=== PATIENT | male | born 1980 | race American Indian/Alaskan Native ===

== ENCOUNTER 2017-08-27 15:28 | Inpatient (IN) | payer OTHER ==
[2017-08-27] MEDS ORDERED: TYLENOL PO ONE ×2 (16:15→19:38)
[2017-08-27 16:39] LABS: Bilirubin,Urine NEG (Negative); Blood,Urine NEG (Negative); Color,Urine Amber (Yellow); Mucus,Urine FEW /HPF; Nitrite,Urine NEG (Negative)
[2017-08-27 17:10] LABS: Basophils % (Auto) 0.5 % (0.0-1.8); Hematocrit 47.9 % (35.5-45.6); Hemoglobin 16.2 gm/dl (11.8-15.2); Lymphocytes # (Auto) 1.2 K/mm3 (1.2-5.4); Lymphocytes % (Auto) 30.3 % (13.4-35.0); Mean Corpuscular HGB Conc 34 % (32-34); Mean Corpuscular Hemoglobin 29 pg (28-32); Mean Corpuscular Volume 87 fl (84-94); Monocytes # (Auto) 0.3 K/mm3 (0.0-0.8); Monocytes % (Auto) 8.4 % (0.0-7.3); Platelet Count 123 K/mm3 (140-440); Red Blood Count 5.53 M/mm3 (3.65-5.03); Red Cell Distribution Width 13.2 % (13.2-15.2)
[2017-08-27 17:49] LABS: BUN/Creatinine Ratio 13; Blood Urea Nitrogen 15 mg/dL (9-20); Calcium 8.7 mg/dL (8.4-10.2); Hemolysis Index 12
[2017-08-27] MEDS ORDERED: ZOFRAN ODT PO ONE (17:51)
[2017-08-27] MEDS ORDERED: ZOFRAN ODT ONE (17:54)
--- NOTE | 2017-08-27 19:28 | Emergency Department Report ---
ED Male HPI - General Chief complaint: Urogenital-Male Stated complaint: SICK Time Seen by Provider: 08/27/17 19:20 Source: patient, family Mode of arrival: Ambulatory Limitations: No Limitations - History of Present Illness Initial comments: Patient reports that he is having body aches, chills and nausea since Wednesday. He reports headache. Denies any shortness of breath or chest pain but reports coughing. Denies any abdominal pain. Denies any sore throat, denies any back pain. Denies any urinary frequency urgency or burning. Vrck-oyr-owrsazz cold and cough taken without any release. Body ache in an headache is 3 out of 10 and comes and goes. Patient states that he feels weak. MD Complaint: other (flulike symptoms) Onset/Timin -: days(s) Time: 21:23 (patient with body ache and headache) Radiation: none Severity: mild Severity scale (0 -10): 3 Quality: aching Consistency: intermittent Improves with: rest Worsens with: movement denies: discharge, swelling, mass, rash, urinary retention, blood in urine, dysuria, fever, nausea/vomiting, incontinence - Related Data Sexually active: Yes Allergies Allergy/AdvReac Type Severity Reaction Status Date / Time No Known Allergies Allergy Unverified 08/27/17 16:11 ED Review of Systems ROS: Stated complaint: SICK Other details as noted in HPI Comment: All other systems reviewed and negative Constitutional: chills, malaise ENT: congestion. denies: ear pain, throat pain, dental pain, epistaxis Respiratory: cough. denies: orthopnea, shortness of breath, SOB with exertion, SOB at rest, stridor, wheezing Cardiovascular: denies: chest pain, palpitations, dyspnea on exertion, orthopnea , edema, syncope, paroxysmal nocturnal dyspnea Gastrointestinal: nausea. denies: abdominal pain, vomiting, diarrhea, constipation, hematemesis, melena, hematochezia Genitourinary: denies: urgency, dysuria, frequency, hematuria, discharge, testicular pain, testicular mass Musculoskeletal: myalgia. denies: back pain, arthralgia Skin: denies: rash Neurological: headache, weakness. denies: numbness, paresthesias, confusion, abnormal gait, vertigo ED Past Medical Hx - Past Medical History Previous Medical History?: No - Surgical History Past Surgical History?: No - Family History Family history: no significant - Social History Smoking Status: Current Every Day Smoker Substance Use Type: Alcohol, Marijuana ED Physical Exam - General Limitations: No Limitations General appearance: alert, other (patient appears ill but nontoxic) - Head Head exam: Present: atraumatic, normocephalic, normal inspection - Eye Eye exam: Present: normal appearance, PERRL, EOMI. Absent: periorbital swelling , periorbital tenderness Pupils: Present: normal accommodation - ENT ENT exam: Present: normal exam, normal orophraynx, mucous membranes moist, other (the lateral nasal mucosa congested with erythema and clear drainage). Absent: TM's normal bilaterally (vaginal TM congested without any erythema) - Neck Neck exam: Present: normal inspection, full ROM, other (no C-spine tenderness). Absent: tenderness, meningismus, lymphadenopathy, thyromegaly - Respiratory Respiratory exam: Present: normal lung sounds bilaterally, chest wall tenderness. Absent: respiratory distress, wheezes, rales, rhonchi, stridor, accessory muscle use, decreased breath sounds, prolonged expiratory - Cardiovascular Cardiovascular Exam: Present: regular rate, normal rhythm, normal heart sounds. Absent: systolic murmur, diastolic murmur - GI/Abdominal GI/Abdominal exam: Present: soft, normal bowel sounds. Absent: distended, tenderness, guarding, rebound, rigid, organomegaly, mass, bruit, pulsatile mass - Extremities Exam Extremities exam: Present: normal inspection, full ROM, normal capillary refill , other (no clubbing, cyanosis or edema. +2 pulses to all extremities. No neurovascular compromise.). Absent: tenderness, pedal edema, joint swelling, calf tenderness - Back Exam Back exam: Present: normal inspection, full ROM, other (ambulates without any difficulties). Absent: tenderness, CVA tenderness (R), CVA tenderness (L), muscle spasm, paraspinal tenderness, vertebral tenderness, rash noted - Neurological Exam Neurological exam: Present: alert, oriented X3, normal gait, reflexes normal. Absent: motor sensory deficit - Psychiatric Psychiatric exam: Present: normal affect, normal mood - Skin Skin exam: Present: warm, dry, intact, normal color. Absent: rash ED Course Vital Signs 08/27/17 08/27/17 08/27/17 16:04 20:12 21:34 Temperature 103.0 F H Pulse Rate 90 84 Respiratory 20 20 20 Rate Blood Pressure 113/52 117/66 O2 Sat by Pulse 97 94 Oximetry 08/27/17 21:38 Temperature 100.3 F H Pulse Rate Respiratory Rate Blood Pressure O2 Sat by Pulse Oximetry Vital Signs 08/27/17 08/27/17 08/27/17 16:04 20:12 21:34 Temperature 103.0 F H Pulse Rate 90 84 Respiratory 20 20 20 Rate Blood Pressure 113/52 117/66 O2 Sat by Pulse 97 94 Oximetry 08/27/17 08/28/17 08/28/17 21:38 03:03 05:06 Temperature 100.3 F H 102.3 F H Pulse Rate 87 Respiratory 20 20 Rate Blood Pressure 111/55 O2 Sat by Pulse 91 Oximetry 08/28/17 08/28/17 05:07 06:20 Temperature 99.4 F Pulse Rate 80 Respiratory 20 18 Rate Blood Pressure 110/54 O2 Sat by Pulse 92 Oximetry - Reevaluation(s) Reevaluation #1: 08/27/17 20:32 Patient started on IV fluid normal saline 1 L and he received Zofran 4 mg IV . Tylenol 650 mg given. Patient is stable at present. Reevaluation #2: 08/27/17 21:[address] Murray regarding patient blood work and presentation and she wants patient to be admitted for observation. Patient had 1 L of IV fluid normal saline, CBC with platelets at 123, mild decrease in white count at 3.9, chemistries stable, urinalysis is normal. Blood cultures and urine cultures ordered. Patient chest x-ray reveals that he has left lower lobe infiltrates versus atelectasis. Pt updated on labs, x-ray and plan to admit. IV fluid normal saline at 125 mL per hour Reevaluation #3: 08/27/17 21:[address] Beckford who is a hospitalist and he will see an admitted patient. Patient vital signs are stable is afebrile ED Medical Decision Making - Lab Data Result diagrams: 08/27/17 17:00 08/27/17 17:00 Lab Results 08/27/17 08/27/17 08/27/17 Range/Units 16:27 17:00 17:00 WBC 3.9 L (4.5-11.0) K/mm3 RBC 5.53 H (3.65-5.03) M/mm3 Hgb 16.2 H (11.8-15.2) gm/dl Hct 47.9 H (35.5-45.6) % MCV 87 (84-94) fl MCH 29 (28-32) pg MCHC 34 (32-34) % RDW 13.2 (13.2-15.2) % Plt Count 123 L (140-440) K/mm3 Lymph % (Auto) 30.3 (13.4-35.0) % [place] % (Auto) 8.4 H (0.0-7.3) % Eos % (Auto) 0.0 (0.0-4.3) % Baso % (Auto) 0.5 (0.0-1.8) % Lymph # 1.2 (1.2-5.4) K/mm3 [place] # 0.3 (0.0-0.8) K/mm3 Eos # 0.0 (0.0-0.4) K/mm3 Baso # 0.0 (0.0-0.1) K/mm3 Seg Neutrophils % 60.8 (40.0-70.0) % Seg Neutrophils # 2.4 (1.8-7.7) K/mm3 Sodium 131 L (137-145) mmol/L Potassium 3.8 (3.6-5.0) mmol/L Chloride 94.1 L (98-107) mmol/L Carbon Dioxide 20 L (22-30) mmol/L Anion Gap 21 mmol/L BUN 15 (9-20) mg/dL Creatinine 1.2 (0.8-1.5) mg/dL Estimated GFR > 60 ml/min BUN/Creatinine Ratio 13 % Glucose 100 (75-100) mg/dL Calcium 8.7 (8.4-10.2) mg/dL Urine Color Fernanda (Yellow) Urine Turbidity Clear (Clear) Urine pH 6.0 (5.0-7.0) Ur Specific [place] 1.023 (1.003-1.030) Urine Protein 30 mg/dl (Negative) mg/dL Urine Glucose (UA) Neg (Negative) mg/dL Urine Ketones Neg (Negative) mg/dL Urine Blood Neg (Negative) Urine Nitrite Neg (Negative) Urine Bilirubin Neg (Negative) Urine Urobilinogen 4.0 (<2.0) mg/dL Ur Leukocyte Esterase Neg (Negative) Urine WBC (Auto) 6.0 (0.0-6.0) /HPF Urine RBC (Auto) 5.0 (0.0-6.0) /HPF U Epithel Cells (Auto) < 1.0 (0-13.0) /HPF Urine Mucus Few /HPF Urine culture pending Blood culture pending - Radiology Data Radiology results: report reviewed Chest x-ray reveals linear cheli and in the lung base on lateral view, probably in the lingula. Findings consistent with atelectasis versus infiltrates - Medical Decision Making ED course: Patient here complaining of flulike symptoms 5 days. Influenza A and B-, chest x-ray suggests then probably atelectasis versus infiltrates in the lower lung. CBC abnormal with platelet count of 123, chemistry with some abnormal values. Sodium is 131. Urinalysis is normal. Patient had blood cultures drawn and sent, urine culture pending. Patient said that he is not aware of having low platelet and he has not been told that in the past. Therefore this is probably due to viral syndrome. Patient was given IV fluid normal saline 1 L, Zofran 8 mg ODT in triage and an additional Zofran 4 mg IV. He was given Tylenol 975 mg by mouth in triage and additional Tylenol 650 mg by mouth in ED room. IV fluid normal saline infusing at 125 mL per hour. I discussed plans the patient along with chest x-ray, lab results and decision to admit and is in agreement. Awaiting results for lactic acid and CK. IV Levaquin 750 mg given after blood cultures drawn. Patient is stable and in no acute distress. Patient to start on Tamiflu. Critical care attestation.: If time is entered above; I have spent that time in minutes in the direct care of this critically ill patient, excluding procedure time. ED Disposition Clinical Impression: Viral syndrome, Fever and chills, Hyponatremia, Cough in adult, Thrombocytopenia Disposition: OP ADMIT IP TO THIS HOSP Is pt being admited?: Yes Does the pt Need Aspirin: No Condition: Stable
[2017-08-27] MEDS ORDERED: MOTRIN PO ONE (19:29)
[2017-08-27] MEDS ORDERED: NACL 0.9% 1000 ML 1,000 ML IV ONE ×2 (19:29→20:52)
[2017-08-27] MEDS ORDERED: ZOFRAN IV ONE (19:38)
--- NOTE | 2017-08-27 20:21 | XRay Report ---
FINAL REPORT EXAM: XR CHEST ROUTINE 2V HISTORY: cough fever TECHNIQUE: PA and lateral views of the chest PRIORS: None. FINDINGS: Lines, tubes, and devices: N/A Lungs and pleura: Trachea is normal in position. There are linear markings on the lateral view within the lung base which may represent atelectasis or early infiltrate. The location on the frontal film is uncertain possibly in the lingula. Lungs are otherwise clear of infiltrate, pleural effusion, vascular congestion, or pneumothorax. Cardiomediastinal silhouette: Cardiac and mediastinal silhouettes are unremarkable. Other: Bony structures are intact. IMPRESSION: Linear markings in the lung base on the lateral view, probably in the lingula. Findings are consistent with atelectasis versus early infiltrate.
[2017-08-27] MEDS ORDERED: LEVAQUIN 750MG/150ML 750 MG/150 ML BAG IV ONE (20:52)
[2017-08-27] MEDS: TAMIFLU PO SCH (21:50)
--- NOTE | 2017-08-28 | Event Note ---
Date: 08/27/17 See dictated H/p in reports SIRS Early Pneumonia Viral Syndrome Hyponatremia-mild Thrombocytopenia-mild
[2017-08-28] MEDS ORDERED: AMBIEN PO PRN (02:57)
[2017-08-28] MEDS ORDERED: DILAUDID IV PRN (02:57)
[2017-08-28] MEDS ORDERED: MILK OF MAGNESIA PO PRN (02:57)
[2017-08-28] MEDS ORDERED: DULCOLAX PR PRN (02:57)
[2017-08-28] MEDS ORDERED: MORPHINE IV PRN (02:57)
--- NOTE | 2017-08-28 03:48 | History and Physical Report ---
CHIEF COMPLAINT: Fever and chills since Wednesday, which is 5 days ago. HISTORY OF PRESENT ILLNESS: A 37-year-old -[place] male with no significant past medical history, comes in for fever and chills since Wednesday, which is 08/22/2017. Also, headaches. Also lower back and muscle pains. Some nausea present. The patient has been taking auen-ywt-dgriwci medications, but not helping. Body aches are about 8 on a scale of 1-10. No exacerbating or relieving factors. In summary, the patient has a low back pain and muscle pains in both lower extremities and also occasional headache. Fever and chills. Denies any sore throat. PAST MEDICAL HISTORY: No significant past medical history. PAST SURGICAL HISTORY: None. FAMILY HISTORY: No significant family history. SOCIAL HISTORY: Smokes over a pack a day every day. Alcohol occasionally and marijuana occasionally. REVIEW OF SYSTEMS: HEENT: No sore throat, no postnasal drip. CARDIOVASCULAR AND RESPIRATORY: No shortness of breath. No chest pain, no palpitations. Slight dry cough present. GASTROINTESTINAL: Some nausea or vomiting x 1 present. Otherwise, no GI symptoms. GENITOURINARY: No dysuria, no flank pain. MUSCULOSKELETAL: Generalized muscle aches all over the body, especially lower back and both lower extremities. CENTRAL NERVOUS SYSTEM: No syncope, no seizures, no altered sensorium. SKIN: No rashes. A 14-point review of systems done, otherwise negative. PHYSICAL EXAMINATION: GENERAL: Young male, cooperative during examination. VITAL SIGNS: Blood pressure is 113/52, temperature is 103.0, respiratory rate is 20, sats are 97%. HEENT: Unremarkable except for the tongue being slightly dry. NECK: Supple, no lymphadenopathy, no thyromegaly. LUNGS: Clear to auscultation and percussion. Good air entry. Scattered rales bilaterally. CARDIOVASCULAR: S1, S2 heard. No gallop, no murmur, no rub. Apical impulse in left fifth intercostal space and midclavicular line. ABDOMEN: Soft and benign. No hepatosplenomegaly. No guarding, no rigidity. Hernial orifices are normal. EXTREMITIES: Good pedal pulses. No pedal edema. SKIN: Normal. LABORATORY DATA: Significant for white count of 3900, H and H is 16.2 and 47.9, platelet count is 123,000, slightly low. CK is 740. Sodium is 131. Urinalysis is negative. Chest x-ray shows linear markings in the lung base on the lateral view probably in the lingula. Findings are consistent with atelectasis versus early infiltrate. ASSESSMENT AND PLAN: 1. Systemic inflammatory response syndrome. The patient qualifies for systemic inflammatory response syndrome. The patient had high fever and infiltrate on the chest x-ray. Also tachycardic. Lactic acid was negative. IV fluids and IV antibiotics for the time being. 2. Pneumonia early stage. The patient initiated on IV Levaquin and IV antibiotics. IV fluids. 3. Hyponatremia, mild. Should correct with IV normal saline. 4. Thrombocytopenia, mild, secondary to probably viral syndrome and suppression of bone marrow. 5. Viral syndrome. The patient initiated on Tamiflu 75 b.i.d. 6. Deep venous thrombosis prophylaxis, Lovenox 40 mg subcutaneous daily. Prognosis fair. In summary, the patient is getting IV fluids, Tamiflu, and Levaquin 750 q. 24 hours. JOB# [id number] VSM/NTS
[2017-08-28] MEDS: TYLENOL PO PRN ×2 (05:06→15:42)
[2017-08-28] MEDS: PERCOCET 5/325 PO PRN (05:07)
[2017-08-28] MEDS: TAMIFLU PO SCH ×3 (05:08→21:49)
[2017-08-28] MEDS: D5NS 1,000 ML IV SCH ×2 (05:09→18:47)
[2017-08-28 07:56] LABS: Basophils % (Auto) 0.4 % (0.0-1.8); Hematocrit 44.7 % (35.5-45.6); Hemoglobin 15.1 gm/dl (11.8-15.2); Lymphocytes # (Auto) 0.9 K/mm3 (1.2-5.4); Lymphocytes % (Auto) 28.5 % (13.4-35.0); Mean Corpuscular HGB Conc 34 % (32-34); Mean Corpuscular Hemoglobin 30 pg (28-32); Mean Corpuscular Volume 88 fl (84-94); Monocytes # (Auto) 0.2 K/mm3 (0.0-0.8); Monocytes % (Auto) 8.2 % (0.0-7.3); Platelet Count 104 K/mm3 (140-440); Red Blood Count 5.06 M/mm3 (3.65-5.03); Red Cell Distribution Width 13.3 % (13.2-15.2)
[2017-08-28 08:19] LABS: Alanine Aminotransferase 22 units/L (7-56); Albumin 3.6 g/dL (3.9-5); BUN/Creatinine Ratio 12; Blood Urea Nitrogen 13 mg/dL (9-20); Calcium 8.1 mg/dL (8.4-10.2); Hemolysis Index 3
[2017-08-28] MEDS: LEVAQUIN 750MG/150ML 750 MG/150 ML BAG IV SCH (10:26)
--- NOTE | 2017-08-28 15:24 | Progress Note ---
Assessment and Plan Assessment and plan: Patient is a 37-year-old man with a history of tobacco dependency who presented with body aches, fevers and chills with nausea 2v Chest x-ray reported as linear markings in the lung base on the lateral probably in the lingula consistent with atelectasis versus early infiltrate Rapid Influenza test negative Rapid strep negative Blood culture in progress -Sepsis Left Lingular pneumonia: follow cultures, ivf, iv abx -Suspected influenza: continue tamiflu, started isolation -Tobacco dependancy: advise to stopped History Interval history: Patient was seen and examined. Follow-up on current diagnosis arthralgias which are improved. Overnight uneventful. Patient denies any chest pain, shortness breath, nausea/vomiting or severe headaches. Imaging, nursing note, chart, labs and old chart reviewed. Discussed with patient. Patient has nonproductive cough. Patient states he feels slightly better today. Hospitalist Physical - Physical exam Narrative exam: GEN: WDWN, NAD, AWAKE, ALERT, ORIENTATED 3 HEENT: NCAT, EOMI, PERRL, OP Clear NECK: supple, no adenopathy, no thyromegaly, no JVD CVS/HEART: RRR, NORMAL S1S2, NO JVD, pulses present bilaterally CHEST/LUNGS: CTA B, Symmetrical chest expansion, good air entry bilaterally GI/Abdomen: soft, NTND, good bowel sounds, no guarding or rebound /Bladder: no suprapubic tenderness, no CVA or paraspinal tenderness EXT/Skin: no c/c/e, no obvious rash MSK: FROM x 4 Neuro: CN 2-12 grossly intact, no new focal deficits Psych: calm - Constitutional Vitals: Temp Pulse Resp BP Pulse Ox 99.2 F 76 20 110/64 95 08/28/17 08:07 08/28/17 08:07 08/28/17 08:07 08/28/17 08:07 08/28/17 08:07 Results - Labs CBC & Chem 7: 08/28/17 07:48 08/28/17 07:48 Labs: Laboratory Last Values WBC 3.0 K/mm3 (4.5-11.0) L 08/28/17 07:48 RBC 5.06 M/mm3 (3.65-5.03) H 08/28/17 07:48 Hgb 15.1 gm/dl (11.8-15.2) 08/28/17 07:48 Hct 44.7 % (35.5-45.6) 08/28/17 07:48 MCV 88 fl (84-94) 08/28/17 07:48 MCH 30 pg (28-32) 08/28/17 07:48 MCHC 34 % (32-34) 08/28/17 07:48 RDW 13.3 % (13.2-15.2) 08/28/17 07:48 Plt Count 104 K/mm3 (140-440) L 08/28/17 07:48 Lymph % (Auto) 28.5 % (13.4-35.0) 08/28/17 07:48 Bertie % (Auto) 8.2 % (0.0-7.3) H 08/28/17 07:48 Eos % (Auto) 0.0 % (0.0-4.3) 08/28/17 07:48 Baso % (Auto) 0.4 % (0.0-1.8) 08/28/17 07:48 Lymph # 0.9 K/mm3 (1.2-5.4) L 08/28/17 07:48 Bertie # 0.2 K/mm3 (0.0-0.8) 08/28/17 07:48 Eos # 0.0 K/mm3 (0.0-0.4) 08/28/17 07:48 Baso # 0.0 K/mm3 (0.0-0.1) 08/28/17 07:48 Seg Neutrophils % 62.9 % (40.0-70.0) 08/28/17 07:48 Seg Neutrophils # 1.9 K/mm3 (1.8-7.7) 08/28/17 07:48 Sodium 135 mmol/L (137-145) L 08/28/17 07:48 Potassium 3.7 mmol/L (3.6-5.0) 08/28/17 07:48 Chloride 98.7 mmol/L (98-107) 08/28/17 07:48 Carbon Dioxide 22 mmol/L (22-30) 08/28/17 07:48 Anion Gap 18 mmol/L 08/28/17 07:48 BUN 13 mg/dL (9-20) 08/28/17 07:48 Creatinine 1.1 mg/dL (0.8-1.5) 08/28/17 07:48 Estimated GFR > 60 ml/min 08/28/17 07:48 BUN/Creatinine Ratio 12 % 08/28/17 07:48 Glucose 119 mg/dL (75-100) H 08/28/17 07:48 Lactic Acid 0.60 mmol/L (0.7-2.0) L 08/27/17 21:05 Calcium 8.1 mg/dL (8.4-10.2) L 08/28/17 07:48 Total Bilirubin 0.30 mg/dL (0.1-1.2) 08/28/17 07:48 AST 55 units/L (5-40) H 08/28/17 07:48 ALT 22 units/L (7-56) 08/28/17 07:48 Alkaline Phosphatase 40 units/L (35-129) 08/28/17 07:48 Total Creatine Kinase 740 units/L (55-170) H 08/27/17 21:05 Total Protein 6.9 g/dL (6.3-8.2) 08/28/17 07:48 Albumin 3.6 g/dL (3.9-5) L 08/28/17 07:48 Albumin/Globulin Ratio 1.1 % 08/28/17 07:48 Urine Color Fernanda (Yellow) 08/27/17 16:27 Urine Turbidity Clear (Clear) 08/27/17 16:27 Urine pH 6.0 (5.0-7.0) 08/27/17 16:27 Ur Specific [place] 1.023 (1.003-1.030) 08/27/17 16:27 Urine Protein 30 mg/dl mg/dL (Negative) 08/27/17 16:27 Urine Glucose (UA) Neg mg/dL (Negative) 08/27/17 16:27 Urine Ketones Neg mg/dL (Negative) 08/27/17 16:27 Urine Blood Neg (Negative) 08/27/17 16:27 Urine Nitrite Neg (Negative) 08/27/17 16:27 Urine Bilirubin Neg (Negative) 08/27/17 16:27 Urine Urobilinogen 4.0 mg/dL (<2.0) 08/27/17 16:27 Ur Leukocyte Esterase Neg (Negative) 08/27/17 16:27 Urine WBC (Auto) 6.0 /HPF (0.0-6.0) 08/27/17 16:27 Urine RBC (Auto) 5.0 /HPF (0.0-6.0) 08/27/17 16:27 U Epithel Cells (Auto) < 1.0 /HPF (0-13.0) 08/27/17 16:27 Urine Mucus Few /HPF 08/27/17 16:27
[2017-08-28] MEDS: MOTRIN PO PRN (18:56)
[2017-08-29] MEDS: MOTRIN PO PRN ×2 (04:19→17:36)
[2017-08-29] MEDS: TYLENOL PO PRN ×2 (06:33→15:30)
[2017-08-29] MEDS: D5NS 1,000 ML IV SCH ×2 (06:48→17:24)
[2017-08-29 07:49] LABS: Basophils % (Auto) 0.3 % (0.0-1.8); Hematocrit 45.8 % (35.5-45.6); Hemoglobin 15.4 gm/dl (11.8-15.2); Lymphocytes # (Auto) 1.1 K/mm3 (1.2-5.4); Lymphocytes % (Auto) 25.5 % (13.4-35.0); Mean Corpuscular HGB Conc 34 % (32-34); Mean Corpuscular Hemoglobin 30 pg (28-32); Mean Corpuscular Volume 89 fl (84-94); Monocytes # (Auto) 0.3 K/mm3 (0.0-0.8); Monocytes % (Auto) 6.7 % (0.0-7.3); Red Blood Count 5.14 M/mm3 (3.65-5.03); Red Cell Distribution Width 13.4 % (13.2-15.2)
[2017-08-29 08:00] LABS: Platelet Count 97 K/mm3 (140-440)
[2017-08-29 08:11] LABS: BUN/Creatinine Ratio 9; Blood Urea Nitrogen 9 mg/dL (9-20); Calcium 8.3 mg/dL (8.4-10.2); Hemolysis Index 5
[2017-08-29] MEDS: LEVAQUIN 750MG/150ML 750 MG/150 ML BAG IV SCH (10:52)
[2017-08-29] MEDS: TAMIFLU PO SCH ×2 (10:52→22:55)
[2017-08-29] MEDS: ZOFRAN IV PRN (13:00)
--- NOTE | 2017-08-29 14:53 | Progress Note ---
Assessment and Plan Assessment and plan: Patient is a 37-year-old man with a history of tobacco dependency who presented with body aches, fevers and chills with nausea 2v Chest x-ray reported as linear markings in the lung base on the lateral probably in the lingula consistent with atelectasis versus early infiltrate Rapid Influenza test negative Rapid strep negative Blood culture in progress -Sepsis Left Lingular pneumonia: follow cultures, ivf, iv abx -Suspected influenza: continue tamiflu, started isolation -Tobacco dependancy: advise to stopped History Interval history: Patient was seen and examined. Follow-up on current diagnosis arthralgias which are improved. Overnight febrile. Patient denies any chest pain, shortness breath, nausea/vomiting or severe headaches. Imaging, nursing note, chart, labs and old chart reviewed. Discussed with patient. Patient has nonproductive cough. Patient states he feels slightly better today. Hospitalist Physical - Physical exam Narrative exam: GEN: WDWN, NAD, AWAKE, ALERT, ORIENTATED 3 HEENT: NCAT, EOMI, PERRL, OP Clear NECK: supple, no adenopathy, no thyromegaly, no JVD CVS/HEART: RRR, NORMAL S1S2, NO JVD, pulses present bilaterally CHEST/LUNGS: CTA B, Symmetrical chest expansion, good air entry bilaterally GI/Abdomen: soft, NTND, good bowel sounds, no guarding or rebound /Bladder: no suprapubic tenderness, no CVA or paraspinal tenderness EXT/Skin: no c/c/e, no obvious rash MSK: FROM x 4 Neuro: CN 2-12 grossly intact, no new focal deficits Psych: calm - Constitutional Vitals: Temp Pulse Resp BP Pulse Ox 99.1 F 76 16 114/64 97 08/29/17 08:10 08/29/17 08:10 08/29/17 10:00 08/29/17 08:10 08/29/17 08:10 Results - Labs CBC & Chem 7: 08/29/17 06:21 08/29/17 06:21 Labs: Laboratory Last Values WBC 4.2 K/mm3 (4.5-11.0) L 08/29/17 06:21 RBC 5.14 M/mm3 (3.65-5.03) H 08/29/17 06:21 Hgb 15.4 gm/dl (11.8-15.2) H 08/29/17 06:21 Hct 45.8 % (35.5-45.6) H 08/29/17 06:21 MCV 89 fl (84-94) 08/29/17 06:21 MCH 30 pg (28-32) 08/29/17 06:21 MCHC 34 % (32-34) 08/29/17 06:21 RDW 13.4 % (13.2-15.2) 08/29/17 06:21 Plt Count 97 K/mm3 (140-440) L 08/29/17 06:21 Lymph % (Auto) 25.5 % (13.4-35.0) 08/29/17 06:21 [place] % (Auto) 6.7 % (0.0-7.3) 08/29/17 06:21 Eos % (Auto) 0.0 % (0.0-4.3) 08/29/17 06:21 Baso % (Auto) 0.3 % (0.0-1.8) 08/29/17 06:21 Lymph # 1.1 K/mm3 (1.2-5.4) L 08/29/17 06:21 [place] # 0.3 K/mm3 (0.0-0.8) 08/29/17 06:21 Eos # 0.0 K/mm3 (0.0-0.4) 08/29/17 06:21 Baso # 0.0 K/mm3 (0.0-0.1) 08/29/17 06:21 Seg Neutrophils % 67.5 % (40.0-70.0) 08/29/17 06:21 Seg Neutrophils # 2.8 K/mm3 (1.8-7.7) 08/29/17 06:21 Sodium 137 mmol/L (137-145) 08/29/17 06:21 Potassium 3.7 mmol/L (3.6-5.0) 08/29/17 06:21 Chloride 102.5 mmol/L (98-107) 08/29/17 06:21 Carbon Dioxide 22 mmol/L (22-30) 08/29/17 06:21 Anion Gap 16 mmol/L 08/29/17 06:21 BUN 9 mg/dL (9-20) 08/29/17 06:21 Creatinine 1.0 mg/dL (0.8-1.5) 08/29/17 06:21 Estimated GFR > 60 ml/min 08/29/17 06:21 BUN/Creatinine Ratio 9 % 08/29/17 06:21 Glucose 103 mg/dL (75-100) H 08/29/17 06:21 Lactic Acid 0.60 mmol/L (0.7-2.0) L 08/27/17 21:05 Calcium 8.3 mg/dL (8.4-10.2) L 08/29/17 06:21 Total Bilirubin 0.30 mg/dL (0.1-1.2) 08/28/17 07:48 AST 55 units/L (5-40) H 08/28/17 07:48 ALT 22 units/L (7-56) 08/28/17 07:48 Alkaline Phosphatase 40 units/L (35-129) 08/28/17 07:48 Total Creatine Kinase 740 units/L (55-170) H 08/27/17 21:05 Total Protein 6.9 g/dL (6.3-8.2) 08/28/17 07:48 Albumin 3.6 g/dL (3.9-5) L 08/28/17 07:48 Albumin/Globulin Ratio 1.1 % 08/28/17 07:48 Urine Color [place]anda (Yellow) 08/27/17 16:27 Urine Turbidity Clear (Clear) 08/27/17 16:27 Urine pH 6.0 (5.0-7.0) 08/27/17 16:27 Ur Specific [place] 1.023 (1.003-1.030) 08/27/17 16:27 Urine Protein 30 mg/dl mg/dL (Negative) 08/27/17 16:27 Urine Glucose (UA) Neg mg/dL (Negative) 08/27/17 16:27 Urine Ketones Neg mg/dL (Negative) 08/27/17 16:27 Urine Blood Neg (Negative) 08/27/17 16:27 Urine Nitrite Neg (Negative) 08/27/17 16:27 Urine Bilirubin Neg (Negative) 08/27/17 16:27 Urine Urobilinogen 4.0 mg/dL (<2.0) 08/27/17 16:27 Ur Leukocyte Esterase Neg (Negative) 08/27/17 16:27 Urine WBC (Auto) 6.0 /HPF (0.0-6.0) 08/27/17 16:27 Urine RBC (Auto) 5.0 /HPF (0.0-6.0) 08/27/17 16:27 U Epithel Cells (Auto) < 1.0 /HPF (0-13.0) 08/27/17 16:27 Urine Mucus Few /HPF 08/27/17 16:27
[2017-08-29] MEDS: PERCOCET 5/325 PO PRN (23:20)
[2017-08-30] MEDS: TYLENOL PO PRN ×2 (05:51→10:20)
[2017-08-30] MEDS: D5NS 1,000 ML IV SCH (07:52)
[2017-08-30] MEDS: LEVAQUIN 750MG/150ML 750 MG/150 ML BAG IV SCH (10:21)
[2017-08-30] MEDS: TAMIFLU PO SCH ×2 (10:22→23:56)
[2017-08-30] MEDS: PERCOCET 5/325 PO PRN (13:14)
--- NOTE | 2017-08-30 14:12 | Progress Note ---
Assessment and Plan Assessment and plan: Patient is a 37-year-old man with a history of tobacco dependency who presented with body aches, fevers and chills with nausea 2v Chest x-ray reported as linear markings in the lung base on the lateral probably in the lingula consistent with atelectasis versus early infiltrate Rapid Influenza test negative Rapid strep negative Blood culture in progress, negative so far -Sepsis Left Lingular pneumonia: follow cultures, continue abx, on levaquin and tamiflu -Suspected influenza: continue tamiflu, started isolation -Tobacco dependancy: advise to stopped -DVT prophylaxis: start sq lovenox -Hyponatremia, dehydration resolved with IVF treatment -Leukopenia: check HIV, monitor wbc closely 08/30/17: still with high fevers despite consulted ID, ordered CT abd/pelvis/ chest History Interval history: Patient was seen and examined. Follow-up on current diagnosis arthralgias which are improved. Overnight febrile. Patient denies any chest pain, shortness breath, nausea/vomiting or severe headaches. Imaging, nursing note, chart, labs and old chart reviewed. Discussed with patient. Patient has nonproductive cough. Hospitalist Physical - Physical exam Narrative exam: GEN: ill appearing, NAD, AWAKE, ALERT, ORIENTATED 3 HEENT: NCAT, EOMI, PERRL, OP Clear NECK: supple, no adenopathy, no thyromegaly, no JVD CVS/HEART: RRR, NORMAL S1S2, NO JVD, pulses present bilaterally CHEST/LUNGS: coarse left bs, Symmetrical chest expansion, good air entry bilaterally GI/Abdomen: soft, NTND, good bowel sounds, no guarding or rebound /Bladder: no suprapubic tenderness, no CVA or paraspinal tenderness EXT/Skin: no c/c/e, no obvious rash MSK: FROM x 4 Neuro: CN 2-12 grossly intact, no new focal deficits Psych: calm - Constitutional Vitals: Temp Pulse Resp BP Pulse Ox 102.5 F H 82 20 104/54 92 08/30/17 08:01 08/30/17 08:01 08/30/17 08:01 08/30/17 08:01 08/30/17 08:01 Results - Labs CBC & Chem 7: 08/29/17 06:21 08/29/17 06:21 Labs: Laboratory Last Values WBC 4.2 K/mm3 (4.5-11.0) L 08/29/17 06:21 RBC 5.14 M/mm3 (3.65-5.03) H 08/29/17 06:21 Hgb 15.4 gm/dl (11.8-15.2) H 08/29/17 06:21 Hct 45.8 % (35.5-45.6) H 08/29/17 06:21 MCV 89 fl (84-94) 08/29/17 06:21 MCH 30 pg (28-32) 08/29/17 06:21 MCHC 34 % (32-34) 08/29/17 06:21 RDW 13.4 % (13.2-15.2) 08/29/17 06:21 Plt Count 97 K/mm3 (140-440) L 08/29/17 06:21 Lymph % (Auto) 25.5 % (13.4-35.0) 08/29/17 06:21 [place] % (Auto) 6.7 % (0.0-7.3) 08/29/17 06:21 Eos % (Auto) 0.0 % (0.0-4.3) 08/29/17 06:21 Baso % (Auto) 0.3 % (0.0-1.8) 08/29/17 06:21 Lymph # 1.1 K/mm3 (1.2-5.4) L 08/29/17 06:21 [place] # 0.3 K/mm3 (0.0-0.8) 08/29/17 06:21 Eos # 0.0 K/mm3 (0.0-0.4) 08/29/17 06:21 Baso # 0.0 K/mm3 (0.0-0.1) 08/29/17 06:21 Seg Neutrophils % 67.5 % (40.0-70.0) 08/29/17 06:21 Seg Neutrophils # 2.8 K/mm3 (1.8-7.7) 08/29/17 06:21 Sodium 137 mmol/L (137-145) 08/29/17 06:21 Potassium 3.7 mmol/L (3.6-5.0) 08/29/17 06:21 Chloride 102.5 mmol/L (98-107) 08/29/17 06:21 Carbon Dioxide 22 mmol/L (22-30) 08/29/17 06:21 Anion Gap 16 mmol/L 08/29/17 06:21 BUN 9 mg/dL (9-20) 08/29/17 06:21 Creatinine 1.0 mg/dL (0.8-1.5) 08/29/17 06:21 Estimated GFR > 60 ml/min 08/29/17 06:21 BUN/Creatinine Ratio 9 % 08/29/17 06:21 Glucose 103 mg/dL (75-100) H 08/29/17 06:21 Lactic Acid 0.60 mmol/L (0.7-2.0) L 08/27/17 21:05 Calcium 8.3 mg/dL (8.4-10.2) L 08/29/17 06:21 Total Bilirubin 0.30 mg/dL (0.1-1.2) 08/28/17 07:48 AST 55 units/L (5-40) H 08/28/17 07:48 ALT 22 units/L (7-56) 08/28/17 07:48 Alkaline Phosphatase 40 units/L (35-129) 08/28/17 07:48 Total Creatine Kinase 740 units/L (55-170) H 08/27/17 21:05 Total Protein 6.9 g/dL (6.3-8.2) 08/28/17 07:48 Albumin 3.6 g/dL (3.9-5) L 08/28/17 07:48 Albumin/Globulin Ratio 1.1 % 08/28/17 07:48 Urine Color [place] (Yellow) 08/27/17 16:27 Urine Turbidity Clear (Clear) 08/27/17 16:27 Urine pH 6.0 (5.0-7.0) 08/27/17 16:27 Ur Specific [place] 1.023 (1.003-1.030) 08/27/17 16:27 Urine Protein 30 mg/dl mg/dL (Negative) 08/27/17 16:27 Urine Glucose (UA) Neg mg/dL (Negative) 08/27/17 16:27 Urine Ketones Neg mg/dL (Negative) 08/27/17 16:27 Urine Blood Neg (Negative) 08/27/17 16:27 Urine Nitrite Neg (Negative) 08/27/17 16:27 Urine Bilirubin Neg (Negative) 08/27/17 16:27 Urine Urobilinogen 4.0 mg/dL (<2.0) 08/27/17 16:27 Ur Leukocyte Esterase Neg (Negative) 08/27/17 16:27 Urine WBC (Auto) 6.0 /HPF (0.0-6.0) 08/27/17 16:27 Urine RBC (Auto) 5.0 /HPF (0.0-6.0) 08/27/17 16:27 U Epithel Cells (Auto) < 1.0 /HPF (0-13.0) 08/27/17 16:27 Urine Mucus Few /HPF 08/27/17 16:27
[2017-08-30] MEDS ORDERED: VANCOMYCIN PHARMACY TO DOSE IV SCH (15:00)
--- NOTE | 2017-08-30 15:46 | Cat Scan Report ---
CT CHEST WITHOUT CONTRAST: HISTORY: Sepsis. COMPARISON: none. TECHNIQUE: Helical CT in 1.25mm intervals without IV contrast. Sagittal and coronal reformatted images. FINDINGS: Thyroid gland: Normal. Tracheobronchial tree: Normal. Esophagus: Normal. Heart: Normal. Pericardium: Normal. Mediastinum: Normal. Lung [place]: There is mild groundglass infiltration in both upper lobes. The etiology of this is unclear. This could represent air trapping or early infection. There is no evidence for consolidation or mass. Pleural Spaces: Normal. Musculoskeletal: Normal. IMPRESSION: Subtle groundglass infiltrates in both upper lobes as outlined above.
--- NOTE | 2017-08-30 15:47 | Cat Scan Report ---
CT ABDOMEN PELVIS WITHOUT CONTRAST: HISTORY: abdominal pain. COMPARISON: none. TECHNIQUE: Helical CT in 1.25mm intervals without IV contrast. Sagittal and coronal reconstructions. FINDINGS: Lung bases: Normal. Liver: Normal. Biliary system: Normal. Pancreas: Normal. Spleen: Normal. Kidneys/ureters/bladder: Normal. Adrenal glands: Normal. Aorta: Normal. Intestines: Normal. Appendix: Normal. Pelvic viscera: Normal. Ascites: None. Adenopathy: None. Musculoskeletal: Normal. IMPRESSION: Unremarkable CT scan of the abdomen and pelvis without contrast.
--- NOTE | 2017-08-30 15:52 | Consultation ---
History of Present Illness - Reason for Consult Consult date: 08/30/17 fever Requesting physician: GABE LORENZ - History of Present Illness 37 years old male with history of admitted on 08/27/2017 due to arthritic history of severe lower back pain, body aches, mild headaches, sore throat, cough with yellowish sputum production. Sputum sometimes blood-tinged. Patient did not have the flu shot this season. Patient is sexually active 10 partners in last 12 months. He does not use condoms consistently. He smokes a pack a day and drinks alcohol frequently. In the emergency room, initial temperature was 103, heart rate 90, respiration 20, O2 sat 97, blood pressure 113/52. Initial white count 3.9. Hemoglobin 10.2. Plat 123. Urinalysis was negative. AST 55. Chest x-ray showing a possible early infiltrate at the lingula. CT chest showed groundglass opacification in both upper lobes. Microbiology: Blood cultures: 08/27 ngtd Throat GAS: neg Respiratory cultures: Current Antimicrobials: Tamiflu 08/27 Levaquin 08/28 Previous Antimicrobials: Past History Past Medical History: No medical history Past Surgical History: No surgical history Social history: single, Lives alone, smoking, alcohol abuse Family history: no significant family history Medications and Allergies Allergies Allergy/AdvReac Type Severity Reaction Status Date / Time No Known Allergies Allergy Unverified 08/27/17 16:11 Active Meds: Active Medications Acetaminophen (Tylenol) 650 mg PO Q4H PRN PRN Reason: Pain MILD(1-3)/Fever >100.5/PALM Last Admin: 08/30/17 10:20 Dose: 650 mg Bisacodyl (Dulcolax) 10 mg [place] QDAY PRN PRN Reason: Constipation unrelieved by MOM Enoxaparin Sodium (Lovenox) 40 mg SUB-Q QDAY@1000 CHRISS Hydromorphone HCl (Dilaudid) 0.5 mg IV Q3H PRN PRN Reason: Pain , Severe (7-10) Levofloxacin/Dextrose (Levaquin 750mg/150ml) 750 mg in 150 mls @ 100 mls/hr IV Q24HR CHRISS PRN Reason: Protocol Last Admin: 08/30/17 10:21 Dose: 100 mls/hr Magnesium Hydroxide (Milk Of Magnesia) 30 ml PO Q4H PRN PRN Reason: Constipation Last Admin: 08/30/17 13:14 Dose: 30 ml Morphine Sulfate (Morphine) 2 mg IV Q4H PRN PRN Reason: Pain, Moderate (4-6) Ondansetron HCl (Zofran) 4 mg IV Q8H PRN PRN Reason: N/V unrelieved by Reglan Last Admin: 08/29/17 13:00 Dose: 4 mg Oseltamivir Phosphate (Tamiflu) 75 mg PO BID CHRISS Stop: 08/31/17 22:01 Last Admin: 08/30/17 10:22 Dose: 75 mg Oxycodone/Acetaminophen (Percocet 5/325) 1 tab PO Q6H PRN PRN Reason: Pain, Moderate (4-6) Last Admin: 08/30/17 13:14 Dose: 1 tab Zolpidem Tartrate (Ambien) 5 mg PO QHS PRN PRN Reason: Insomnia Review of Systems All systems: negative (as per HPI rest 10 point ROCS neg) Physical Examination - Physical Exam Narrative exam: General appearance: Alert in NAD, conversant Eyes: anicteric sclerae, moist conjunctivae; no lid-lag; PERRLA HENT: Atraumatic; oropharynx clear Neck: Trachea midline; supple, no thyromegaly or lymphadenopathy Lungs: willow scattered rhonchi CV: RRR, no murmurs Abdomen: Soft, non-tender; no masses or hepatosplenomegaly Extremities: No peripheral edema or extremity lymphadenopathy Skin: Normal temperature, turgor and texture; no rash, ulcers or subcutaneous nodules Psych: Appropriate affect, alert and oriented to person, place and time. Neuro: alert and oriented x 3. Moving all extermities Lines: No CVL / PICC - Constitutional Vitals: Vital Signs Temp Pulse Resp BP Pulse Ox 102.5 F H 82 20 104/54 92 08/30/17 08:01 08/30/17 08:01 08/30/17 08:01 08/30/17 08:01 08/30/17 08:01 Temperature -Last 24 Hours Temperature 102.5 F Temperature 102.8 F Temperature 99.1 F Temperature 98.2 F Temperature 102.9 F Results - Labs CBC & Chem 7: 08/29/17 06:21 08/29/17 06:21 Assessment and Plan Assessment: 1) Sepsis: Present on admission, manifested by fever, tachycardia. Etiology most likely presumed pneumonia +/- influenza. DDx PJP. 2) Presumed bilateral pneumonia: likely Influenza pneumonia +/- CAP +/- less likely PJP 3) Neutropenia, anemia and thrmobocytopenia - from viral syndrome 4) High risk sexual encounters Plan: -follow-up blood cultures -obtain respiratory cultures, procalcitonin, C-reactive protein (CRP) -check influenza antigen PCR in nasopharinx -check Legionella urine antigen, Streptococcus pneumoniae urine antigen -check HIV, VL -continue levaquin and tamiflu -add ceftriaxone -start bactrim DS to cover PJP until HIV is r/o Thank you Dr Lorenz for your consultation, will follow up with you. Maricarmen Houston MD Infectious Diseases Specialist [facility] ([facility] M [phone] O [phone]
[2017-08-30] MEDS ORDERED: ROCEPHIN/NS 2 GM/100 ML 2 GM/100 ML BAG IV SCH (17:00)
[2017-08-30] MEDS: cefTRIAXone 2 GM in NACL 0.9% 20 ML IV SCH (18:30)
[2017-08-30] MEDS: BACTRIM DS PO SCH ×2 (18:30→23:56)
[2017-08-30] MEDS ORDERED: LOVENOX SUB-Q SCH (22:00)
[2017-08-31] MEDS: BACTRIM DS PO SCH (07:01)
--- NOTE | 2017-08-31 10:13 | Progress Note ---
Assessment and Plan Assessment: 1) Sepsis: still high fever. Etiology most likely presumed pneumonia +/- influenza. CRP=3.6 2) Presumed bilateral pneumonia: likely Influenza pneumonia +/- CAP -HIV neg. -Influenza Antigen neg 3) Neutropenia, anemia and thrmobocytopenia - from viral syndrome 4) High risk sexual encounters-HIV non reactive Plan: -obtain respiratory cultures -f/u procalcitonin -check influenza antigen PCR in nasopharinx - pending - sent out -f/u Legionella urine antigen, Streptococcus pneumoniae urine antigen -f/u VL -continue levaquin, tamiflu and ceftriaxone -stop bactrim DS to cover PJP in view of HIV neg Thank you Dr Lorenz for your consultation, will follow up with you. Maricarmen Houston MD Infectious Diseases Specialist [facility] ([facility] M [phone] O [phone] Subjective Date of service: 08/31/17 Interval history: Feels some better, still cough, still high fever 102.9 Microbiology: Blood cultures: 08/27 ngtd Throat GAS: neg Respiratory cultures: Current Antimicrobials: Tamiflu 08/27 Levaquin 08/28 Previous Antimicrobials: Objective - Constitutional Vitals: Vital Signs Temp Pulse Resp BP Pulse Ox 100.3 F H 77 18 111/59 96 08/31/17 08:16 08/31/17 08:16 08/31/17 08:16 08/31/17 08:16 08/31/17 08:16 Temperature -Last 24 Hours Temperature 100.3 F Temperature 102.9 F - Labs CBC & Chem 7: 08/29/17 06:21 08/29/17 06:21 Labs: Abnormal lab results 08/30/17 Range/Units 20:05 C-Reactive Protein 3.60 H (0.00-1.30) mg/dL
[2017-08-31] MEDS: LEVAQUIN 750MG/150ML 750 MG/150 ML BAG IV SCH (10:31)
[2017-08-31] MEDS: LOVENOX SUB-Q SCH (10:32)
[2017-08-31] MEDS: TAMIFLU PO SCH ×2 (10:32→22:25)
--- NOTE | 2017-08-31 11:50 | Progress Note ---
Assessment and Plan Assessment and plan: Patient is a 37-year-old man with a history of tobacco dependency who presented with body aches, fevers and chills with nausea 2v Chest x-ray reported as linear markings in the lung base on the lateral probably in the lingula consistent with atelectasis versus early infiltrate Rapid Influenza test negative Rapid strep negative Blood culture in progress, negative so far -Sepsis Left Lingular pneumonia: follow cultures, continue abx, on levaquin and tamiflu -Suspected influenza: continue tamiflu, started isolation, pcr pending, ID is following -Tobacco dependancy: advise to stopped -DVT prophylaxis: start sq lovenox -Hyponatremia, dehydration resolved with IVF treatment -Leukopenia: checked HIV==>negative, monitor wbc closely 08/30/17: still with high fevers despite consulted ID, ordered CT abd/pelvis/ chest 08/31/17: Still with fevers, HIV negative, CT abd/pelvis reported as NAF, CT chest w/o contrast reported as subtle ground glass infiltrate in both upper lobes of the lung. ID is following, adjusted ABX History Interval history: Patient was seen and examined. Follow-up on current diagnosis of myalgia which are improved. Overnight febrile. Patient denies any chest pain, shortness breath, nausea/vomiting or severe headaches. Imaging, nursing note, chart, labs and old chart reviewed. Discussed with patient. Patient still has nonproductive cough. Hospitalist Physical - Physical exam Narrative exam: GEN: ill appearing, NAD, AWAKE, ALERT, ORIENTATED 3 HEENT: NCAT, EOMI, PERRL, OP Clear NECK: supple, no adenopathy, no thyromegaly, no JVD CVS/HEART: RRR, NORMAL S1S2, NO JVD, pulses present bilaterally CHEST/LUNGS: coarse left bs, Symmetrical chest expansion, good air entry bilaterally GI/Abdomen: soft, NTND, good bowel sounds, no guarding or rebound /Bladder: no suprapubic tenderness, no CVA or paraspinal tenderness EXT/Skin: no c/c/e, no obvious rash MSK: FROM x 4 Neuro: CN 2-12 grossly intact, no new focal deficits Psych: calm - Constitutional Vitals: Temp Pulse Resp BP Pulse Ox 100.3 F H 77 18 111/59 96 08/31/17 08:16 08/31/17 08:16 08/31/17 08:16 08/31/17 08:16 08/31/17 08:16 Results - Labs CBC & Chem 7: 08/29/17 06:21 08/29/17 06:21 Labs: Laboratory Last Values WBC 4.2 K/mm3 (4.5-11.0) L 08/29/17 06:21 RBC 5.14 M/mm3 (3.65-5.03) H 08/29/17 06:21 Hgb 15.4 gm/dl (11.8-15.2) H 08/29/17 06:21 Hct 45.8 % (35.5-45.6) H 08/29/17 06:21 MCV 89 fl (84-94) 08/29/17 06:21 MCH 30 pg (28-32) 08/29/17 06:21 MCHC 34 % (32-34) 08/29/17 06:21 RDW 13.4 % (13.2-15.2) 08/29/17 06:21 Plt Count 97 K/mm3 (140-440) L 08/29/17 06:21 Lymph % (Auto) 25.5 % (13.4-35.0) 08/29/17 06:21 [place] % (Auto) 6.7 % (0.0-7.3) 08/29/17 06:21 Eos % (Auto) 0.0 % (0.0-4.3) 08/29/17 06:21 Baso % (Auto) 0.3 % (0.0-1.8) 08/29/17 06:21 Lymph # 1.1 K/mm3 (1.2-5.4) L 08/29/17 06:21 [place] # 0.3 K/mm3 (0.0-0.8) 08/29/17 06:21 Eos # 0.0 K/mm3 (0.0-0.4) 08/29/17 06:21 Baso # 0.0 K/mm3 (0.0-0.1) 08/29/17 06:21 Seg Neutrophils % 67.5 % (40.0-70.0) 08/29/17 06:21 Seg Neutrophils # 2.8 K/mm3 (1.8-7.7) 08/29/17 06:21 Sodium 137 mmol/L (137-145) 08/29/17 06:21 Potassium 3.7 mmol/L (3.6-5.0) 08/29/17 06:21 Chloride 102.5 mmol/L (98-107) 08/29/17 06:21 Carbon Dioxide 22 mmol/L (22-30) 08/29/17 06:21 Anion Gap 16 mmol/L 08/29/17 06:21 BUN 9 mg/dL (9-20) 08/29/17 06:21 Creatinine 1.0 mg/dL (0.8-1.5) 08/29/17 06:21 Estimated GFR > 60 ml/min 08/29/17 06:21 BUN/Creatinine Ratio 9 % 08/29/17 06:21 Glucose 103 mg/dL (75-100) H 08/29/17 06:21 Lactic Acid 0.60 mmol/L (0.7-2.0) L 08/27/17 21:05 Calcium 8.3 mg/dL (8.4-10.2) L 08/29/17 06:21 Total Bilirubin 0.30 mg/dL (0.1-1.2) 08/28/17 07:48 AST 55 units/L (5-40) H 08/28/17 07:48 ALT 22 units/L (7-56) 08/28/17 07:48 Alkaline Phosphatase 40 units/L (35-129) 08/28/17 07:48 Total Creatine Kinase 740 units/L (55-170) H 08/27/17 21:05 C-Reactive Protein 3.60 mg/dL (0.00-1.30) H 08/30/17 20:05 Total Protein 6.9 g/dL (6.3-8.2) 08/28/17 07:48 Albumin 3.6 g/dL (3.9-5) L 08/28/17 07:48 Albumin/Globulin Ratio 1.1 % 08/28/17 07:48 Urine Color [place] (Yellow) 08/27/17 16:27 Urine Turbidity Clear (Clear) 08/27/17 16:27 Urine pH 6.0 (5.0-7.0) 08/27/17 16:27 Ur Specific [place] 1.023 (1.003-1.030) 08/27/17 16:27 Urine Protein 30 mg/dl mg/dL (Negative) 08/27/17 16:27 Urine Glucose (UA) Neg mg/dL (Negative) 08/27/17 16:27 Urine Ketones Neg mg/dL (Negative) 08/27/17 16:27 Urine Blood Neg (Negative) 08/27/17 16:27 Urine Nitrite Neg (Negative) 08/27/17 16:27 Urine Bilirubin Neg (Negative) 08/27/17 16:27 Urine Urobilinogen 4.0 mg/dL (<2.0) 08/27/17 16:27 Ur Leukocyte Esterase Neg (Negative) 08/27/17 16:27 Urine WBC (Auto) 6.0 /HPF (0.0-6.0) 08/27/17 16:27 Urine RBC (Auto) 5.0 /HPF (0.0-6.0) 08/27/17 16:27 U Epithel Cells (Auto) < 1.0 /HPF (0-13.0) 08/27/17 16:27 Urine Mucus Few /HPF 08/27/17 16:27 HIV 1&2 Antibody Rapid Non react (Non React) 08/30/17 15:47 HIV P24 Antigen Non react (Non React) 08/30/17 15:47
[2017-08-31] MEDS: cefTRIAXone 2 GM in NACL 0.9% 20 ML IV SCH (15:15)
[2017-08-31] MEDS: TYLENOL PO PRN (17:19)
[2017-09-01] MEDS: TYLENOL PO PRN (10:34)
[2017-09-01] MEDS: LOVENOX SUB-Q SCH (10:35)
[2017-09-01] MEDS: cefTRIAXone 2 GM in NACL 0.9% 20 ML IV SCH (10:36)
[2017-09-01] MEDS: LEVAQUIN 750MG/150ML 750 MG/150 ML BAG IV SCH (10:52)
--- NOTE | 2017-09-01 13:20 | Progress Note ---
Assessment and Plan Assessment and plan: Patient is a 37-year-old man with a history of tobacco dependency who presented with body aches, fevers and chills with nausea 2v Chest x-ray reported as linear markings in the lung base on the lateral probably in the lingula consistent with atelectasis versus early infiltrate Rapid Influenza test negative Rapid strep negative Blood culture in progress, negative so far -Sepsis Left Lingular pneumonia: follow cultures, continue abx, on levaquin and tamiflu -Suspected influenza: continue tamiflu, started isolation, pcr pending, ID is following -Tobacco dependancy: advise to stopped -DVT prophylaxis: start sq lovenox -Hyponatremia, dehydration resolved with IVF treatment -Leukopenia: checked HIV==>negative, monitor wbc closely 08/30/17: still with high fevers despite consulted ID, ordered CT abd/pelvis/ chest 08/31/17: Still with fevers, HIV negative, CT abd/pelvis reported as NAF, CT chest w/o contrast reported as subtle ground glass infiltrate in both upper lobes of the lung. ID is following, adjusted ABX 09/01/17: Hemoptysis, consulted Pulmonology, called Dr. Roberto. Still febrile, ? need bronchoscopy History Interval history: Patient was seen and examined. Follow-up on current diagnosis of myalgia which are improved. Overnight febrile. Patient denies any chest pain, shortness breath, nausea/vomiting or severe headaches. Imaging, nursing note, chart, labs and old chart reviewed. Discussed with patient. Patient still has nonproductive cough. new issue is hemoptysis per Rn report. Hospitalist Physical - Physical exam Narrative exam: GEN: ill appearing, NAD, AWAKE, ALERT, ORIENTATED 3 HEENT: NCAT, EOMI, PERRL, OP Clear NECK: supple, no adenopathy, no thyromegaly, no JVD CVS/HEART: RRR, NORMAL S1S2, NO JVD, pulses present bilaterally CHEST/LUNGS: coarse left bs, Symmetrical chest expansion, good air entry bilaterally GI/Abdomen: soft, NTND, good bowel sounds, no guarding or rebound /Bladder: no suprapubic tenderness, no CVA or paraspinal tenderness EXT/Skin: no c/c/e, no obvious rash MSK: FROM x 4 Neuro: CN 2-12 grossly intact, no new focal deficits Psych: calm - Constitutional Vitals: Temp Pulse Resp BP Pulse Ox 102.7 F H 84 20 112/57 95 09/01/17 07:21 09/01/17 07:21 09/01/17 07:21 09/01/17 07:21 09/01/17 07:21 Results - Labs CBC & Chem 7: 08/29/17 06:21 08/29/17 06:21 Labs: Laboratory Last Values WBC 4.2 K/mm3 (4.5-11.0) L 08/29/17 06:21 RBC 5.14 M/mm3 (3.65-5.03) H 08/29/17 06:21 Hgb 15.4 gm/dl (11.8-15.2) H 08/29/17 06:21 Hct 45.8 % (35.5-45.6) H 08/29/17 06:21 MCV 89 fl (84-94) 08/29/17 06:21 MCH 30 pg (28-32) 08/29/17 06:21 MCHC 34 % (32-34) 08/29/17 06:21 RDW 13.4 % (13.2-15.2) 08/29/17 06:21 Plt Count 97 K/mm3 (140-440) L 08/29/17 06:21 Lymph % (Auto) 25.5 % (13.4-35.0) 08/29/17 06:21 [place] % (Auto) 6.7 % (0.0-7.3) 08/29/17 06:21 Eos % (Auto) 0.0 % (0.0-4.3) 08/29/17 06:21 Baso % (Auto) 0.3 % (0.0-1.8) 08/29/17 06:21 Lymph # 1.1 K/mm3 (1.2-5.4) L 08/29/17 06:21 [place] # 0.3 K/mm3 (0.0-0.8) 08/29/17 06:21 Eos # 0.0 K/mm3 (0.0-0.4) 08/29/17 06:21 Baso # 0.0 K/mm3 (0.0-0.1) 08/29/17 06:21 Seg Neutrophils % 67.5 % (40.0-70.0) 08/29/17 06:21 Seg Neutrophils # 2.8 K/mm3 (1.8-7.7) 08/29/17 06:21 Sodium 137 mmol/L (137-145) 08/29/17 06:21 Potassium 3.7 mmol/L (3.6-5.0) 08/29/17 06:21 Chloride 102.5 mmol/L (98-107) 08/29/17 06:21 Carbon Dioxide 22 mmol/L (22-30) 08/29/17 06:21 Anion Gap 16 mmol/L 08/29/17 06:21 BUN 9 mg/dL (9-20) 08/29/17 06:21 Creatinine 1.0 mg/dL (0.8-1.5) 08/29/17 06:21 Estimated GFR > 60 ml/min 08/29/17 06:21 BUN/Creatinine Ratio 9 % 08/29/17 06:21 Glucose 103 mg/dL (75-100) H 08/29/17 06:21 Lactic Acid 0.60 mmol/L (0.7-2.0) L 08/27/17 21:05 Calcium 8.3 mg/dL (8.4-10.2) L 08/29/17 06:21 Total Bilirubin 0.30 mg/dL (0.1-1.2) 08/28/17 07:48 AST 55 units/L (5-40) H 08/28/17 07:48 ALT 22 units/L (7-56) 08/28/17 07:48 Alkaline Phosphatase 40 units/L (35-129) 08/28/17 07:48 Total Creatine Kinase 740 units/L (55-170) H 08/27/17 21:05 C-Reactive Protein 3.60 mg/dL (0.00-1.30) H 08/30/17 20:05 Total Protein 6.9 g/dL (6.3-8.2) 08/28/17 07:48 Albumin 3.6 g/dL (3.9-5) L 08/28/17 07:48 Albumin/Globulin Ratio 1.1 % 08/28/17 07:48 Urine Color [place] (Yellow) 08/27/17 16:27 Urine Turbidity Clear (Clear) 08/27/17 16:27 Urine pH 6.0 (5.0-7.0) 08/27/17 16:27 Ur Specific [place] 1.023 (1.003-1.030) 08/27/17 16:27 Urine Protein 30 mg/dl mg/dL (Negative) 08/27/17 16:27 Urine Glucose (UA) Neg mg/dL (Negative) 08/27/17 16:27 Urine Ketones Neg mg/dL (Negative) 08/27/17 16:27 Urine Blood Neg (Negative) 08/27/17 16:27 Urine Nitrite Neg (Negative) 08/27/17 16:27 Urine Bilirubin Neg (Negative) 08/27/17 16:27 Urine Urobilinogen 4.0 mg/dL (<2.0) 08/27/17 16:27 Ur Leukocyte Esterase Neg (Negative) 08/27/17 16:27 Urine WBC (Auto) 6.0 /HPF (0.0-6.0) 08/27/17 16:27 Urine RBC (Auto) 5.0 /HPF (0.0-6.0) 08/27/17 16:27 U Epithel Cells (Auto) < 1.0 /HPF (0-13.0) 08/27/17 16:27 Urine Mucus Few /HPF 08/27/17 16:27 HIV 1&2 Antibody Rapid Non react (Non React) 08/30/17 15:47 HIV P24 Antigen Non react (Non React) 08/30/17 15:47
--- NOTE | 2017-09-01 16:03 | Consultation ---
History of Present Illness Consult date: 09/01/17 Requesting physician: GABE SALDANA Reason for consult: dyspnea History of present illness: 37 yo in usual state of health until ~ 10 days ago when he developed fevers, myalgias, SOB, cough with white sputum. Coughed or vomited up some blood-tinged material yesterday (cannot tell me which). No wheezing, chest pain. Active Medications Acetaminophen (Tylenol) 650 mg PO Q4H PRN PRN Reason: Pain MILD(1-3)/Fever >100.5/PALM Last Admin: 09/01/17 10:34 Dose: 650 mg Bisacodyl (Dulcolax) 10 mg NM QDAY PRN PRN Reason: Constipation unrelieved by MOM Enoxaparin Sodium (Lovenox) 40 mg SUB-Q QDAY@1000 CHRISS Last Admin: 09/01/17 10:35 Dose: 40 mg Hydromorphone HCl (Dilaudid) 0.5 mg IV Q3H PRN PRN Reason: Pain , Severe (7-10) Levofloxacin/Dextrose (Levaquin 750mg/150ml) 750 mg in 150 mls @ 100 mls/hr IV Q24HR [facility]ISS PRN Reason: Protocol Last Admin: 09/01/17 10:52 Dose: 100 mls/hr Ceftriaxone Sodium 2 gm/ (Sodium Chloride) 20 mls @ 20 mls/10 min IV Q24HR [facility]RISS Last Admin: 09/01/17 10:36 Dose: 20 mls/10 min Magnesium Hydroxide (Milk Of Magnesia) 30 ml PO Q4H PRN PRN Reason: Constipation Last Admin: 08/30/17 13:14 Dose: 30 ml Morphine Sulfate (Morphine) 2 mg IV Q4H PRN PRN Reason: Pain, Moderate (4-6) Ondansetron HCl (Zofran) 4 mg IV Q8H PRN PRN Reason: N/V unrelieved by Reglan Last Admin: 08/29/17 13:00 Dose: 4 mg Oxycodone/Acetaminophen (Percocet 5/325) 1 tab PO Q6H PRN PRN Reason: Pain, Moderate (4-6) Last Admin: 08/30/17 13:14 Dose: 1 tab Zolpidem Tartrate (Ambien) 5 mg PO QHS PRN PRN Reason: Insomnia Past History Past Medical History: No medical history Past Surgical History: No surgical history Social history: single, Lives alone, smoking, alcohol abuse Family history: no significant family history Medications and Allergies Allergies Allergy/AdvReac Type Severity Reaction Status Date / Time No Known Allergies Allergy Unverified 08/27/17 16:11 Active Meds: Active Medications Acetaminophen (Tylenol) 650 mg PO Q4H PRN PRN Reason: Pain MILD(1-3)/Fever >100.5/PALM Last Admin: 09/01/17 10:34 Dose: 650 mg Bisacodyl (Dulcolax) 10 mg NM QDAY PRN PRN Reason: Constipation unrelieved by MOM Enoxaparin Sodium (Lovenox) 40 mg SUB-Q QDAY@1000 CHRISS Last Admin: 09/01/17 10:35 Dose: 40 mg Hydromorphone HCl (Dilaudid) 0.5 mg IV Q3H PRN PRN Reason: Pain , Severe (7-10) Levofloxacin/Dextrose (Levaquin 750mg/150ml) 750 mg in 150 mls @ 100 mls/hr IV Q24HR [facility] PRN Reason: Protocol Last Admin: 09/01/17 10:52 Dose: 100 mls/hr Ceftriaxone Sodium 2 gm/ (Sodium Chloride) 20 mls @ 20 mls/10 min IV Q24HR [facility] Last Admin: 09/01/17 10:36 Dose: 20 mls/10 min Magnesium Hydroxide (Milk Of Magnesia) 30 ml PO Q4H PRN PRN Reason: Constipation Last Admin: 08/30/17 13:14 Dose: 30 ml Morphine Sulfate (Morphine) 2 mg IV Q4H PRN PRN Reason: Pain, Moderate (4-6) Ondansetron HCl (Zofran) 4 mg IV Q8H PRN PRN Reason: N/V unrelieved by Reglan Last Admin: 08/29/17 13:00 Dose: 4 mg Oxycodone/Acetaminophen (Percocet 5/325) 1 tab PO Q6H PRN PRN Reason: Pain, Moderate (4-6) Last Admin: 08/30/17 13:14 Dose: 1 tab Zolpidem Tartrate (Ambien) 5 mg PO QHS PRN PRN Reason: Insomnia Review of Systems All systems: negative Physical Examination Vital signs: Vital Signs Temp Pulse Resp BP Pulse Ox 103.0 F H 90 20 113/52 97 08/27/17 16:04 08/27/17 16:04 08/27/17 16:04 08/27/17 16:04 08/27/17 16:04 General appearance: no acute distress, alert Eyes: non-icteric ENT: oropharynx moist Neck: supple Effort: normal Ascultation: Bilateral: clear Cardiovascular: regular rate and rhythm (no mrg) Gastrointestinal: normoactive bowel sounds, soft, non-tender, non-distended Integumentary: normal Extremities: no cyanosis, no edema, pink and warm Musculoskeletal: no deformities normal mental status, non-focal exam, pupils equal and round, CN II-XII normal mood appropriate, affect normal Results - Laboratory Findings CBC and BMP: 08/29/17 06:21 08/29/17 06:21 Abnormal lab findings: Abnormal Labs 08/27/17 08/27/17 08/27/17 17:00 17:00 21:05 WBC 3.9 L RBC 5.53 H Hgb 16.2 H Hct 47.9 H Plt Count 123 L [place] % (Auto) 8.4 H Lymph # Sodium 131 L Chloride 94.1 L Carbon Dioxide 20 L Glucose Lactic Acid 0.60 L Calcium AST Total Creatine Kinase C-Reactive Protein Albumin 08/27/17 08/28/17 08/28/17 21:05 07:48 07:48 WBC 3.0 L RBC 5.06 H Hgb Hct Plt Count 104 L [place] % (Auto) 8.2 H Lymph # 0.9 L Sodium 135 L Chloride Carbon Dioxide Glucose 119 H Lactic Acid Calcium 8.1 L AST 55 H Total Creatine Kinase 740 H C-Reactive Protein Albumin 3.6 L 08/29/17 08/29/17 08/30/17 06:21 06:21 20:05 WBC 4.2 L RBC 5.14 H Hgb 15.4 H Hct 45.8 H Plt Count 97 L [place] % (Auto) Lymph # 1.1 L Sodium Chloride Carbon Dioxide Glucose 103 H Lactic Acid Calcium 8.3 L AST Total Creatine Kinase C-Reactive Protein 3.60 H Albumin - Diagnostic Findings Chest x-ray: report reviewed, image reviewed CT scan - chest: report reviewed, image reviewed Assessment and Plan Imp: 1. CAP, ? viral process 2. ? Hemoptysis 2/2 above; r/o vasculitis or other source (GI, nasal, etc.) 3. Sepsis 4. Thrombocytopenia 5. Chronic nicotine dependence, cigs Rec: 1. ABX per ID 2. F/u HIV PCR, flu PCR, PCT, etc. 3. Repeat labs, check vasculitis work-up, and repeat CXR 4. Bronch Wednesday if work-up unrevealing and persistent fever or hemoptysis 5. Needs to stop smoking Plan of care reviewed w/ patient, he understands/agrees Thanks for the consult. Will follow closely.
[2017-09-01 18:30] LABS: Basophils % (Auto) 0.2 % (0.0-1.8); Eosinophils % (Auto) 0.2 % (0.0-4.3); Hematocrit 46.3 % (35.5-45.6); Hemoglobin 15.4 gm/dl (11.8-15.2); Lymphocytes # (Auto) 0.8 K/mm3 (1.2-5.4); Lymphocytes % (Auto) 31.6 % (13.4-35.0); Mean Corpuscular HGB Conc 33 % (32-34); Mean Corpuscular Hemoglobin 30 pg (28-32); Mean Corpuscular Volume 89 fl (84-94); Monocytes # (Auto) 0.3 K/mm3 (0.0-0.8); Monocytes % (Auto) 10.5 % (0.0-7.3); Platelet Count 173 K/mm3 (140-440); Red Blood Count 5.22 M/mm3 (3.65-5.03); Red Cell Distribution Width 13.4 % (13.2-15.2)
[2017-09-01 18:49] LABS: Alanine Aminotransferase 72 units/L (7-56); Albumin 3.5 g/dL (3.9-5); BUN/Creatinine Ratio 16; Blood Urea Nitrogen 13 mg/dL (9-20); Calcium 8.5 mg/dL (8.4-10.2); Hemolysis Index 8
--- NOTE | 2017-09-01 20:38 | Progress Note ---
Assessment and Plan Assessment: 1) Sepsis: still high fever. Etiology most likely presumed pneumonia +/- influenza. CRP=3.6 2) Presumed bilateral pneumonia: likely Influenza pneumonia +/- CAP -HIV neg. -Influenza Antigen neg 3) Neutropenia, anemia and thrmobocytopenia - from viral syndrome 4) High risk sexual encounters-HIV non reactive Plan: -add zyvox to cover post influenza MRSA pneumonia in view of persistent fever -f/u procalcitonin -check influenza antigen PCR in nasopharinx - pending - sent out -f/u Legionella urine antigen, Streptococcus pneumoniae urine antigen -f/u VL -continue levaquin, tamiflu and ceftriaxone Thank you Dr Lorenz for your consultation, will follow up with you. Maricarmen Houston MD Infectious Diseases Specialist [facility] ([facility]) M [phone] O [phone] Subjective Date of service: 09/01/17 Principal diagnosis: pneumonia Interval history: Feels remarkably better, still cough, still high fever 102.9 Microbiology: Blood cultures: 08/27 ngtd Throat GAS: neg Respiratory cultures: Current Antimicrobials: Tamiflu 08/27 Levaquin 08/28 Previous Antimicrobials: Objective - Exam Narrative Exam: General appearance: Alert in NAD, conversant Eyes: anicteric sclerae, moist conjunctivae; no lid-lag; PERRLA HENT: Atraumatic; oropharynx clear Neck: Trachea midline; supple, no thyromegaly or lymphadenopathy Lungs: willow scattered rhonchi CV: RRR, no murmurs Abdomen: Soft, non-tender; no masses or hepatosplenomegaly Extremities: No peripheral edema or extremity lymphadenopathy Skin: Normal temperature, turgor and texture; no rash, ulcers or subcutaneous nodules Psych: Appropriate affect, alert and oriented to person, place and time. Neuro: alert and oriented x 3. Moving all extermities Lines: No CVL / PICC - Constitutional Vitals: Vital Signs Temp Pulse Resp BP Pulse Ox 97.6 F 68 20 117/67 83 L 09/01/17 15:40 09/01/17 15:40 09/01/17 15:40 09/01/17 15:40 09/01/17 15:40 Temperature -Last 24 Hours Temperature 97.6 F Temperature 102.7 F - Labs CBC & Chem 7: 09/01/17 18:05 09/01/17 18:05 Labs: Abnormal lab results 09/01/17 09/01/17 Range/Units 18:05 18:05 WBC 2.4 L (4.5-11.0) K/mm3 RBC 5.22 H (3.65-5.03) M/mm3 Hgb 15.4 H (11.8-15.2) gm/dl Hct 46.3 H (35.5-45.6) % [place] % (Auto) 10.5 H (0.0-7.3) % Lymph # 0.8 L (1.2-5.4) K/mm3 Seg Neutrophils # 1.4 L (1.8-7.7) K/mm3 Sodium 136 L (137-145) mmol/L AST 81 H (5-40) units/L ALT 72 H (7-56) units/L Albumin 3.5 L (3.9-5) g/dL
[2017-09-01] MEDS: ZYVOX 600MG/300ML 600 MG/300 ML BAG IV SCH (23:12)
[2017-09-02 06:25] LABS: Hematocrit 45.9 % (35.5-45.6); Hemoglobin 15.4 gm/dl (11.8-15.2); Mean Corpuscular HGB Conc 34 % (32-34); Mean Corpuscular Hemoglobin 30 pg (28-32); Mean Corpuscular Volume 88 fl (84-94); Platelet Count 175 K/mm3 (140-440); Red Blood Count 5.19 M/mm3 (3.65-5.03); Red Cell Distribution Width 13.5 % (13.2-15.2)
[2017-09-02 06:42] LABS: BUN/Creatinine Ratio 12; Blood Urea Nitrogen 11 mg/dL (9-20); Calcium 8.5 mg/dL (8.4-10.2); Hemolysis Index 3
[2017-09-02] MEDS: cefTRIAXone 2 GM in NACL 0.9% 20 ML IV SCH (09:39)
[2017-09-02] MEDS: LEVAQUIN 750MG/150ML 750 MG/150 ML BAG IV SCH (09:40)
[2017-09-02] MEDS: LOVENOX SUB-Q SCH (09:41)
--- NOTE | 2017-09-02 09:51 | XRay Report ---
AP CHEST :09/02/17 CLINICAL: Hemoptysis. Pneumonia. COMPARISON:08/27/17 FINDINGS: Normal heart and pulmonary vasculature. The lungs are normally expanded and clear. No findings correlate to with the airspace disease identified on the 08/30/17 CT. The bones and soft tissues are normal. IMPRESSION: Normal chest.
--- NOTE | 2017-09-02 10:54 | Progress Note ---
Assessment and Plan Assessment: 1) Sepsis: still fever. Etiology most likely presumed pneumonia +/- influenza. CRP=3.6 2) Presumed bilateral pneumonia: likely Influenza pneumonia +/- CAP -HIV neg. -Influenza Antigen neg -chest x-ray negative 09/02 3) Neutropenia, anemia and thrmobocytopenia - from viral syndrome 4) High risk sexual encounters-HIV non reactive Plan: -continue zyvox to cover presumed post influenza MRSA pneumonia in view of persistent fever - day 2 -f/u procalcitonin -f/u Legionella urine antigen, Streptococcus pneumoniae urine antigen -f/u VL -continue levaquin - day 5 and ceftriaxone - day 6 -if fever more than 101 continues after48 hrs of zyvox, will consider bronch/BAL Thank you Dr Lorenz for your consultation, will follow up with you. Fabián Delgado NP-C for Dr. Maricarmen Houston MD Infectious Diseases Specialist [facility] ([facility]) M [phone] O [phone] Subjective Date of service: 09/02/17 Principal diagnosis: pneumonia Interval history: Microbiology: Blood cultures: 08/27 ngtd Throat GAS: neg Respiratory cultures: influenza negative 08/27 Current Antimicrobials: ceftriaxone 08/30 zyvox 09/01 Levaquin 08/28 Previous Antimicrobials: Tamiflu 08/27 Objective - Exam Narrative Exam: General appearance: Alert in NAD, conversant Eyes: anicteric sclerae, moist conjunctivae; no lid-lag; PERRLA HENT: Atraumatic; oropharynx clear Neck: Trachea midline; supple, no thyromegaly or lymphadenopathy Lungs: willow scattered rhonchi CV: RRR, no murmurs Abdomen: Soft, non-tender; no masses or hepatosplenomegaly Extremities: No peripheral edema or extremity lymphadenopathy Skin: Normal temperature, turgor and texture; no rash, ulcers or subcutaneous nodules Psych: Appropriate affect, calm and cooperative Neuro: alert and oriented x 3. Moving all extermities Lines: No CVL / PICC - Constitutional Vitals: Vital Signs Temp Pulse Resp BP Pulse Ox 100.2 F H 66 20 110/57 95 09/02/17 08:08 09/02/17 08:08 09/02/17 08:08 09/02/17 08:08 09/02/17 08:08 Temperature -Last 24 Hours Temperature 100.2 F Temperature 97.6 F - Labs CBC & Chem 7: 09/02/17 05:32 09/02/17 05:32 Labs: Abnormal lab results 09/01/17 09/01/17 09/02/17 Range/Units 18:05 18:05 05:32 WBC 2.4 L 3.0 L (4.5-11.0) K/mm3 RBC 5.22 H 5.19 H (3.65-5.03) M/mm3 Hgb 15.4 H 15.4 H (11.8-15.2) gm/dl Hct 46.3 H 45.9 H (35.5-45.6) % [place] % (Auto) 10.5 H (0.0-7.3) % Lymph # 0.8 L (1.2-5.4) K/mm3 Seg Neutrophils # 1.4 L (1.8-7.7) K/mm3 Sodium 136 L (137-145) mmol/L Chloride (98-107) mmol/L AST 81 H (5-40) units/L ALT 72 H (7-56) units/L Albumin 3.5 L (3.9-5) g/dL 09/02/17 Range/Units 05:32 WBC (4.5-11.0) K/mm3 RBC (3.65-5.03) M/mm3 Hgb (11.8-15.2) gm/dl Hct (35.5-45.6) % [place] % (Auto) (0.0-7.3) % Lymph # (1.2-5.4) K/mm3 Seg Neutrophils # (1.8-7.7) K/mm3 Sodium 134 L (137-145) mmol/L Chloride 97.2 L (98-107) mmol/L AST (5-40) units/L ALT (7-56) units/L Albumin (3.9-5) g/dL
[2017-09-02] MEDS: ZYVOX 600MG/300ML 600 MG/300 ML BAG IV SCH ×2 (11:59→22:32)
--- NOTE | 2017-09-02 14:21 | Progress Note ---
Assessment and Plan Imp: 1. CAP, ? viral process 2. ? Hemoptysis 2/2 above; r/o vasculitis or other source (GI, nasal, etc.) 3. Sepsis 4. Thrombocytopenia 5. Chronic nicotine dependence, cigs Rec: 1. ABX per ID 2. F/u HIV PCR, flu PCR, PCT, etc. 3. Check vasculitis work-up 4. Bronch if work-up unrevealing and persistent fevers next 24 hours; will keep NPO after MN just in case 5. Needs to stop smoking Plan of care reviewed w/ patient, he understands/agrees Subjective Date of service: 09/02/17 Principal diagnosis: pneumonia Interval history: No events. Feels better w/ decreased SOB, cough. No hemoptysis. Feels weak. Still with fevers. Active Medications Acetaminophen (Tylenol) 650 mg PO Q4H PRN PRN Reason: Pain MILD(1-3)/Fever >100.5/PALM Last Admin: 09/01/17 10:34 Dose: 650 mg Bisacodyl (Dulcolax) 10 mg [place] QDAY PRN PRN Reason: Constipation unrelieved by MOM Enoxaparin Sodium (Lovenox) 40 mg SUB-Q QDAY@1000 CHRISS Last Admin: 09/02/17 09:41 Dose: 40 mg Hydromorphone HCl (Dilaudid) 0.5 mg IV Q3H PRN PRN Reason: Pain , Severe (7-10) Levofloxacin/Dextrose (Levaquin 750mg/150ml) 750 mg in 150 mls @ 100 mls/hr IV Q24HR [facility] PRN Reason: Protocol Last Admin: 09/02/17 09:40 Dose: 100 mls/hr Ceftriaxone Sodium 2 gm/ (Sodium Chloride) 20 mls @ 20 mls/10 min IV Q24HR [facility]ISS Last Admin: 09/02/17 09:39 Dose: 20 mls/10 min Linezolid (Zyvox 600mg/300ml) 600 mg in 300 mls @ 300 mls/hr IV Q12H [facility]ISS PRN Reason: Protocol Last Admin: 09/02/17 11:59 Dose: 300 mls/hr Magnesium Hydroxide (Milk Of Magnesia) 30 ml PO Q4H PRN PRN Reason: Constipation Last Admin: 08/30/17 13:14 Dose: 30 ml Morphine Sulfate (Morphine) 2 mg IV Q4H PRN PRN Reason: Pain, Moderate (4-6) Ondansetron HCl (Zofran) 4 mg IV Q8H PRN PRN Reason: N/V unrelieved by Jaswinder Last Admin: 08/29/17 13:00 Dose: 4 mg Oxycodone/Acetaminophen (Percocet 5/325) 1 tab PO Q6H PRN PRN Reason: Pain, Moderate (4-6) Last Admin: 08/30/17 13:14 Dose: 1 tab Zolpidem Tartrate (Ambien) 5 mg PO QHS PRN PRN Reason: Insomnia Objective Vital Signs - 12hr 09/02/17 08:08 Temperature 100.2 F H Pulse Rate 66 Respiratory 20 Rate Blood Pressure 110/57 O2 Sat by Pulse 95 Oximetry Constitutional: no acute distress, alert Eyes: non-icteric ENT: oropharynx moist Neck: supple Effort: normal Ascultation: Bilateral: clear Cardiovascular: regular rate and rhythm (no mrg) Gastrointestinal: normoactive bowel sounds, soft, non-tender, non-distended Integumentary: normal Extremities: no cyanosis, no edema, pink and warm Neurologic: normal mental status, non-focal exam, pupils equal and round, CN II- XII normal Psychiatric: mood appropriate, affect normal CBC and BMP: 09/02/17 05:32 09/02/17 05:32 Abnormal lab findings: Abnormal Labs 08/27/17 08/27/17 08/27/17 17:00 17:00 21:05 WBC 3.9 L RBC 5.53 H Hgb 16.2 H Hct 47.9 H Plt Count [address] [place] % (Auto) 8.4 H Lymph # Seg Neutrophils # Sodium 131 L Chloride 94.1 L Carbon Dioxide 20 L Glucose Lactic Acid 0.60 L Calcium AST ALT Total Creatine Kinase C-Reactive Protein Albumin 08/27/17 08/28/17 08/28/17 21:05 07:48 07:48 WBC 3.0 L RBC 5.06 H Hgb Hct Plt Count [address] % (Auto) 8.2 H Lymph # 0.9 L Seg Neutrophils # Sodium 135 L Chloride Carbon Dioxide Glucose 119 H Lactic Acid Calcium 8.1 L AST 55 H ALT Total Creatine Kinase 740 H C-Reactive Protein Albumin 3.6 L 08/29/17 08/29/17 08/30/17 06:21 06:21 20:05 WBC 4.2 L RBC 5.14 H Hgb 15.4 H Hct 45.8 H Plt Count [address] [place] % (Auto) Lymph # 1.1 L Seg Neutrophils # Sodium Chloride Carbon Dioxide Glucose 103 H Lactic Acid Calcium 8.3 L AST ALT Total Creatine Kinase C-Reactive Protein 3.60 H Albumin 09/01/17 09/01/17 09/02/17 18:05 18:05 05:32 WBC 2.4 L 3.0 L RBC 5.22 H 5.19 H Hgb 15.4 H 15.4 H Hct 46.3 H 45[address] [place] % (Auto) 10.5 H Lymph # 0.8 L Seg Neutrophils # 1.4 L Sodium 136 L Chloride Carbon Dioxide Glucose Lactic Acid Calcium AST 81 H ALT 72 H Total Creatine Kinase C-Reactive Protein Albumin 3.5 L 09/02/17 05:32 WBC RBC Hgb Hct Plt Count [place] % (Auto) Lymph # Seg Neutrophils # Sodium 134 L Chloride 97.2 L Carbon Dioxide Glucose Lactic Acid Calcium AST ALT Total Creatine Kinase C-Reactive Protein Albumin Chest x-ray: report reviewed, image reviewed (clear lungs on CXR) CT scan - chest: report reviewed, image reviewed
--- NOTE | 2017-09-02 15:02 | Progress Note ---
Assessment and Plan Assessment and plan: Patient is a 37-year-old man with a history of tobacco dependency who presented with body aches, fevers and chills with nausea 2v Chest x-ray reported as linear markings in the lung base on the lateral probably in the lingula consistent with atelectasis versus early infiltrate Rapid Influenza test negative Rapid strep negative Blood culture in progress, negative so far CT abd/pelvis w/o reported as NAF CT chest w/o contrast reported as subtle ground glass infiltrate in both upper lobes of the lung. -Sepsis Left Lingular pneumonia: follow cultures, continue abx, on levaquin and tamiflu -Suspected influenza: continue tamiflu, started isolation, pcr pending, ID is following -Tobacco dependancy: advise to stopped -DVT prophylaxis: start sq lovenox -Hyponatremia, dehydration resolved with IVF treatment -Leukopenia: checked HIV==>negative, monitor wbc closely 08/30/17: still with high fevers despite consulted ID, ordered CT abd/pelvis/ chest 08/31/17: Still with fevers, HIV negative, CT abd/pelvis reported as NAF, CT chest w/o contrast reported as subtle ground glass infiltrate in both upper lobes of the lung. ID is following, adjusted ABX 09/01/17: Hemoptysis, consulted Pulmonology, called Dr. Roberto. Still febrile, ? need bronchoscopy 09/02/17: Still with fevers, bronch tomorrow. History Interval history: Patient was seen and examined. Follow-up on current diagnosis of myalgia which are improved. Overnight febrile. Patient denies any chest pain, shortness breath, nausea/vomiting or severe headaches. Imaging, nursing note, chart, labs and old chart reviewed. Discussed with patient. Patient still has nonproductive cough. new issue is hemoptysis per Rn report. Hospitalist Physical - Physical exam Narrative exam: GEN: ill appearing, NAD, AWAKE, ALERT, ORIENTATED 3 HEENT: NCAT, EOMI, PERRL, OP Clear NECK: supple, no adenopathy, no thyromegaly, no JVD CVS/HEART: RRR, NORMAL S1S2, NO JVD, pulses present bilaterally CHEST/LUNGS: coarse left bs, Symmetrical chest expansion, good air entry bilaterally GI/Abdomen: soft, NTND, good bowel sounds, no guarding or rebound /Bladder: no suprapubic tenderness, no CVA or paraspinal tenderness EXT/Skin: no c/c/e, no obvious rash MSK: FROM x 4 Neuro: CN 2-12 grossly intact, no new focal deficits Psych: calm - Constitutional Vitals: Temp Pulse Resp BP Pulse Ox 100.2 F H 66 20 110/57 95 09/02/17 08:08 09/02/17 08:08 09/02/17 08:08 09/02/17 08:08 09/02/17 08:08 Results - Labs CBC & Chem 7: 09/02/17 05:32 09/02/17 05:32 Labs: Laboratory Last Values WBC 3.0 K/mm3 (4.5-11.0) L 09/02/17 05:32 RBC 5.19 M/mm3 (3.65-5.03) H 09/02/17 05:32 Hgb 15.4 gm/dl (11.8-15.2) H 09/02/17 05:32 Hct 45.9 % (35.5-45.6) H 09/02/17 05:32 MCV 88 fl (84-94) 09/02/17 05:32 MCH 30 pg (28-32) 09/02/17 05:32 MCHC 34 % (32-34) 09/02/17 05:32 RDW 13.5 % (13.2-15.2) 09/02/17 05:32 Plt Count 175 K/mm3 (140-440) 09/02/17 05:32 Lymph % (Auto) 31.6 % (13.4-35.0) 09/01/17 18:05 [place] % (Auto) 10.5 % (0.0-7.3) H 09/01/17 18:05 [place] % (Auto) 0.2 % (0.0-4.3) 09/01/17 18:05 Baso % (Auto) 0.2 % (0.0-1.8) 09/01/17 18:05 Lymph # 0.8 K/mm3 (1.2-5.4) L 09/01/17 18:05 [place] # 0.3 K/mm3 (0.0-0.8) 09/01/17 18:05 Eos # 0.0 K/mm3 (0.0-0.4) 09/01/17 18:05 Baso # 0.0 K/mm3 (0.0-0.1) 09/01/17 18:05 Seg Neutrophils % 57.5 % (40.0-70.0) 09/01/17 18:05 Seg Neutrophils # 1.4 K/mm3 (1.8-7.7) L 09/01/17 18:05 Sodium 134 mmol/L (137-145) L 09/02/17 05:32 Potassium 4.1 mmol/L (3.6-5.0) 09/02/17 05:32 Chloride 97.2 mmol/L (98-107) L 09/02/17 05:32 Carbon Dioxide 23 mmol/L (22-30) 09/02/17 05:32 Anion Gap 18 mmol/L 09/02/17 05:32 BUN 11 mg/dL (9-20) 09/02/17 05:32 Creatinine 0.9 mg/dL (0.8-1.5) 09/02/17 05:32 Estimated GFR > 60 ml/min 09/02/17 05:32 BUN/Creatinine Ratio 12 % 09/02/17 05:32 Glucose 95 mg/dL (75-100) 09/02/17 05:32 Lactic Acid 0.60 mmol/L (0.7-2.0) L 08/27/17 21:05 Calcium 8.5 mg/dL (8.4-10.2) 09/02/17 05:32 Magnesium 2.10 mg/dL (1.7-2.3) 09/02/17 05:32 Total Bilirubin 0.30 mg/dL (0.1-1.2) 09/01/17 18:05 AST 81 units/L (5-40) H 09/01/17 18:05 ALT 72 units/L (7-56) H 09/01/17 18:05 Alkaline Phosphatase 44 units/L (35-129) 09/01/17 18:05 Total Creatine Kinase 740 units/L (55-170) H 08/27/17 21:05 C-Reactive Protein 3.60 mg/dL (0.00-1.30) H 08/30/17 20:05 Total Protein 7.1 g/dL (6.3-8.2) 09/01/17 18:05 Albumin 3.5 g/dL (3.9-5) L 09/01/17 18:05 Albumin/Globulin Ratio 1.0 % 09/01/17 18:05 Urine Color [place] (Yellow) 08/27/17 16:27 Urine Turbidity Clear (Clear) 08/27/17 16:27 Urine pH 6.0 (5.0-7.0) 08/27/17 16:27 Ur Specific [place] 1.023 (1.003-1.030) 08/27/17 16:27 Urine Protein 30 mg/dl mg/dL (Negative) 08/27/17 16:27 Urine Glucose (UA) Neg mg/dL (Negative) 08/27/17 16:27 Urine Ketones Neg mg/dL (Negative) 08/27/17 16:27 Urine Blood Neg (Negative) 08/27/17 16:27 Urine Nitrite Neg (Negative) 08/27/17 16:27 Urine Bilirubin Neg (Negative) 08/27/17 16:27 Urine Urobilinogen 4.0 mg/dL (<2.0) 08/27/17 16:27 Ur Leukocyte Esterase Neg (Negative) 08/27/17 16:27 Urine WBC (Auto) 6.0 /HPF (0.0-6.0) 08/27/17 16:27 Urine RBC (Auto) 5.0 /HPF (0.0-6.0) 08/27/17 16:27 U Epithel Cells (Auto) < 1.0 /HPF (0-13.0) 08/27/17 16:27 Urine Mucus Few /HPF 08/27/17 16:27 Rheumatoid Factor < 10 IU/ml (0-13) 09/01/17 18:05 HIV 1&2 Antibody Rapid Non react (Non React) 08/30/17 15:47 HIV P24 Antigen Non react (Non React) 08/30/17 15:47
[2017-09-03] MEDS: TYLENOL PO PRN (00:50)
[2017-09-03] MEDS ORDERED: NACL 0.9% 1000 ML 2,000 ML ONE (10:35)
[2017-09-03] MEDS ORDERED: LIDOCAINE VISCOUS 2% ONE (10:35)
[2017-09-03] MEDS ORDERED: HURRICAINE ONE 20% TOPICAL SPRAY MM ×2 (10:35→13:03)
[2017-09-03] MEDS: LOVENOX SUB-Q SCH (10:48)
[2017-09-03] MEDS: cefTRIAXone 2 GM in NACL 0.9% 20 ML IV SCH (10:53)
[2017-09-03] MEDS: ZYVOX 600MG/300ML 600 MG/300 ML BAG IV SCH ×2 (11:18→22:18)
[2017-09-03] MEDS ORDERED: XYLOCAINE 1% 20 mL ONE (11:22)
[2017-09-03] MEDS ORDERED: VERSED ONE (11:43)
[2017-09-03] MEDS ORDERED: SUBLIMAZE ONE (11:44)
[2017-09-03] MEDS ORDERED: DIPRIVAN 10 MG/ML IV ONE ×2 (11:44)
--- NOTE | 2017-09-03 12:45 | Progress Note ---
Assessment and Plan Imp: 1. CAP, ? viral process 2. ? Hemoptysis 2/2 above; r/o vasculitis or other source (GI, nasal, etc.) 3. Sepsis 4. Thrombocytopenia 5. Chronic nicotine dependence, cigs Rec: 1. ABX per ID 2. F/u HIV PCR, flu PCR, etc. 3. F/u vasculitis work-up 4. Bronch with BAL today 5. Needs to stop smoking Plan of care reviewed w/ patient, he understands/agrees Subjective Date of service: 09/03/17 Principal diagnosis: pneumonia Interval history: No events. Feels better w/ decreased SOB, cough. No hemoptysis. Feels weak. Still with fevers. Active Medications Acetaminophen (Tylenol) 650 mg PO Q4H PRN PRN Reason: Pain MILD(1-3)/Fever >100.5/PALM Last Admin: 09/03/17 00:50 Dose: 650 mg Bisacodyl (Dulcolax) 10 mg OR QDAY PRN PRN Reason: Constipation unrelieved by MOM Enoxaparin Sodium (Lovenox) 40 mg SUB-Q QDAY@1000 CHRISS Last Admin: 09/03/17 10:48 Dose: Not Given Hydromorphone HCl (Dilaudid) 0.5 mg IV Q3H PRN PRN Reason: Pain , Severe (7-10) Levofloxacin/Dextrose (Levaquin 750mg/150ml) 750 mg in 150 mls @ 100 mls/hr IV Q24HR CHRISS PRN Reason: Protocol Last Admin: 09/02/17 09:40 Dose: 100 mls/hr Ceftriaxone Sodium 2 gm/ (Sodium Chloride) 20 mls @ 20 mls/10 min IV Q24HR CHRISS Last Admin: 09/03/17 10:53 Dose: 20 mls/10 min Linezolid (Zyvox 600mg/300ml) 600 mg in 300 mls @ 300 mls/hr IV Q12H CHRISS PRN Reason: Protocol Last Admin: 09/03/17 11:18 Dose: 300 mls/hr Sodium Chloride (Nacl 0.9% 1000 Ml) 1,000 mls @ 50 mls/hr IV DIRECT CHRISS Magnesium Hydroxide (Milk Of Magnesia) 30 ml PO Q4H PRN PRN Reason: Constipation Last Admin: 08/30/17 13:14 Dose: 30 ml Morphine Sulfate (Morphine) 2 mg IV Q4H PRN PRN Reason: Pain, Moderate (4-6) Ondansetron HCl (Zofran) 4 mg IV Q8H PRN PRN Reason: N/V unrelieved by Reglan Last Admin: 08/29/17 13:00 Dose: 4 mg Oxycodone/Acetaminophen (Percocet 5/325) 1 tab PO Q6H PRN PRN Reason: Pain, Moderate (4-6) Last Admin: 08/30/17 13:14 Dose: 1 tab Zolpidem Tartrate (Ambien) 5 mg PO QHS PRN PRN Reason: Insomnia Objective Vital Signs - 12hr 09/03/17 09/03/17 09/03/17 00:50 06:14 08:26 Temperature 98.9 F 101.2 F H Pulse Rate 89 100 H Respiratory 20 18 18 Rate Blood Pressure 110/64 107/58 O2 Sat by Pulse 98 97 Oximetry 09/03/17 09/03/17 11:41 11:53 Temperature 103.0 F H 103.0 F H Pulse Rate 99 H 99 H Respiratory 16 16 Rate Blood Pressure 102/48 102/48 O2 Sat by Pulse 93 93 Oximetry Constitutional: no acute distress, alert Eyes: non-icteric ENT: oropharynx moist Neck: supple Effort: normal Ascultation: Bilateral: clear Cardiovascular: regular rate and rhythm (no mrg) Gastrointestinal: normoactive bowel sounds, soft, non-tender, non-distended Integumentary: normal Extremities: no cyanosis, no edema, pink and warm Neurologic: normal mental status, non-focal exam, pupils equal and round, CN II- XII normal Psychiatric: mood appropriate, affect normal CBC and BMP: 09/02/17 05:32 09/02/17 05:32 Abnormal lab findings: Abnormal Labs 08/27/17 08/27/17 08/27/17 17:00 17:00 21:05 WBC 3.9 L RBC 5.53 H Hgb 16.2 H Hct 47.9 H Plt Count 123 L [place] % (Auto) 8.4 H Lymph # Seg Neutrophils # Sodium 131 L Chloride 94.1 L Carbon Dioxide 20 L Glucose Lactic Acid 0.60 L Calcium AST ALT Total Creatine Kinase C-Reactive Protein Albumin 08/27/17 08/28/17 08/28/17 21:05 07:48 07:48 WBC 3.0 L RBC 5.06 H Hgb Hct Plt Count 104 L [place] % (Auto) 8.2 H Lymph # 0.9 L Seg Neutrophils # Sodium 135 L Chloride Carbon Dioxide Glucose 119 H Lactic Acid Calcium 8.1 L AST 55 H ALT Total Creatine Kinase 740 H C-Reactive Protein Albumin 3.6 L 08/29/17 08/29/17 08/30/17 06:21 06:21 20:05 WBC 4.2 L RBC 5.14 H Hgb 15.4 H Hct 45.8 H Plt Count 97 L [place] % (Auto) Lymph # 1.1 L Seg Neutrophils # Sodium Chloride Carbon Dioxide Glucose 103 H Lactic Acid Calcium 8.3 L AST ALT Total Creatine Kinase C-Reactive Protein 3.60 H Albumin 09/01/17 09/01/17 09/02/17 18:05 18:05 05:32 WBC 2.4 L 3.0 L RBC 5.22 H 5.19 H Hgb 15.4 H 15.4 H Hct 46.3 H 45.9 H Plt Count [place] % (Auto) 10.5 H Lymph # 0.8 L Seg Neutrophils # 1.4 L Sodium 136 L Chloride Carbon Dioxide Glucose Lactic Acid Calcium AST 81 H ALT 72 H Total Creatine Kinase C-Reactive Protein Albumin 3.5 L 09/02/17 05:32 WBC RBC Hgb Hct Plt Count [place] % (Auto) Lymph # Seg Neutrophils # Sodium 134 L Chloride 97.2 L Carbon Dioxide Glucose Lactic Acid Calcium AST ALT Total Creatine Kinase C-Reactive Protein Albumin Chest x-ray: report reviewed, image reviewed
--- NOTE | 2017-09-03 13:48 | Progress Note ---
Assessment and Plan Assessment and plan: Patient is a 37-year-old man with a history of tobacco dependency who presented with body aches, fevers and chills with nausea 2v Chest x-ray reported as linear markings in the lung base on the lateral probably in the lingula consistent with atelectasis versus early infiltrate Rapid Influenza test negative Rapid strep negative Blood culture in progress, negative so far CT abd/pelvis w/o reported as NAF CT chest w/o contrast reported as subtle ground glass infiltrate in both upper lobes of the lung. -Sepsis Left Lingular pneumonia: follow cultures, continue abx, on levaquin and tamiflu -Suspected influenza: continue tamiflu, started isolation, pcr pending, ID is following -Tobacco dependancy: advise to stopped -DVT prophylaxis: start sq lovenox -Hyponatremia, dehydration resolved with IVF treatment -Leukopenia: checked HIV==>negative, monitor wbc closely 08/30/17: still with high fevers despite consulted ID, ordered CT abd/pelvis/ chest 08/31/17: Still with fevers, HIV negative, CT abd/pelvis reported as NAF, CT chest w/o contrast reported as subtle ground glass infiltrate in both upper lobes of the lung. ID is following, adjusted ABX 09/01/17: Hemoptysis, consulted Pulmonology, called Dr. Roberto. Still febrile, ? need bronchoscopy 09/02/17: Still with fevers, bronch tomorrow 09/03/17: Still with fevers, Bronchoscopy today, if no source consider Drug fevers. ID is following History Interval history: Patient was seen and examined. Follow-up on current diagnosis of myalgia which are improved. Overnight febrile. Patient denies any chest pain, shortness breath, nausea/vomiting or severe headaches. Imaging, nursing note, chart, labs and old chart reviewed. Discussed with patient. Patient still has nonproductive cough. new issue is hemoptysis per Rn report. Hospitalist Physical - Physical exam Narrative exam: GEN: ill appearing, NAD, AWAKE, ALERT, ORIENTATED 3 HEENT: NCAT, EOMI, PERRL, OP Clear NECK: supple, no adenopathy, no thyromegaly, no JVD CVS/HEART: RRR, NORMAL S1S2, NO JVD, pulses present bilaterally CHEST/LUNGS: coarse left bs, Symmetrical chest expansion, good air entry bilaterally GI/Abdomen: soft, NTND, good bowel sounds, no guarding or rebound /Bladder: no suprapubic tenderness, no CVA or paraspinal tenderness EXT/Skin: no c/c/e, no obvious rash MSK: FROM x 4 Neuro: CN 2-12 grossly intact, no new focal deficits Psych: calm - Constitutional Vitals: Temp Pulse Resp BP Pulse Ox 103.0 F H 99 H 16 102/48 93 09/03/17 11:53 09/03/17 11:53 09/03/17 11:53 09/03/17 11:53 09/03/17 11:53 Results - Labs CBC & Chem 7: 09/02/17 05:32 09/02/17 05:32 Labs: Laboratory Last Values WBC 3.0 K/mm3 (4.5-11.0) L 09/02/17 05:32 RBC 5.19 M/mm3 (3.65-5.03) H 09/02/17 05:32 Hgb 15.4 gm/dl (11.8-15.2) H 09/02/17 05:32 Hct 45.9 % (35.5-45.6) H 09/02/17 05:32 MCV 88 fl (84-94) 09/02/17 05:32 MCH 30 pg (28-32) 09/02/17 05:32 MCHC 34 % (32-34) 09/02/17 05:32 RDW 13.5 % (13.2-15.2) 09/02/17 05:32 Plt Count 175 K/mm3 (140-440) 09/02/17 05:32 Lymph % (Auto) 31.6 % (13.4-35.0) 09/01/17 18:05 [place] % (Auto) 10.5 % (0.0-7.3) H 09/01/17 18:05 Eos % (Auto) 0.2 % (0.0-4.3) 09/01/17 18:05 Baso % (Auto) 0.2 % (0.0-1.8) 09/01/17 18:05 Lymph # 0.8 K/mm3 (1.2-5.4) L 09/01/17 18:05 [place] # 0.3 K/mm3 (0.0-0.8) 09/01/17 18:05 Eos # 0.0 K/mm3 (0.0-0.4) 09/01/17 18:05 Baso # 0.0 K/mm3 (0.0-0.1) 09/01/17 18:05 Seg Neutrophils % 57.5 % (40.0-70.0) 09/01/17 18:05 Seg Neutrophils # 1.4 K/mm3 (1.8-7.7) L 09/01/17 18:05 Sodium 134 mmol/L (137-145) L 09/02/17 05:32 Potassium 4.1 mmol/L (3.6-5.0) 09/02/17 05:32 Chloride 97.2 mmol/L (98-107) L 09/02/17 05:32 Carbon Dioxide 23 mmol/L (22-30) 09/02/17 05:32 Anion Gap 18 mmol/L 09/02/17 05:32 BUN 11 mg/dL (9-20) 09/02/17 05:32 Creatinine 0.9 mg/dL (0.8-1.5) 09/02/17 05:32 Estimated GFR > 60 ml/min 09/02/17 05:32 BUN/Creatinine Ratio 12 % 09/02/17 05:32 Glucose 95 mg/dL (75-100) 09/02/17 05:32 Lactic Acid 0.60 mmol/L (0.7-2.0) L 08/27/17 21:05 Calcium 8.5 mg/dL (8.4-10.2) 09/02/17 05:32 Magnesium 2.10 mg/dL (1.7-2.3) 09/02/17 05:32 Total Bilirubin 0.30 mg/dL (0.1-1.2) 09/01/17 18:05 AST 81 units/L (5-40) H 09/01/17 18:05 ALT 72 units/L (7-56) H 09/01/17 18:05 Alkaline Phosphatase 44 units/L (35-129) 09/01/17 18:05 Total Creatine Kinase 740 units/L (55-170) H 08/27/17 21:05 C-Reactive Protein 3.60 mg/dL (0.00-1.30) H 08/30/17 20:05 Total Protein 7.1 g/dL (6.3-8.2) 09/01/17 18:05 Albumin 3.5 g/dL (3.9-5) L 09/01/17 18:05 Albumin/Globulin Ratio 1.0 % 09/01/17 18:05 Urine Color [place] (Yellow) 08/27/17 16:27 Urine Turbidity Clear (Clear) 08/27/17 16:27 Urine pH 6.0 (5.0-7.0) 08/27/17 16:27 Ur Specific [place] 1.023 (1.003-1.030) 08/27/17 16:27 Urine Protein 30 mg/dl mg/dL (Negative) 08/27/17 16:27 Urine Glucose (UA) Neg mg/dL (Negative) 08/27/17 16:27 Urine Ketones Neg mg/dL (Negative) 08/27/17 16:27 Urine Blood Neg (Negative) 08/27/17 16:27 Urine Nitrite Neg (Negative) 08/27/17 16:27 Urine Bilirubin Neg (Negative) 08/27/17 16:27 Urine Urobilinogen 4.0 mg/dL (<2.0) 08/27/17 16:27 Ur Leukocyte Esterase Neg (Negative) 08/27/17 16:27 Urine WBC (Auto) 6.0 /HPF (0.0-6.0) 08/27/17 16:27 Urine RBC (Auto) 5.0 /HPF (0.0-6.0) 08/27/17 16:27 U Epithel Cells (Auto) < 1.0 /HPF (0-13.0) 08/27/17 16:27 Urine Mucus Few /HPF 08/27/17 16:27 Rheumatoid Factor < 10 IU/ml (0-13) 09/01/17 18:05 HIV 1&2 Antibody Rapid Non react (Non React) 08/30/17 15:47 HIV P24 Antigen Non react (Non React) 08/30/17 15:47 Miscellaneous Test Flexitest 1 08/30/17 20:05
--- NOTE | 2017-09-03 14:11 | Post Anesthesia Evaluation ---
- Post Anesthesia Evaluation Patient Participated: Yes Airway Patent: Yes Stable Respiratory Function: Yes Nausea/Vomiting: No Temp > 96.8F: Yes Pain Manageable: Yes Adequeate Hydration: Yes Anesthesia Complications: No
--- NOTE | 2017-09-03 14:19 | Anesthesia Consultation ---
Anesthesia Consult and Med Hx Date of service: 09/03/17 - Airway Anesthetic Teeth Evaluation: Good ROM Head & Neck: Adequate Mental/Hyoid Distance: Adequate Mallampati Class: Class II Intubation Access Assessment: Probably Good - Pulmonary Exam CTA: Yes - Cardiac Exam Cardiac Exam: No Murmur - Pre-Operative Health Status ASA Pre-Surgery Classification: ASA3 Proposed Anesthetic Plan: MAC - Pulmonary Hx Smoking: Yes Hx Asthma: Yes (Childhood) Hx Respiratory Symptoms: Yes (possible pnemonia ) SOB: Yes COPD: No Hx Pneumonia: Yes (Teenager) - Endocrine Hx End Stage Renal Disease: No - Additional Comments Anesthesia Medical History Comments: HIV
--- NOTE | 2017-09-03 14:20 | Anesthesia Day of Surgery ---
Anesthesia Day of Surgery - Day of Surgery Patient Examined: Yes Patient H&P Reviewed: Yes Patient is NPO: Yes
[2017-09-03] MEDS: LEVAQUIN 750MG/150ML 750 MG/150 ML BAG IV SCH (17:22)
--- NOTE | 2017-09-03 19:20 | Operative Report ---
BRONCHOSCOPY REPORT PROCEDURE: Bronchoscopy with bronchoalveolar lavage. INDICATION: Pneumonia, fever, hemoptysis. DESCRIPTION OF PROCEDURE: Informed consent was obtained and placed on the patient's chart. Risks, benefits, and alternatives were explained and he agreed to proceed. He underwent topical anesthesia of his nose and oropharynx with benzocaine and nebulized lidocaine. He underwent MAC anesthesia and please refer to separate report. He was supplemented with oxygen via nasal cannula. After adequate sedation was obtained, the bronchoscope was inserted via the right naris, with inspection of the vocal cords, epiglottis, and trachea, all normal. All airways were subsequently inspected and found to be healthy appearing and normal without endobronchial lesions, and no bleeding. There was a tiny black speck near the opening of the right middle lobe, presumably related to his cigar smoking, and this was aspirated at the time of the bronchoalveolar lavage. Bronchoalveolar lavage was obtained from the right middle lobe with good return, clear bronchoalveolar lavage fluid, and sent to cytology and microbiology. The bronchoscope was subsequently removed, and the patient recovered as per usual protocol. There were no immediate complications and oxygen saturations remain adequate throughout. DISPOSITION: Back to inpatient room. ESTIMATED BLOOD LOSS: None. SPECIMENS: As described above. DIET: Resume prior. SPECIAL INSTRUCTIONS: 1. Follow up BAL fluid results. 2. Continue antibiotics as per Infectious Disease recommendations. JOB# [id number] DCR/NTS
--- NOTE | 2017-09-03 21:18 | Progress Note ---
Assessment and Plan Assessment: 1) Sepsis: still high fever. Etiology most likely presumed pneumonia +/- influenza. 2) Presumed bilateral pneumonia: likely Influenza pneumonia +/- CAP -HIV neg. -Influenza Antigen neg -CTA bilateral upper lungs ground glass infiltrates -Legionella negative -BAL done -airways normal and pending results -CRP=3.6 -PCR<0.1 -completed 5 days tamflu 3) Neutropenia - from viral syndrome 4) Thrombocytopenia - better 4) High risk sexual encounters-HIV non reactive Plan: -f/u Streptococcus pneumoniae urine antigen -f/u VL -continue zyvox, levaquin, tamiflu and ceftriaxone -repeat chest CT I am rounding this weekend Thank you Dr Lorenz for your consultation, will follow up with you. Maricarmen Houston MD Infectious Diseases Specialist [facility] ([facility]) M [phone] O [phone] Subjective Date of service: 09/03/17 Principal diagnosis: pneumonia Interval history: Feels sick still cough and still high fever 102.9 Microbiology: Blood cultures: 08/27 ngtd Throat GAS: neg Respiratory cultures: BAL 09/02 pending Current Antimicrobials: Levaquin 08/28 zyvox 09/01 ceftriaxone 08/30 Previous Antimicrobials: Tamiflu 08/27 Objective - Exam Narrative Exam: General appearance: Alert debilitated Eyes: anicteric sclerae, moist conjunctivae; no lid-lag; PERRLA HENT: Atraumatic; oropharynx clear Neck: Trachea midline; supple, no thyromegaly or lymphadenopathy Lungs: willow scattered rhonchi CV: RRR, no murmurs Abdomen: Soft, non-tender; no masses or hepatosplenomegaly Extremities: No peripheral edema or extremity lymphadenopathy Skin: Normal temperature, turgor and texture; no rash, ulcers or subcutaneous nodules Psych: Appropriate affect, alert and oriented to person, place and time. Neuro: alert and oriented x 3. Moving all extermities Lines: No CVL / PICC - Constitutional Vitals: Vital Signs Temp Pulse Resp BP Pulse Ox 99.8 F H 95 H 18 109/71 97 09/03/17 17:38 09/03/17 17:38 09/03/17 17:38 09/03/17 17:38 09/03/17 17:38 Temperature -Last 24 Hours Temperature 99.8 F Temperature 103.0 F Temperature 103.0 F Temperature 101.2 F Temperature 98.9 F Temperature 101.9 F - Labs CBC & Chem 7: 09/02/17 05:32 09/02/17 05:32
[2017-09-04] MEDS: TYLENOL PO PRN ×2 (01:50→13:24)
--- NOTE | 2017-09-04 04:27 | Cat Scan Report ---
FINAL REPORT EXAM: CT CHEST W CONTRAST. HISTORY: Severe high fever not responding to antibiotics. TECHNIQUE: Axial CT images of the chest were obtained, following the administration of intravenous contrast. Coronal and sagittal reformatted images were also obtained. Comparison is made with chest radiographs 08/27/2017. FINDINGS: The heart is normal in size. The great vessels are unremarkable. There is no pathologic mediastinal, hilar, or axillary lymphadenopathy. Examination of the lung parenchyma demonstrates mild patchy ground-glass opacities in the posterior and lateral aspect of the right middle lobe, likely mild developing pneumonia. There is minimal focal subpleural scarring at the lateral right lung apex, with associated mild traction bronchiectasis. There is very slight mosaic ground-glass attenuation in the upper lung bob, suggestive of minimal underlying small vessel and/or small airways disease. There is no pleural or pericardial effusion. The trachea and visualized proximal airways are patent. No osseous abnormalities are identified in the thorax. The visualized upper abdomen is unremarkable. IMPRESSION: 1. Mild developing infiltrates/ground-glass opacities in the posterior right middle lobe, likely mild developing pneumonia. 2. Nonspecific very slight mosaic ground-glass attenuation in the upper lung bob, suggestive of underlying small vessel and/or small airways disease.
[2017-09-04] MEDS: LOVENOX SUB-Q SCH (10:16)
[2017-09-04] MEDS: LEVAQUIN 750MG/150ML 750 MG/150 ML BAG IV SCH (10:16)
[2017-09-04] MEDS: ZOFRAN IV PRN (12:31)
[2017-09-04] MEDS: ZYVOX 600MG/300ML 600 MG/300 ML BAG IV SCH (12:31)
[2017-09-04] MEDS: cefTRIAXone 2 GM in NACL 0.9% 20 ML IV SCH (12:31)
--- NOTE | 2017-09-04 12:32 | Progress Note ---
Assessment and Plan Assessment: 1) Sepsis: still high fever. Etiology most likely presumed pneumonia +/- influenza. 2) Presumed bilateral pneumonia: likely Influenza pneumonia +/- CAP -HIV neg. -Influenza Antigen neg -CTA bilateral upper lungs ground glass infiltrates -Legionella negative -Strep pneumoniae urine neg -BAL done -airways normal and pending results -CRP=3.6 -PCR<0.1 -completed 5 days tamflu -repeat Chest CT + RML infiltrate 3) Neutropenia - from viral syndrome 4) Thrombocytopenia - better 4) High risk sexual encounters-HIV non reactive Plan: -f/u VL -continue zyvox, levaquin, tamiflu -stop ceftriaxone -add zosyn -add bactrim IV -consider IV steroids I am rounding again on Wednesday Thank you Dr Lorenz for your consultation, will follow up with you. Maricarmen Houston MD Infectious Diseases Specialist [facility] ([facility]) M [phone] O [phone] Subjective Date of service: 09/04/17 Principal diagnosis: pneumonia Interval history: Feels sick still cough and still high fever 102.9, feels delitated, vomiting Microbiology: Blood cultures: 08/27 ngtd Throat GAS: neg Respiratory cultures: BAL 09/02 pending Current Antimicrobials: Levaquin 08/28 zyvox 09/01 ceftriaxone 08/30 Previous Antimicrobials: Tamiflu 08/27 Objective - Exam Narrative Exam: General appearance: Alert debilitated Eyes: anicteric sclerae, moist conjunctivae; no lid-lag; PERRLA HENT: Atraumatic; oropharynx clear Neck: Trachea midline; supple, no thyromegaly or lymphadenopathy Lungs: willow scattered rhonchi CV: RRR, no murmurs Abdomen: Soft, non-tender; no masses or hepatosplenomegaly Extremities: No peripheral edema or extremity lymphadenopathy Skin: Normal temperature, turgor and texture; no rash, ulcers or subcutaneous nodules Psych: Appropriate affect, alert and oriented to person, place and time. Neuro: alert and oriented x 3. Moving all extermities Lines: No CVL / PICC - Constitutional Vitals: Vital Signs Temp Pulse Resp BP Pulse Ox 99.3 F 97 H 18 107/52 96 09/04/17 08:28 09/04/17 08:28 09/04/17 08:28 09/04/17 08:28 09/04/17 08:28 Temperature -Last 24 Hours Temperature 99.3 F Temperature 102.8 F Temperature 99.8 F - Labs CBC & Chem 7: 09/02/17 05:32 09/02/17 05:32
--- NOTE | 2017-09-04 12:36 | Progress Note ---
Assessment and Plan - Patient Problems (1) Pneumonia Current Visit: Yes Status: Acute Qualifiers: Pneumonia type: due to unspecified organism Laterality: bilateral (2) Fever and chills Current Visit: Yes Status: Acute (3) Viral syndrome Current Visit: Yes Status: Acute Subjective Principal diagnosis: pneumonia Interval history: still with fever Objective Vital Signs - 12hr 09/04/17 09/04/17 09/04/17 01:50 02:50 08:28 Temperature 99.3 F Pulse Rate 97 H Respiratory 18 Rate Blood Pressure 107/52 O2 Sat by Pulse 96 Oximetry Constitutional: no acute distress, alert Eyes: non-icteric ENT: oropharynx moist Neck: supple Effort: normal Ascultation: Bilateral: rhonchi (rare) Cardiovascular: regular rate and rhythm (no mrg) Gastrointestinal: normoactive bowel sounds, soft, non-tender, non-distended Integumentary: normal Extremities: no cyanosis, no edema, pink and warm Neurologic: normal mental status, non-focal exam, pupils equal and round, CN II- XII normal Psychiatric: mood appropriate, affect normal CBC and BMP: 09/02/17 05:32 09/02/17 05:32 Abnormal lab findings: Abnormal Labs 08/27/17 08/27/17 08/27/17 17:00 17:00 21:05 WBC 3.9 L RBC 5.53 H Hgb 16.2 H Hct 47.9 H Plt Count 123 L [place] % (Auto) 8.4 H Lymph # Seg Neutrophils # Sodium 131 L Chloride 94.1 L Carbon Dioxide 20 L Glucose Lactic Acid 0.60 L Calcium AST ALT Total Creatine Kinase C-Reactive Protein Albumin 08/27/17 08/28/17 08/28/17 21:05 07:48 07:48 WBC 3.0 L RBC 5.06 H Hgb Hct Plt Count 104 L [place] % (Auto) 8.2 H Lymph # 0.9 L Seg Neutrophils # Sodium 135 L Chloride Carbon Dioxide Glucose 119 H Lactic Acid Calcium 8.1 L AST 55 H ALT Total Creatine Kinase 740 H C-Reactive Protein Albumin 3.6 L 08/29/17 08/29/17 08/30/17 06:21 06:21 20:05 WBC 4.2 L RBC 5.14 H Hgb 15.4 H Hct 45.8 H Plt Count 97 L [place] % (Auto) Lymph # 1.1 L Seg Neutrophils # Sodium Chloride Carbon Dioxide Glucose 103 H Lactic Acid Calcium 8.3 L AST ALT Total Creatine Kinase C-Reactive Protein 3.60 H Albumin 09/01/17 09/01/17 09/02/17 18:05 18:05 05:32 WBC 2.4 L 3.0 L RBC 5.22 H 5.19 H Hgb 15.4 H 15.4 H Hct 46.3 H 45.9 H Plt Count [place] % (Auto) 10.5 H Lymph # 0.8 L Seg Neutrophils # 1.4 L Sodium 136 L Chloride Carbon Dioxide Glucose Lactic Acid Calcium AST 81 H ALT 72 H Total Creatine Kinase C-Reactive Protein Albumin 3.5 L 09/02/17 05:32 WBC RBC Hgb Hct Plt Count [place] % (Auto) Lymph # Seg Neutrophils # Sodium 134 L Chlor[place] 97.2 L Carbon Dioxide Glucose Lactic Acid Calcium AST ALT Total Creatine Kinase C-Reactive Protein Albumin
--- NOTE | 2017-09-04 14:03 | Progress Note ---
Assessment and Plan Assessment and plan: Patient is a 37-year-old man with a history of tobacco dependency who presented with body aches, fevers and chills with nausea initially thought may have been drug fevers were considering that the patient reported that the fever started while at home on August 22 I doubt this. Apart from 2v Chest x-ray reported as linear markings in the lung base on the lateral probably in the lingula consistent with atelectasis versus early infiltrate all other studies included an influenza rapid strep CT abdomen and pelvis has been negative and blood culture. Patient was noted to have hemoptysis -Sepsis Left Lingular pneumonia: could be viral syndrom, follow cultures, continue abx, on levaquin and tamiflu, patient is status post bronch, await cultures -Suspected influenza: continue tamiflu, started isolation, pcr pending, ID is following -Febrile condition: Start on STEROIDS -Tobacco dependancy: advise to stopped -Nutropenia: Resolving -DVT prophylaxis: start sq lovenox -Hyponatremia, dehydration resolved with IVF treatment -Leukopenia: checked HIV==>negative, monitor wbc closely -dvt/gi PROPHY Plan of care discussed with patient and infectious disease History Interval history: Patient seen and examined this morning lethargic appearing otherwise in no acute distress. Still with intermittent high-grade fevers. Denies any chest pain, nausea vomiting or diarrhea. No other adverse event reported by nursing staff Hospitalist Physical - Physical exam Narrative exam: VITAL SIGNS: Reviewed. GENERAL: The patient appeared well nourished and normally developed. Vital signs as documented. HEAD: No signs of head trauma. EYES: Pupils are equal. Extraocular motions intact. EARS: Hearing grossly intact. MOUTH: Oropharynx is normal. NECK: No adenopathy, no JVD. CHEST: Chest with rhonchi breath sounds bilaterally. No wheezes, rales, or rhonchi. CARDIAC: Regular rate and rhythm. S1 and S2, without murmurs, gallops, or rubs. VASCULAR: No Edema. Peripheral pulses normal and equal in all extremities. ABDOMEN: Soft, without detectable tenderness. No sign of distention. No rebound or guarding, and no masses palpated. Bowel Sounds normal. MUSCULOSKELETAL: Good range of motion of all major joints. Extremities without clubbing, cyanosis or edema. NEUROLOGIC EXAM: Lethargic but Alert and oriented x 3. No focal sensory or strength deficits. Speech normal. Follows commands. PSYCHIATRIC: Mood normal. SKIN: No rash or lesions. - Constitutional Vitals: Temp Pulse Resp BP Pulse Ox 99.3 F 97 H 18 107/52 96 09/04/17 08:28 09/04/17 08:28 09/04/17 08:28 09/04/17 08:28 09/04/17 08:28 Results - Labs CBC & Chem 7: 09/02/17 05:32 09/02/17 05:32 Labs: Laboratory Last Values WBC 3.0 K/mm3 (4.5-11.0) L 09/02/17 05:32 RBC 5.19 M/mm3 (3.65-5.03) H 09/02/17 05:32 Hgb 15.4 gm/dl (11.8-15.2) H 09/02/17 05:32 Hct 45.9 % (35.5-45.6) H 09/02/17 05:32 MCV 88 fl (84-94) 09/02/17 05:32 MCH 30 pg (28-32) 09/02/17 05:32 MCHC 34 % (32-34) 09/02/17 05:32 RDW 13.5 % (13.2-15.2) 09/02/17 05:32 Plt Count 175 K/mm3 (140-440) 09/02/17 05:32 Lymph % (Auto) 31.6 % (13.4-35.0) 09/01/17 18:05 [place] % (Auto) 10.5 % (0.0-7.3) H 09/01/17 18:05 Eos % (Auto) 0.2 % (0.0-4.3) 09/01/17 18:05 Baso % (Auto) 0.2 % (0.0-1.8) 09/01/17 18:05 Lymph # 0.8 K/mm3 (1.2-5.4) L 09/01/17 18:05 [place] # 0.3 K/mm3 (0.0-0.8) 09/01/17 18:05 Eos # 0.0 K/mm3 (0.0-0.4) 09/01/17 18:05 Baso # 0.0 K/mm3 (0.0-0.1) 09/01/17 18:05 Seg Neutrophils % 57.5 % (40.0-70.0) 09/01/17 18:05 Seg Neutrophils # 1.4 K/mm3 (1.8-7.7) L 09/01/17 18:05 Sodium 134 mmol/L (137-145) L 09/02/17 05:32 Potassium 4.1 mmol/L (3.6-5.0) 09/02/17 05:32 Chloride 97.2 mmol/L (98-107) L 09/02/17 05:32 Carbon Dioxide 23 mmol/L (22-30) 09/02/17 05:32 Anion Gap 18 mmol/L 09/02/17 05:32 BUN 11 mg/dL (9-20) 09/02/17 05:32 Creatinine 0.9 mg/dL (0.8-1.5) 09/02/17 05:32 Estimated GFR > 60 ml/min 09/02/17 05:32 BUN/Creatinine Ratio 12 % 09/02/17 05:32 Glucose 95 mg/dL (75-100) 09/02/17 05:32 Lactic Acid 0.60 mmol/L (0.7-2.0) L 08/27/17 21:05 Calcium 8.5 mg/dL (8.4-10.2) 09/02/17 05:32 Magnesium 2.10 mg/dL (1.7-2.3) 09/02/17 05:32 Total Bilirubin 0.30 mg/dL (0.1-1.2) 09/01/17 18:05 AST 81 units/L (5-40) H 09/01/17 18:05 ALT 72 units/L (7-56) H 09/01/17 18:05 Alkaline Phosphatase 44 units/L (35-129) 09/01/17 18:05 Total Creatine Kinase 740 units/L (55-170) H 08/27/17 21:05 C-Reactive Protein 3.60 mg/dL (0.00-1.30) H 08/30/17 20:05 Total Protein 7.1 g/dL (6.3-8.2) 09/01/17 18:05 Albumin 3.5 g/dL (3.9-5) L 09/01/17 18:05 Albumin/Globulin Ratio 1.0 % 09/01/17 18:05 Urine Color [place] (Yellow) 08/27/17 16:27 Urine Turbidity Clear (Clear) 08/27/17 16:27 Urine pH 6.0 (5.0-7.0) 08/27/17 16:27 Ur Specific [place] 1.023 (1.003-1.030) 08/27/17 16:27 Urine Protein 30 mg/dl mg/dL (Negative) 08/27/17 16:27 Urine Glucose (UA) Neg mg/dL (Negative) 08/27/17 16:27 Urine Ketones Neg mg/dL (Negative) 08/27/17 16:27 Urine Blood Neg (Negative) 08/27/17 16:27 Urine Nitrite Neg (Negative) 08/27/17 16:27 Urine Bilirubin Neg (Negative) 08/27/17 16:27 Urine Urobilinogen 4.0 mg/dL (<2.0) 08/27/17 16:27 Ur Leukocyte Esterase Neg (Negative) 08/27/17 16:27 Urine WBC (Auto) 6.0 /HPF (0.0-6.0) 08/27/17 16:27 Urine RBC (Auto) 5.0 /HPF (0.0-6.0) 08/27/17 16:27 U Epithel Cells (Auto) < 1.0 /HPF (0-13.0) 08/27/17 16:27 Urine Mucus Few /HPF 08/27/17 16:27 Rheumatoid Factor < 10 IU/ml (0-13) 09/01/17 18:05 HIV 1&2 Antibody Rapid Non react (Non React) 08/30/17 15:47 HIV P24 Antigen Non react (Non React) 08/30/17 15:47 Urine Legionella Ag Not detected (Not Detected) 09/02/17 13:31 Miscellaneous Test Flexitest 1 09/02/17 13:32 - Imaging and Cardiology CT scan - chest: image reviewed (scarring possible small vessel disease)
[2017-09-04] MEDS: BACTRIM 400 MG in D5W 500 ML IV SCH ×2 (14:17→18:31)
[2017-09-04] MEDS: ZOSYN/NS 4.5GM/100ML 4.5 GM/100 ML VIAL IV SCH ×2 (15:49→21:43)
[2017-09-04] MEDS: NACL 0.9% 1000 ML 1,000 ML IV SCH (15:50)
[2017-09-04 22:07] LABS: Myeloperoxidase Antibody <1.0 AI (<1.0)
[2017-09-05] MEDS: ZYVOX 600MG/300ML 600 MG/300 ML BAG IV SCH ×3 (00:39→22:08)
[2017-09-05] MEDS: ZOFRAN IV PRN ×3 (00:44→22:06)
[2017-09-05] MEDS: BACTRIM 400 MG in D5W 500 ML IV SCH ×4 (01:39→18:46)
[2017-09-05 05:42] LABS: Hematocrit 49.2 % (35.5-45.6); Hemoglobin 15.9 gm/dl (11.8-15.2); Mean Corpuscular HGB Conc 32 % (32-34); Mean Corpuscular Hemoglobin 30 pg (28-32); Mean Corpuscular Volume 92 fl (84-94); Red Blood Count 5.34 M/mm3 (3.65-5.03); Red Cell Distribution Width 13.6 % (13.2-15.2)
[2017-09-05 05:45] LABS: Platelet Count 188 K/mm3 (140-440)
[2017-09-05 05:52] LABS: BUN/Creatinine Ratio 12; Blood Urea Nitrogen 12 mg/dL (9-20); Calcium 8.6 mg/dL (8.4-10.2); Hemolysis Index 8
[2017-09-05] MEDS: ZOSYN/NS 4.5GM/100ML 4.5 GM/100 ML VIAL IV SCH ×3 (06:04→21:23)
[2017-09-05] MEDS: LOVENOX SUB-Q SCH (10:15)
[2017-09-05] MEDS: LEVAQUIN 750MG/150ML 750 MG/150 ML BAG IV SCH (10:15)
--- NOTE | 2017-09-05 13:34 | Progress Note ---
Assessment and Plan - Patient Problems (1) Pneumonia Current Visit: Yes Status: Acute Qualifiers: Pneumonia type: due to unspecified organism Laterality: bilateral (2) Fever and chills Current Visit: Yes Status: Acute (3) Viral syndrome Current Visit: Yes Status: Acute Subjective Principal diagnosis: pneumonia Interval history: still reports chills but feels better Objective Vital Signs - 12hr 09/05/17 08:12 Temperature 98.5 F Pulse Rate 70 Respiratory 20 Rate Blood Pressure 126/74 O2 Sat by Pulse 95 Oximetry Constitutional: no acute distress, alert Eyes: non-icteric ENT: oropharynx moist Neck: supple Effort: normal Ascultation: Bilateral: clear Cardiovascular: regular rate and rhythm (no mrg) Gastrointestinal: normoactive bowel sounds, soft, non-tender, non-distended Integumentary: normal Extremities: no cyanosis, no edema, pink and warm Neurologic: normal mental status, non-focal exam, pupils equal and round, CN II- XII normal Psychiatric: mood appropriate, affect normal CBC and BMP: 09/05/17 05:14 09/05/17 05:14 Abnormal lab findings: Abnormal Labs 08/27/17 08/27/17 08/27/17 17:00 17:00 21:05 WBC 3.9 L RBC 5.53 H Hgb 16.2 H Hct 47.9 H Plt Count 123 L [place] % (Auto) 8.4 H Lymph # Seg Neutrophils # Sodium 131 L Chloride 94.1 L Carbon Dioxide 20 L Glucose Lactic Acid 0.60 L Calcium AST ALT Total Creatine Kinase C-Reactive Protein Albumin 08/27/17 08/28/17 08/28/17 21:05 07:48 07:48 WBC 3.0 L RBC 5.06 H Hgb Hct Plt Count 104 L [place] % (Auto) 8.2 H Lymph # 0.9 L Seg Neutrophils # Sodium 135 L Chloride Carbon Dioxide Glucose 119 H Lactic Acid Calcium 8.1 L AST 55 H ALT Total Creatine Kinase 740 H C-Reactive Protein Albumin 3.6 L 08/29/17 08/29/17 08/30/17 06:21 06:21 20:05 WBC 4.2 L RBC 5.14 H Hgb 15.4 H Hct 45.8 H Plt Count 97 L [place] % (Auto) Lymph # 1.1 L Seg Neutrophils # Sodium Chloride Carbon Dioxide Glucose 103 H Lactic Acid Calcium 8.3 L AST ALT Total Creatine Kinase C-Reactive Protein 3.60 H Albumin 09/01/17 09/01/17 09/02/17 18:05 18:05 05:32 WBC 2.4 L 3.0 L RBC 5.22 H 5.19 H Hgb 15.4 H 15.4 H Hct 46.3 H 45.9 H Plt Count [place] % (Auto) 10.5 H Lymph # 0.8 L Seg Neutrophils # 1.4 L Sodium 136 L Chloride Carbon Dioxide Glucose Lactic Acid Calcium AST 81 H ALT 72 H Total Creatine Kinase C-Reactive Protein Albumin 3.5 L 09/02/17 09/05/17 09/05/17 05:32 05:14 05:14 WBC 3.2 L RBC 5.34 H Hgb 15.9 H Hct 49.2 H Plt Count [place] % (Auto) Lymph # Seg Neutrophils # Sodium 134 L 135 L Chloride 97.2 L 94.0 L Carbon Dioxide Glucose 133 H Lactic Acid Calcium AST ALT Total Creatine Kinase C-Reactive Protein Albumin
--- NOTE | 2017-09-05 17:55 | Progress Note ---
Assessment and Plan Assessment and plan: Patient is a 37-year-old man with a history of tobacco dependency who presented with body aches, fevers and chills with nausea initially thought may have been drug fevers were considering that the patient reported that the fever started while at home on August 22 I doubt this. Apart from 2v Chest x-ray reported as linear markings in the lung base on the lateral probably in the lingula consistent with atelectasis versus early infiltrate all other studies included an influenza rapid strep CT abdomen and pelvis has been negative and blood culture. Patient was noted to have hemoptysis -Sepsis Left Lingular pneumonia: could be viral syndrom, follow cultures, continue abx, on levaquin and tamiflu, patient is status post bronch, await cultures steroids added for suspected vasculitis. vasculitis serology so far negative -Suspected influenza: continue tamiflu, started isolation, pcr pending, ID is following -Febrile condition: Continue STEROIDS -Tobacco dependancy: advise to stopped -Nutropenia: Resolving -DVT prophylaxis: started sq lovenox -Hyponatremia, dehydration resolved with IVF treatment -Leukopenia: checked HIV==>negative, monitor wbc closely -dvt/gi PROPHY Plan of care discussed with patient and infectious disease History Interval history: Patient seen and examined this morning lethargic appearing otherwise in no acute distress. NO new fevers today. Denies any chest pain, nausea vomiting or diarrhea. No other adverse event reported by nursing staff Hospitalist Physical - Physical exam Narrative exam: VITAL SIGNS: Reviewed. GENERAL: The patient appeared well nourished and normally developed. Vital signs as documented. HEAD: No signs of head trauma. EYES: Pupils are equal. Extraocular motions intact. EARS: Hearing grossly intact. MOUTH: Oropharynx is normal. NECK: No adenopathy, no JVD. CHEST: Chest with rhonchi breath sounds bilaterally. No wheezes, rales, or rhonchi. CARDIAC: Regular rate and rhythm. S1 and S2, without murmurs, gallops, or rubs. VASCULAR: No Edema. Peripheral pulses normal and equal in all extremities. ABDOMEN: Soft, without detectable tenderness. No sign of distention. No rebound or guarding, and no masses palpated. Bowel Sounds normal. MUSCULOSKELETAL: Good range of motion of all major joints. Extremities without clubbing, cyanosis or edema. NEUROLOGIC EXAM: Lethargic but Alert and oriented x 3. No focal sensory or strength deficits. Speech normal. Follows commands. PSYCHIATRIC: Mood normal. SKIN: No rash or lesions. - Constitutional Vitals: Temp Pulse Resp BP Pulse Ox 98.2 F 74 20 122/78 95 09/05/17 15:43 09/05/17 15:43 09/05/17 15:43 09/05/17 15:43 09/05/17 15:43 Results - Labs CBC & Chem 7: 09/05/17 05:14 09/05/17 05:14 Labs: Laboratory Last Values WBC 3.2 K/mm3 (4.5-11.0) L 09/05/17 05:14 RBC 5.34 M/mm3 (3.65-5.03) H 09/05/17 05:14 Hgb 15.9 gm/dl (11.8-15.2) H 09/05/17 05:14 Hct 49.2 % (35.5-45.6) H 09/05/17 05:14 MCV 92 fl (84-94) 09/05/17 05:14 MCH 30 pg (28-32) 09/05/17 05:14 MCHC 32 % (32-34) 09/05/17 05:14 RDW 13.6 % (13.2-15.2) 09/05/17 05:14 Plt Count 188 K/mm3 (140-440) 09/05/17 05:14 Lymph % (Auto) 31.6 % (13.4-35.0) 09/01/17 18:05 [place] % (Auto) 10.5 % (0.0-7.3) H 09/01/17 18:05 Eos % (Auto) 0.2 % (0.0-4.3) 09/01/17 18:05 Baso % (Auto) 0.2 % (0.0-1.8) 09/01/17 18:05 Lymph # 0.8 K/mm3 (1.2-5.4) L 09/01/17 18:05 [place] # 0.3 K/mm3 (0.0-0.8) 09/01/17 18:05 Eos # 0.0 K/mm3 (0.0-0.4) 09/01/17 18:05 Baso # 0.0 K/mm3 (0.0-0.1) 09/01/17 18:05 Seg Neutrophils % 57.5 % (40.0-70.0) 09/01/17 18:05 Seg Neutrophils # 1.4 K/mm3 (1.8-7.7) L 09/01/17 18:05 Sodium 135 mmol/L (137-145) L 09/05/17 05:14 Potassium 3.9 mmol/L (3.6-5.0) 09/05/17 05:14 Chloride 94.0 mmol/L (98-107) L 09/05/17 05:14 Carbon Dioxide 24 mmol/L (22-30) 09/05/17 05:14 Anion Gap 21 mmol/L 09/05/17 05:14 BUN 12 mg/dL (9-20) 09/05/17 05:14 Creatinine 1.0 mg/dL (0.8-1.5) 09/05/17 05:14 Estimated GFR > 60 ml/min 09/05/17 05:14 BUN/Creatinine Ratio 12 % 09/05/17 05:14 Glucose 133 mg/dL (75-100) H 09/05/17 05:14 Lactic Acid 0.60 mmol/L (0.7-2.0) L 08/27/17 21:05 Calcium 8.6 mg/dL (8.4-10.2) 09/05/17 05:14 Magnesium 2.10 mg/dL (1.7-2.3) 09/02/17 05:32 Total Bilirubin 0.30 mg/dL (0.1-1.2) 09/01/17 18:05 AST 81 units/L (5-40) H 09/01/17 18:05 ALT 72 units/L (7-56) H 09/01/17 18:05 Alkaline Phosphatase 44 units/L (35-129) 09/01/17 18:05 Total Creatine Kinase 740 units/L (55-170) H 08/27/17 21:05 C-Reactive Protein 3.60 mg/dL (0.00-1.30) H 08/30/17 20:05 Total Protein 7.1 g/dL (6.3-8.2) 09/01/17 18:05 Albumin 3.5 g/dL (3.9-5) L 09/01/17 18:05 Albumin/Globulin Ratio 1.0 % 09/01/17 18:05 Urine Color [place] (Yellow) 08/27/17 16:27 Urine Turbidity Clear (Clear) 08/27/17 16:27 Urine pH 6.0 (5.0-7.0) 08/27/17 16:27 Ur Specific [place] 1.023 (1.003-1.030) 08/27/17 16:27 Urine Protein 30 mg/dl mg/dL (Negative) 08/27/17 16:27 Urine Glucose (UA) Neg mg/dL (Negative) 08/27/17 16:27 Urine Ketones Neg mg/dL (Negative) 08/27/17 16:27 Urine Blood Neg (Negative) 08/27/17 16:27 Urine Nitrite Neg (Negative) 08/27/17 16:27 Urine Bilirubin Neg (Negative) 08/27/17 16:27 Urine Urobilinogen 4.0 mg/dL (<2.0) 08/27/17 16:27 Ur Leukocyte Esterase Neg (Negative) 08/27/17 16:27 Urine WBC (Auto) 6.0 /HPF (0.0-6.0) 08/27/17 16:27 Urine RBC (Auto) 5.0 /HPF (0.0-6.0) 08/27/17 16:27 U Epithel Cells (Auto) < 1.0 /HPF (0-13.0) 08/27/17 16:27 Urine Mucus Few /HPF 08/27/17 16:27 Rheumatoid Factor < 10 IU/ml (0-13) 09/01/17 18:05 Proteinase 3 (PR3) Ab <1.0 AI (<1.0) 09/01/17 18:05 Myeloperoxidase Ab <1.0 AI (<1.0) 09/01/17 18:05 PRAFUL-1 Antibody <1.0 AI (<1.0) 09/01/17 18:05 Glomerular Base Mem IgG <1.0 AI (<1.0) 09/01/17 18:05 HIV 1&2 Antibody Rapid Non react (Non React) 08/30/17 15:47 HIV P24 Antigen Non react (Non React) 08/30/17 15:47 Urine Legionella Ag Not detected (Not Detected) 09/02/17 13:31 Miscellaneous Test Flexitest 1 09/02/17 13:32
[2017-09-06] MEDS: BACTRIM 400 MG in D5W 500 ML IV SCH ×3 (00:06→12:52)
[2017-09-06] MEDS: ZOSYN/NS 4.5GM/100ML 4.5 GM/100 ML VIAL IV SCH ×2 (05:41→13:01)
[2017-09-06] MEDS: ZYVOX 600MG/300ML 600 MG/300 ML BAG IV SCH (09:31)
[2017-09-06] MEDS: LEVAQUIN 750MG/150ML 750 MG/150 ML BAG IV SCH (09:31)
[2017-09-06] MEDS: LOVENOX SUB-Q SCH (09:32)
[2017-09-06] MEDS: ZOFRAN IV PRN ×2 (09:40→21:31)
--- NOTE | 2017-09-06 10:58 | Progress Note ---
Assessment and Plan Assessment: 1) Sepsis: Fever broke after IV steroids started. Etiology most likely presumed pneumonia +/- influenza. 2) Presumed bilateral pneumonia: likely Influenza pneumonia +/- CAP -HIV neg. -Influenza Antigen neg -CTA bilateral upper lungs ground glass infiltrates -Legionella negative -Strep pneumoniae urine neg -BAL done -airways normal and path showed no malignance and no PCP, BAL culture negative -CRP=3.6 -PCR<0.1 -completed 5 days tamflu -repeat Chest CT + RML infiltrate -ANCA negative, RF negative 3) Neutropenia - better 4) Thrombocytopenia - better 4) High risk sexual encounters-HIV non reactive 5) N//V due to ABX Plan: -continue zyvox day 6, levaquin day 4, zosyn -stop bactrim in view of negative PCP -taper down IV steroids per internal medicine -upon discharge will do ceftin 500 mg po q 12 and doxycycline 100 mg po q 12 to complete 10 days until 09/[address] Lorenz for your consultation, will follow up with you. Fabián Delgado NP-C for Dr. Maricarmen Houston MD Infectious Diseases Specialist [facility] ([facility]) M [phone] O [phone] Subjective Date of service: 09/06/17 Principal diagnosis: pneumonia Interval history: I feel very nauseous when my antibiotics are been infused and I have been refusing them, no fever Microbiology: Blood cultures: 08/27 ngtd Throat GAS: neg Respiratory cultures: BAL 09/02 pending Current Antimicrobials: Levaquin 08/28 zyvox 09/01 zosyn 09/04 Bactrim 09/04 Previous Antimicrobials: Tamiflu 08/27 ceftriaxone 08/30 Objective - Exam Narrative Exam: General appearance: Alert in NAD, conversant Eyes: anicteric sclerae, moist conjunctivae; no lid-lag; PERRLA HENT: Atraumatic; oropharynx clear Neck: Trachea midline; supple, no thyromegaly or lymphadenopathy Lungs: willow scattered rhonchi CV: RRR, no murmurs Abdomen: Soft, non-tender; no masses or hepatosplenomegaly Extremities: No peripheral edema or extremity lymphadenopathy Skin: Normal temperature, turgor and texture; no rash, ulcers or subcutaneous nodules Psych: Appropriate affect, calm and cooperative Neuro: alert and oriented x 3. Moving all extermities Lines: No CVL / PICC - Constitutional Vitals: Vital Signs Temp Pulse Resp BP Pulse Ox 97.9 F 76 20 111/84 99 09/06/17 08:01 09/06/17 08:01 09/06/17 08:01 09/06/17 08:01 09/06/17 08:01 Temperature -Last 24 Hours Temperature 97.9 F Temperature 97.5 F Temperature 98.0 F Temperature 98.2 F Temperature 97.4 F - Labs CBC & Chem 7: 09/05/17 05:14 09/05/17 05:14
--- NOTE | 2017-09-06 12:33 | Progress Note ---
Assessment and Plan No findings acutely from bronch. Will see PRN Subjective Date of service: 09/06/17 Principal diagnosis: pneumonia Interval history: Bronch final results show no organisms. Objective Vital Signs - 12hr 09/06/17 09/06/17 07:57 08:01 Temperature 97.5 F L 97.9 F Pulse Rate 72 76 Respiratory 20 20 Rate Blood Pressure 124/76 111/84 O2 Sat by Pulse 98 99 Oximetry Constitutional: no acute distress, alert Eyes: non-icteric ENT: oropharynx moist Neck: supple Effort: normal Ascultation: Bilateral: clear, rhonchi (rare) Cardiovascular: regular rate and rhythm (no mrg) Gastrointestinal: normoactive bowel sounds, soft, non-tender, non-distended Integumentary: normal Extremities: no cyanosis, no edema, pink and warm Neurologic: normal mental status, non-focal exam, pupils equal and round, CN II- XII normal Psychiatric: mood appropriate, affect normal CBC and BMP: 09/05/17 05:14 09/05/17 05:14 Abnormal lab findings: Abnormal Labs 08/27/17 08/27/17 08/27/17 17:00 17:00 21:05 WBC 3.9 L RBC 5.53 H Hgb 16.2 H Hct 47.9 H Plt Count 123 L [place] % (Auto) 8.4 H Lymph # Seg Neutrophils # Sodium 131 L Chloride 94.1 L Carbon Dioxide 20 L Glucose Lactic Acid 0.60 L Calcium AST ALT Total Creatine Kinase C-Reactive Protein Albumin 08/27/17 08/28/17 08/28/17 21:05 07:48 07:48 WBC 3.0 L RBC 5.06 H Hgb Hct Plt Count 104 L [place] % (Auto) 8.2 H Lymph # 0.9 L Seg Neutrophils # Sodium 135 L [place]lor[place] Carbon Dioxide Glucose 119 H Lactic Acid Calcium 8.1 L AST 55 H ALT Total Creatine Kinase 740 H C-Reactive Protein Albumin 3.6 L 08/29/17 08/29/17 08/30/17 06:21 06:21 20:05 WBC 4.2 L RBC 5.14 H Hgb 15.4 H Hct 45.8 H Plt Count 97 L [place] % (Auto) Lymph # 1.1 L Seg Neutrophils # Sodium Chloride Carbon Dioxide Glucose 103 H Lactic Acid Calcium 8.3 L AST ALT Total Creatine Kinase C-Reactive Protein 3.60 H Albumin 09/01/17 09/01/17 09/02/17 18:05 18:05 05:32 WBC 2.4 L 3.0 L RBC 5.22 H 5.19 H Hgb 15.4 H 15.4 H Hct 46.3 H 45.9 H Plt Count [place] % (Auto) 10.5 H Lymph # 0.8 L Seg Neutrophils # 1.4 L Sodium 136 L Chloride Carbon Dioxide Glucose Lactic Acid Calcium AST 81 H ALT 72 H Total Creatine Kinase C-Reactive Protein Albumin 3.5 L 09/02/17 09/05/17 09/05/17 05:32 05:14 05:14 WBC 3.2 L RBC 5.34 H Hgb 15.9 H Hct 49.2 H Plt Count [place] % (Auto) Lymph # Seg Neutrophils # Sodium 134 L 135 L Chloride 97.2 L 94.0 L Carbon Dioxide Glucose 133 H Lactic Acid Calcium AST ALT Total Creatine Kinase C-Reactive Protein Albumin
[2017-09-06] MEDS: NACL 0.9% 1000 ML 1,000 ML IV SCH (12:58)
[2017-09-06] MEDS: LEVAQUIN PO SCH (15:00)
[2017-09-06] MEDS: ZYVOX PO SCH ×2 (15:45→23:26)
--- NOTE | 2017-09-06 16:20 | Progress Note ---
Assessment and Plan Assessment and plan: Patient is a 37-year-old man with a history of tobacco dependency who presented with body aches, fevers and chills with nausea initially thought may have been drug fevers were considering that the patient reported that the fever started while at home on August 22 I doubt this. Apart from 2v Chest x-ray reported as linear markings in the lung base on the lateral probably in the lingula consistent with atelectasis versus early infiltrate all other studies included an influenza rapid strep CT abdomen and pelvis has been negative and blood culture. Patient was noted to have hemoptysis -Sepsis Left Lingular pneumonia: could be viral syndromE, follow cultures, continue abx, on levaquin and tamiflu, patient is status post bronch, no clear growth from cultures. We'll change steroids to by mouth. Steroids added for suspected vasculitis. vasculitis serology so far negative. HIV test is negative Legionella and strep pneumoniae is negative. We'll recommend repeat CT chest and 4-6 weeks to assure resolution. -Suspected influenza: continue tamiflu, started isolation, pcr pending, ID is following -Febrile condition: Continue STEROIDS -Tobacco dependancy: advise to stopped -Nutropenia: Resolving -DVT prophylaxis: started sq lovenox -Hyponatremia, dehydration resolved with IVF treatment -Leukopenia: checked HIV==>negative, monitor wbc closely -Thrombocytopenia-better -Gastroenteritis: Persistent nausea and vomiting possible secondary to Flagyl will discontinue in the setting of negative PCP. -dvt/gi PROPHY Plan of care discussed with patient and infectious disease Anticipated discharge in a.m. if patient remains stable History Interval history: Patient seen and examined this morning was persistently having vomiting episodes which has now resolved this afternoon on reexamination. Still with limited by mouth intake. Hospitalist Physical - Physical exam Narrative exam: VITAL SIGNS: Reviewed. GENERAL: The patient appeared well nourished and normally developed. Vital signs as documented. HEAD: No signs of head trauma. EYES: Pupils are equal. Extraocular motions intact. EARS: Hearing grossly intact. MOUTH: Oropharynx is normal. NECK: No adenopathy, no JVD. CHEST: Chest with rhonchi breath sounds bilaterally. No wheezes, rales, or rhonchi. CARDIAC: Regular rate and rhythm. S1 and S2, without murmurs, gallops, or rubs. VASCULAR: No Edema. Peripheral pulses normal and equal in all extremities. ABDOMEN: Soft, without detectable tenderness. No sign of distention. No rebound or guarding, and no masses palpated. Bowel Sounds normal. MUSCULOSKELETAL: Good range of motion of all major joints. Extremities without clubbing, cyanosis or edema. NEUROLOGIC EXAM: Lethargic but Alert and oriented x 3. No focal sensory or strength deficits. Speech normal. Follows commands. PSYCHIATRIC: Mood normal. SKIN: No rash or lesions. - Constitutional Vitals: Temp Pulse Resp BP Pulse Ox 97.9 F 76 20 111/84 99 09/06/17 08:01 09/06/17 08:01 09/06/17 08:01 09/06/17 08:01 09/06/17 08:01 Results - Labs CBC & Chem 7: 09/05/17 05:14 09/05/17 05:14 Labs: Laboratory Last Values WBC 3.2 K/mm3 (4.5-11.0) L 09/05/17 05:14 RBC 5.34 M/mm3 (3.65-5.03) H 09/05/17 05:14 Hgb 15.9 gm/dl (11.8-15.2) H 09/05/17 05:14 Hct 49.2 % (35.5-45.6) H 09/05/17 05:14 MCV 92 fl (84-94) 09/05/17 05:14 MCH 30 pg (28-32) 09/05/17 05:14 MCHC 32 % (32-34) 09/05/17 05:14 RDW 13.6 % (13.2-15.2) 09/05/17 05:14 Plt Count 188 K/mm3 (140-440) 09/05/17 05:14 Lymph % (Auto) 31.6 % (13.4-35.0) 09/01/17 18:05 [place] % (Auto) 10.5 % (0.0-7.3) H 09/01/17 18:05 Eos % (Auto) 0.2 % (0.0-4.3) 09/01/17 18:05 Baso % (Auto) 0.2 % (0.0-1.8) 09/01/17 18:05 Lymph # 0.8 K/mm3 (1.2-5.4) L 09/01/17 18:05 [place] # 0.3 K/mm3 (0.0-0.8) 09/01/17 18:05 Eos # 0.0 K/mm3 (0.0-0.4) 09/01/17 18:05 Baso # 0.0 K/mm3 (0.0-0.1) 09/01/17 18:05 Seg Neutrophils % 57.5 % (40.0-70.0) 09/01/17 18:05 Seg Neutrophils # 1.4 K/mm3 (1.8-7.7) L 09/01/17 18:05 Sodium 135 mmol/L (137-145) L 09/05/17 05:14 Potassium 3.9 mmol/L (3.6-5.0) 09/05/17 05:14 Chloride 94.0 mmol/L (98-107) L 09/05/17 05:14 Carbon Dioxide 24 mmol/L (22-30) 09/05/17 05:14 Anion Gap 21 mmol/L 09/05/17 05:14 BUN 12 mg/dL (9-20) 09/05/17 05:14 Creatinine 1.0 mg/dL (0.8-1.5) 09/05/17 05:14 Estimated GFR > 60 ml/min 09/05/17 05:14 BUN/Creatinine Ratio 12 % 09/05/17 05:14 Glucose 133 mg/dL (75-100) H 09/05/17 05:14 Lactic Acid 0.60 mmol/L (0.7-2.0) L 08/27/17 21:05 Calcium 8.6 mg/dL (8.4-10.2) 09/05/17 05:14 Magnesium 2.10 mg/dL (1.7-2.3) 09/02/17 05:32 Total Bilirubin 0.30 mg/dL (0.1-1.2) 09/01/17 18:05 AST 81 units/L (5-40) H 09/01/17 18:05 ALT 72 units/L (7-56) H 09/01/17 18:05 Alkaline Phosphatase 44 units/L (35-129) 09/01/17 18:05 Total Creatine Kinase 740 units/L (55-170) H 08/27/17 21:05 C-Reactive Protein 3.60 mg/dL (0.00-1.30) H 08/30/17 20:05 Total Protein 7.1 g/dL (6.3-8.2) 09/01/17 18:05 Albumin 3.5 g/dL (3.9-5) L 09/01/17 18:05 Albumin/Globulin Ratio 1.0 % 09/01/17 18:05 Urine Color [place] (Yellow) 08/27/17 16:27 Urine Turbidity Clear (Clear) 08/27/17 16:27 Urine pH 6.0 (5.0-7.0) 08/27/17 16:27 Ur Specific [place] 1.023 (1.003-1.030) 08/27/17 16:27 Urine Protein 30 mg/dl mg/dL (Negative) 08/27/17 16:27 Urine Glucose (UA) Neg mg/dL (Negative) 08/27/17 16:27 Urine Ketones Neg mg/dL (Negative) 08/27/17 16:27 Urine Blood Neg (Negative) 08/27/17 16:27 Urine Nitrite Neg (Negative) 08/27/17 16:27 Urine Bilirubin Neg (Negative) 08/27/17 16:27 Urine Urobilinogen 4.0 mg/dL (<2.0) 08/27/17 16:27 Ur Leukocyte Esterase Neg (Negative) 08/27/17 16:27 Urine WBC (Auto) 6.0 /HPF (0.0-6.0) 08/27/17 16:27 Urine RBC (Auto) 5.0 /HPF (0.0-6.0) 08/27/17 16:27 U Epithel Cells (Auto) < 1.0 /HPF (0-13.0) 08/27/17 16:27 Urine Mucus Few /HPF 08/27/17 16:27 Rheumatoid Factor < 10 IU/ml (0-13) 09/01/17 18:05 Proteinase 3 (PR3) Ab <1.0 AI (<1.0) 09/01/17 18:05 Myeloperoxidase Ab <1.0 AI (<1.0) 09/01/17 18:05 PRAFUL-1 Antibody <1.0 AI (<1.0) 09/01/17 18:05 Glomerular Base Mem IgG <1.0 AI (<1.0) 09/01/17 18:05 HIV 1&2 Antibody Rapid Non react (Non React) 08/30/17 15:47 HIV P24 Antigen Non react (Non React) 08/30/17 15:47 Urine Legionella Ag Not detected (Not Detected) 09/02/17 13:31 Miscellaneous Test Flexitest 1 09/02/17 16:00
[2017-09-07] MEDS: ZOSYN/NS 4.5GM/100ML 4.5 GM/100 ML VIAL IV SCH ×2 (00:17→05:25)
[2017-09-07] MEDS: ZOFRAN IV PRN ×4 (00:54→16:45)
[2017-09-07 08:20] LABS: Hematocrit 48.8 % (35.5-45.6); Hemoglobin 16.6 gm/dl (11.8-15.2); Mean Corpuscular HGB Conc 34 % (32-34); Mean Corpuscular Hemoglobin 30 pg (28-32); Mean Corpuscular Volume 87 fl (84-94); Platelet Count 259 K/mm3 (140-440); Red Blood Count 5.61 M/mm3 (3.65-5.03); Red Cell Distribution Width 13.2 % (13.2-15.2)
[2017-09-07] MEDS: ZYVOX PO SCH ×2 (10:00→21:54)
[2017-09-07] MEDS ORDERED: DELTASONE PO SCH (10:00)
[2017-09-07] MEDS: LEVAQUIN PO SCH (10:00)
[2017-09-07] MEDS: LOVENOX SUB-Q SCH (10:00)
--- NOTE | 2017-09-07 10:35 | Progress Note ---
Assessment and Plan Assessment: 1) Sepsis: Better. Etiology most likely presumed pneumonia +/- influenza. 2) Presumed bilateral pneumonia: likely Influenza pneumonia +/- CAP -HIV neg. -Influenza Antigen neg -CTA bilateral upper lungs ground glass infiltrates -Legionella negative -Strep pneumoniae urine neg -BAL done -airways normal and path showed no malignance and no PCP, BAL culture negative -CRP=3.6 -PCR<0.1 -completed 5 days tamflu -repeat Chest CT + RML infiltrate -ANCA negative, RF negative 3) Neutropenia - better 4) Thrombocytopenia - better 4) High risk sexual encounters-HIV non reactive 5) N//V due to ABX; actively vomiting with hematemesis and stated that he is not able to tolerate anything po Plan: -consider GI consult -continue zyvox day 6, levaquin day 4, -stop zosyn -continue taper down IV steroids per internal medicine -upon discharge will do ceftin 500 mg po q 12 and doxycycline 100 mg po q 12 to complete 10 days until 09/[address] Lorenz for your consultation, will follow up with you. Fabián Delgado NP-C for Dr. Maricarmen Houston MD Infectious Diseases Specialist [facility] ([facility]) M [phone] O [phone] Subjective Date of service: 09/07/17 Principal diagnosis: pneumonia Interval history: I have not been able to keep any food down, no fever Microbiology: Blood cultures: 08/27 ngtd Throat GAS: neg Respiratory cultures: BAL 09/02 pending Current Antimicrobials: Levaquin 08/28 zyvox 09/01 zosyn 09/04 Previous Antimicrobials: Tamiflu 08/27 ceftriaxone 08/30 Bactrim 09/04 Objective - Exam Narrative Exam: General appearance: Alert in NAD, conversant Eyes: anicteric sclerae, moist conjunctivae; no lid-lag; PERRLA HENT: Atraumatic; oropharynx clear Neck: Trachea midline; supple, no thyromegaly or lymphadenopathy Lungs: willow scattered rhonchi CV: RRR, no murmurs Abdomen: Soft, non-tender; actively vomiting that looks like coffee grounds Extremities: No peripheral edema or extremity lymphadenopathy Skin: Normal temperature, turgor and texture; no rash, ulcers or subcutaneous nodules Psych: Appropriate affect, calm and cooperative Neuro: alert and oriented x 3. Moving all extermities Lines: No CVL / PICC - Constitutional Vitals: Vital Signs Temp Pulse Resp BP Pulse Ox 98.2 F 83 20 116/80 98 09/06/17 22:09 09/06/17 22:09 09/06/17 23:18 09/06/17 22:09 09/06/17 22:09 Temperature -Last 24 Hours Temperature 98.2 F Temperature 97.9 F - Labs CBC & Chem 7: 09/07/17 07:33 09/05/17 05:14 Labs: Abnormal lab results 09/07/17 Range/Units 07:33 RBC 5.61 H (3.65-5.03) M/mm3 Hgb 16.6 H (11.8-15.2) gm/dl Hct 48.8 H (35.5-45.6) %
--- NOTE | 2017-09-07 10:55 | Gastroenterology Consultation ---
History of Present Illness - Reason for Consult Consult date: 09/07/17 persistent N/V Requesting physician: RHEA RAMOS - History of Present Illness Patient is a 37 y/o male with PMH of tobacco dependency who presented to ED with c/o flu like symptoms to include body aches, fever/chills, and nausea. Chest x-ray revealed linear marking in the lung base consistent with atelectasis vs early infiltrate. He is currently being treated for sepsis 2/2 presumed pneumonia +/-influenza (rapid influenza, rapid strep, and HIV negative) . S/P bronch for hemoptysis and currently on steroids for suspected vasculitis, however vasculitis serology is so far negative. GI has been consulted for persistent N/V. This am pt was resting in bed, ill appearing but w/o acute distress. He reports intermittent N/V for the past several days that was worsened by antibiotics given since hospitalization. He states he began vomiting up bloody emesis last night and has had 3 episodes this am of vomiting with black emesis mixed with scant amount of bright red blood. States abd pain is only present while vomiting then resolves. Abd CT negative. Reports burning with swallowing that developed yesterday as well. Diarrhea has now resolved. Denies CP, SOB, dizziness, dysphagia, melena, constipation, or hematochezia. No NSAID use. No hx of liver disease or PUD. No previous EGD. Past History Past Medical History: No medical history Past Surgical History: No surgical history Social history: single, Lives alone, smoking, alcohol abuse Family history: no significant family history Medications and Allergies Allergies Allergy/AdvReac Type Severity Reaction Status Date / Time No Known Allergies Allergy Verified 09/03/17 11:17 Active Meds: Active Medications Acetaminophen (Tylenol) 650 mg PO Q4H PRN PRN Reason: Pain MILD(1-3)/Fever >100.5/PALM Last Admin: 09/04/17 13:24 Dose: 650 mg Bisacodyl (Dulcolax) 10 mg AR QDAY PRN PRN Reason: Constipation unrelieved by MOM Enoxaparin Sodium (Lovenox) 40 mg SUB-Q QDAY@1000 CHRISS Last Admin: 09/06/17 09:32 Dose: 40 mg Hydromorphone HCl (Dilaudid) 0.5 mg IV Q3H PRN PRN Reason: Pain , Severe (7-10) Last Admin: 09/07/17 08:54 Dose: 0.5 mg Sodium Chloride (Nacl 0.9% 1000 Ml) 1,000 mls @ 50 mls/hr IV DIRECT CHRISS Last Admin: 09/06/17 12:58 Dose: 50 mls/hr Piperacillin Sod/Tazobactam Sod (Zosyn/Ns 4.5gm/100ml) 4.5 gm in 100 mls @ 200 mls/hr IV Q8HR [facility] PRN Reason: Protocol Last Admin: 09/07/17 05:25 Dose: 200 mls/hr Levofloxacin (Levaquin) 750 mg PO Q24HR [facility] Last Admin: 09/06/17 15:00 Dose: 750 mg Linezolid (Zyvox) 600 mg PO Q12HR [facility] PRN Reason: Protocol Last Admin: 09/06/17 23:26 Dose: Not Given Magnesium Hydroxide (Milk Of Magnesia) 30 ml PO Q4H PRN PRN Reason: Constipation Last Admin: 08/30/17 13:14 Dose: 30 ml Methylprednisolone Sodium Succinate (Solu-Medrol) 20 mg IV Q12HR [facility] Morphine Sulfate (Morphine) 2 mg IV Q4H PRN PRN Reason: Pain, Moderate (4-6) Ondansetron HCl (Zofran) 4 mg IV Q4H PRN PRN Reason: Nausea And Vomiting Last Admin: 09/07/17 08:55 Dose: 4 mg Oxycodone/Acetaminophen (Percocet 5/325) 1 tab PO Q6H PRN PRN Reason: Pain, Moderate (4-6) Last Admin: 08/30/17 13:14 Dose: 1 tab Zolpidem Tartrate (Ambien) 5 mg PO QHS PRN PRN Reason: Insomnia Review of Systems - Review of Systems Gastrointestinal: nausea, vomiting, hematemesis, other (odynophagia) Exam - Constitutional Vital Signs: Temp Pulse Resp BP Pulse Ox 98.4 F 81 20 111/74 98 09/07/17 08:48 09/07/17 08:48 09/07/17 08:48 09/07/17 08:48 09/07/17 08:48 General appearance: no acute distress, other (ill appearing) - Respiratory Respiratory: bilateral: rhonchi - Cardiovascular Rhythm: regular Heart Sounds: Present: S1 & S2 - Gastrointestinal General gastrointestinal: Present: soft, non-tender, non-distended, normal bowel sounds - Neurologic Neurological: alert and oriented x3 - Labs CBC & Chem 7: 09/07/17 07:33 09/05/17 05:14 Lab Results: Laboratory Results - last 24 hr 09/07/17 07:33 WBC 7.2 RBC 5.61 H Hgb 16.6 H Hct 48.8 H MCV 87 MCH 30 MCHC 34 RDW 13.2 Plt Count 259 Assessment and Plan 1.persistent N/V 2.hematemesis 3.sepsis left lingular pneumonia 4.suspected influenza 5.gastroenteritis -Abd CT-negative -HGB 16.6 -continue to monitor H/H and transfuse as needed -N/V x 3 episodes this am with small amount of black mixed with scant amount of bright red bloody emesis -hold am dose of lovenox -start on PPI -etiology unclear- possible esophagitis vs M-W tear vs other -keep NPO -will schedule for EGD today -continue supportive care -will follow
[2017-09-07] MEDS: PROTONIX IV SCH ×2 (12:00→21:51)
[2017-09-07] MEDS ORDERED: WATER FOR IRRIG STERILE IR ONE (12:54)
[2017-09-07] MEDS ORDERED: XYLOCAINE MPF 2% ONE (13:00)
[2017-09-07] MEDS: NACL 0.9% 1000 ML 1,000 ML IV SCH ×2 (13:30→16:45)
--- NOTE | 2017-09-07 13:41 | Anesthesia Consultation ---
Anesthesia Consult and Med Hx Date of service: 09/07/17 - Airway Anesthetic Teeth Evaluation: Caps ROM Head & Neck: Adequate Mental/Hyoid Distance: Adequate Mallampati Class: Class III Intubation Access Assessment: Possibly Difficult - Pulmonary Exam CTA: Yes - Cardiac Exam Cardiac Exam: RRR - Pre-Operative Health Status ASA Pre-Surgery Classification: ASA3 Proposed Anesthetic Plan: MAC - Pulmonary Hx Smoking: Yes SOB: Yes Hx Pneumonia: Yes
--- NOTE | 2017-09-07 13:42 | Anesthesia Day of Surgery ---
Anesthesia Day of Surgery - Day of Surgery Patient Examined: Yes Patient H&P Reviewed: Yes Patient is NPO: Yes
[2017-09-07] MEDS ORDERED: DIPRIVAN 10 MG/ML IV ONE (13:43)
--- NOTE | 2017-09-07 13:55 | Progress Note ---
Assessment and Plan Assessment and plan: Patient is a 37-year-old man with a history of tobacco dependency who presented with body aches, fevers and chills with nausea initially thought may have been drug fevers were considering that the patient reported that the fever started while at home on August 22 I doubt this. Apart from 2v Chest x-ray reported as linear markings in the lung base on the lateral probably in the lingula consistent with atelectasis versus early infiltrate all other studies included an influenza rapid strep CT abdomen and pelvis has been negative and blood culture. Patient was noted to have hemoptysis -Coffee-ground emesis with intractable gastroenteritis-GI consulted. For endoscopy today. Monitor H&H -Sepsis Left Lingular pneumonia: could be viral syndrome, follow cultures, continue abx, on levaquin and tamiflu, patient is status post bronch, no clear growth from cultures. We'll change steroids to by mouth. Steroids added for suspected vasculitis. vasculitis serology so far negative. HIV test is negative Legionella and strep pneumoniae is negative. We'll recommend repeat CT chest and 4-6 weeks to assure resolution. We'll discuss with ID about possibly discontinuing all antibiotics and monitoring the patient off antibiotic. He has not been taking the antibiotics in the first place and has remained afebrile. -Suspected influenza: continue tamiflu, started isolation, pcr pending, ID is following -Febrile condition: Continue STEROIDS -Tobacco dependance: advise to stopped. 50 minutes counseling provided -Nutropenia: Resolving -Hyponatremia, dehydration resolved with IVF treatment -Leukopenia: checked HIV==>negative, monitor wbc closely -Thrombocytopenia-better -Gastroenteritis: Persistent nausea and vomiting possible secondary to Flagyl will discontinue in the setting of negative PCP. -dvt/gi PROPHY Plan of care discussed with patient and infectious disease Anticipated discharge in a.m. if patient remains stable History Interval history: Patient seen and examined this morning was persistently having vomiting episodes again this morning this time with coffee-ground appearing phlegm. Reports could not keep anything down. Believes that this is related to the by mouth intakes. No other adverse events reported by nursing staff Hospitalist Physical - Physical exam Narrative exam: VITAL SIGNS: Reviewed. GENERAL: The patient appeared well nourished and normally developed. Lethargic Vital signs as documented. HEAD: No signs of head trauma. EYES: Pupils are equal. Extraocular motions intact. EARS: Hearing grossly intact. MOUTH: Oropharynx is normal. NECK: No adenopathy, no JVD. CHEST: Chest with rhonchi breath sounds bilaterally. No wheezes, rales, or rhonchi. CARDIAC: Regular rate and rhythm. S1 and S2, without murmurs, gallops, or rubs. VASCULAR: No Edema. Peripheral pulses normal and equal in all extremities. ABDOMEN: Soft, without detectable tenderness. No sign of distention. No rebound or guarding, and no masses palpated. Bowel Sounds normal. MUSCULOSKELETAL: Good range of motion of all major joints. Extremities without clubbing, cyanosis or edema. NEUROLOGIC EXAM: Lethargic but Alert and oriented x 3. No focal sensory or strength deficits. Speech normal. Follows commands. PSYCHIATRIC: Mood normal. SKIN: No rash or lesions. - Constitutional Vitals: Temp Pulse Resp BP Pulse Ox 98.1 F 88 18 135/78 95 09/07/17 13:24 09/07/17 13:24 09/07/17 13:24 09/07/17 13:24 09/07/17 13:24 Results - Labs CBC & Chem 7: 09/07/17 07:33 09/05/17 05:14 Labs: Laboratory Last Values WBC 7.2 K/mm3 (4.5-11.0) 09/07/17 07:33 RBC 5.61 M/mm3 (3.65-5.03) H 09/07/17 07:33 Hgb 16.6 gm/dl (11.8-15.2) H 09/07/17 07:33 Hct 48.8 % (35.5-45.6) H 09/07/17 07:33 MCV 87 fl (84-94) 09/07/17 07:33 MCH 30 pg (28-32) 09/07/17 07:33 MCHC 34 % (32-34) 09/07/17 07:33 RDW 13.2 % (13.2-15.2) 09/07/17 07:33 Plt Count 259 K/mm3 (140-440) 09/07/17 07:33 Lymph % (Auto) 31.6 % (13.4-35.0) 09/01/17 18:05 [place] % (Auto) 10.5 % (0.0-7.3) H 09/01/17 18:05 Eos % (Auto) 0.2 % (0.0-4.3) 09/01/17 18:05 Baso % (Auto) 0.2 % (0.0-1.8) 09/01/17 18:05 Lymph # 0.8 K/mm3 (1.2-5.4) L 09/01/17 18:05 [place] # 0.3 K/mm3 (0.0-0.8) 09/01/17 18:05 Eos # 0.0 K/mm3 (0.0-0.4) 09/01/17 18:05 Baso # 0.0 K/mm3 (0.0-0.1) 09/01/17 18:05 Seg Neutrophils % 57.5 % (40.0-70.0) 09/01/17 18:05 Seg Neutrophils # 1.4 K/mm3 (1.8-7.7) L 09/01/17 18:05 Sodium 135 mmol/L (137-145) L 09/05/17 05:14 Potassium 3.9 mmol/L (3.6-5.0) 09/05/17 05:14 Chloride 94.0 mmol/L (98-107) L 09/05/17 05:14 Carbon Dioxide 24 mmol/L (22-30) 09/05/17 05:14 Anion Gap 21 mmol/L 09/05/17 05:14 BUN 12 mg/dL (9-20) 09/05/17 05:14 Creatinine 1.0 mg/dL (0.8-1.5) 09/05/17 05:14 Estimated GFR > 60 ml/min 09/05/17 05:14 BUN/Creatinine Ratio 12 % 09/05/17 05:14 Glucose 133 mg/dL (75-100) H 09/05/17 05:14 Lactic Acid 0.60 mmol/L (0.7-2.0) L 08/27/17 21:05 Calcium 8.6 mg/dL (8.4-10.2) 09/05/17 05:14 Magnesium 2.10 mg/dL (1.7-2.3) 09/02/17 05:32 Total Bilirubin 0.30 mg/dL (0.1-1.2) 09/01/17 18:05 AST 81 units/L (5-40) H 09/01/17 18:05 ALT 72 units/L (7-56) H 09/01/17 18:05 Alkaline Phosphatase 44 units/L (35-129) 09/01/17 18:05 Total Creatine Kinase 740 units/L (55-170) H 08/27/17 21:05 C-Reactive Protein 3.60 mg/dL (0.00-1.30) H 08/30/17 20:05 Total Protein 7.1 g/dL (6.3-8.2) 09/01/17 18:05 Albumin 3.5 g/dL (3.9-5) L 09/01/17 18:05 Albumin/Globulin Ratio 1.0 % 09/01/17 18:05 Urine Color Fernanda (Yellow) 08/27/17 16:27 Urine Turbidity Clear (Clear) 08/27/17 16:27 Urine pH 6.0 (5.0-7.0) 08/27/17 16:27 Ur Specific [place] 1.023 (1.003-1.030) 08/27/17 16:27 Urine Protein 30 mg/dl mg/dL (Negative) 08/27/17 16:27 Urine Glucose (UA) Neg mg/dL (Negative) 08/27/17 16:27 Urine Ketones Neg mg/dL (Negative) 08/27/17 16:27 Urine Blood Neg (Negative) 08/27/17 16:27 Urine Nitrite Neg (Negative) 08/27/17 16:27 Urine Bilirubin Neg (Negative) 08/27/17 16:27 Urine Urobilinogen 4.0 mg/dL (<2.0) 08/27/17 16:27 Ur Leukocyte Esterase Neg (Negative) 08/27/17 16:27 Urine WBC (Auto) 6.0 /HPF (0.0-6.0) 08/27/17 16:27 Urine RBC (Auto) 5.0 /HPF (0.0-6.0) 08/27/17 16:27 U Epithel Cells (Auto) < 1.0 /HPF (0-13.0) 08/27/17 16:27 Urine Mucus Few /HPF 08/27/17 16:27 Rheumatoid Factor < 10 IU/ml (0-13) 09/01/17 18:05 Proteinase 3 (PR3) Ab <1.0 AI (<1.0) 09/01/17 18:05 Myeloperoxidase Ab <1.0 AI (<1.0) 09/01/17 18:05 PRAFUL-1 Antibody <1.0 AI (<1.0) 09/01/17 18:05 Glomerular Base Mem IgG <1.0 AI (<1.0) 09/01/17 18:05 HIV 1&2 Antibody Rapid Non react (Non React) 08/30/17 15:47 HIV P24 Antigen Non react (Non React) 08/30/17 15:47 Urine Legionella Ag Not detected (Not Detected) 09/02/17 13:31 Miscellaneous Test Flexitest 1 09/02/17 16:00
--- NOTE | 2017-09-07 14:29 | Post Operative Note ---
Pre-op diagnosis: hematemesis Post-op diagnosis: same Findings: EGD: hiatal hernia - erosive esophaagitis (bx's) - gastric ulcerations (bx's) - multiple small (3-5 mm) white based ulcers duodenum (bx's) Procedure: EGD Anesthesia: MAC Surgeon: LADONNA OREILLY Estimated blood loss: none Pathology: list Specimen disposition: to lab Condition: stable Disposition: floor
--- NOTE | 2017-09-07 20:14 | Operative Report ---
PROCEDURE: EGD with cold biopsy. INDICATION: 1. Hematemesis. 2. Nausea, vomiting. MEDICATIONS: Propofol per MOLDER SWEEP. COMPLICATIONS: None. DESCRIPTION OF PROCEDURE: The patient brought to procedure suite. The patient had the procedure discussed with him at length. All risks, complications, and benefits discussed after which the patient signed for the procedure to be performed. The patient was placed in left lateral decubitus position. Mouth block was placed in the patient's oral cavity. After adequate sedation medication as above, endoscope was introduced into the mouth and brought to the level of the second portion of duodenum. Retroflexion view performed. The patient's vital signs remained stable throughout the procedure. FINDINGS: There was noted to be [id number] erosive esophagitis noted distal half of the esophagus. Biopsies were taken and sent to pathology. A few red spots were noted along this area, but no significant bleeding stigmata. Small hiatal hernia at GE junction 41 cm from the gums. Esophagus otherwise appeared to be normal. There were few small scattered ulcerations noted in the distal body and antrum of the stomach. Biopsies were taken of the antrum and sent to pathology. Remaining stomach otherwise appeared to be normal. There were a few small 3-5 mm white-based ulcers noted in the first portion of duodenum. Biopsies were taken and sent to pathology. Remaining duodenum otherwise appeared to be normal. Retroflexion view performed in the stomach showed no other pathology other than noted above. The patient tolerated the procedure well. No complications during the procedure. IMPRESSION: 1. Hiatal hernia. 2. Erosive esophagitis, biopsy performed. 3. Otherwise, normal esophagus. 4. Ulcerations in the stomach, biopsies performed. 5. Otherwise, normal stomach. 6. Benign small ulcers in the first portion of duodenum with biopsies performed. 7. Otherwise, normal duodenum. RECOMMENDATIONS: 1. Follow up biopsy results. 2. Stool for H. pylori. If positive, treat. 3. PPI IV b.i.d. 4. Infectious Disease issues per primary team. 5. We will follow up in a.m. JOB# [id number] CAB/NTS
[2017-09-07 22:43] LABS: ANA Screen, IFA Positive (Negative)
[2017-09-08 06:48] LABS: BUN/Creatinine Ratio 26; Blood Urea Nitrogen 23 mg/dL (9-20); Calcium 8.7 mg/dL (8.4-10.2); Hemolysis Index 4
[2017-09-08] MEDS: LOVENOX SUB-Q SCH (09:48)
[2017-09-08] MEDS: LEVAQUIN PO SCH (09:49)
[2017-09-08] MEDS: PROTONIX IV SCH ×2 (09:49→21:39)
[2017-09-08] MEDS: ZYVOX PO SCH (09:49)
--- NOTE | 2017-09-08 10:51 | Progress Note ---
Assessment and Plan Assessment: 1) Sepsis: Better. Etiology most likely presumed pneumonia +/- influenza. 2) Presumed bilateral pneumonia: likely Influenza pneumonia +/- CAP -HIV neg. -Influenza Antigen neg -CTA bilateral upper lungs ground glass infiltrates -Legionella negative -Strep pneumoniae urine neg -BAL done -airways normal and path showed no malignance and no PCP, BAL culture negative -CRP=3.6 -PCR<0.1 -completed 5 days tamflu -repeat Chest CT + RML infiltrate -ANCA negative, RF negative 3) Neutropenia - better 4) Thrombocytopenia - better 5) High risk sexual encounters-HIV non reactive 6) N//V due to ABX; resolved 7) hiatal hernia; EGD showed hiatal hernia, erosive esophaagitis (bx's), gastric ulcerations ( bx's), multiple small (3-5 mm) white based ulcers duodenum (bx's) Plan: -continue zyvox day 7, levaquin day 5, -continue taper down IV steroids per internal medicine -upon discharge will do ceftin 500 mg po q 12 and doxycycline 100 mg po q 12 to complete 10 days until 2/2 -f/u with GI -stop droplet isolation Will sign off Thank you Dr Lorenz for your consultation, will follow up with you. Fabián Delgado NP-C for Dr. Maricarmen Houston MD Infectious Diseases Specialist [facility] M [phone] O [phone] Subjective Date of service: 09/08/17 Principal diagnosis: pneumonia Interval history: I feel so much better after that procedure yesterday and I want to go home, no fever Microbiology: Blood cultures: 08/27 ngtd Throat GAS: neg Respiratory cultures: BAL 09/02 pending Current Antimicrobials: Levaquin 08/28 zyvox 09/01 zosyn 09/04 Previous Antimicrobials: Tamiflu 08/27 ceftriaxone 08/30 Bactrim 09/04 Objective - Exam Narrative Exam: General appearance: Alert in NAD, conversant Eyes: anicteric sclerae, moist conjunctivae; no lid-lag; PERRLA HENT: Atraumatic; oropharynx clear Neck: Trachea midline; supple, no thyromegaly or lymphadenopathy Lungs: diminish breath sounds bilaterally CV: RRR, no murmurs Abdomen: Soft, non-tender; =BS x 3 Extremities: No peripheral edema or extremity lymphadenopathy Skin: Normal temperature, turgor and texture; no rash, ulcers or subcutaneous nodules Psych: Appropriate affect, calm and cooperative Neuro: alert and oriented x 3. Moving all extermities Lines: No CVL / PICC - Constitutional Vitals: Vital Signs Temp Pulse Resp BP Pulse Ox 99.2 F 80 20 104/65 96 09/08/17 07:30 09/08/17 07:30 09/08/17 07:30 09/08/17 07:30 09/08/17 07:30 Temperature -Last 24 Hours Temperature 99.2 F Temperature 99.2 F Temperature 99.0 F Temperature 98.6 F Temperature 98.1 F Temperature 98.1 F - Labs CBC & Chem 7: 09/07/17 07:33 09/08/17 04:54 Labs: Abnormal lab results 09/01/17 09/08/17 Range/Units 18:05 04:54 Carbon Dioxide 20 L (22-30) mmol/L BUN 23 H (9-20) mg/dL Glucose 113 H (75-100) mg/dL RUTH ANN Screen Positive H (Negative)
--- NOTE | 2017-09-08 16:48 | Progress Note ---
Assessment and Plan Assessment and plan: Patient is a 37-year-old man with a history of tobacco dependency who presented with body aches, fevers and chills with nausea initially thought may have been drug fevers were considering that the patient reported that the fever started while at home on August 22 I doubt this. Apart from 2v Chest x-ray reported as linear markings in the lung base on the lateral probably in the lingula consistent with atelectasis versus early infiltrate all other studies included an influenza rapid strep CT abdomen and pelvis has been negative and blood culture. Patient was noted to have hemoptysis -Coffee-ground emesis with intractable gastroenteritis-GI consulted. Erosive Esophagitis, gastric ulceration and multiple small ulcers. Monitor H&H -Sepsis Left Lingular pneumonia: Will hold abx at this time and monitor. Thought to be could be viral syndrome, follow cultures, Treated with abx, patient is status post bronch, no clear growth from cultures. We'll change steroids to by mouth. Steroids added for suspected vasculitis. vasculitis serology so far negative. HIV test is negative Legionella and strep pneumoniae is negative. We'll recommend repeat CT chest and 4-6 weeks to assure resolution. We'll discuss with ID about possibly discontinuing all antibiotics and monitoring the patient off antibiotic. He has not been taking the antibiotics in the first place and has remained afebrile. -Suspected influenza: completed tamiflu treatment -Febrile condition: Continue STEROIDS -Tobacco dependance: advise to stopped. 50 minutes counseling provided -Nutropenia: Resolving -Hyponatremia, dehydration resolved with IVF treatment -Leukopenia: checked HIV==>negative, monitor wbc closely -Thrombocytopenia-better -Gastroenteritis: Persistent nausea and vomiting possible secondary to Flagyl will discontinue in the setting of negative PCP. -dvt/gi PROPHY Plan of care discussed with patient and infectious disease Anticipated discharge in a.m. if patient remains stable ) History Interval history: Patient seen and examined this morning Doing well, but still very cautious about eating, starting on clear liquids. Hospitalist Physical - Physical exam Narrative exam: VITAL SIGNS: Reviewed. GENERAL: The patient appeared well nourished and normally developed. Lethargic Vital signs as documented. HEAD: No signs of head trauma. EYES: Pupils are equal. Extraocular motions intact. EARS: Hearing grossly intact. MOUTH: Oropharynx is normal. NECK: No adenopathy, no JVD. CHEST: Chest with rhonchi breath sounds bilaterally. No wheezes, rales, or rhonchi. CARDIAC: Regular rate and rhythm. S1 and S2, without murmurs, gallops, or rubs. VASCULAR: No Edema. Peripheral pulses normal and equal in all extremities. ABDOMEN: Soft, without detectable tenderness. No sign of distention. No rebound or guarding, and no masses palpated. Bowel Sounds normal. MUSCULOSKELETAL: Good range of motion of all major joints. Extremities without clubbing, cyanosis or edema. NEUROLOGIC EXAM: Lethargic but Alert and oriented x 3. No focal sensory or strength deficits. Speech normal. Follows commands. PSYCHIATRIC: Mood normal. SKIN: No rash or lesions. - Constitutional Vitals: Temp Pulse Resp BP Pulse Ox 99.2 F 80 20 104/65 96 09/08/17 07:30 09/08/17 07:30 09/08/17 07:30 09/08/17 07:30 09/08/17 07:30 Results - Labs CBC & Chem 7: 09/07/17 07:33 09/08/17 04:54 Labs: Laboratory Last Values WBC 7.2 K/mm3 (4.5-11.0) 09/07/17 07:33 RBC 5.61 M/mm3 (3.65-5.03) H 09/07/17 07:33 Hgb 16.6 gm/dl (11.8-15.2) H 09/07/17 07:33 Hct 48.8 % (35.5-45.6) H 09/07/17 07:33 MCV 87 fl (84-94) 09/07/17 07:33 MCH 30 pg (28-32) 09/07/17 07:33 MCHC 34 % (32-34) 09/07/17 07:33 RDW 13.2 % (13.2-15.2) 09/07/17 07:33 Plt Count 259 K/mm3 (140-440) 09/07/17 07:33 Lymph % (Auto) 31.6 % (13.4-35.0) 09/01/17 18:05 [place] % (Auto) 10.5 % (0.0-7.3) H 09/01/17 18:05 Eos % (Auto) 0.2 % (0.0-4.3) 09/01/17 18:05 Baso % (Auto) 0.2 % (0.0-1.8) 09/01/17 18:05 Lymph # 0.8 K/mm3 (1.2-5.4) L 09/01/17 18:05 [place] # 0.3 K/mm3 (0.0-0.8) 09/01/17 18:05 Eos # 0.0 K/mm3 (0.0-0.4) 09/01/17 18:05 Baso # 0.0 K/mm3 (0.0-0.1) 09/01/17 18:05 Seg Neutrophils % 57.5 % (40.0-70.0) 09/01/17 18:05 Seg Neutrophils # 1.4 K/mm3 (1.8-7.7) L 09/01/17 18:05 Sodium 137 mmol/L (137-145) 09/08/17 04:54 Potassium 4.5 mmol/L (3.6-5.0) 09/08/17 04:54 Chloride 102.8 mmol/L (98-107) 09/08/17 04:54 Carbon Dioxide 20 mmol/L (22-30) L 09/08/17 04:54 Anion Gap 19 mmol/L 09/08/17 04:54 BUN 23 mg/dL (9-20) H 09/08/17 04:54 Creatinine 0.9 mg/dL (0.8-1.5) 09/08/17 04:54 Estimated GFR > 60 ml/min 09/08/17 04:54 BUN/Creatinine Ratio 26 % 09/08/17 04:54 Glucose 113 mg/dL (75-100) H 09/08/17 04:54 Lactic Acid 0.60 mmol/L (0.7-2.0) L 08/27/17 21:05 Calcium 8.7 mg/dL (8.4-10.2) 09/08/17 04:54 Magnesium 2.10 mg/dL (1.7-2.3) 09/02/17 05:32 Total Bilirubin 0.30 mg/dL (0.1-1.2) 09/01/17 18:05 AST 81 units/L (5-40) H 09/01/17 18:05 ALT 72 units/L (7-56) H 09/01/17 18:05 Alkaline Phosphatase 44 units/L (35-129) 09/01/17 18:05 Total Creatine Kinase 740 units/L (55-170) H 08/27/17 21:05 C-Reactive Protein 3.60 mg/dL (0.00-1.30) H 08/30/17 20:05 Total Protein 7.1 g/dL (6.3-8.2) 09/01/17 18:05 Albumin 3.5 g/dL (3.9-5) L 09/01/17 18:05 Albumin/Globulin Ratio 1.0 % 09/01/17 18:05 Urine Color [place] (Yellow) 08/27/17 16:27 Urine Turbidity Clear (Clear) 08/27/17 16: Urine pH 6.0 (5.0-7.0) 08/27/17 16:27 Ur Specific [place] 1.023 (1.003-1.030) 08/27/17 16:27 Urine Protein 30 mg/dl mg/dL (Negative) 08/27/17 16:27 Urine Glucose (UA) Neg mg/dL (Negative) 08/27/17 16:27 Urine Ketones Neg mg/dL (Negative) 08/27/17 16:27 Urine Blood Neg (Negative) 08/27/17 16:27 Urine Nitrite Neg (Negative) 08/27/17 16:27 Urine Bilirubin Neg (Negative) 08/27/17 16:27 Urine Urobilinogen 4.0 mg/dL (<2.0) 08/27/17 16:27 Ur Leukocyte Esterase Neg (Negative) 08/27/17 16:27 Urine WBC (Auto) 6.0 /HPF (0.0-6.0) 08/27/17 16:27 Urine RBC (Auto) 5.0 /HPF (0.0-6.0) 08/27/17 16:27 U Epithel Cells (Auto) < 1.0 /HPF (0-13.0) 08/27/17 16:27 Urine Mucus Few /HPF 08/27/17 16:27 Rheumatoid Factor < 10 IU/ml (0-13) 09/01/17 18:05 RUTH ANN Screen Positive (Negative) H 09/01/17 18:05 RUTH ANN Titer 1:80 (Negative) 09/01/17 18:05 RUTH ANN Pattern Speckled 09/01/17 18:05 Proteinase 3 (PR3) Ab <1.0 AI (<1.0) 09/01/17 18:05 Myeloperoxidase Ab <1.0 AI (<1.0) 09/01/17 18:05 PRAFUL-1 Antibody <1.0 AI (<1.0) 09/01/17 18:05 Glomerular Base Mem IgG <1.0 AI (<1.0) 09/01/17 18:05 HIV 1&2 Antibody Rapid Non react (Non React) 08/30/17 15:47 HIV P24 Antigen Non react (Non React) 08/30/17 15:47 Urine Legionella Ag Not detected (Not Detected) 09/02/17 13:31 Miscellaneous Test Flexitest 1 09/02/17 16:00
--- NOTE | 2017-09-08 19:40 | Gastroenterology Progress Note ---
Assessment and Plan GI: pt presented w/ hematemesis, EGD w/ erosive esophagitis/ulcers - stable overnight, h/h stable - continue PPI - diet as tolerated - ok to d/c from GI standpoint, will sign off, call if needed Subjective Date of service: 09/08/17 Principal diagnosis: pneumonia Interval history: - no signs GI bleeding overnight. Tolerating po Objective - Constitutional Vitals: Temp Pulse Resp BP Pulse Ox 99.4 F 83 18 117/68 98 09/08/17 16:27 09/08/17 16:27 09/08/17 16:27 09/08/17 16:27 09/08/17 16:27 General appearance: no acute distress - Respiratory Respiratory: bilateral: CTA - Cardiovascular Rhythm: regular Heart Sounds: Present: S1 & S2 - Gastrointestinal General gastrointestinal: Present: soft, non-tender, non-distended - Labs CBC & Chem 7: 09/07/17 07:33 09/08/17 04:54 Labs: Laboratory Results - last 24 hr 09/01/17 09/08/17 18:05 04:54 Sodium 137 Potassium 4.5 Chloride 102.8 Carbon Dioxide 20 L Anion Gap 19 BUN 23 H Creatinine 0.9 Estimated GFR > 60 BUN/Creatinine Ratio 26 Glucose 113 H Calcium 8.7 RUTH ANN Screen Positive H RUTH ANN Titer 1:80 RUTH ANN Pattern Speckled
--- NOTE | 2017-09-09 08:22 | Discharge Summary ---
Providers - Providers Date of Admission: 08/27/17 23:08 Attending physician: RHEA RAMOS MD 08/30/17 10:58 Consult to Physician [CONS] Routine Consulting Provider: LEN CARVALHO Reason For Exam: still high fevers on abx Place consult to:: dr. farfan Notified:: dr. farfan Phone number called:: [phone] Was contact made?: Yes If yes, spoke with:: dr. farfan Time called:: 11:18 09/07/17 09:24 Consult to Physician [CONS] Routine Consulting Provider: CAMELIA MURILLO Reason For Exam: persistent nausea and vomiting Place consult to:: BABAR FRANZ Notified:: BABAR Phone number called:: IN HOUSE Was contact made?: Yes If yes, spoke with:: BABAR Time called:: 09:29 Primary care physician: MARY SEGOVIA Hospitalization Reason for admission: SEPSIS Condition: Stable Hospital course: Patient is a 37-year-old man with a history of tobacco dependency who presented with body aches, fevers and chills with nausea initially thought may have been drug fevers were considering that the patient reported that the fever started while at home on August 22 I doubt this. Apart from 2v Chest x-ray reported as linear markings in the lung base on the lateral probably in the lingula consistent with atelectasis versus early infiltrate all other studies included an influenza rapid strep CT abdomen and pelvis has been negative and blood culture. Patient was noted to have hemoptysis. Patient was treated for sepsis and subsequently developed brown-red coffee emesis with GI distress with the patient noted to have bilateral erosive esophagitis and gastric ulceration with multiple ulcers this was conveyed to the patient and also advised to avoid NSAIDs. Despite multiple antibiotics patient continued to have fever and mental status was introduced. Although less likely studies HIV was negative and he recommended the patient follow with [facility] outpatient. He'll complete a tapering dose of steroids antibiotics have been discontinued his tolerating diet and stable for discharge Discharge diagnosis -Erosive esophagitis -Duodenal and gastric ulcers -Sepsis Left Lingular pneumonia -Suspected influenza: -Febrile condition: -Tobacco dependance: -Nutropenia -Hyponatremia, -Leukopenia -Thrombocytopenia- -Gastroenteritis: ) Disposition: TO HOME OR SELFCARE Time spent for discharge: 35 mins Core Measure Documentation - Palliative Care Palliative Care/ Comfort Measures: Not Applicable - Core Measures Any of the following diagnoses?: none - VTE Discharge Requirements Deep Vein Thrombosis/Pulmonary Embolism Present on Admission: No Exam - Physical Exam Narrative exam: VITAL SIGNS: Reviewed. GENERAL: The patient appeared well nourished and normally developed. Lethargic Vital signs as documented. HEAD: No signs of head trauma. EYES: Pupils are equal. Extraocular motions intact. EARS: Hearing grossly intact. MOUTH: Oropharynx is normal. NECK: No adenopathy, no JVD. CHEST: Chest with rhonchi breath sounds bilaterally. No wheezes, rales, or rhonchi. CARDIAC: Regular rate and rhythm. S1 and S2, without murmurs, gallops, or rubs. VASCULAR: No Edema. Peripheral pulses normal and equal in all extremities. ABDOMEN: Soft, without detectable tenderness. No sign of distention. No rebound or guarding, and no masses palpated. Bowel Sounds normal. MUSCULOSKELETAL: Good range of motion of all major joints. Extremities without clubbing, cyanosis or edema. NEUROLOGIC EXAM: Awake and oriented x 3. No focal sensory or strength deficits. Speech normal. Follows commands. PSYCHIATRIC: Mood normal. SKIN: No rash or lesions. - Constitutional Vitals: Temp Pulse Resp BP Pulse Ox 99.8 F H 85 20 108/57 94 09/09/17 00:19 09/09/17 00:19 09/09/17 00:19 09/09/17 00:19 09/09/17 00:19 Plan Activity: advance as tolerated, fall precautions Diet: regular Special Instructions: record daily BP diary Follow up with: MARY SEGOVIA MD [Primary Care Provider] - 3-5 Days CAMELIA MURILLO MD [Staff Physician] - 7 Days LEN CARVALHO MD [Staff Physician] - 7 Days Prescriptions: oxyCODONE /ACETAMINOPHEN [Percocet 5/325 mg] 1 tab PO Q6H PRN #14 tablet PRN Reason: Pain, Moderate (4-6) Pantoprazole [Protonix TAB] 40 mg PO BID #60 tablet Prednisone [predniSONE 5 mg (6-Day Pack, 21 Tabs)] 5 mg PO .TAPER #1 tab.ds.pk
[2017-09-09 08:30] VITALS: BP 96/63
[2017-09-09] MEDS: PROTONIX IV SCH (12:07)
[2017-09-09] MEDS ORDERED: PROTONIX PO SCH (22:00)
== END 2017-09-09 14:00 | disposition home or self-care (01) | DRG 853 ==
LOC: ED 15:28 → 3A 23:08
PROVIDERS: ADMIT Internal Medicine; ATTEND Internal Medicine
PROC: 0B9D8ZX Drainage of Right Middle Lung Lobe, Via Natural or Artificial Opening Endoscopic, Diagnostic (ICD-10-PCS; principal; 2017-09-03)
PROC: 0DB98ZX Excision of Duodenum, Via Natural or Artificial Opening Endoscopic, Diagnostic (ICD-10-PCS; 2017-09-07)
PROC: 0DB78ZX Excision of Stomach, Pylorus, Via Natural or Artificial Opening Endoscopic, Diagnostic (ICD-10-PCS; 2017-09-07)
PROC: 0DB38ZX Excision of Lower Esophagus, Via Natural or Artificial Opening Endoscopic, Diagnostic (ICD-10-PCS; 2017-09-07)
DX: A41.9 Sepsis, unspecified organism (principal); K22.11 Ulcer of esophagus with bleeding; K25.4 Chronic or unspecified gastric ulcer with hemorrhage; J18.9 Pneumonia, unspecified organism; K26.4 Chronic or unspecified duodenal ulcer with hemorrhage; K92.0 Hematemesis; E87.1 Hypo-osmolality and hyponatremia; B34.9 Viral infection, unspecified; F17.200 Nicotine dependence, unspecified, uncomplicated; K44.9 Diaphragmatic hernia without obstruction or gangrene; J11.1 Influenza due to unidentified influenza virus with other respiratory manifestations; D70.9 Neutropenia, unspecified; K52.9 Noninfective gastroenteritis and colitis, unspecified; F12.90 Cannabis use, unspecified, uncomplicated; Z87.01 Personal history of pneumonia (recurrent); Z72.89 Other problems related to lifestyle
CPT/HCPCS: 36415; 71045; 71046; 71250; 71260; 74176; 80048; 80053; 81001; 82140; 82550; 83520; 83735; 85025; 85027; 86021; 86038; 86140; 86235; 86618; 87040; 87086; 87102; 87116; 87220; 87400; 87430; 87449; 87536; 87806; 88112; 88305; 88312; 88342; 96361; 96374; 96375; C9113; J0696; J1170; J1650; J1956; J2020; J2250; J2405; J2543; J2704; J2920; J2930; J3010; J7030; J7042; J7060; Q0162; Q9967

== ENCOUNTER 2017-09-14 15:20 | Inpatient (IN) | payer OTHER ==
[2017-09-14] MEDS ORDERED: NACL 0.9% 500 ML 500 ML IV ONE (15:43)
[2017-09-14] MEDS ORDERED: TYLENOL PO ONE (15:45)
[2017-09-14 16:10] LABS: Hematocrit 47.2 % (35.5-45.6); Hemoglobin 15.9 gm/dl (11.8-15.2); Mean Corpuscular HGB Conc 34 % (32-34); Mean Corpuscular Hemoglobin 29 pg (28-32); Mean Corpuscular Volume 87 fl (84-94); Red Blood Count 5.44 M/mm3 (3.65-5.03); Red Cell Distribution Width 13.3 % (13.2-15.2)
[2017-09-14 16:21] LABS: INR 1.03 (0.87-1.13)
[2017-09-14 16:22] LABS: Bilirubin,Urine NEG (Negative); Blood,Urine NEG (Negative); Color,Urine Yellow (Yellow); Mucus,Urine FEW /HPF; Nitrite,Urine NEG (Negative); RBC,Urine < 1.0 /HPF (0.0-6.0); Urobilinogen,Urine < 2.0 mg/dL (<2.0)
[2017-09-14 16:33] LABS: Alanine Aminotransferase 105 units/L (7-56); Albumin 3.7 g/dL (3.9-5); BUN/Creatinine Ratio 16; Blood Urea Nitrogen 16 mg/dL (9-20); Calcium 8.6 mg/dL (8.4-10.2); Hemolysis Index 27
[2017-09-14 16:58] LABS: Basophils % (Manual) 0 % (0.0-1.8); Eosinophils % (Manual) 0 % (0.0-4.3); Total Cells Counted 100
[2017-09-14 17:00] LABS: Anisocytosis 1+; Platelet Estimate Appears Decreased
[2017-09-14 17:01] LABS: Poikilocytosis Few
[2017-09-14 17:03] LABS: Platelet Count 68 K/mm3 (140-440)
--- NOTE | 2017-09-14 17:31 | XRay Report ---
FINAL REPORT EXAM: XR CHEST 1V AP HISTORY: possible Sepsis TECHNIQUE: Frontal chest radiograph. PRIORS: 08/27/2017. FINDINGS: The cardiomediastinal silhouette is normal. No focal consolidation. No pleural effusion. No pneumothorax. No acute osseous abnormality. IMPRESSION: No acute cardiopulmonary process.
--- NOTE | 2017-09-14 21:19 | Emergency Department Report ---
ED Abdominal Pain HPI - General Chief Complaint: Fever Stated Complaint: FLU LIKE SYMPTOMS Time Seen by Provider: 09/14/17 16:27 Source: patient Mode of arrival: Ambulatory Limitations: No Limitations - History of Present Illness Initial Comments: 37 y/o male who was discharged from the hospital about 5 days ago, was admitted for pneumonia, was given prescriptions, which he filled, states he got worse. On 08/22/2017 had lower back pain and chills, high fever, decreased appetite, came to the hospital, was told he had pneumonia, then began to throw up blood in the hospital, GI did see him, and they scoped him, he also had a bronchoscopy. He stared his prednisone taper, was put on a PPI, and also pain medication, hydrocodone. He tried to eat but kept vomiting. Tried to drink juice , but threw that up as well. He has already completed a course of Tamiflu. -: days(s) (5) Location: epigastric Radiation: none Migration to: no migration Severity: moderate Severity scale (0 -10): 0 Quality: cramping Consistency: intermittent Improves With: nothing Worsens With: medication Associated Symptoms: nausea, vomiting - Related Data Previous Rx's Medication Instructions Recorded Last Taken Type Pantoprazole [Protonix TAB] 40 mg PO BID #60 tablet 09/09/17 Unknown Rx Prednisone [predniSONE 5 mg (6-Day 5 mg PO .TAPER #1 tab.ds.pk 09/09/17 Unknown Rx Pack, 21 Tabs)] oxyCODONE /ACETAMINOPHEN [Percocet 1 tab PO Q6H PRN #14 tablet 09/09/17 Unknown Rx 5/325 mg] Allergies Allergy/AdvReac Type Severity Reaction Status Date / Time No Known Allergies Allergy Verified 09/03/17 11:17 ED Review of Systems ROS: Stated complaint: FLU LIKE SYMPTOMS Other details as noted in HPI Comment: All other systems reviewed and negative Constitutional: see HPI Eyes: as per HPI ENT: as per HPI Respiratory: see HPI Cardiovascular: as per HPI Endocrine: see HPI Gastrointestinal: as per HPI Musculoskeletal: as per HPI Skin: as per HPI Neurological: as per HPI ED Past Medical Hx - Past Medical History Hx Diabetes: No Hx Kidney Stones: Yes (Teenager) Hx Asthma: Yes (Childhood) Hx COPD: No Hx HIV: Yes - Surgical History Additional Surgical History: eye - Social History Smoking Status: Former Smoker Substance Use Type: None - Medications Home Medications: Home Medications Medication Instructions Recorded Confirmed Last Taken Type Pantoprazole [Protonix TAB] 40 mg PO BID #60 tablet 09/09/17 Unknown Rx Prednisone [predniSONE 5 mg (6-Day 5 mg PO .TAPER #1 tab.ds.pk 09/09/17 Unknown Rx Pack, 21 Tabs)] oxyCODONE /ACETAMINOPHEN [Percocet 1 tab PO Q6H PRN #14 tablet 09/09/17 Unknown Rx 5/325 mg] ED Physical Exam - General Limitations: No Limitations General appearance: alert, in no apparent distress - Head Head exam: Present: atraumatic - Eye Eye exam: Present: normal appearance, PERRL, EOMI - ENT ENT exam: Present: normal exam - Neck Neck exam: Present: normal inspection - Respiratory Respiratory exam: Present: normal lung sounds bilaterally, respiratory distress. Absent: wheezes, rales, rhonchi - Cardiovascular Cardiovascular Exam: Present: normal rhythm, tachycardia, normal heart sounds - GI/Abdominal GI/Abdominal exam: Present: soft, hypoactive bowel sounds. Absent: distended, tenderness, guarding, rebound - Rectal Rectal exam: Present: deferred - Extremities Exam Extremities exam: Present: normal inspection, full ROM, normal capillary refill - Back Exam Back exam: Present: normal inspection ED Course Vital Signs 09/14/17 09/14/17 09/14/17 15:32 16:43 16:54 Temperature 102.8 F H 101.9 F H Pulse Rate 113 H 96 H Respiratory 18 16 16 Rate Blood Pressure 102/52 Blood Pressure 100/53 [Left] O2 Sat by Pulse 96 94 Oximetry 09/14/17 09/14/17 17:33 20:00 Temperature 99.8 F H 100.2 F H Pulse Rate 91 H 94 H Respiratory 16 18 Rate Blood Pressure Blood Pressure 107/60 100/52 [Left] O2 Sat by Pulse 94 95 Oximetry - Reevaluation(s) Reevaluation #1: 09/14/17 22:59 Discussed with hospitalist, we will go ahead and admit the patient. ED Medical Decision Making - Lab Data Result diagrams: 09/14/17 15:51 09/14/17 15:51 Critical care attestation.: If time is entered above; I have spent that time in minutes in the direct care of this critically ill patient, excluding procedure time. ED Disposition Clinical Impression: Viral syndrome, Hyponatremia Intractable nausea and vomiting Qualifiers: Vomiting type: cyclical vomiting Qualified Code(s): G43.A1 - Cyclical vomiting , intractable Fever Qualifiers: Fever type: unspecified Qualified Code(s): R50.9 - Fever, unspecified Disposition: OP ADMIT IP TO THIS HOSP Is pt being admited?: Yes Condition: Stable Referrals: PRIMARY CARE,MD [Primary Care Provider] - 3-5 Days
[2017-09-14] MEDS ORDERED: ZOFRAN IV ONE (21:30)
--- NOTE | 2017-09-14 23:48 | History and Physical Report ---
History of Present Illness Date of examination: 09/14/17 History of present illness: 37-year-old man with a history of gastric and duodenal ulcers, esophagitis was just discharged from the hospital on September 09 returns to the emergency room today with complaints of nausea vomiting that started on Wednesday. Complains of decrease in appetite and a 25 weight loss over the last 3 weeks since he's been ill. He states that since he returned home he continues to have fever, he has completed his course of antibiotics. He's been having back pain over the last 3 weeks, lower back which she describes as not a sharp nor dull pain, intermittent in nature and lasting for 5 minutes, no radiation, intensity 4/10, cannot identify exacerbating or relieving factors Review Of Systems: Constitutional: no weight loss Ears, eyes, nose, mouth and throat: no nasal congestion, no nasal discharge, no sinus pressure, blurry vision, diplopia Neck: No neck pain or rigidity. Cardiovascular: No chest pain, palpitations Respiratory: No shortness of breath, cough Gastrointestinal: No abdominal pain, hematochezia Genitourinary : no dysuria, frequency , hematuria Musculoskeletal: no muscle ache Integumentary: no rash, no pruritis Neurological: no parathesias, focal weakness Endocrine: no cold or heat intolerance, no polyuria or polydipsia Hematologic/Lymphatic: no easy bruising, no easy bleeding, no gland swelling Allergic/Immunologic: no urticaria, no angioedema. PAST MEDICAL HISTORY:gastric and duodenal ulcers, esophagitis PAST SURGICAL HISTORY: Left leg surgery FAMILY HISTORY: Hypertension SOCIAL HISTORY: Denies alcohol, quit tobacco, drugs Medications and Allergies Allergies Allergy/AdvReac Type Severity Reaction Status Date / Time No Known Allergies Allergy Verified 09/03/17 11:17 Home Medications Medication Instructions Recorded Confirmed Last Taken Type Pantoprazole [Protonix TAB] 40 mg PO BID #60 tablet 09/09/17 Unknown Rx Prednisone [predniSONE 5 mg (6-Day 5 mg PO .TAPER #1 tab.ds.pk 09/09/17 Unknown Rx Pack, 21 Tabs)] oxyCODONE /ACETAMINOPHEN [Percocet 1 tab PO Q6H PRN #14 tablet 09/09/17 Unknown Rx 5/325 mg] Exam - Physical Exam Narrative exam: Gen. appearance: Patient lying in bed in no acute distress HEENT: Normocephalic/atraumatic, pupils equal round reactive to light, extra occular movement intact, no scleral icterus, no JVD or thyromegaly or nodule, neck is supple, mucous membrane moist, no erythema or exudate Heart: S1-S2, regular rate and rhythm Lungs: Clear to auscultation bilateral breathing comfortable Abdomen: Positive bowel sounds, nontender, nondistended, no organomegaly Extremities: No edema, cyanosis, clubbing Neuro:: Oriented 3 , cranial nerves II-12 intact, speech, motor intact Skin: No rash, nodules, warm dry - Constitutional Vitals: Temp Pulse Resp BP Pulse Ox 100.2 F H 94 H 18 100/52 95 09/14/17 20:00 09/14/17 20:00 09/14/17 20:00 09/14/17 20:00 09/14/17 20:00 Results - Labs CBC & Chem 7: 09/14/17 15:51 09/14/17 15:51 Labs: Abnormal lab results 09/14/17 09/14/17 09/14/17 Range/Units 15:51 15:51 15:51 RBC 5.44 H (3.65-5.03) M/mm3 Hgb 15.9 H (11.8-15.2) gm/dl Hct 47.2 H (35.5-45.6) % Plt Count 68 L (140-440) K/mm3 Seg Neuts % (Manual) 27.0 L (40.0-70.0) % Lymphocytes % (Manual) 50.0 H (13.4-35.0) % Monocytes % (Manual) 17.0 H (0.0-7.3) % Monocytes # (Manual) 1.3 H (0.0-0.8) K/mm3 VBG pH 7.451 H (7.320-7.420) Sodium 130 L (137-145) mmol/L Chloride 91.5 L (98-107) mmol/L Glucose 102 H (75-100) mg/dL AST 73 H (5-40) units/L ALT 105 H (7-56) units/L Albumin 3.7 L (3.9-5) g/dL Amylase (27-131) units/L Lipase (13-60) units/L 09/14/17 09/14/17 Range/Units 15:51 21:35 RBC (3.65-5.03) M/mm3 Hgb (11.8-15.2) gm/dl Hct (35.5-45.6) % Plt Count (140-440) K/mm3 Seg Neuts % (Manual) (40.0-70.0) % Lymphocytes % (Manual) (13.4-35.0) % Monocytes % (Manual) (0.0-7.3) % Monocytes # (Manual) (0.0-0.8) K/mm3 VBG pH (7.320-7.420) Sodium (137-145) mmol/L Chloride (98-107) mmol/L Glucose (75-100) mg/dL AST (5-40) units/L ALT (7-56) units/L Albumin (3.9-5) g/dL Amylase 264 H (27-131) units/L Lipase 200 H (13-60) units/L - Imaging and Cardiology Chest x-ray: image reviewed Assessment and Plan Assessment SIRS Acute back pain Gastric and duodenal ulcers Esophagitis Thrombocytopenia Plan Admit to medicine Start IV fluid, hold for antibiotic for now Consults infectious disease, obtain CAT scan of the back DVT prophylaxis
[2017-09-15] MEDS ORDERED: DULCOLAX PR PRN (01:19)
[2017-09-15] MEDS ORDERED: REGLAN IV PRN (01:19)
[2017-09-15] MEDS ORDERED: MILK OF MAGNESIA PO PRN (01:19)
[2017-09-15] MEDS ORDERED: ZOFRAN IV PRN (01:19)
--- NOTE | 2017-09-15 01:56 | Cat Scan Report ---
FINAL REPORT EXAM: CT LUMBAR SPINE WO CON HISTORY: back pain, fever COMPARISON: None available. TECHNIQUE: Contiguous axial images were obtained. Additional sagittal and coronal reformatted images were obtained. FINDINGS: Lumbar vertebral body heights and disc heights are preserved. Mild facet changes L5-S1 level. No significant bony encroachment on the canal or foramen throughout the lumbar spine. Paraspinal musculature is grossly unremarkable. No gross protrusion or extrusion by CT. No gross epidural fluid collection although evaluation of the central canal is limited by CT. IMPRESSION: No acute bony or soft tissue abnormality of the lumbar spine. Mild facet changes at the L5-S1 level. No significant bony encroachment on the canal or foramen.
[2017-09-15] MEDS: NACL 0.9% 1000 ML 1,000 ML IV SCH ×2 (05:10→16:05)
[2017-09-15] MEDS: TYLENOL PO PRN ×2 (05:10→13:05)
[2017-09-15] MEDS ORDERED: LOVENOX SUB-Q SCH ×2 (10:00)
--- NOTE | 2017-09-15 13:02 | Consultation ---
History of Present Illness - Reason for Consult Consult date: 09/15/17 Fever Requesting physician: AAYUSH TOTH - History of Present Illness 37-year-old man with a history of gastric and duodenal ulcers, esophagitis that was just discharged from the hospital on September 09 returns to the emergency room with complaints of nausea vomiting that started on Wednesday. He states that since he returned home he continues to have fever, he has completed his course of antibiotics. He's been having lower back pain over the last 3 weeks. He smokes a pack a day and drinks alcohol frequently. In the emergency room, initial temperature was 102.8, heart rate 113, respiration 18, O2 sat 96, blood pressure 102/52. Initial white count 7.7. Hemoglobin 15.9. Plat 68. Urinalysis was negative. AST 73. Chest x-ray negative. Microbiology: Blood cultures: 09/14/ ngtd Urine cultures: 09/15/ ngtd Respiratory cultures: Current Antimicrobials: diflucan 09/15 Previous Antimicrobials: Medications and Allergies Allergies Allergy/AdvReac Type Severity Reaction Status Date / Time No Known Allergies Allergy Verified 09/03/17 11:17 Home Medications Medication Instructions Recorded Confirmed Last Taken Type Pantoprazole [Protonix TAB] 40 mg PO BID #60 tablet 09/09/17 Unknown Rx Prednisone [predniSONE 5 mg (6-Day 5 mg PO .TAPER #1 tab.ds.pk 09/09/17 Unknown Rx Pack, 21 Tabs)] oxyCODONE /ACETAMINOPHEN [Percocet 1 tab PO Q6H PRN #14 tablet 09/09/17 Unknown Rx 5/325 mg] Active Meds: Active Medications Acetaminophen (Tylenol) 650 mg PO Q4H PRN PRN Reason: Pain MILD(1-3)/Fever >100.5/PALM Last Admin: 09/15/17 05:10 Dose: 650 mg Bisacodyl (Dulcolax) 10 mg HI QDAY PRN PRN Reason: Constipation unrelieved by MOM Sodium Chloride (Nacl 0.9% 1000 Ml) 1,000 mls @ 100 mls/hr IV DIRECT CHRISS Last Admin: 09/15/17 05:10 Dose: 100 mls/hr Fluconazole (Diflucan) 200 mg in 100 mls @ 100 mls/hr IV Q24HR CHRISS PRN Reason: Protocol Magnesium Hydroxide (Milk Of Magnesia) 30 ml PO Q4H PRN PRN Reason: Constipation Metoclopramide HCl (Reglan) 10 mg IV Q6H PRN PRN Reason: Nausea And Vomiting Morphine Sulfate (Morphine) 2 mg IV Q4H PRN PRN Reason: Pain, Moderate (4-6) Ondansetron HCl (Zofran) 4 mg IV Q4H PRN PRN Reason: N/V unrelieved by Reglan Review of Systems All systems: negative Physical Examination - Physical Exam Narrative exam: General appearance: Alert in NAD, conversant Eyes: anicteric sclerae, moist conjunctivae; no lid-lag; PERRLA HENT: Atraumatic; +thrush Neck: Trachea midline; supple, no thyromegaly or lymphadenopathy Lungs: willow scattered rhonchi CV: RRR, no murmurs Abdomen: Soft, non-tender; no masses or hepatosplenomegaly Extremities: No peripheral edema or extremity lymphadenopathy Skin: Normal temperature, turgor and texture; no rash, ulcers or subcutaneous nodules Psych: Appropriate affect, calm and cooperative Neuro: alert and oriented x 3. Moving all extermities Lines: No CVL / PICC - Constitutional Vitals: Vital Signs Temp Pulse Resp BP Pulse Ox 102.3 F H 86 8 L 98/55 97 09/15/17 05:04 09/15/17 07:12 09/15/17 07:12 09/15/17 07:16 09/15/17 07:12 Temperature -Last 24 Hours Temperature 102.3 F Temperature 102.3 F Temperature 100.2 F Temperature 99.8 F Temperature 101.9 F Temperature 102.8 F Results - Labs CBC & Chem 7: 09/14/17 15:51 09/14/17 15:51 Labs: Abnormal lab results 09/14/17 09/14/17 09/14/17 Range/Units 15:51 15:51 15:51 RBC 5.44 H (3.65-5.03) M/mm3 Hgb 15.9 H (11.8-15.2) gm/dl Hct 47.2 H (35.5-45.6) % Plt Count 68 L (140-440) K/mm3 Seg Neuts % (Manual) 27.0 L (40.0-70.0) % Lymphocytes % (Manual) 50.0 H (13.4-35.0) % Monocytes % (Manual) 17.0 H (0.0-7.3) % Monocytes # (Manual) 1.3 H (0.0-0.8) K/mm3 VBG pH 7.451 H (7.320-7.420) Sodium 130 L (137-145) mmol/L Chloride 91.5 L (98-107) mmol/L Glucose 102 H (75-100) mg/dL AST 73 H (5-40) units/L ALT 105 H (7-56) units/L Albumin 3.7 L (3.9-5) g/dL Amylase (27-131) units/L Lipase (13-60) units/L 09/14/17 09/14/17 Range/Units 15:51 21:35 RBC (3.65-5.03) M/mm3 Hgb (11.8-15.2) gm/dl Hct (35.5-45.6) % Plt Count (140-440) K/mm3 Seg Neuts % (Manual) (40.0-70.0) % Lymphocytes % (Manual) (13.4-35.0) % Monocytes % (Manual) (0.0-7.3) % Monocytes # (Manual) (0.0-0.8) K/mm3 VBG pH (7.320-7.420) Sodium (137-145) mmol/L Chloride (98-107) mmol/L Glucose (75-100) mg/dL AST (5-40) units/L ALT (7-56) units/L Albumin (3.9-5) g/dL Amylase 264 H (27-131) units/L Lipase 200 H (13-60) units/L Assessment and Plan Assessment: 1) Sepsis: Present on admission, manifested by fever, tachycardia, and hypotension. Etiology most likely presumed lupus flare 2) Presumed lupus flare: 3) Thrush 4) High risk sexual encounters Plan: -follow-up blood cultures -obtain CT chest -obtain respiratory cultures, C-reactive protein (CRP), C3, and C4 -start diflucan Thank you Dr. Toth for your consultation, will follow up with you. Fabián Delgado NP for Dr. Maricarmen Houston MD Infectious Diseases Specialist [facility] M [phone] O [phone]
--- NOTE | 2017-09-15 15:06 | Progress Note ---
Assessment and Plan Assessment and plan: Patient is a 37-year-old man with a history of tobacco dependency who initially presented on 08/27/2017 with body aches, fevers and chills with nausea. He was found to Left lingula pneumonia, ?influenza then he developed hemopytsis and underwent Brochoscopy on 09/03/17. He remained febrile. He underwent EGD on for hematemesis, findings showed erosive esophaagitis (bx's), gastric ulcerations (bx's) and multiple small (3-5 mm) white based ulcers duodenum (bx's ). It wasn't until steroids were started by Dr. Guerra that fever resolved. He was sent home on a tapering steroid dose, once he finished with the steroids, his symptoms came back and the high fevers has returned. prior imagin08/30/17 CT abd/pelvis wo contrast reported as unremarkable. 09/04/17 CT chest w/ contrast reported as There is no pathologic mediastinal, hilar, or axillary lymphadenopathy 1. Mild developing infiltrates/ground-glass opacities in the posterior right middle lobe, likely mild developing pneumonia. 2. Nonspecific very slight mosaic ground-glass attenuation in the upper lung bob, suggestive of underlying small vessel and/or small airways disease. 09/01/17: RF <10, RUTH ANN 1:80 positive, RUTH ANN pattern speckled, MPO <1, Gwen-1 <1, AGBM IgG <1, Proteinase 3 <1 09/14/17 CT LS spine reported No acute bony or soft tissue abnormality of the lumbar spine. Mild facet changes at the L5-S1 level. No significant bony encroachment on the canal or foramen. -FUO, Infectious Disease is following, ?SLE -Suspected Lupus flare: will start iv steroids -PUD: treat with PPI -SIRS: follow cultures -Thrombocytopenia, negative HIV recently, most likely viral symptom or chronic: repeat cbc History Interval history: + Hospitalist Physical - Constitutional Vitals: Temp Pulse Resp BP Pulse Ox 102.3 F H 83 16 104/57 96 09/15/17 05:04 09/15/17 12:43 09/15/17 09:00 09/15/17 09:00 09/15/17 12:43 Results - Labs CBC & Chem 7: 09/14/17 15:51 09/14/17 15:51 Labs: Laboratory Last Values WBC 7.7 K/mm3 (4.5-11.0) 09/14/17 15:51 RBC 5.44 M/mm3 (3.65-5.03) H 09/14/17 15:51 Hgb 15.9 gm/dl (11.8-15.2) H 09/14/17 15:51 Hct 47.2 % (35.5-45.6) H 09/14/17 15:51 MCV 87 fl (84-94) 09/14/17 15:51 MCH 29 pg (28-32) 09/14/17 15:51 MCHC 34 % (32-34) 09/14/17 15:51 RDW 13.3 % (13.2-15.2) 09/14/17 15:51 Plt Count 68 K/mm3 (140-440) L 09/14/17 15:51 School[place] % (Auto) Training Development Specialist 09/14/17 15:51 Add Manual Diff Complete 09/14/17 15:51 Total Counted 100 09/14/17 15:51 Seg Neutrophils % Training Development Specialist 09/14/17 15:51 Seg Neuts % (Manual) 27.0 % (40.0-70.0) L 09/14/17 15:51 Band Neutrophils % 0 % 09/14/17 15:51 Lymphocytes % (Manual) 50.0 % (13.4-35.0) H 09/14/17 15:51 Reactive Lymphs % (Man) 0 % 09/14/17 15:51 Monocytes % (Manual) 17.0 % (0.0-7.3) H 09/14/17 15:51 Eosinophils % (Manual) 0 % (0.0-4.3) 09/14/17 15:51 Basophils % (Manual) 0 % (0.0-1.8) 09/14/17 15:51 Metamyelocytes % 0 % 09/14/17 15:51 Myelocytes % 0 % 09/14/17 15:51 Promyelocytes % 0 % 09/14/17 15:51 Blast Cells % 6.0 % 09/14/17 15:51 Nucleated RBC % Not Reportable 09/14/17 15:51 Seg Neutrophils # Man 2.1 K/mm3 (1.8-7.7) 09/14/17 15:51 Band Neutrophils # 0.0 K/mm3 09/14/17 15:51 Lymphocytes # (Manual) 3.9 K/mm3 (1.2-5.4) 09/14/17 15:51 Abs React Lymphs (Man) 0.0 K/mm3 09/14/17 15:51 Monocytes # (Manual) 1.3 K/mm3 (0.0-0.8) H 09/14/17 15:51 Eosinophils # (Manual) 0.0 K/mm3 (0.0-0.4) 09/14/17 15:51 Basophils # (Manual) 0.0 K/mm3 (0.0-0.1) 09/14/17 15:51 Metamyelocytes # 0.0 K/mm3 09/14/17 15:51 Myelocytes # 0.0 K/mm3 09/14/17 15:51 Promyelocytes # 0.0 K/mm3 09/14/17 15:51 Blast Cells # 0.2 K/mm3 09/14/17 15:51 Pathologist Review 09/14/17 15:51 WBC Morphology Not Reportable 09/14/17 15:51 Hypersegmented Neuts Not Reportable 09/14/17 15:51 Hyposegmented Neuts Not Reportable 09/14/17 15:51 Hypogranular Neuts Not Reportable 09/14/17 15:51 Smudge Cells Not Reportable 09/14/17 15:51 Toxic Granulation Not Reportable 09/14/17 15:51 Toxic Vacuolation Not Reportable 09/14/17 15:51 Dohle Bodies Not Reportable 09/14/17 15:51 Pelger-Huet Anomaly Not Reportable 09/14/17 15:51 August Rods Not Reportable 09/14/17 15:51 Platelet Estimate Appears decreased 09/14/17 15:51 Clumped Platelets Not Reportable 09/14/17 15:51 Plt Clumps, EDTA Not Reportable 09/14/17 15:51 Large Platelets Not Reportable 09/14/17 15:51 Giant Platelets Not Reportable 09/14/17 15:51 Platelet Satelliting Not Reportable 09/14/17 15:51 Plt Morphology Comment Not Reportable 09/14/17 15:51 RBC Morphology Not Reportable 09/14/17 15:51 Dimorphic RBCs Not Reportable 09/14/17 15:51 Polychromasia Not Reportable 09/14/17 15:51 Hypochromasia Not Reportable 09/14/17 15:51 Poikilocytosis Few 09/14/17 15:51 Anisocytosis 1+ 09/14/17 15:51 Microcytosis Few 09/14/17 15:51 Macrocytosis Not Reportable 09/14/17 15:51 Spherocytes Not Reportable 09/14/17 15:51 Pappenheimer Bodies Not Reportable 09/14/17 15:51 Sickle Cells Not Reportable 09/14/17 15:51 Target Cells Not Reportable 09/14/17 15:51 Tear Drop Cells Not Reportable 09/14/17 15:51 Ovalocytes Not Reportable 09/14/17 15:51 Helmet Cells Not Reportable 09/14/17 15:[address] [place] Bodies Not Reportable 09/14/17 15:51 [place] Rings Not Reportable 09/14/17 15:[address] [employer] Cells Not Reportable 09/14/17 15:51 Bite Cells Not Reportable 09/14/17 15:51 Crenated Cell Not Reportable 09/14/17 15:51 Elliptocytes Not Reportable 09/14/17 15:51 Acanthocytes (Spur) Not Reportable 09/14/17 15:51 Rouleaux Not Reportable 09/14/17 15:51 Hemoglobin C Crystals Not Reportable 09/14/17 15:51 Schistocytes Not Reportable 09/14/17 15:51 Malaria parasites Not Reportable 09/14/17 15:51 Gregorio Bodies Not Reportable 09/14/17 15:51 Hem Pathologist Commnt Sent to pathology 09/14/17 15:51 PT 14.0 Sec. (12.2-14.9) 09/14/17 15:51 INR 1.03 (0.87-1.13) 09/14/17 15:51 VBG pH 7.451 (7.320-7.420) H 09/14/17 15:51 Sodium 130 mmol/L (137-145) L 09/14/17 15:51 Potassium 4.1 mmol/L (3.6-5.0) 09/14/17 15:51 Chloride 91.5 mmol/L (98-107) L 09/14/17 15:51 Carbon Dioxide 24 mmol/L (22-30) 09/14/17 15:51 Anion Gap 19 mmol/L 09/14/17 15:51 BUN 16 mg/dL (9-20) 09/14/17 15:51 Creatinine 1.0 mg/dL (0.8-1.5) 09/14/17 15:51 Estimated GFR > 60 ml/min 09/14/17 15:51 BUN/Creatinine Ratio 16 % 09/14/17 15:51 Glucose 102 mg/dL (75-100) H 09/14/17 15:51 Lactic Acid 0.80 mmol/L (0.7-2.0) 09/14/17 18:50 Calcium 8.6 mg/dL (8.4-10.2) 09/14/17 15:51 Total Bilirubin 0.60 mg/dL (0.1-1.2) 09/14/17 15:51 AST 73 units/L (5-40) H 09/14/17 15:51 ALT 105 units/L (7-56) H 09/14/17 15:51 Alkaline Phosphatase 42 units/L (35-129) 09/14/17 15:51 C-Reactive Protein 0.20 mg/dL (0.00-1.30) 09/15/17 13:27 Total Protein 7.3 g/dL (6.3-8.2) 09/14/17 15:51 Albumin 3.7 g/dL (3.9-5) L 09/14/17 15:51 Albumin/Globulin Ratio 1.0 % 09/14/17 15:51 Amylase 264 units/L (27-131) H 09/14/17 21:35 Lipase 200 units/L (13-60) H 09/14/17 15:51 Urine Color Yellow (Yellow) 09/14/17 16:05 Urine Turbidity Clear (Clear) 09/14/17 16:05 Urine pH 6.0 (5.0-7.0) 09/14/17 16:05 Ur Specific [place] 1.028 (1.003-1.030) 09/14/17 16:05 Urine Protein 30 mg/dl mg/dL (Negative) 09/14/17 16:05 Urine Glucose (UA) Neg mg/dL (Negative) 09/14/17 16:05 Urine Ketones Tr mg/dL (Negative) 09/14/17 16:05 Urine Blood Neg (Negative) 09/14/17 16:05 Urine Nitrite Neg (Negative) 09/14/17 16:05 Urine Bilirubin Neg (Negative) 09/14/17 16:05 Urine Urobilinogen < 2.0 mg/dL (<2.0) 09/14/17 16:05 Ur Leukocyte Esterase Neg (Negative) 09/14/17 16:05 Urine WBC (Auto) 1.0 /HPF (0.0-6.0) 09/14/17 16:05 Urine RBC (Auto) < 1.0 /HPF (0.0-6.0) 09/14/17 16:05 Urine Mucus Few /HPF 09/14/17 16:05 Influenza A (Rapid) Negative (Negative) 09/15/17 Unknown Influenza B (Rapid) Negative (Negative) 09/15/17 Unknown
[2017-09-15] MEDS: DIFLUCAN 200 MG/100 ML BAG IV SCH (16:05)
--- NOTE | 2017-09-15 16:54 | Cat Scan Report ---
FINAL REPORT EXAM: CT CHEST W CON HISTORY: FUO TECHNIQUE: CT of chest without IV contrast. Coronal and sagittal reconstructed images provided. PRIORS: CT chest September 04, 2017. FINDINGS: Subtle ground-glass opacities in the periphery in both upper lungs on series 2:24 is nonspecific. No associated interseptal thickening, honeycombing, or centrilobular nodules identified. Subtle similar appearance was noted on the prior. Other areas of ground-glass opacities noted on the prior are not clearly evident. There is no pneumothorax. No consolidation. No effusion. Series 3:80 demonstrates a filling defect in the right lower lobe segmental branch which suggests pulmonary emboli. Embolus extends into the subsegmental regions. Other segmental or subsegmental emboli are not excluded as the contrast effect is suboptimal. Main pulmonary artery is unremarkable. No aortic aneurysm or dissection. Heart size is within normal limits. No pericardial effusion. Axillary regions are unremarkable. No hilar mediastinal mass or adenopathy. Images of the esophagus are unremarkable. No suspicious osseous lesions on this limited examination of the skeleton. Metastatic disease better evaluated with bone scan. Degenerative changes are present in the spine. IMPRESSION: Pulmonary embolus in the right lower lobe segmental and subsegmental branches. Other distal segmental or subsegmental emboli are not excluded as the contrast effect is suboptimal. Nonspecific subtle ground-glass opacities in both upper lobes. Similar to prior. Possible mild cysts pneumonitis or scarring. September 15, 2017 at 1347 PST: I discussed the findings over phone with NANCY Escobar.
--- NOTE | 2017-09-15 16:59 | Cat Scan Report ---
FINAL REPORT EXAM: CT ABDOMEN PELVIS W CON HISTORY: FUO TECHNIQUE: CT of the abdomen and pelvis with IV contrast. Coronal and sagittal reconstructed imaging provided. PRIORS: None currently available. FINDINGS: ABDOMEN: Liver, gallbladder, stomach, spleen, pancreas, and adrenals are unremarkable. Kidneys: Symmetrical cortical enhancement. No hydronephrosis. No suspicious lesions. IVC is intact. No abdominal aortic aneurysm or dissection. No periaortic or retroperitoneal mass or adenopathy. Oidn-pb-xfojuoox stool is present throughout the colon. No wall thickening or inflammatory changes. Terminal ilium is unremarkable. Appendix is not clearly identified. No pericecal inflammatory changes. Small bowel loops are unremarkable. No obstructive pattern. No free air. No free fluid. PELVIS: Bladder is unremarkable. There is no pelvic mass or adenopathy. Inguinal regions are unremarkable. Bones: No suspicious osseous lesions on this limited examination of the skeleton. Metastatic disease better evaluated with bone scan. IMPRESSION: No acute findings.
[2017-09-15] MEDS ORDERED: COUMADIN PO SCH (18:00)
[2017-09-15] MEDS ORDERED: HEPARIN 25,000 UNIT in D5W 497.5 ML IV SCH (18:00)
--- NOTE | 2017-09-15 18:50 | Hem/Onc Consultation ---
History of Present Illness - Reason for Consult Consult date: 09/15/17 - History of Present Illness dictated PE-will start argatroban since plts low HIT panel hypercoag w/u Medications and Allergies Allergies Allergy/AdvReac Type Severity Reaction Status Date / Time No Known Allergies Allergy Verified 09/03/17 11:17 Home Medications Medication Instructions Recorded Confirmed Last Taken Type Pantoprazole [Protonix TAB] 40 mg PO BID #60 tablet 09/09/17 Unknown Rx Prednisone [predniSONE 5 mg (6-Day 5 mg PO .TAPER #1 tab.ds.pk 09/09/17 Unknown Rx Pack, 21 Tabs)] oxyCODONE /ACETAMINOPHEN [Percocet 1 tab PO Q6H PRN #14 tablet 09/09/17 Unknown Rx 5/325 mg] Active Meds: Active Medications Acetaminophen (Tylenol) 650 mg PO Q4H PRN PRN Reason: Pain MILD(1-3)/Fever >100.5/PALM Last Admin: 09/15/17 13:05 Dose: 650 mg Bisacodyl (Dulcolax) [address] QDAY PRN PRN Reason: Constipation unrelieved by MOM Sodium Chloride (Nacl 0.9% 1000 Ml) 1,000 mls @ 100 mls/hr IV DIRECT CHRISS Last Admin: 09/15/17 16:05 Dose: 100 mls/hr Fluconazole (Diflucan) 200 mg in 100 mls @ 100 mls/hr IV Q24HR CHRISS PRN Reason: Protocol Last Admin: 09/15/17 16:05 Dose: 100 mls/hr Argatroban 250 mg/ Sodium (Chloride) 250 mls @ 10.01 mls/hr IV TITR CHRISS; 2 MCG/ KG/MIN PRN Reason: Protocol Magnesium Hydroxide (Milk Of Magnesia) 30 ml PO Q4H PRN PRN Reason: Constipation Methylprednisolone Sodium Succinate (Solu-Medrol) 40 mg IV Q8HR CHRISS Last Admin: 09/15/17 16:04 Dose: 40 mg Metoclopramide HCl (Reglan) 10 mg IV Q6H PRN PRN Reason: Nausea And Vomiting Morphine Sulfate (Morphine) 2 mg IV Q4H PRN PRN Reason: Pain, Moderate (4-6) Ondansetron HCl (Zofran) 4 mg IV Q4H PRN PRN Reason: N/V unrelieved by Reglan Exam - Constitutional Vitals: Last Vital Signs Temp 102.3 F H 09/15/17 05:04 Pulse 83 09/15/17 12:43 Resp 16 09/15/17 09:00 BP 104/57 09/15/17 09:00 Pulse Ox 96 09/15/17 12:43 Results - Labs lab Results: Laboratory Results - last 24 hr 09/14/17 09/14/17 09/14/17 15:51 15:51 18:50 Pathologist Review Lactic Acid 0.80 C-Reactive Protein Amylase Lipase 200 H Influenza A (Rapid) Influenza B (Rapid) 09/14/17 09/15/17 09/15/17 21:35 13:27 Unknown Pathologist Review Lactic Acid C-Reactive Protein 0.20 Amylase 264 H Lipase Influenza A (Rapid) Negative Influenza B (Rapid) Negative
[2017-09-15] MEDS: ARGATROBAN 250 MG in NACL 0.9% 250ML 247.5 ML IV SCH (22:31)
[2017-09-16] MEDS: NACL 0.9% 1000 ML 1,000 ML IV SCH ×3 (02:00→21:57)
--- NOTE | 2017-09-16 02:06 | Consultation ---
REFERRING PHYSICIAN: Bobby Lorenz MD REASON FOR CONSULTATION: Pulmonary embolus. HISTORY OF PRESENT ILLNESS: The patient is a 37-year-old male, who was recently admitted to the hospital about 5 days ago with evidence of pneumonia, nausea, vomiting. He, at that time, had high fevers, chills, decreased appetite. He did have extensive workup including upper GI endoscopy, bronchoscopy, placed on prednisone. He was back into the hospital today with recurrent nausea, vomiting. During his hospital course this time, he was found to have a platelet count of 68,000. His other pertinent labs showed sodium of 130, creatinine 1.0, ALT 105, AST 73, lipase 200. Amylase 264. His influenza A and B were negative. He had a CT of the chest and abdomen and was found to have evidence of pulmonary embolus on his CT chest. The pulmonary embolus was in the right lower lobe. There was also nonspecific subtle ground glass opacities in both upper lobes, similar to the prior scans, possible pneumonitis. The patient continues to have nausea and vomiting. Because of his pulmonary embolus, Hematology consult was called. PAST MEDICAL HISTORY: Unremarkable. SOCIAL HISTORY: He used to smoke, quit with his last admission. He also used to drink alcohol, which he has cut back. REVIEW OF SYSTEMS: Positive for occasional headaches, cough, abdominal discomfort, nausea, vomiting. He does have loose stools, but they are not frequent, come every 2 days or so. On his lab work as mentioned in history of present illness. PE: weak looking chest : dec breath sounds cvs: reg abd : tender generalized ext: old scars ASSESSMENT: 1. Pulmonary embolus in this patient with recent hospitalization for nausea, vomiting and pneumonia. 2. History of tobacco abuse. 3. Thrombocytopenia. PLAN: At this time, the patient would need anticoagulation. I would not suggest heparin since the patient has thrombocytopenia and has had exposure to heparin with his last admission. We will go ahead and start him on argatroban and also check heparin-induced thrombocytopenia assay. We will also do hypercoagulable workup. Follow counts. JOB# [id number] LAURA/ANDERSON CORONA
[2017-09-16 06:24] LABS: Hematocrit 43.1 % (35.5-45.6); Hemoglobin 14.3 gm/dl (11.8-15.2); Mean Corpuscular HGB Conc 33 % (32-34); Mean Corpuscular Hemoglobin 29 pg (28-32); Mean Corpuscular Volume 87 fl (84-94); Red Blood Count 4.96 M/mm3 (3.65-5.03); Red Cell Distribution Width 13.4 % (13.2-15.2)
[2017-09-16 06:28] LABS: Platelet Count 75 K/mm3 (140-440)
[2017-09-16 06:31] LABS: BUN/Creatinine Ratio 23; Blood Urea Nitrogen 18 mg/dL (9-20); Calcium 8.5 mg/dL (8.4-10.2); Hemolysis Index 6
[2017-09-16 08:32] LABS: Basophils % (Manual) 0 % (0.0-1.8); Eosinophils % (Manual) 0 % (0.0-4.3); Total Cells Counted 100
[2017-09-16 08:33] LABS: Anisocytosis 1+; Platelet Estimate Consistent w Auto; Poikilocytosis Rare
--- NOTE | 2017-09-16 11:42 | Progress Note ---
<FABIÁN DELGADO - Last Filed: 09/16/17 15:08> Assessment and Plan Assessment: 1) Sepsis: still fever. Etiology most likely presumed lupus flare -blood cx 09/14 negative -urine cx 09/14 negative -CRP 0.2 2) Presumed lupus flare: RUTH ANN screen 09/01 positive 3) PE -chest CT 09/15 showed embolus extend into the sub segmental regions of the lung and ground glass opacities in both upper lobes 4) Bilateral upper lobe ground glass opacities; ? lupus ? Pneumonitis. Extensive work up done during previous admission: -HIV neg. -Influenza Antigen neg -CTA bilateral upper lungs ground glass infiltrates -Legionella negative -Strep pneumoniae urine neg -BAL done -airways normal and path showed no malignance and no PCP, BAL culture negative -CRP=3.6 -PCR<0.1 -completed 5 days tamflu -repeat Chest CT + RML infiltrate -RUTH ANN-positive 3) Thrush 4) High risk sexual encounters 5) Unintentional weight loss; 30 pounds in 4 weeks Plan: -f/u obtain respiratory cultures, C3, and C4 -pulmonary to eval chest CT ? lupus pneumonitis -will apreciate Rheumatolgy consult -continue diflucan day 2 of 10 for thrush -hematology following, placed on Argatroban for anticoagulation Thank you Dr. Toth for your consultation, will follow up with you. Fabián Delgado NP for Dr. Maricarmen Houston MD Infectious Diseases Specialist [facility], [place], [facility]) [phone] O [phone] Subjective Date of service: 09/16/17 Interval history: Microbiology: Blood cultures: 09/14/ ngtd Urine cultures: 09/15/ ngtd Respiratory cultures: Current Antimicrobials: diflucan 09/15 Objective - Exam Narrative Exam: General appearance: Alert in NAD, conversant Eyes: anicteric sclerae, moist conjunctivae; no lid-lag; PERRLA HENT: Atraumatic; +thrush Neck: Trachea midline; supple, no thyromegaly or lymphadenopathy Lungs: willow scattered rhonchi CV: RRR, no murmurs Abdomen: Soft, non-tender; no masses or hepatosplenomegaly Extremities: No peripheral edema or extremity lymphadenopathy Skin: Normal temperature, turgor and texture; no rash, ulcers or subcutaneous nodules Psych: Appropriate affect, calm and cooperative Neuro: alert and oriented x 3. Moving all extermities Lines: No CVL / PICC - Constitutional Vitals: Vital Signs Temp Pulse Resp BP Pulse Ox 98.6 F 76 18 117/72 96 09/16/17 03:52 09/16/17 03:52 09/16/17 03:52 09/16/17 03:52 09/16/17 03:52 Temperature -Last 24 Hours Temperature 98.6 F Temperature 100.2 F Temperature 98.3 F Temperature 99.7 F - Labs CBC & Chem 7: 09/16/17 05:25 09/16/17 05:25 Labs: Abnormal lab results 09/16/17 09/16/17 09/16/17 Range/Units 05:25 05:25 05:25 WBC (4.5-11.0) K/mm3 Plt Count (140-440) K/mm3 Seg Neuts % (Manual) (40.0-70.0) % Lymphocytes % (Manual) (13.4-35.0) % Monocytes % (Manual) (0.0-7.3) % Seg Neutrophils # Man (1.8-7.7) K/mm3 Monocytes # (Manual) (0.0-0.8) K/mm3 Percent Retic 0.36 L (0.78-2.58) % Sodium (137-145) mmol/L Chloride (98-107) mmol/L Glucose (75-100) mg/dL Lactate Dehydrogenase 648 H (91-180) units/L Vitamin B12 > 2000 H (211-911) pg/mL 09/16/17 09/16/17 Range/Units 05:25 05:25 WBC 3.4 L (4.5-11.0) K/mm3 Plt Count 75 L (140-440) K/mm3 Seg Neuts % (Manual) 27.0 L (40.0-70.0) % Lymphocytes % (Manual) 41.0 H (13.4-35.0) % Monocytes % (Manual) 32.0 H (0.0-7.3) % Seg Neutrophils # Man 0.9 L (1.8-7.7) K/mm3 Monocytes # (Manual) 1.1 H (0.0-0.8) K/mm3 Percent Retic (0.78-2.58) % Sodium 133 L (137-145) mmol/L Chloride 97.9 L (98-107) mmol/L Glucose 137 H (75-100) mg/dL Lactate Dehydrogenase (91-180) units/L Vitamin B12 (211-911) pg/mL <MARICARMEN CARVALHO - Last Filed: 09/16/17 16:19> Assessment and Plan I have personally interviewed and examined patient. I personally discussed and directed assessment and management with CORPORATE COMPLIANCE MANAGER Nballu. Discussed with patient CT findings- ? pneumonitis and PE. Needs rheum and pulm eval to deteromine course of action ? steroids +/- immunosuppressive therapy for pneumonitis. Maricarmen Kruger MD Objective - Constitutional Vitals: Vital Signs Temp Pulse Resp BP Pulse Ox 97.5 F L 71 18 122/70 98 09/16/17 11:33 09/16/17 11:33 09/16/17 11:33 09/16/17 11:33 09/16/17 11:33 Temperature -Last 24 Hours Temperature 97.5 F Temperature 97.7 F Temperature 98.6 F Temperature 100.2 F Temperature 98.3 F Temperature 99.7 F - Labs CBC & Chem 7: 09/16/17 05:25 09/16/17 05:25 Labs: Abnormal lab results 09/16/17 09/16/17 09/16/17 Range/Units 05:25 05:25 05:25 WBC (4.5-11.0) K/mm3 Plt Count (140-440) K/mm3 Seg Neuts % (Manual) (40.0-70.0) % Lymphocytes % (Manual) (13.4-35.0) % Monocytes % (Manual) (0.0-7.3) % Seg Neutrophils # Man (1.8-7.7) K/mm3 Monocytes # (Manual) (0.0-0.8) K/mm3 Percent Retic 0.36 L (0.78-2.58) % APTT (24.2-36.6) Sec. Sodium (137-145) mmol/L Chloride (98-107) mmol/L Glucose (75-100) mg/dL Lactate Dehydrogenase 648 H (91-180) units/L Vitamin B12 > 2000 H (211-911) pg/mL 09/16/17 09/16/17 09/16/17 Range/Units 05:25 05:25 12:09 WBC 3.4 L (4.5-11.0) K/mm3 Plt Count 75 L (140-440) K/mm3 Seg Neuts % (Manual) 27.0 L (40.0-70.0) % Lymphocytes % (Manual) 41.0 H (13.4-35.0) % Monocytes % (Manual) 32.0 H (0.0-7.3) % Seg Neutrophils # Man 0.9 L (1.8-7.7) K/mm3 Monocytes # (Manual) 1.1 H (0.0-0.8) K/mm3 Percent Retic (0.78-2.58) % APTT 66.6 H* (24.2-36.6) Sec. Sodium 133 L (137-145) mmol/L Chloride 97.9 L (98-107) mmol/L Glucose 137 H (75-100) mg/dL Lactate Dehydrogenase (91-180) units/L Vitamin B12 (211-911) pg/mL
[2017-09-16] MEDS: DIFLUCAN 200 MG/100 ML BAG IV SCH (11:46)
--- NOTE | 2017-09-16 12:52 | Progress Note ---
Assessment and Plan Sepsis: Suspected SLE exacerbation, on IV steroids, cultures negative so far, follow up on cultures, ID following. RLE: Venous doppler pending, hypercoagulable panel. Thrombocytopenia: D/c heparin due to possible HIT, started on Agatroban for anticoagulation. Heme/Onc following. PUD: On PPI. Thrush: On Diflucan. Subjective Date of service: 09/16/17 Objective - Constitutional Vitals: Vital Signs - 12hr 09/16/17 03:52 Temperature 98.6 F Pulse Rate 76 Respiratory 18 Rate Blood Pressure 117/72 O2 Sat by Pulse 96 Oximetry General appearance: Present: no acute distress, well-nourished - EENT Eyes: PERRL, EOM intact ENT: hearing intact, clear oral mucosa Ears: bilateral: normal - Neck Neck: supple, normal ROM - Respiratory Respiratory effort: normal Respiratory: bilateral: CTA - Breasts Breasts: normal - Cardiovascular Rhythm: regular Heart Sounds: Present: S1 & S2. Absent: gallop, rub Extremities: pulses intact, No edema, normal color, Full ROM - Gastrointestinal General gastrointestinal: Present: soft, non-tender, non-distended, normal bowel sounds - Genitourinary Male genitourinary: normal - Integumentary Integumentary: clear, warm, dry - Musculoskeletal Musculoskeletal: 1, strength equal bilaterally - Neurologic Neurologic: moves all extremities - Psychiatric Psychiatric: memory intact, appropriate mood/affect, intact judgment & insight - Labs CBC & Chem 7: 09/16/17 05:25 09/16/17 05:25 Labs: Abnormal lab results 09/16/17 09/16/17 09/16/17 Range/Units 05:25 05:25 05:25 WBC (4.5-11.0) K/mm3 Plt Count (140-440) K/mm3 Seg Neuts % (Manual) (40.0-70.0) % Lymphocytes % (Manual) (13.4-35.0) % Monocytes % (Manual) (0.0-7.3) % Seg Neutrophils # Man (1.8-7.7) K/mm3 Monocytes # (Manual) (0.0-0.8) K/mm3 Percent Retic 0.36 L (0.78-2.58) % Sodium (137-145) mmol/L Chloride (98-107) mmol/L Glucose (75-100) mg/dL Lactate Dehydrogenase 648 H (91-180) units/L Vitamin B12 > 2000 H (211-911) pg/mL 09/16/17 09/16/17 Range/Units 05:25 05:25 WBC 3.4 L (4.5-11.0) K/mm3 Plt Count 75 L (140-440) K/mm3 Seg Neuts % (Manual) 27.0 L (40.0-70.0) % Lymphocytes % (Manual) 41.0 H (13.4-35.0) % Monocytes % (Manual) 32.0 H (0.0-7.3) % Seg Neutrophils # Man 0.9 L (1.8-7.7) K/mm3 Monocytes # (Manual) 1.1 H (0.0-0.8) K/mm3 Percent Retic (0.78-2.58) % Sodium 133 L (137-145) mmol/L Chloride 97.9 L (98-107) mmol/L Glucose 137 H (75-100) mg/dL Lactate Dehydrogenase (91-180) units/L Vitamin B12 (211-911) pg/mL
[2017-09-16] MEDS: ARGATROBAN 250 MG in NACL 0.9% 250ML 247.5 ML IV SCH (21:57)
--- NOTE | 2017-09-16 22:23 | Hem/Onc Progress Note ---
Assessment and Plan - Patient Problems (1) Intractable nausea and vomiting Current Visit: Yes Status: Acute Qualifiers: Vomiting type: cyclical vomiting Qualified Code(s): G43.A1 - Cyclical vomiting, intractable Plan to address problem: She is improving. Monitor anticoagulation. Subjective Date of service: 09/16/17 Interval history: HE feels better overall. Objective - Constitutional Vitals: Last Vital Signs Temp 97.2 F L 09/16/17 16:09 Pulse 80 09/16/17 20:30 Resp 20 09/16/17 20:30 BP 116/66 09/16/17 16:09 Pulse Ox 96 09/16/17 20:30 - Respiratory Respiratory: bilateral: CTA - Cardiovascular Rhythm: regular Heart Sounds: Present: S1 & S2 - Labs Lab Results: Laboratory Results - last 24 hr 09/16/17 09/16/17 09/16/17 05:25 05:25 05:25 WBC RBC Hgb Hct MCV MCH MCHC RDW Plt Count Morrison % (Auto) Add Manual Diff Total Counted Seg Neutrophils % Seg Neuts % (Manual) Band Neutrophils % Lymphocytes % (Manual) Reactive Lymphs % (Man) Monocytes % (Manual) Eosinophils % (Manual) Basophils % (Manual) Metamyelocytes % Myelocytes % Promyelocytes % Blast Cells % Nucleated RBC % Seg Neutrophils # Man Band Neutrophils # Lymphocytes # (Manual) Abs React Lymphs (Man) Monocytes # (Manual) Eosinophils # (Manual) Basophils # (Manual) Metamyelocytes # Myelocytes # Promyelocytes # Blast Cells # WBC Morphology Hypersegmented Neuts Hyposegmented Neuts Hypogranular Neuts Smudge Cells Toxic Granulation Toxic Vacuolation Dohle Bodies Pelger-Huet Anomaly August Rods Platelet Estimate Clumped Platelets Plt Clumps, EDTA Large Platelets Giant Platelets Platelet Satelliting Plt Morphology Comment RBC Morphology Dimorphic RBCs Polychromasia Hypochromasia Poikilocytosis Anisocytosis Microcytosis Macrocytosis Spherocytes Pappenheimer Bodies Sickle Cells Target Cells Tear Drop Cells Ovalocytes Helmet Cells Andrade-Witt Bodies [place] Rings Nikki Cells Bite Cells Crenated Cell Elliptocytes Acanthocytes (Spur) Rouleaux Hemoglobin C Crystals Schistocytes Malaria parasites Percent Retic 0.36 L Gregorio Bodies Hem Pathologist Commnt APTT Sodium Potassium Chloride Carbon Dioxide Anion Gap BUN Creatinine Estimated GFR BUN/Creatinine Ratio Glucose Lactic Acid Calcium Lactate Dehydrogenase 648 H Vitamin B12 > 2000 H Folate 09/16/17 09/16/17 09/16/17 05:25 05:25 05:25 WBC 3.4 L RBC 4.96 Hgb 14.3 Hct 43.1 MCV 87 MCH 29 MCHC 33 RDW 13.4 Plt Count 75 L Morrison % (Auto) Clinical Account Liaison Add Manual Diff Complete Total Counted 100 Seg Neutrophils % Clinical Account Liaison Seg Neuts % (Manual) 27.0 L Band Neutrophils % 0 Lymphocytes % (Manual) 41.0 H Reactive Lymphs % (Man) 0 Monocytes % (Manual) 32.0 H Eosinophils % (Manual) 0 Basophils % (Manual) 0 Metamyelocytes % 0 Myelocytes % 0 Promyelocytes % 0 Blast Cells % 0 Nucleated RBC % Not Reportable Seg Neutrophils # Man 0.9 L Band Neutrophils # 0.0 Lymphocytes # (Manual) 1.4 Abs React Lymphs (Man) 0.0 Monocytes # (Manual) 1.1 H Eosinophils # (Manual) 0.0 Basophils # (Manual) 0.0 Metamyelocytes # 0.0 Myelocytes # 0.0 Promyelocytes # 0.0 Blast Cells # 0.0 WBC Morphology Not Reportable Hypersegmented Neuts Not Reportable Hyposegmented Neuts Not Reportable Hypogranular Neuts Not Reportable Smudge Cells Not Reportable Toxic Granulation Not Reportable Toxic Vacuolation Not Reportable Dohle Bodies Not Reportable Pelger-Huet Anomaly Not Reportable August Rods Not Reportable Platelet Estimate Consistent w auto Clumped Platelets Not Reportable Plt Clumps, EDTA Not Reportable Large Platelets Not Reportable Giant Platelets Not Reportable Platelet Satelliting Not Reportable Plt Morphology Comment Not Reportable RBC Morphology Not Reportable Dimorphic RBCs Not Reportable Polychromasia Not Reportable Hypochromasia Not Reportable Poikilocytosis Rare Anisocytosis 1+ Microcytosis Not Reportable Macrocytosis Not Reportable Spherocytes Not Reportable Pappenheimer Bodies Not Reportable Sickle Cells Not Reportable Target Cells Not Reportable Tear Drop Cells Not Reportable Ovalocytes Not Reportable Helmet Cells Not Reportable Andrade-Witt Bodies Not Reportable [place] Rings Not Reportable [place] Cells Not Reportable Bite Cells Not Reportable Crenated Cell Not Reportable Elliptocytes Not Reportable Acanthocytes (Spur) Not Reportable Rouleaux Not Reportable Hemoglobin C Crystals Not Reportable Schistocytes Not Reportable Malaria parasites Not Reportable Percent Retic Gregorio Bodies Not Reportable Hem Pathologist Commnt No APTT Sodium 133 L Potassium 4.5 Chloride 97.9 L Carbon Dioxide 22 Anion Gap 18 BUN 18 Creatinine 0.8 Estimated GFR > 60 BUN/Creatinine Ratio 23 Glucose 137 H Lactic Acid Calcium 8.5 Lactate Dehydrogenase Vitamin B12 Folate 11.40 09/16/17 09/16/17 12:09 21:06 WBC RBC Hgb Hct MCV MCH MCHC RDW Plt Count Morrison % (Auto) Add Manual Diff Total Counted Seg Neutrophils % Seg Neuts % (Manual) Band Neutrophils % Lymphocytes % (Manual) Reactive Lymphs % (Man) Monocytes % (Manual) Eosinophils % (Manual) Basophils % (Manual) Metamyelocytes % Myelocytes % Promyelocytes % Blast Cells % Nucleated RBC % Seg Neutrophils # Man Band Neutrophils # Lymphocytes # (Manual) Abs React Lymphs (Man) Monocytes # (Manual) Eosinophils # (Manual) Basophils # (Manual) Metamyelocytes # Myelocytes # Promyelocytes # Blast Cells # WBC Morphology Hypersegmented Neuts Hyposegmented Neuts Hypogranular Neuts Smudge Cells Toxic Granulation Toxic Vacuolation Dohle Bodies Pelger-Huet Anomaly August Rods Platelet Estimate Clumped Platelets Plt Clumps, EDTA Large Platelets Giant Platelets Platelet Satelliting Plt Morphology Comment RBC Morphology Dimorphic RBCs Polychromasia Hypochromasia Poikilocytosis Anisocytosis Microcytosis Macrocytosis Spherocytes Pappenheimer Bodies Sickle Cells Target Cells Tear Drop Cells Ovalocytes Helmet Cells Andrade-Witt Bodies [place] Rings [place] Cells Bite Cells Crenated Cell Elliptocytes Acanthocytes (Spur) Rouleaux Hemoglobin C Crystals Schistocytes Malaria parasites Percent Retic Gregorio Bodies Hem Pathologist Commnt APTT 66.6 H* Sodium Potassium Chloride Carbon Dioxide Anion Gap BUN Creatinine Estimated GFR BUN/Creatinine Ratio Glucose Lactic Acid 1.40 Calcium Lactate Dehydrogenase Vitamin B12 Folate
[2017-09-17] MEDS: MORPHINE IV PRN (00:33)
[2017-09-17 01:22] LABS: INR 1.77 (0.87-1.13)
[2017-09-17 02:05] LABS: Creatine Kinase MB 1.9 ng/mL (0.0-4.0)
[2017-09-17] MEDS: NACL 0.9% 1000 ML 1,000 ML IV SCH ×2 (06:36→18:42)
[2017-09-17 06:46] LABS: Mean Corpuscular HGB Conc 33 % (32-34); Mean Corpuscular Hemoglobin 29 pg (28-32); Mean Corpuscular Volume 88 fl (84-94); Red Blood Count 4.76 M/mm3 (3.65-5.03)
[2017-09-17 06:56] LABS: Platelet Count 74 K/mm3 (140-440)
[2017-09-17 06:58] LABS: INR 1.62 (0.87-1.13)
[2017-09-17 07:02] LABS: Alanine Aminotransferase 57 units/L (7-56); BUN/Creatinine Ratio 27; Blood Urea Nitrogen 16 mg/dL (9-20); Calcium 8.5 mg/dL (8.4-10.2); Hemolysis Index 9
[2017-09-17 08:08] LABS: Band Neutrophils # (Manual) 0.1 K/mm3; Basophils % (Manual) 0 % (0.0-1.8); Eosinophils % (Manual) 0 % (0.0-4.3); Platelet Estimate Consistent w Auto; RBC Morphology Normal; Total Cells Counted 100
--- NOTE | 2017-09-17 08:48 | Progress Note ---
Assessment and Plan Sepsis: Suspected SLE exacerbation, on IV steroids, cultures negative so far, follow up on cultures, ID following. PE RLL: On Agatroban, not on Heparin b/c of possible HIT. Thrombocytopenia: Heme/Onc following. PUD: On PPI. Thrush: On Diflucan. Subjective Date of service: 09/17/17 Principal diagnosis: Sepsis Interval history: C/o of pleuritic chest pain Objective - Constitutional Vitals: Vital Signs - 12hr 09/17/17 09/17/17 09/17/17 00:20 00:33 01:03 Temperature 97.3 F L Pulse Rate 60 Respiratory 18 20 20 Rate Blood Pressure 119/76 O2 Sat by Pulse 95 Oximetry 09/17/17 09/17/17 01:14 04:41 Temperature 97.4 F L Pulse Rate 56 L 60 Respiratory 18 Rate Blood Pressure 114/71 O2 Sat by Pulse 100 Oximetry General appearance: Present: no acute distress, well-nourished - EENT Eyes: PERRL, EOM intact ENT: hearing intact, clear oral mucosa Ears: bilateral: normal - Neck Neck: supple, normal ROM - Respiratory Respiratory effort: normal Respiratory: bilateral: CTA - Cardiovascular Rhythm: regular Heart Sounds: Present: S1 & S2. Absent: gallop, rub Extremities: pulses intact, No edema, normal color, Full ROM - Gastrointestinal General gastrointestinal: Present: soft, non-tender, non-distended, normal bowel sounds - Integumentary Integumentary: clear, warm, dry - Musculoskeletal Musculoskeletal: 1, strength equal bilaterally - Neurologic Neurologic: moves all extremities - Psychiatric Psychiatric: memory intact, appropriate mood/affect, intact judgment & insight - Labs CBC & Chem 7: 09/17/17 06:03 09/17/17 06:03 Labs: Abnormal lab results 09/16/17 09/17/17 09/17/17 Range/Units 12:09 00:48 00:48 RDW (13.2-15.2) % Plt Count (140-440) K/mm3 Monocytes % (Manual) (0.0-7.3) % Monocytes # (Manual) (0.0-0.8) K/mm3 PT 21.6 H (12.2-14.9) Sec. INR 1.77 H (0.87-1.13) APTT 66.6 H* 64.7 H* (24.2-36.6) Sec. Creatinine (0.8-1.5) mg/dL Glucose (75-100) mg/dL ALT (7-56) units/L Albumin (3.9-5) g/dL 09/17/17 09/17/17 09/17/17 Range/Units 06:03 06:03 06:03 RDW 13.0 L (13.2-15.2) % Plt Count 74 L (140-440) K/mm3 Monocytes % (Manual) 19.0 H (0.0-7.3) % Monocytes # (Manual) 0.9 H (0.0-0.8) K/mm3 PT 20.2 H (12.2-14.9) Sec. INR 1.62 H (0.87-1.13) APTT (24.2-36.6) Sec. Creatinine 0.6 L (0.8-1.5) mg/dL Glucose 113 H (75-100) mg/dL ALT 57 H (7-56) units/L Albumin 3.0 L (3.9-5) g/dL
--- NOTE | 2017-09-17 09:25 | Hem/Onc Progress Note ---
Assessment and Plan Continue to closely monitor. Continue argatroban drip till heparin-induced thrombocytopenia panel is back. follow cbc carefully Subjective Date of service: 09/17/17 Interval history: Patient feels better. Trying to take by mouth. Tolerating argatroban drip Objective - Constitutional Vitals: Last Vital Signs Temp 97.4 F L 09/17/17 04:41 Pulse 60 09/17/17 04:41 Resp 18 09/17/17 04:41 BP 114/71 09/17/17 04:41 Pulse Ox 100 09/17/17 04:41 Pain Intensity (0-10): denies any pain General appearance: no acute distress - Neck Neck: supple - Respiratory Respiratory effort: Positive: normal Respiratory: bilateral: diminished - Cardiovascular Rhythm: regular Extremities: No edema - Gastrointestinal General gastrointestinal: Present: soft (mildly tender on deep palpation) - Labs Lab Results: Laboratory Results - last 24 hr 09/16/17 09/16/17 09/17/17 12:09 21:06 00:48 WBC RBC Hgb Hct MCV MCH MCHC RDW Plt Count [place] % (Auto) Add Manual Diff Total Counted Seg Neuts % (Manual) Band Neutrophils % Lymphocytes % (Manual) Reactive Lymphs % (Man) Monocytes % (Manual) Eosinophils % (Manual) Basophils % (Manual) Metamyelocytes % Myelocytes % Promyelocytes % Blast Cells % Nucleated RBC % Seg Neutrophils # Man Band Neutrophils # Lymphocytes # (Manual) Abs React Lymphs (Man) Monocytes # (Manual) Eosinophils # (Manual) Basophils # (Manual) Metamyelocytes # Myelocytes # Promyelocytes # Blast Cells # WBC Morphology Hypersegmented Neuts Hyposegmented Neuts Hypogranular Neuts Smudge Cells Toxic Granulation Toxic Vacuolation Dohle Bodies Pelger-Huet Anomaly August Rods Platelet Estimate Clumped Platelets Plt Clumps, EDTA Large Platelets Giant Platelets Platelet Satelliting Plt Morphology Comment RBC Morphology Dimorphic RBCs Polychromasia Hypochromasia Poikilocytosis Anisocytosis Microcytosis Macrocytosis Spherocytes Pappenheimer Bodies Sickle Cells Target Cells Tear Drop Cells Ovalocytes Helmet Cells [place] Bodies [place] Rings Nikki Cells Bite Cells Crenated Cell Elliptocytes Acanthocytes (Spur) Rouleaux Hemoglobin C Crystals Schistocytes Malaria parasites Gregorio Bodies Hem Pathologist Commnt PT 21.6 H INR 1.77 H APTT 66.6 H* Sodium Potassium Chloride Carbon Dioxide Anion Gap BUN Creatinine Estimated GFR BUN/Creatinine Ratio Glucose Lactic Acid 1.40 Calcium Total Bilirubin AST ALT Alkaline Phosphatase Total Creatine Kinase CK-MB (CK-2) CK-MB (CK-2) Rel Index Troponin T Total Protein Albumin Albumin/Globulin Ratio 09/17/17 09/17/17 09/17/17 00:48 01:24 06:03 WBC 4.8 RBC 4.76 Hgb 14.0 Hct 42.0 MCV 88 MCH 29 MCHC 33 RDW 13.0 L Plt Count 74 L [place] % (Auto) Chemical Research Technician Add Manual Diff Complete Total Counted 100 Seg Neuts % (Manual) 54.0 Band Neutrophils % 2.0 Lymphocytes % (Manual) 25.0 Reactive Lymphs % (Man) 0 Monocytes % (Manual) 19.0 H Eosinophils % (Manual) 0 Basophils % (Manual) 0 Metamyelocytes % 0 Myelocytes % 0 Promyelocytes % 0 Blast Cells % 0 Nucleated RBC % Not Reportable Seg Neutrophils # Man 2.6 Band Neutrophils # 0.1 Lymphocytes # (Manual) 1.2 Abs React Lymphs (Man) 0.0 Monocytes # (Manual) 0.9 H Eosinophils # (Manual) 0.0 Basophils # (Manual) 0.0 Metamyelocytes # 0.0 Myelocytes # 0.0 Promyelocytes # 0.0 Blast Cells # 0.0 WBC Morphology Not Reportable Hypersegmented Neuts Not Reportable Hyposegmented Neuts Not Reportable Hypogranular Neuts Not Reportable Smudge Cells Not Reportable Toxic Granulation Not Reportable Toxic Vacuolation Not Reportable Dohle Bodies Not Reportable Pelger-Huet Anomaly Not Reportable August Rods Not Reportable Platelet Estimate Consistent w auto Clumped Platelets Not Reportable Plt Clumps, EDTA Not Reportable Large Platelets Not Reportable Giant Platelets Not Reportable Platelet Satelliting Not Reportable Plt Morphology Comment Not Reportable RBC Morphology Normal Dimorphic RBCs Not Reportable Polychromasia Not Reportable Hypochromasia Not Reportable Poikilocytosis Not Reportable Anisocytosis Not Reportable Microcytosis Not Reportable Macrocytosis Not Reportable Spherocytes Not Reportable Pappenheimer Bodies Not Reportable Sickle Cells Not Reportable Target Cells Not Reportable Tear Drop Cells Not Reportable Ovalocytes Not Reportable Helmet Cells Not Reportable [place] Bodies Not Reportable [place] Rings Not Reportable [place] Cells Not Reportable Bite Cells Not Reportable Crenated Cell Not Reportable Elliptocytes Not Reportable Acanthocytes (Spur) Not Reportable Rouleaux Not Reportable Hemoglobin C Crystals Not Reportable Schistocytes Not Reportable Malaria parasites Not Reportable Gregorio Bodies Not Reportable Hem Pathologist Commnt No PT INR APTT 64.7 H* Sodium Potassium Chloride Carbon Dioxide Anion Gap BUN Creatinine Estimated GFR BUN/Creatinine Ratio Glucose Lactic Acid Calcium Total Bilirubin AST ALT Alkaline Phosphatase Total Creatine Kinase 164 CK-MB (CK-2) 1.9 CK-MB (CK-2) Rel Index 1.1 Troponin T < 0.010 Total Protein Albumin Albumin/Globulin Ratio 09/17/17 09/17/17 06:03 06:03 WBC RBC Hgb Hct MCV MCH MCHC RDW Plt Count [place] % (Auto) Add Manual Diff Total Counted Seg Neuts % (Manual) Band Neutrophils % Lymphocytes % (Manual) Reactive Lymphs % (Man) Monocytes % (Manual) Eosinophils % (Manual) Basophils % (Manual) Metamyelocytes % Myelocytes % Promyelocytes % Blast Cells % Nucleated RBC % Seg Neutrophils # Man Band Neutrophils # Lymphocytes # (Manual) Abs React Lymphs (Man) Monocytes # (Manual) Eosinophils # (Manual) Basophils # (Manual) Metamyelocytes # Myelocytes # Promyelocytes # Blast Cells # WBC Morphology Hypersegmented Neuts Hyposegmented Neuts Hypogranular Neuts Smudge Cells Toxic Granulation Toxic Vacuolation Dohle Bodies Pelger-Huet Anomaly [place] Rods Platelet Estimate Clumped Platelets Plt Clumps, EDTA Large Platelets Giant Platelets Platelet Satelliting Plt Morphology Comment RBC Morphology Dimorphic RBCs Polychromasia Hypochromasia Poikilocytosis Anisocytosis Microcytosis Macrocytosis Spherocytes Pappenheimer Bodies Sickle Cells Target Cells Tear Drop Cells Ovalocytes Helmet Cells [place] Bodies [place] Rings Nikki Cells Bite Cells Crenated Cell Elliptocytes Acanthocytes (Spur) Rouleaux Hemoglobin C Crystals Schistocytes Malaria parasites Gregorio Bodies Hem Pathologist Commnt PT 20.2 H INR 1.62 H APTT Sodium 137 Potassium 4.3 Chloride 102.5 Carbon Dioxide 23 Anion Gap 16 BUN 16 Creatinine 0.6 L Estimated GFR > 60 BUN/Creatinine Ratio 27 Glucose 113 H Lactic Acid Calcium 8.5 Total Bilirubin 0.60 AST 29 ALT 57 H Alkaline Phosphatase 36 Total Creatine Kinase CK-MB (CK-2) CK-MB (CK-2) Rel Index Troponin T Total Protein 6.4 Albumin 3.0 L Albumin/Globulin Ratio 0.9
[2017-09-17] MEDS: DIFLUCAN 200 MG/100 ML BAG IV SCH (11:19)
--- NOTE | 2017-09-17 11:46 | Progress Note ---
Assessment and Plan Assessment: 1) Sepsis: still fever. Etiology most likely presumed lupus flare -blood cx 09/14 negative -urine cx 09/14 negative -CRP 0.2 2) Presumed lupus flare: RUTH ANN screen 09/01 positive 3) PE -chest CT 09/15 showed embolus extend into the sub segmental regions of the lung and ground glass opacities in both upper lobes 4) Bilateral upper lobe ground glass opacities; ? lupus ? Pneumonitis. Extensive work up done during previous admission: -HIV neg. -Influenza Antigen neg -CTA bilateral upper lungs ground glass infiltrates -Legionella negative -Strep pneumoniae urine neg -BAL done -airways normal and path showed no malignance and no PCP, BAL culture negative -CRP=3.6 -PCR<0.1 -completed 5 days tamflu -repeat Chest CT + RML infiltrate -RUTH ANN-positive 3) Thrush 4) High risk sexual encounters 5) Unintentional weight loss; 30 pounds in 4 weeks Plan: -f/u C3 and C4, received -pulmonary to eval chest CT ? lupus pneumonitis, pending -will apreciate Rheumatolgy consult as an outpatient -change diflucan to PO day 3 of 10 for thrush -hematology following, on Argatroban We will sign off Thank you Dr. Toth for your consultation, will follow up with you. Fabián Delgado NP for Dr. Maricarmen Houston MD Infectious Diseases Specialist [facility] ([facility]) M [phone] O [phone] Subjective Date of service: 09/17/17 Interval history: I am now able to eat, no fever Microbiology: Blood cultures: 09/14/ ngtd Urine cultures: 09/15/ ngtd Respiratory cultures: 09/14 influenza antigen negative Current Antimicrobials: diflucan 09/15 Objective - Exam Narrative Exam: General appearance: Alert in NAD, conversant Eyes: anicteric sclerae, moist conjunctivae; no lid-lag; PERRLA HENT: Atraumatic; +thrush Neck: Trachea midline; supple, no thyromegaly or lymphadenopathy Lungs: willow scattered rhonchi CV: RRR, no murmurs Abdomen: Soft, non-tender; no masses or hepatosplenomegaly Extremities: No peripheral edema or extremity lymphadenopathy Skin: Normal temperature, turgor and texture; no rash, ulcers or subcutaneous nodules Psych: Appropriate affect, calm and cooperative Neuro: alert and oriented x 3. Moving all extermities Lines: No CVL / PICC - Constitutional Vitals: Vital Signs Temp Pulse Resp BP Pulse Ox 97.6 F 63 16 122/80 99 09/17/17 10:02 09/17/17 10:02 09/17/17 10:02 09/17/17 10:02 09/17/17 10:02 Temperature -Last 24 Hours Temperature 97.6 F Temperature 97.4 F Temperature 97.3 F Temperature 98.2 F Temperature 97.2 F - Labs CBC & Chem 7: 09/17/17 06:03 09/17/17 06:03 Labs: Abnormal lab results 09/16/17 09/17/17 09/17/17 Range/Units 12:09 00:48 00:48 RDW (13.2-15.2) % Plt Count (140-440) K/mm3 Monocytes % (Manual) (0.0-7.3) % Monocytes # (Manual) (0.0-0.8) K/mm3 PT 21.6 H (12.2-14.9) Sec. INR 1.77 H (0.87-1.13) APTT 66.6 H* 64.7 H* (24.2-36.6) Sec. Creatinine (0.8-1.5) mg/dL Glucose (75-100) mg/dL ALT (7-56) units/L Albumin (3.9-5) g/dL 09/17/17 09/17/17 09/17/17 Range/Units 06:03 06:03 06:03 RDW 13.0 L (13.2-15.2) % Plt Count 74 L (140-440) K/mm3 Monocytes % (Manual) 19.0 H (0.0-7.3) % Monocytes # (Manual) 0.9 H (0.0-0.8) K/mm3 PT 20.2 H (12.2-14.9) Sec. INR 1.62 H (0.87-1.13) APTT (24.2-36.6) Sec. Creatinine 0.6 L (0.8-1.5) mg/dL Glucose 113 H (75-100) mg/dL ALT 57 H (7-56) units/L Albumin 3.0 L (3.9-5) g/dL
--- NOTE | 2017-09-17 17:26 | Event Note ---
Date: 09/17/17 Spoke with Re: Belén cardiology consult. Currently the patient is being treated for an acute pulmonary embolus is on intravenous anticoagulation and is also being evaluated by pulmonary and hematology oncology for possible lupus flare. Infectious disease has signed off there is no concern for any bacteremia or bacterial endocarditis. Cardiology consult was canceled by Dr. Rock.
[2017-09-17] MEDS: TESSALON PERLES PO SCH (18:43)
[2017-09-18] MEDS: TESSALON PERLES PO SCH (01:40)
[2017-09-18 03:20] LABS: Basophils % (Auto) 0.5 % (0.0-1.8); Hematocrit 40.2 % (35.5-45.6); Hemoglobin 13.6 gm/dl (11.8-15.2); Lymphocytes # (Auto) 0.9 K/mm3 (1.2-5.4); Lymphocytes % (Auto) 17.1 % (13.4-35.0); Mean Corpuscular HGB Conc 34 % (32-34); Mean Corpuscular Hemoglobin 29 pg (28-32); Mean Corpuscular Volume 87 fl (84-94); Monocytes # (Auto) 0.6 K/mm3 (0.0-0.8); Monocytes % (Auto) 10.5 % (0.0-7.3); Red Blood Count 4.61 M/mm3 (3.65-5.03); Red Cell Distribution Width 13.4 % (13.2-15.2)
[2017-09-18 03:23] LABS: Platelet Count 93 K/mm3 (140-440)
[2017-09-18 03:30] LABS: INR 1.56 (0.87-1.13)
[2017-09-18 03:32] LABS: Partial Thromboplastin Time 59.2 Sec. (24.2-36.6)
[2017-09-18 03:57] LABS: Alanine Aminotransferase 53 units/L (7-56); Albumin 2.8 g/dL (3.9-5); BUN/Creatinine Ratio 27; Blood Urea Nitrogen 16 mg/dL (9-20); Calcium 8.2 mg/dL (8.4-10.2); Hemolysis Index 11
[2017-09-18] MEDS: ARGATROBAN 250 MG in NACL 0.9% 250ML 247.5 ML IV SCH ×2 (04:04→22:57)
[2017-09-18] MEDS: NACL 0.9% 1000 ML 1,000 ML IV SCH ×3 (04:07→22:57)
[2017-09-18] MEDS: ROBITUSSIN PO SCH ×4 (05:53→23:00)
[2017-09-18] MEDS: DIFLUCAN PO SCH (11:43)
--- NOTE | 2017-09-18 13:16 | Hem/Onc Progress Note ---
Assessment and Plan Continue to closely monitor. Continue argatroban drip till heparin-induced thrombocytopenia panel is back. follow cbc carefully. plts improving Subjective Date of service: 09/18/17 Interval history: Patient feels better. Trying to take by mouth. Tolerating argatroban drip Objective - Constitutional Vitals: Last Vital Signs Temp 98.1 F 09/18/17 04:55 Pulse 53 L 09/18/17 08:38 Resp 18 09/18/17 04:55 BP 119/77 09/18/17 04:55 Pulse Ox 100 09/18/17 04:55 General appearance: no acute distress Performance status: 2- selfcare, ambulatory - Neck Neck: supple - Respiratory Respiratory effort: Positive: normal - Cardiovascular Rhythm: regular Extremities: No edema - Gastrointestinal General gastrointestinal: Present: soft - Labs Lab Results: Laboratory Results - last 24 hr 09/17/17 09/17/17 09/18/17 13:06 21:12 03:07 WBC 5.5 RBC 4.61 Hgb 13.6 Hct 40.2 MCV 87 MCH 29 MCHC 34 RDW 13.4 Plt Count 93 L Lymph % (Auto) 17.1 [place] % (Auto) 10.5 H Eos % (Auto) 0.0 Baso % (Auto) 0.5 Lymph # 0.9 L [place] # 0.6 Eos # 0.0 Baso # 0.0 Seg Neutrophils % 71.9 H Seg Neutrophils # 4.0 PT INR APTT 59.6 H Sodium Potassium Chloride Carbon Dioxide Anion Gap BUN Creatinine Estimated GFR BUN/Creatinine Ratio Glucose Lactic Acid 2.40 H* Calcium Total Bilirubin AST ALT Alkaline Phosphatase Total Protein Albumin Albumin/Globulin Ratio 09/18/17 09/18/17 03:07 03:07 WBC RBC Hgb Hct MCV MCH MCHC RDW Plt Count Lymph % (Auto) [place] % (Auto) Eos % (Auto) Baso % (Auto) Lymph # [place] # Eos # Baso # Seg Neutrophils % Seg Neutrophils # PT 19.6 H INR 1.56 H APTT 59.2 H Sodium 135 L Potassium 4.2 Chloride 101.5 Carbon Dioxide 21 L Anion Gap 17 BUN 16 Creatinine 0.6 L Estimated GFR > 60 BUN/Creatinine Ratio 27 Glucose 120 H Lactic Acid Calcium 8.2 L Total Bilirubin 0.50 AST 34 ALT 53 Alkaline Phosphatase 38 Total Protein 5.8 L Albumin 2.8 L Albumin/Globulin Ratio 0.9
--- NOTE | 2017-09-18 19:09 | Progress Note ---
Assessment and Plan - Patient Problems (1) HTN (hypertension) Current Visit: Yes Status: Acute Plan to address problem: At present well controled and someties elevated because of pain. (2) Fever Current Visit: Yes Status: Acute Qualifiers: Fever type: unspecified Qualified Code(s): R50.9 - Fever, unspecified Plan to address problem: Patient fever curve is down trending. Could be secondary to bowel syndrome versus lupus exacerbation versus pneumonitis. Extensive workable last admission no evidence of infection including Legionella and HIV. 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 Now onagotroban drip. Tolerating will. Platelets are up to 93. Hematology following. (5) Thrush, oral Current Visit: Yes Status: Acute Plan to address problem: resolving with diflucan History Interval history: Patient states that he feels better. Thrush is resolved. Spoke to patient about lupus and lupus anticoagulant. Spoke about workup from last admission. Positive RUTH ANN and possible lupus anticoagulant. Patient and a bedside understand. Hospitalist Physical - Constitutional Vitals: Temp Pulse Resp BP Pulse Ox 98.0 F 78 18 121/72 99 09/18/17 13:28 09/18/17 13:28 09/18/17 13:28 09/18/17 13:28 09/18/17 15:09 General appearance: Present: no acute distress, well-nourished - EENT Eyes: Present: PERRL, EOM intact ENT: hearing intact, clear oral mucosa, dentition normal, other - Neck Neck: Present: supple, normal ROM - Respiratory Respiratory effort: normal Respiratory: bilateral: diminished - Cardiovascular Rhythm: regular Heart Sounds: Present: S1 & S2 - Extremities Extremities: no ischemia, pulses intact, pulses symmetrical, No edema, normal temperature, normal color, Full ROM Peripheral Pulses: within normal limits - Abdominal General gastrointestinal: soft, non-tender, non-distended - Integumentary Integumentary: Present: clear, warm, dry. Absent: erythema, jaundice, rash, clammy - Psychiatric Psychiatric: appropriate mood/affect, intact judgment & insight - Neurologic Neurologic: CNII-XII intact, moves all extremities Results - Labs CBC & Chem 7: 09/18/17 03:07 09/18/17 03:07 Labs: Laboratory Last Values WBC 5.5 K/mm3 (4.5-11.0) 09/18/17 03:07 RBC 4.61 M/mm3 (3.65-5.03) 09/18/17 03:07 Hgb 13.6 gm/dl (11.8-15.2) 09/18/17 03:07 Hct 40.2 % (35.5-45.6) 09/18/17 03:07 MCV 87 fl (84-94) 09/18/17 03:07 MCH 29 pg (28-32) 09/18/17 03:07 MCHC 34 % (32-34) 09/18/17 03:07 RDW 13.4 % (13.2-15.2) 09/18/17 03:07 Plt Count 93 K/mm3 (140-440) L 09/18/17 03:07 Lymph % (Auto) 17.1 % (13.4-35.0) 09/18/17 03:07 [place] % (Auto) 10.5 % (0.0-7.3) H 09/18/17 03:07 Eos % (Auto) 0.0 % (0.0-4.3) 09/18/17 03:07 Baso % (Auto) 0.5 % (0.0-1.8) 09/18/17 03:07 Lymph # 0.9 K/mm3 (1.2-5.4) L 09/18/17 03:07 [place] # 0.6 K/mm3 (0.0-0.8) 09/18/17 03:07 Eos # 0.0 K/mm3 (0.0-0.4) 09/18/17 03:07 Baso # 0.0 K/mm3 (0.0-0.1) 09/18/17 03:07 Add Manual Diff Complete 09/17/17 06:03 Total Counted 100 09/17/17 06:03 Seg Neutrophils % 71.9 % (40.0-70.0) H 09/18/17 03:07 Seg Neuts % (Manual) 54.0 % (40.0-70.0) 09/17/17 06:03 Band Neutrophils % 2.0 % 09/17/17 06:03 Lymphocytes % (Manual) 25.0 % (13.4-35.0) 09/17/17 06:03 Reactive Lymphs % (Man) 0 % 09/17/17 06:03 Monocytes % (Manual) 19.0 % (0.0-7.3) H 09/17/17 06:03 Eosinophils % (Manual) 0 % (0.0-4.3) 09/17/17 06:03 Basophils % (Manual) 0 % (0.0-1.8) 09/17/17 06:03 Metamyelocytes % 0 % 09/17/17 06:03 Myelocytes % 0 % 09/17/17 06:03 Promyelocytes % 0 % 09/17/17 06:03 Blast Cells % 0 % 09/17/17 06:03 Nucleated RBC % Not Reportable 09/17/17 06:03 Seg Neutrophils # 4.0 K/mm3 (1.8-7.7) 09/18/17 03:07 Seg Neutrophils # Man 2.6 K/mm3 (1.8-7.7) 09/17/17 06:03 Band Neutrophils # 0.1 K/mm3 09/17/17 06:03 Lymphocytes # (Manual) 1.2 K/mm3 (1.2-5.4) 09/17/17 06:03 Abs React Lymphs (Man) 0.0 K/mm3 09/17/17 06:03 Monocytes # (Manual) 0.9 K/mm3 (0.0-0.8) H 09/17/17 06:03 Eosinophils # (Manual) 0.0 K/mm3 (0.0-0.4) 09/17/17 06:03 Basophils # (Manual) 0.0 K/mm3 (0.0-0.1) 09/17/17 06:03 Metamyelocytes # 0.0 K/mm3 09/17/17 06:03 Myelocytes # 0.0 K/mm3 09/17/17 06:03 Promyelocytes # 0.0 K/mm3 09/17/17 06:03 Blast Cells # 0.0 K/mm3 09/17/17 06:03 Pathologist Review 09/14/17 15:51 WBC Morphology Not Reportable 09/17/17 06:03 Hypersegmented Neuts Not Reportable 09/17/17 06:03 Hyposegmented Neuts Not Reportable 09/17/17 06:03 Hypogranular Neuts Not Reportable 09/17/17 06:03 Smudge Cells Not Reportable 09/17/17 06:03 Toxic Granulation Not Reportable 09/17/17 06:03 Toxic Vacuolation Not Reportable 09/17/17 06:03 Dohle Bodies Not Reportable 09/17/17 06:03 Pelger-Huet Anomaly Not Reportable 09/17/17 06:03 August Rods Not Reportable 09/17/17 06:03 Platelet Estimate Consistent w auto 09/17/17 06:03 Clumped Platelets Not Reportable 09/17/17 06:03 Plt Clumps, EDTA Not Reportable 09/17/17 06:03 Large Platelets Not Reportable 09/17/17 06:03 Giant Platelets Not Reportable 09/17/17 06:03 Platelet Satelliting Not Reportable 09/17/17 06:03 Plt Morphology Comment Not Reportable 09/17/17 06:03 RBC Morphology Normal 09/17/17 06:03 Dimorphic RBCs Not Reportable 09/17/17 06:03 Polychromasia Not Reportable 09/17/17 06:03 Hypochromasia Not Reportable 09/17/17 06:03 Poikilocytosis Not Reportable 09/17/17 06:03 Anisocytosis Not Reportable 09/17/17 06:03 Microcytosis Not Reportable 09/17/17 06:03 Macrocytosis Not Reportable 09/17/17 06:03 Spherocytes Not Reportable 09/17/17 06:03 Pappenheimer Bodies Not Reportable 09/17/17 06:03 Sickle Cells Not Reportable 09/17/17 06:03 Target Cells Not Reportable 09/17/17 06:03 Tear Drop Cells Not Reportable 09/17/17 06:03 Ovalocytes Not Reportable 09/17/17 06:03 Helmet Cells Not Reportable 09/17/17 06:03 [place] Bodies Not Reportable 09/17/17 06:03 [place] Rings Not Reportable 09/17/17 06:03 [place] Cells Not Reportable 09/17/17 06:03 Bite Cells Not Reportable 09/17/17 06:03 Crenated Cell Not Reportable 09/17/17 06:03 Elliptocytes Not Reportable 09/17/17 06:03 Acanthocytes (Spur) Not Reportable 09/17/17 06:03 Rouleaux Not Reportable 09/17/17 06:03 Hemoglobin C Crystals Not Reportable 09/17/17 06:03 Schistocytes Not Reportable 09/17/17 06:03 Malaria parasites Not Reportable 09/17/17 06:03 Percent Retic 0.36 % (0.78-2.58) L 09/16/17 05:25 Gregorio Bodies Not Reportable 09/17/17 06:03 Hem Pathologist Commnt No 09/17/17 06:03 PT 19.6 Sec. (12.2-14.9) H 09/18/17 03:07 INR 1.56 (0.87-1.13) H 09/18/17 03:07 APTT 55.3 Sec. (24.2-36.6) H 09/18/17 15:21 VBG pH 7.451 (7.320-7.420) H 09/14/17 15:51 Sodium 135 mmol/L (137-145) L 09/18/17 03:07 Potassium 4.2 mmol/L (3.6-5.0) 09/18/17 03:07 Chloride 101.5 mmol/L (98-107) 09/18/17 03:07 Carbon Dioxide 21 mmol/L (22-30) L 09/18/17 03:07 Anion Gap 17 mmol/L 09/18/17 03:07 BUN 16 mg/dL (9-20) 09/18/17 03:07 Creatinine 0.6 mg/dL (0.8-1.5) L 09/18/17 03:07 Estimated GFR > 60 ml/min 09/18/17 03:07 BUN/Creatinine Ratio 27 % 09/18/17 03:07 Glucose 120 mg/dL (75-100) H 09/18/17 03:07 Lactic Acid 2.40 mmol/L (0.7-2.0) H* 09/17/17 21:12 Calcium 8.2 mg/dL (8.4-10.2) L 09/18/17 03:07 Total Bilirubin 0.50 mg/dL (0.1-1.2) 09/18/17 03:07 AST 34 units/L (5-40) 09/18/17 03:07 ALT 53 units/L (7-56) 09/18/17 03:07 Alkaline Phosphatase 38 units/L (35-129) 09/18/17 03:07 Lactate Dehydrogenase 648 units/L (91-180) H 09/16/17 05:25 Total Creatine Kinase 164 units/L (55-170) 09/17/17 01:24 CK-MB (CK-2) 1.9 ng/mL (0.0-4.0) 09/17/17 01:24 CK-MB (CK-2) Rel Index 1.1 (0-4) 09/17/17 01:24 Troponin T < 0.010 ng/mL (0.00-0.029) 09/17/17 01:24 C-Reactive Protein 0.20 mg/dL (0.00-1.30) 09/15/17 13:27 Total Protein 5.8 g/dL (6.3-8.2) L 09/18/17 03:07 Albumin 2.8 g/dL (3.9-5) L 09/18/17 03:07 Albumin/Globulin Ratio 0.9 % 09/18/17 03:07 Amylase 264 units/L (27-131) H 09/14/17 21:35 Lipase 200 units/L (13-60) H 09/14/17 15:51 Vitamin B12 > 2000 pg/mL (211-911) H 09/16/17 05:25 Folate 11.40 ng/mL (7.3-26.0) 09/16/17 05:25 Urine Color Yellow (Yellow) 09/14/17 16:05 Urine Turbidity Clear (Clear) 09/14/17 16:05 Urine pH 6.0 (5.0-7.0) 09/14/17 16:05 Ur Specific [place] 1.028 (1.003-1.030) 09/14/17 16:05 Urine Protein 30 mg/dl mg/dL (Negative) 09/14/17 16:05 Urine Glucose (UA) Neg mg/dL (Negative) 09/14/17 16:05 Urine Ketones Tr mg/dL (Negative) 09/14/17 16:05 Urine Blood Neg (Negative) 09/14/17 16:05 Urine Nitrite Neg (Negative) 09/14/17 16:05 Urine Bilirubin Neg (Negative) 09/14/17 16:05 Urine Urobilinogen < 2.0 mg/dL (<2.0) 09/14/17 16:05 Ur Leukocyte Esterase Neg (Negative) 09/14/17 16:05 Urine WBC (Auto) 1.0 /HPF (0.0-6.0) 09/14/17 16:05 Urine RBC (Auto) < 1.0 /HPF (0.0-6.0) 09/14/17 16:05 Urine Mucus Few /HPF 09/14/17 16:05 Influenza A (Rapid) Negative (Negative) 09/15/17 Unknown Influenza B (Rapid) Negative (Negative) 09/15/17 Unknown - Imaging and Cardiology EKG: image reviewed Chest x-ray: image reviewed CT scan - abdomen: image reviewed
[2017-09-18] MEDS: MORPHINE IV PRN (22:58)
[2017-09-19 05:29] LABS: Basophils % (Auto) 0.1 % (0.0-1.8); Hematocrit 39.8 % (35.5-45.6); Hemoglobin 13.5 gm/dl (11.8-15.2); Lymphocytes % (Auto) 18.1 % (13.4-35.0); Mean Corpuscular HGB Conc 34 % (32-34); Mean Corpuscular Hemoglobin 29 pg (28-32); Mean Corpuscular Volume 86 fl (84-94); Monocytes # (Auto) 0.6 K/mm3 (0.0-0.8); Monocytes % (Auto) 10.4 % (0.0-7.3); Red Blood Count 4.61 M/mm3 (3.65-5.03); Red Cell Distribution Width 13.2 % (13.2-15.2)
[2017-09-19 05:34] LABS: INR 1.49 (0.87-1.13)
[2017-09-19 05:36] LABS: Partial Thromboplastin Time 55.7 Sec. (24.2-36.6)
[2017-09-19 05:39] LABS: Platelet Count 91 K/mm3 (140-440)
[2017-09-19 05:42] LABS: Alanine Aminotransferase 49 units/L (7-56); Albumin 2.9 g/dL (3.9-5); BUN/Creatinine Ratio 23; Blood Urea Nitrogen 14 mg/dL (9-20); Calcium 8.3 mg/dL (8.4-10.2); Hemolysis Index 17
[2017-09-19] MEDS: ROBITUSSIN PO SCH ×4 (06:32→23:55)
[2017-09-19] MEDS: NACL 0.9% 1000 ML 1,000 ML IV SCH (08:50)
[2017-09-19] MEDS: DIFLUCAN PO SCH (10:30)
--- NOTE | 2017-09-19 13:37 | Progress Note ---
Assessment and Plan - Patient Problems (1) HTN (hypertension) Current Visit: Yes Status: Acute Plan to address problem: At present well controled and someties elevated because of pain. current 115/75 (2) Fever Current Visit: Yes Status: Acute Qualifiers: Fever type: unspecified Qualified Code(s): R50.9 - Fever, unspecified Plan to address problem: Patient fever curve is down trending. Could be secondary to bowel syndrome versus lupus exacerbation versus pneumonitis. Extensive workable last admission no evidence of infection including Legionella and HIV. 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 Now onagotroban drip. Tolerating will. Platelets are up to 91. Hematology following. stable from yesterday at 93 (5) Thrush, oral Current Visit: Yes Status: Acute Plan to address problem: resolving with diflucan (6) Pulmonary embolism Current Visit: Yes Status: Acute Plan to address problem: Patient remains subtherapeutic today. Currently onagotroban. Discharge when therapeutic could not use heparin secondary to hit syndrome History Interval history: Patient states that he feels better. Thrush is resolved. Spoke about workup from last admission. Positive RUTH ANN and possible lupus anticoagulant. Patient and a bedside understand.No new concerns today Hospitalist Physical - Constitutional Vitals: Temp Pulse Resp BP Pulse Ox 98.1 F 71 18 115/75 95 09/19/17 05:55 09/19/17 10:00 09/19/17 05:55 09/19/17 05:55 09/19/17 05:55 General appearance: Present: no acute distress, well-nourished - EENT Eyes: Present: PERRL, EOM intact ENT: hearing intact, clear oral mucosa, dentition normal - Neck Neck: Present: supple, normal ROM - Respiratory Respiratory effort: normal Respiratory: bilateral: CTA - Abdominal General gastrointestinal: soft, non-tender, normal bowel sounds - Psychiatric Psychiatric: appropriate mood/affect, intact judgment & insight - Neurologic Neurologic: CNII-XII intact, moves all extremities Results - Labs CBC & Chem 7: 09/19/17 04:36 09/19/17 04:36 Labs: Laboratory Last Values WBC 5.4 K/mm3 (4.5-11.0) 09/19/17 04:36 RBC 4.61 M/mm3 (3.65-5.03) 09/19/17 04:36 Hgb 13.5 gm/dl (11.8-15.2) 09/19/17 04:36 Hct 39.8 % (35.5-45.6) 09/19/17 04:36 MCV 86 fl (84-94) 09/19/17 04:36 MCH 29 pg (28-32) 09/19/17 04:36 MCHC 34 % (32-34) 09/19/17 04:36 RDW 13.2 % (13.2-15.2) 09/19/17 04:36 Plt Count 91 K/mm3 (140-440) L 09/19/17 04:36 Lymph % (Auto) 18.1 % (13.4-35.0) 09/19/17 04:36 [place] % (Auto) 10.4 % (0.0-7.3) H 09/19/17 04:36 Eos % (Auto) 0.0 % (0.0-4.3) 09/19/17 04:36 Baso % (Auto) 0.1 % (0.0-1.8) 09/19/17 04:36 Lymph # 1.0 K/mm3 (1.2-5.4) L 09/19/17 04:36 [place] # 0.6 K/mm3 (0.0-0.8) 09/19/17 04:36 Eos # 0.0 K/mm3 (0.0-0.4) 09/19/17 04:36 Baso # 0.0 K/mm3 (0.0-0.1) 09/19/17 04:36 Add Manual Diff Complete 09/17/17 06:03 Total Counted 100 09/17/17 06:03 Seg Neutrophils % 71.4 % (40.0-70.0) H 09/19/17 04:36 Seg Neuts % (Manual) 54.0 % (40.0-70.0) 09/17/17 06:03 Band Neutrophils % 2.0 % 09/17/17 06:03 Lymphocytes % (Manual) 25.0 % (13.4-35.0) 09/17/17 06:03 Reactive Lymphs % (Man) 0 % 09/17/17 06:03 Monocytes % (Manual) 19.0 % (0.0-7.3) H 09/17/17 06:03 Eosinophils % (Manual) 0 % (0.0-4.3) 09/17/17 06:03 Basophils % (Manual) 0 % (0.0-1.8) 09/17/17 06:03 Metamyelocytes % 0 % 09/17/17 06:03 Myelocytes % 0 % 09/17/17 06:03 Promyelocytes % 0 % 09/17/17 06:03 Blast Cells % 0 % 09/17/17 06:03 Nucleated RBC % Not Reportable 09/17/17 06:03 Seg Neutrophils # 3.8 K/mm3 (1.8-7.7) 09/19/17 04:36 Seg Neutrophils # Man 2.6 K/mm3 (1.8-7.7) 09/17/17 06:03 Band Neutrophils # 0.1 K/mm3 09/17/17 06:03 Lymphocytes # (Manual) 1.2 K/mm3 (1.2-5.4) 09/17/17 06:03 Abs React Lymphs (Man) 0.0 K/mm3 09/17/17 06:03 Monocytes # (Manual) 0.9 K/mm3 (0.0-0.8) H 09/17/17 06:03 Eosinophils # (Manual) 0.0 K/mm3 (0.0-0.4) 09/17/17 06:03 Basophils # (Manual) 0.0 K/mm3 (0.0-0.1) 09/17/17 06:03 Metamyelocytes # 0.0 K/mm3 09/17/17 06:03 Myelocytes # 0.0 K/mm3 09/17/17 06:03 Promyelocytes # 0.0 K/mm3 09/17/17 06:03 Blast Cells # 0.0 K/mm3 09/17/17 06:03 Pathologist Review 09/14/17 15:51 WBC Morphology Not Reportable 09/17/17 06:03 Hypersegmented Neuts Not Reportable 09/17/17 06:03 Hyposegmented Neuts Not Reportable 09/17/17 06:03 Hypogranular Neuts Not Reportable 09/17/17 06:03 Smudge Cells Not Reportable 09/17/17 06:03 Toxic Granulation Not Reportable 09/17/17 06:03 Toxic Vacuolation Not Reportable 09/17/17 06:03 Dohle Bodies Not Reportable 09/17/17 06:03 Pelger-Huet Anomaly Not Reportable 09/17/17 06:03 August Rods Not Reportable 09/17/17 06:03 Platelet Estimate Consistent w auto 09/17/17 06:03 Clumped Platelets Not Reportable 09/17/17 06:03 Plt Clumps, EDTA Not Reportable 09/17/17 06:03 Large Platelets Not Reportable 09/17/17 06:03 Giant Platelets Not Reportable 09/17/17 06:03 Platelet Satelliting Not Reportable 09/17/17 06:03 Plt Morphology Comment Not Reportable 09/17/17 06:03 RBC Morphology Normal 09/17/17 06:03 Dimorphic RBCs Not Reportable 09/17/17 06:03 Polychromasia Not Reportable 09/17/17 06:03 Hypochromasia Not Reportable 09/17/17 06:03 Poikilocytosis Not Reportable 09/17/17 06:03 Anisocytosis Not Reportable 09/17/17 06:03 Microcytosis Not Reportable 09/17/17 06:03 Macrocytosis Not Reportable 09/17/17 06:03 Spherocytes Not Reportable 09/17/17 06:03 Pappenheimer Bodies Not Reportable 09/17/17 06:03 Sickle Cells Not Reportable 09/17/17 06:03 Target Cells Not Reportable 09/17/17 06:03 Tear Drop Cells Not Reportable 09/17/17 06:03 Ovalocytes Not Reportable 09/17/17 06:03 Helmet Cells Not Reportable 09/17/17 06:03 [place] Bodies Not Reportable 09/17/17 06:03 [place] Rings Not Reportable 09/17/17 06:03 [place] Cells Not Reportable 09/17/17 06:03 Bite Cells Not Reportable 09/17/17 06:03 Crenated Cell Not Reportable 09/17/17 06:03 Elliptocytes Not Reportable 09/17/17 06:03 Acanthocytes (Spur) Not Reportable 09/17/17 06:03 Rouleaux Not Reportable 09/17/17 06:03 Hemoglobin C Crystals Not Reportable 09/17/17 06:03 Schistocytes Not Reportable 09/17/17 06:03 Malaria parasites Not Reportable 09/17/17 06:03 Percent Retic 0.36 % (0.78-2.58) L 09/16/17 05:25 Gregorio Bodies Not Reportable 09/17/17 06:03 Hem Pathologist Commnt No 09/17/17 06:03 PT 18.8 Sec. (12.2-14.9) H 09/19/17 04:36 INR 1.49 (0.87-1.13) H 09/19/17 04:36 APTT 55.7 Sec. (24.2-36.6) H 09/19/17 04:36 VBG pH 7.451 (7.320-7.420) H 09/14/17 15:51 Sodium 136 mmol/L (137-145) L 09/19/17 04:36 Potassium 3.9 mmol/L (3.6-5.0) 09/19/17 04:36 Chloride 100.4 mmol/L (98-107) 09/19/17 04:36 Carbon Dioxide 22 mmol/L (22-30) 09/19/17 04:36 Anion Gap 18 mmol/L 09/19/17 04:36 BUN 14 mg/dL (9-20) 09/19/17 04:36 Creatinine 0.6 mg/dL (0.8-1.5) L 09/19/17 04:36 Estimated GFR > 60 ml/min 09/19/17 04:36 BUN/Creatinine Ratio 23 % 09/19/17 04:36 Glucose 122 mg/dL (75-100) H 09/19/17 04:36 Lactic Acid 1.60 mmol/L (0.7-2.0) 09/18/17 19:28 Calcium 8.3 mg/dL (8.4-10.2) L 09/19/17 04:36 Total Bilirubin 0.60 mg/dL (0.1-1.2) 09/19/17 04:36 AST 30 units/L (5-40) 09/19/17 04:36 ALT 49 units/L (7-56) 09/19/17 04:36 Alkaline Phosphatase 37 units/L (35-129) 09/19/17 04:36 Lactate Dehydrogenase 648 units/L (91-180) H 09/16/17 05:25 Total Creatine Kinase 164 units/L (55-170) 09/17/17 01:24 CK-MB (CK-2) 1.9 ng/mL (0.0-4.0) 09/17/17 01:24 CK-MB (CK-2) Rel Index 1.1 (0-4) 09/17/17 01:24 Troponin T < 0.010 ng/mL (0.00-0.029) 09/17/17 01:24 C-Reactive Protein 0.20 mg/dL (0.00-1.30) 09/15/17 13:27 Total Protein 6.0 g/dL (6.3-8.2) L 09/19/17 04:36 Albumin 2.9 g/dL (3.9-5) L 09/19/17 04:36 Albumin/Globulin Ratio 0.9 % 09/19/17 04:36 Amylase 264 units/L (27-131) H 09/14/17 21:35 Lipase 200 units/L (13-60) H 09/14/17 15:51 Vitamin B12 > 2000 pg/mL (211-911) H 09/16/17 05:25 Folate 11.40 ng/mL (7.3-26.0) 09/16/17 05:25 Urine Color Yellow (Yellow) 09/14/17 16:05 Urine Turbidity Clear (Clear) 09/14/17 16:05 Urine pH 6.0 (5.0-7.0) 09/14/17 16:05 Ur Specific [place] 1.028 (1.003-1.030) 09/14/17 16:05 Urine Protein 30 mg/dl mg/dL (Negative) 09/14/17 16:05 Urine Glucose (UA) Neg mg/dL (Negative) 09/14/17 16:05 Urine Ketones Tr mg/dL (Negative) 09/14/17 16:05 Urine Blood Neg (Negative) 09/14/17 16:05 Urine Nitrite Neg (Negative) 09/14/17 16:05 Urine Bilirubin Neg (Negative) 09/14/17 16:05 Urine Urobilinogen < 2.0 mg/dL (<2.0) 09/14/17 16:05 Ur Leukocyte Esterase Neg (Negative) 09/14/17 16:05 Urine WBC (Auto) 1.0 /HPF (0.0-6.0) 09/14/17 16:05 Urine RBC (Auto) < 1.0 /HPF (0.0-6.0) 09/14/17 16:05 Urine Mucus Few /HPF 09/14/17 16:05 Influenza A (Rapid) Negative (Negative) 09/15/17 Unknown Influenza B (Rapid) Negative (Negative) 09/15/17 Unknown
[2017-09-19] MEDS: ARGATROBAN 250 MG in NACL 0.9% 250ML 247.5 ML IV SCH (21:12)
[2017-09-20] MEDS: NACL 0.9% 1000 ML 1,000 ML IV SCH ×2 (03:11→21:52)
[2017-09-20] MEDS: ROBITUSSIN PO SCH ×4 (05:15→23:40)
[2017-09-20 08:00] LABS: Basophils % (Auto) 0.3 % (0.0-1.8); Hematocrit 41.5 % (35.5-45.6); Mean Corpuscular HGB Conc 34 % (32-34); Mean Corpuscular Hemoglobin 29 pg (28-32); Mean Corpuscular Volume 87 fl (84-94); Monocytes # (Auto) 0.5 K/mm3 (0.0-0.8); Monocytes % (Auto) 10.8 % (0.0-7.3); Platelet Count 110 K/mm3 (140-440); Red Blood Count 4.79 M/mm3 (3.65-5.03); Red Cell Distribution Width 13.4 % (13.2-15.2)
[2017-09-20 08:23] LABS: Heparin-Induced Platelet Antib Positive (Negative); Unfractionated Heparin Negative (Negative)
--- NOTE | 2017-09-20 09:55 | Hem/Onc Progress Note ---
Assessment and Plan Continue to closely monitor. Continue argatroban drip . 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 We will start him also on Coumadin. follow cbc carefully. plts improving Subjective Date of service: 09/20/17 Interval history: Patient feels better. Trying to take by mouth. Tolerating argatroban drip Objective - Constitutional Vitals: Last Vital Signs Temp 98.7 F 09/20/17 09:30 Pulse 50 L 09/20/17 09:30 Resp 18 09/20/17 09:30 BP 119/78 09/20/17 09:30 Pulse Ox 99 09/20/17 09:30 General appearance: no acute distress - Neck Neck: supple - Respiratory Respiratory: bilateral: CTA - Cardiovascular Rhythm: regular Extremities: No edema - Gastrointestinal General gastrointestinal: Present: soft - Labs Lab Results: Laboratory Results - last 24 hr 09/16/17 09/19/17 09/19/17 05:25 13:27 20:25 WBC RBC Hgb Hct MCV MCH MCHC RDW Plt Count Lymph % (Auto) [place] % (Auto) Eos % (Auto) Baso % (Auto) Lymph # [place] # Eos # Baso # Seg Neutrophils % Seg Neutrophils # APTT 44.9 H 44.1 H Heparin Anti-Xa, Unfract Negative Heparin-induced Plt Ab Positive H UF Heparin High Dose 0 ROJAS UFH Low Dose 0.1 0 ROJAS UFH Low Dose 0.5 0 09/20/17 09/20/17 00:57 07:35 WBC 4.5 RBC 4.79 Hgb 14.0 Hct 41.5 MCV 87 MCH 29 MCHC 34 RDW 13.4 Plt Count 110 L Lymph % (Auto) 23.0 [place] % (Auto) 10.8 H Eos % (Auto) 0.0 Baso % (Auto) 0.3 Lymph # 1.0 L [place] # 0.5 Eos # 0.0 Baso # 0.0 Seg Neutrophils % 65.9 Seg Neutrophils # 3.0 APTT 57.7 H Heparin Anti-Xa, Unfract Heparin-induced Plt Ab UF Heparin High Dose ROJAS UFH Low Dose 0.1 ROJAS UFH Low Dose 0.5
[2017-09-20] MEDS: DIFLUCAN PO SCH (13:42)
[2017-09-20 15:16] LABS: INR 1.58 (0.87-1.13)
[2017-09-20] MEDS ORDERED: COUMADIN PO SCH (17:00)
--- NOTE | 2017-09-20 19:29 | Progress Note ---
Assessment and Plan Assessment and plan: - Patient Problems (1) HTN (hypertension) At present well controlled and sometimes elevated because of pain. (2) Fever Patient fever curve is down trending. Could be secondary to bowel syndrome versus lupus exacerbation versus pneumonitis. Extensive workable last admission no evidence of infection including Legionella and HIV. Positive RUTH ANN and possible lupus anticoagulant. Still recommend outpatient evaluation by piece dyer (3) Pneumonia Pneumonia type: due to unspecified organism Laterality: bilateral Continue empiric antibiotic coverage (4) Thrombocytopenia Patient with hit syndrome. Now onagotroban drip. Tolerating will. Platelets are up to 91. Hematology following. stable from yesterday at 93 Started on Coumadin or ideally ones are noted to be greater than 4.5 prior to stop and troponin. Definitive advertising agency manager (5) Thrush, oral resolving with diflucan (6) Pulmonary embolism Patient remains subtherapeutic today. Currently onagotroban. Discharge when therapeutic could not use heparin secondary to hit syndrome DVT and GI prophylaxis plan of care discussed with the patient detail and spouse History Interval history: Patient is seen today for: Pulmonary embolism Seen and examined at bedside; 24hour events reviewed; nursing staff ; no adverse overnight events reported to me; Denies any chest pain, nausea, vomiting , diarrhea No fever noted blood pressure controlled Hospitalist Physical - Physical exam Narrative exam: VITAL SIGNS: Reviewed. GENERAL: The patient appeared ill appearing lethargic. Vital signs as documented. HEAD: No signs of head trauma. EYES: Pupils are equal. Extraocular motions intact. EARS: Hearing grossly intact. MOUTH: Oropharynx is normal. NECK: No adenopathy, no JVD. CHEST: Chest with clear breath sounds bilaterally. No wheezes, rales, or rhonchi. CARDIAC: Regular rate and rhythm. S1 and S2, without murmurs, gallops, or rubs. VASCULAR: No Edema. Peripheral pulses normal and equal in all extremities. ABDOMEN: Soft, without detectable tenderness. No sign of distention. No rebound or guarding, and no masses palpated. Bowel Sounds normal. MUSCULOSKELETAL: Good range of motion of all major joints. Extremities without clubbing, cyanosis or edema. NEUROLOGIC EXAM: Alert and oriented x 3. No focal sensory or strength deficits. Speech normal. Follows commands. PSYCHIATRIC: Mood normal. SKIN: No rash or lesions. - Constitutional Vitals: Temp Pulse Resp BP Pulse Ox 97.5 F L 65 18 117/78 100 09/20/17 17:19 09/20/17 17:19 09/20/17 17:19 09/20/17 17:19 09/20/17 17:19 General appearance: Present: no acute distress, well-nourished Results - Labs CBC & Chem 7: 09/20/17 07:35 09/19/17 04:36 Labs: Laboratory Last Values WBC 4.5 K/mm3 (4.5-11.0) 09/20/17 07:35 RBC 4.79 M/mm3 (3.65-5.03) 09/20/17 07:35 Hgb 14.0 gm/dl (11.8-15.2) 09/20/17 07:35 Hct 41.5 % (35.5-45.6) 09/20/17 07:35 MCV 87 fl (84-94) 09/20/17 07:35 MCH 29 pg (28-32) 09/20/17 07:35 MCHC 34 % (32-34) 09/20/17 07:35 RDW 13.4 % (13.2-15.2) 09/20/17 07:35 Plt Count 110 K/mm3 (140-440) L 09/20/17 07:35 Lymph % (Auto) 23.0 % (13.4-35.0) 09/20/17 07:35 [place] % (Auto) 10.8 % (0.0-7.3) H 09/20/17 07:35 Eos % (Auto) 0.0 % (0.0-4.3) 09/20/17 07:35 Baso % (Auto) 0.3 % (0.0-1.8) 09/20/17 07:35 Lymph # 1.0 K/mm3 (1.2-5.4) L 09/20/17 07:35 [place] # 0.5 K/mm3 (0.0-0.8) 09/20/17 07:35 Eos # 0.0 K/mm3 (0.0-0.4) 09/20/17 07:35 Baso # 0.0 K/mm3 (0.0-0.1) 09/20/17 07:35 Add Manual Diff Complete 09/17/17 06:03 Total Counted 100 09/17/17 06:03 Seg Neutrophils % 65.9 % (40.0-70.0) 09/20/17 07:35 Seg Neuts % (Manual) 54.0 % (40.0-70.0) 09/17/17 06:03 Band Neutrophils % 2.0 % 09/17/17 06:03 Lymphocytes % (Manual) 25.0 % (13.4-35.0) 09/17/17 06:03 Reactive Lymphs % (Man) 0 % 09/17/17 06:03 Monocytes % (Manual) 19.0 % (0.0-7.3) H 09/17/17 06:03 Eosinophils % (Manual) 0 % (0.0-4.3) 09/17/17 06:03 Basophils % (Manual) 0 % (0.0-1.8) 09/17/17 06:03 Metamyelocytes % 0 % 09/17/17 06:03 Myelocytes % 0 % 09/17/17 06:03 Promyelocytes % 0 % 09/17/17 06:03 Blast Cells % 0 % 09/17/17 06:03 Nucleated RBC % Not Reportable 09/17/17 06:03 Seg Neutrophils # 3.0 K/mm3 (1.8-7.7) 09/20/17 07:35 Seg Neutrophils # Man 2.6 K/mm3 (1.8-7.7) 09/17/17 06:03 Band Neutrophils # 0.1 K/mm3 09/17/17 06:03 Lymphocytes # (Manual) 1.2 K/mm3 (1.2-5.4) 09/17/17 06:03 Abs React Lymphs (Man) 0.0 K/mm3 09/17/17 06:03 Monocytes # (Manual) 0.9 K/mm3 (0.0-0.8) H 09/17/17 06:03 Eosinophils # (Manual) 0.0 K/mm3 (0.0-0.4) 09/17/17 06:03 Basophils # (Manual) 0.0 K/mm3 (0.0-0.1) 09/17/17 06:03 Metamyelocytes # 0.0 K/mm3 09/17/17 06:03 Myelocytes # 0.0 K/mm3 09/17/17 06:03 Promyelocytes # 0.0 K/mm3 09/17/17 06:03 Blast Cells # 0.0 K/mm3 09/17/17 06:03 Pathologist Review 09/14/17 15:51 WBC Morphology Not Reportable 09/17/17 06:03 Hypersegmented Neuts Not Reportable 09/17/17 06:03 Hyposegmented Neuts Not Reportable 09/17/17 06:03 Hypogranular Neuts Not Reportable 09/17/17 06:03 Smudge Cells Not Reportable 09/17/17 06:03 Toxic Granulation Not Reportable 09/17/17 06:03 Toxic Vacuolation Not Reportable 09/17/17 06:03 Dohle Bodies Not Reportable 09/17/17 06:03 Pelger-Huet Anomaly Not Reportable 09/17/17 06:03 [place] Rods Not Reportable 09/17/17 06:03 Platelet Estimate Consistent w auto 09/17/17 06:03 Clumped Platelets Not Reportable 09/17/17 06:03 Plt Clumps, EDTA Not Reportable 09/17/17 06:03 Large Platelets Not Reportable 09/17/17 06:03 Giant Platelets Not Reportable 09/17/17 06:03 Platelet Satelliting Not Reportable 09/17/17 06:03 Plt Morphology Comment Not Reportable 09/17/17 06:03 RBC Morphology Normal 09/17/17 06:03 Dimorphic RBCs Not Reportable 09/17/17 06:03 Polychromasia Not Reportable 09/17/17 06:03 Hypochromasia Not Reportable 09/17/17 06:03 Poikilocytosis Not Reportable 09/17/17 06:03 Anisocytosis Not Reportable 09/17/17 06:03 Microcytosis Not Reportable 09/17/17 06:03 Macrocytosis Not Reportable 09/17/17 06:03 Spherocytes Not Reportable 09/17/17 06:03 Pappenheimer Bodies Not Reportable 09/17/17 06:03 Sickle Cells Not Reportable 09/17/17 06:03 Target Cells Not Reportable 09/17/17 06:03 Tear Drop Cells Not Reportable 09/17/17 06:03 Ovalocytes Not Reportable 09/17/17 06:03 Helmet Cells Not Reportable 09/17/17 06:03 [place] Bodies Not Reportable 09/17/17 06:03 [place] Rings Not Reportable 09/17/17 06:03 [place] Cells Not Reportable 09/17/17 06:03 Bite Cells Not Reportable 09/17/17 06:03 Crenated Cell Not Reportable 09/17/17 06:03 Elliptocytes Not Reportable 09/17/17 06:03 Acanthocytes (Spur) Not Reportable 09/17/17 06:03 Rouleaux Not Reportable 09/17/17 06:03 Hemoglobin C Crystals Not Reportable 09/17/17 06:03 Schistocytes Not Reportable 09/17/17 06:03 Malaria parasites Not Reportable 09/17/17 06:03 Percent Retic 0.36 % (0.78-2.58) L 09/16/17 05:25 Gregorio Bodies Not Reportable 09/17/17 06:03 Hem Pathologist Commnt No 09/17/17 06:03 PT 19.8 Sec. (12.2-14.9) H 09/20/17 13:12 INR 1.58 (0.87-1.13) H 09/20/17 13:12 APTT 60.4 Sec. (24.2-36.6) H* 09/20/17 13:12 Heparin Anti-Xa, Unfract Negative (Negative) 09/16/17 05:25 VBG pH 7.451 (7.320-7.420) H 09/14/17 15:51 Sodium 136 mmol/L (137-145) L 09/19/17 04:36 Potassium 3.9 mmol/L (3.6-5.0) 09/19/17 04:36 Chloride 100.4 mmol/L (98-107) 09/19/17 04:36 Carbon Dioxide 22 mmol/L (22-30) 09/19/17 04:36 Anion Gap 18 mmol/L 09/19/17 04:36 BUN 14 mg/dL (9-20) 09/19/17 04:36 Creatinine 0.6 mg/dL (0.8-1.5) L 09/19/17 04:36 Estimated GFR > 60 ml/min 09/19/17 04:36 BUN/Creatinine Ratio 23 % 09/19/17 04:36 Glucose 122 mg/dL (75-100) H 09/19/17 04:36 Lactic Acid 1.60 mmol/L (0.7-2.0) 09/18/17 19:28 Calcium 8.3 mg/dL (8.4-10.2) L 09/19/17 04:36 Total Bilirubin 0.60 mg/dL (0.1-1.2) 09/19/17 04:36 AST 30 units/L (5-40) 09/19/17 04:36 ALT 49 units/L (7-56) 09/19/17 04:36 Alkaline Phosphatase 37 units/L (35-129) 09/19/17 04:36 Lactate Dehydrogenase 648 units/L (91-180) H 09/16/17 05:25 Total Creatine Kinase 164 units/L (55-170) 09/17/17 01:24 CK-MB (CK-2) 1.9 ng/mL (0.0-4.0) 09/17/17 01:24 CK-MB (CK-2) Rel Index 1.1 (0-4) 09/17/17 01:24 Troponin T < 0.010 ng/mL (0.00-0.029) 09/17/17 01:24 C-Reactive Protein 0.20 mg/dL (0.00-1.30) 09/15/17 13:27 Total Protein 6.0 g/dL (6.3-8.2) L 09/19/17 04:36 Albumin 2.9 g/dL (3.9-5) L 09/19/17 04:36 Albumin/Globulin Ratio 0.9 % 09/19/17 04:36 Amylase 264 units/L (27-131) H 09/14/17 21:35 Lipase 200 units/L (13-60) H 09/14/17 15:51 Vitamin B12 > 2000 pg/mL (211-911) H 09/16/17 05:25 Folate 11.40 ng/mL (7.3-26.0) 09/16/17 05:25 Urine Color Yellow (Yellow) 09/14/17 16:05 Urine Turbidity Clear (Clear) 09/14/17 16:05 Urine pH 6.0 (5.0-7.0) 09/14/17 16:05 Ur Specific [place] 1.028 (1.003-1.030) 09/14/17 16:05 Urine Protein 30 mg/dl mg/dL (Negative) 09/14/17 16:05 Urine Glucose (UA) Neg mg/dL (Negative) 09/14/17 16:05 Urine Ketones Tr mg/dL (Negative) 09/14/17 16:05 Urine Blood Neg (Negative) 09/14/17 16:05 Urine Nitrite Neg (Negative) 09/14/17 16:05 Urine Bilirubin Neg (Negative) 09/14/17 16:05 Urine Urobilinogen < 2.0 mg/dL (<2.0) 09/14/17 16:05 Ur Leukocyte Esterase Neg (Negative) 09/14/17 16:05 Urine WBC (Auto) 1.0 /HPF (0.0-6.0) 09/14/17 16:05 Urine RBC (Auto) < 1.0 /HPF (0.0-6.0) 09/14/17 16:05 Urine Mucus Few /HPF 09/14/17 16:05 Heparin-induced Plt Ab Positive (Negative) H 09/16/17 05:25 UF Heparin High Dose 0 % Release 09/16/17 05:25 ROJAS UFH Low Dose 0.1 0 % Release 09/16/17 05:25 ROJAS UFH Low Dose 0.5 0 % Release 09/16/17 05:25 Influenza A (Rapid) Negative (Negative) 09/15/17 Unknown Influenza B (Rapid) Negative (Negative) 09/15/17 Unknown - Imaging and Cardiology CT scan - chest: image reviewed (pulmonary embolism)
[2017-09-20] MEDS: COUMADIN PO SCH (19:59)
[2017-09-21 04:12] LABS: INR 1.82 (0.87-1.13)
[2017-09-21 04:13] LABS: Partial Thromboplastin Time 45.1 Sec. (24.2-36.6)
[2017-09-21] MEDS: ROBITUSSIN PO SCH ×3 (05:42→18:00)
[2017-09-21] MEDS: ARGATROBAN 250 MG in NACL 0.9% 250ML 247.5 ML IV SCH ×2 (06:37→23:24)
[2017-09-21 07:52] LABS: Basophils % (Auto) 0.1 % (0.0-1.8); Hematocrit 41.7 % (35.5-45.6); Lymphocytes # (Auto) 1.3 K/mm3 (1.2-5.4); Lymphocytes % (Auto) 30.5 % (13.4-35.0); Mean Corpuscular HGB Conc 34 % (32-34); Mean Corpuscular Hemoglobin 29 pg (28-32); Mean Corpuscular Volume 87 fl (84-94); Monocytes # (Auto) 0.4 K/mm3 (0.0-0.8); Monocytes % (Auto) 10.3 % (0.0-7.3); Platelet Count 120 K/mm3 (140-440); Red Blood Count 4.79 M/mm3 (3.65-5.03); Red Cell Distribution Width 13.4 % (13.2-15.2)
[2017-09-21] MEDS: NACL 0.9% 1000 ML 1,000 ML IV SCH (09:43)
--- NOTE | 2017-09-21 09:53 | Hem/Onc Progress Note ---
Assessment and Plan Continue Coumadin and a argatroban per protocol. overlap of the 2 for 5 days once inr 4 - stop argatrban for 4 hrs and then repeat inr- if 2-3 then stop drip if drops to resume argatroban drip till inr 2-3 while off argatroban drip Subjective Date of service: 09/21/17 Interval history: Patient feels better. Trying to take by mouth. Tolerating argatroban drip.. Had a lot of questions about Coumadin which got started yesterday Objective - Constitutional Vitals: Last Vital Signs Temp 98.3 F 09/21/17 09:36 Pulse 54 L 09/21/17 09:36 Resp 54 H 09/21/17 09:36 BP 120/78 09/21/17 09:36 Pulse Ox 99 09/21/17 09:36 Pain Intensity (0-10): denies any pain General appearance: no acute distress Performance status: 1-light work, ambulatory - Neck Neck: supple - Respiratory Respiratory: bilateral: CTA - Cardiovascular Rhythm: regular Extremities: No edema - Labs Lab Results: Laboratory Results - last 24 hr 09/20/17 09/20/17 09/21/17 13:12 13:12 03:37 WBC RBC Hgb Hct MCV MCH MCHC RDW Plt Count Lymph % (Auto) [place] % (Auto) Eos % (Auto) Baso % (Auto) Lymph # [place] # Eos # Baso # Seg Neutrophils % Seg Neutrophils # PT 19.8 H 22.2 H INR 1.58 H 1.82 H APTT 60.4 H* 45.1 H 09/21/17 09/21/17 06:41 08:37 WBC 4.2 L RBC 4.79 Hgb 14.0 Hct 41.7 MCV 87 MCH 29 MCHC 34 RDW 13.4 Plt Count 120 L Lymph % (Auto) 30.5 [place] % (Auto) 10.3 H Eos % (Auto) 0.0 Baso % (Auto) 0.1 Lymph # 1.3 [place] # 0.4 Eos # 0.0 Baso # 0.0 Seg Neutrophils % 59.1 Seg Neutrophils # 2.5 PT INR APTT 74.8 H*
[2017-09-21] MEDS: DIFLUCAN PO SCH (10:27)
--- NOTE | 2017-09-21 14:54 | Progress Note ---
Assessment and Plan Assessment and plan: - Patient Problems (1) HTN (hypertension) At present well controlled and sometimes elevated because of pain. (2) Fever Patient fever curve is down trending. Could be secondary to bowel syndrome versus lupus exacerbation versus pneumonitis. Extensive workable last admission no evidence of infection including Legionella and HIV. Positive RUTH ANN and possible lupus anticoagulant. 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 Now onagotroban drip. Tolerating will. Platelets are up to 91. Hematology following. stable from yesterday at 93 Started on Coumadin or ideally ones are noted to be greater than 4.5 prior to stop and troponin. Definitive gas singer (5) Thrush, oral resolving with diflucan (6) Pulmonary embolism Patient remains subtherapeutic today. Currently on agotroban. Discharge when therapeutic could not use heparin secondary to hit syndrome DVT and GI prophylaxis plan of care discussed with the patient detail History Interval history: Patient is seen today for: Pulmonary embolism Seen and examined at bedside; 24hour events reviewed; nursing staff ; no adverse overnight events reported to me; Denies any chest pain, nausea, vomiting , diarrhea No fever noted blood pressure controlled. Reports improvement Hospitalist Physical - Physical exam Narrative exam: VITAL SIGNS: Reviewed. GENERAL: The patient appeared ill appearing lethargic. Vital signs as documented. HEAD: No signs of head trauma. EYES: Pupils are equal. Extraocular motions intact. EARS: Hearing grossly intact. MOUTH: Oropharynx is normal. NECK: No adenopathy, no JVD. CHEST: Chest with clear breath sounds bilaterally. No wheezes, rales, or rhonchi. CARDIAC: Regular rate and rhythm. S1 and S2, without murmurs, gallops, or rubs. VASCULAR: No Edema. Peripheral pulses normal and equal in all extremities. ABDOMEN: Soft, without detectable tenderness. No sign of distention. No rebound or guarding, and no masses palpated. Bowel Sounds normal. MUSCULOSKELETAL: Good range of motion of all major joints. Extremities without clubbing, cyanosis or edema. NEUROLOGIC EXAM: Alert and oriented x 3. No focal sensory or strength deficits. Speech normal. Follows commands. PSYCHIATRIC: Mood normal. SKIN: No rash or lesions. - Constitutional Vitals: Temp Pulse Resp BP Pulse Ox 98.6 F 75 20 112/61 99 09/21/17 12:27 09/21/17 12:27 09/21/17 12:27 09/21/17 12:27 09/21/17 12:27 General appearance: Present: no acute distress, well-nourished Results - Labs CBC & Chem 7: 09/21/17 06:41 09/19/17 04:36 Labs: Laboratory Last Values WBC 4.2 K/mm3 (4.5-11.0) L 09/21/17 06:41 RBC 4.79 M/mm3 (3.65-5.03) 09/21/17 06:41 Hgb 14.0 gm/dl (11.8-15.2) 09/21/17 06:41 Hct 41.7 % (35.5-45.6) 09/21/17 06:41 MCV 87 fl (84-94) 09/21/17 06:41 MCH 29 pg (28-32) 09/21/17 06:41 MCHC 34 % (32-34) 09/21/17 06:41 RDW 13.4 % (13.2-15.2) 09/21/17 06:41 Plt Count 120 K/mm3 (140-440) L 09/21/17 06:41 Lymph % (Auto) 30.5 % (13.4-35.0) 09/21/17 06:41 [place] % (Auto) 10.3 % (0.0-7.3) H 09/21/17 06:41 Eos % (Auto) 0.0 % (0.0-4.3) 09/21/17 06:41 Baso % (Auto) 0.1 % (0.0-1.8) 09/21/17 06:41 Lymph # 1.3 K/mm3 (1.2-5.4) 09/21/17 06:41 [place]o # 0.4 K/mm3 (0.0-0.8) 09/21/17 06:41 Eos # 0.0 K/mm3 (0.0-0.4) 09/21/17 06:41 Baso # 0.0 K/mm3 (0.0-0.1) 09/21/17 06:41 Add Manual Diff Complete 09/17/17 06:03 Total Counted 100 09/17/17 06:03 Seg Neutrophils % 59.1 % (40.0-70.0) 09/21/17 06:41 Seg Neuts % (Manual) 54.0 % (40.0-70.0) 09/17/17 06:03 Band Neutrophils % 2.0 % 09/17/17 06:03 Lymphocytes % (Manual) 25.0 % (13.4-35.0) 09/17/17 06:03 Reactive Lymphs % (Man) 0 % 09/17/17 06:03 Monocytes % (Manual) 19.0 % (0.0-7.3) H 09/17/17 06:03 Eosinophils % (Manual) 0 % (0.0-4.3) 09/17/17 06:03 Basophils % (Manual) 0 % (0.0-1.8) 09/17/17 06:03 Metamyelocytes % 0 % 09/17/17 06:03 Myelocytes % 0 % 09/17/17 06:03 Promyelocytes % 0 % 09/17/17 06:03 Blast Cells % 0 % 09/17/17 06:03 Nucleated RBC % Not Reportable 09/17/17 06:03 Seg Neutrophils # 2.5 K/mm3 (1.8-7.7) 09/21/17 06:41 Seg Neutrophils # Man 2.6 K/mm3 (1.8-7.7) 09/17/17 06:03 Band Neutrophils # 0.1 K/mm3 09/17/17 06:03 Lymphocytes # (Manual) 1.2 K/mm3 (1.2-5.4) 09/17/17 06:03 Abs React Lymphs (Man) 0.0 K/mm3 09/17/17 06:03 Monocytes # (Manual) 0.9 K/mm3 (0.0-0.8) H 09/17/17 06:03 Eosinophils # (Manual) 0.0 K/mm3 (0.0-0.4) 09/17/17 06:03 Basophils # (Manual) 0.0 K/mm3 (0.0-0.1) 09/17/17 06:03 Metamyelocytes # 0.0 K/mm3 09/17/17 06:03 Myelocytes # 0.0 K/mm3 09/17/17 06:03 Promyelocytes # 0.0 K/mm3 09/17/17 06:03 Blast Cells # 0.0 K/mm3 09/17/17 06:03 Pathologist Review 09/14/17 15:51 WBC Morphology Not Reportable 09/17/17 06:03 Hypersegmented Neuts Not Reportable 09/17/17 06:03 Hyposegmented Neuts Not Reportable 09/17/17 06:03 Hypogranular Neuts Not Reportable 09/17/17 06:03 Smudge Cells Not Reportable 09/17/17 06:03 Toxic Granulation Not Reportable 09/17/17 06:03 Toxic Vacuolation Not Reportable 09/17/17 06:03 Dohle Bodies Not Reportable 09/17/17 06:03 Pelger-Huet Anomaly Not Reportable 09/17/17 06:03 August Rods Not Reportable 09/17/17 06:03 Platelet Estimate Consistent w auto 09/17/17 06:03 Clumped Platelets Not Reportable 09/17/17 06:03 Plt Clumps, EDTA Not Reportable 09/17/17 06:03 Large Platelets Not Reportable 09/17/17 06:03 Giant Platelets Not Reportable 09/17/17 06:03 Platelet Satelliting Not Reportable 09/17/17 06:03 Plt Morphology Comment Not Reportable 09/17/17 06:03 RBC Morphology Normal 09/17/17 06:03 Dimorphic RBCs Not Reportable 09/17/17 06:03 Polychromasia Not Reportable 09/17/17 06:03 Hypochromasia Not Reportable 09/17/17 06:03 Poikilocytosis Not Reportable 09/17/17 06:03 Anisocytosis Not Reportable 09/17/17 06:03 Microcytosis Not Reportable 09/17/17 06:03 Macrocytosis Not Reportable 09/17/17 06:03 Spherocytes Not Reportable 09/17/17 06:03 Pappenheimer Bodies Not Reportable 09/17/17 06:03 Sickle Cells Not Reportable 09/17/17 06:03 Target Cells Not Reportable 09/17/17 06:03 Tear Drop Cells Not Reportable 09/17/17 06:03 Ovalocytes Not Reportable 09/17/17 06:03 Helmet Cells Not Reportable 09/17/17 06:03 [place] Bodies Not Reportable 09/17/17 06:03 [place] Rings Not Reportable 09/17/17 06:03 [place] Cells Not Reportable 09/17/17 06:03 Bite Cells Not Reportable 09/17/17 06:03 Crenated Cell Not Reportable 09/17/17 06:03 Elliptocytes Not Reportable 09/17/17 06:03 Acanthocytes (Spur) Not Reportable 09/17/17 06:03 Rouleaux Not Reportable 09/17/17 06:03 Hemoglobin C Crystals Not Reportable 09/17/17 06:03 Schistocytes Not Reportable 09/17/17 06:03 Malaria parasites Not Reportable 09/17/17 06:03 Percent Retic 0.36 % (0.78-2.58) L 09/16/17 05:25 Gregorio Bodies Not Reportable 09/17/17 06:03 Hem Pathologist Commnt No 09/17/17 06:03 PT 22.2 Sec. (12.2-14.9) H 09/21/17 03:37 INR 1.82 (0.87-1.13) H 09/21/17 03:37 APTT 74.8 Sec. (24.2-36.6) H* 09/21/17 08:37 Heparin Anti-Xa, Unfract Negative (Negative) 09/16/17 05:25 VBG pH 7.451 (7.320-7.420) H 09/14/17 15:51 Sodium 136 mmol/L (137-145) L 09/19/17 04:36 Potassium 3.9 mmol/L (3.6-5.0) 09/19/17 04:36 Chloride 100.4 mmol/L (98-107) 09/19/17 04:36 Carbon Dioxide 22 mmol/L (22-30) 09/19/17 04:36 Anion Gap 18 mmol/L 09/19/17 04:36 BUN 14 mg/dL (9-20) 09/19/17 04:36 Creatinine 0.6 mg/dL (0.8-1.5) L 09/19/17 04:36 Estimated GFR > 60 ml/min 09/19/17 04:36 BUN/Creatinine Ratio 23 % 09/19/17 04:36 Glucose 122 mg/dL (75-100) H 09/19/17 04:36 Lactic Acid 1.60 mmol/L (0.7-2.0) 09/18/17 19:28 Calcium 8.3 mg/dL (8.4-10.2) L 09/19/17 04:36 Total Bilirubin 0.60 mg/dL (0.1-1.2) 09/19/17 04:36 AST 30 units/L (5-40) 09/19/17 04:36 ALT 49 units/L (7-56) 09/19/17 04:36 Alkaline Phosphatase 37 units/L (35-129) 09/19/17 04:36 Lactate Dehydrogenase 648 units/L (91-180) H 09/16/17 05:25 Total Creatine Kinase 164 units/L (55-170) 09/17/17 01:24 CK-MB (CK-2) 1.9 ng/mL (0.0-4.0) 09/17/17 01:24 CK-MB (CK-2) Rel Index 1.1 (0-4) 09/17/17 01:24 Troponin T < 0.010 ng/mL (0.00-0.029) 09/17/17 01:24 C-Reactive Protein 0.20 mg/dL (0.00-1.30) 09/15/17 13:27 Total Protein 6.0 g/dL (6.3-8.2) L 09/19/17 04:36 Albumin 2.9 g/dL (3.9-5) L 09/19/17 04:36 Albumin/Globulin Ratio 0.9 % 09/19/17 04:36 Amylase 264 units/L (27-131) H 09/14/17 21:35 Lipase 200 units/L (13-60) H 09/14/17 15:51 Vitamin B12 > 2000 pg/mL (211-911) H 09/16/17 05:25 Folate 11.40 ng/mL (7.3-26.0) 09/16/17 05:25 Urine Color Yellow (Yellow) 09/14/17 16:05 Urine Turbidity Clear (Clear) 09/14/17 16:05 Urine pH 6.0 (5.0-7.0) 09/14/17 16:05 Ur Specific [place] 1.028 (1.003-1.030) 09/14/17 16:05 Urine Protein 30 mg/dl mg/dL (Negative) 09/14/17 16:05 Urine Glucose (UA) Neg mg/dL (Negative) 09/14/17 16:05 Urine Ketones Tr mg/dL (Negative) 09/14/17 16:05 Urine Blood Neg (Negative) 09/14/17 16:05 Urine Nitrite Neg (Negative) 09/14/17 16:05 Urine Bilirubin Neg (Negative) 09/14/17 16:05 Urine Urobilinogen < 2.0 mg/dL (<2.0) 09/14/17 16:05 Ur Leukocyte Esterase Neg (Negative) 09/14/17 16:05 Urine WBC (Auto) 1.0 /HPF (0.0-6.0) 09/14/17 16:05 Urine RBC (Auto) < 1.0 /HPF (0.0-6.0) 09/14/17 16:05 Urine Mucus Few /HPF 09/14/17 16:05 Heparin-induced Plt Ab Positive (Negative) H 09/16/17 05:25 UF Heparin High Dose 0 % Release 09/16/17 05:25 ROJAS UFH Low Dose 0.1 0 % Release 09/16/17 05:25 ROJAS UFH Low Dose 0.5 0 % Release 09/16/17 05:25 Complement C3 104 mg/dL (82-185) 09/15/17 13:27 Complement C4 27 mg/dL (15-53) 09/15/17 13:27 Influenza A (Rapid) Negative (Negative) 09/15/17 Unknown Influenza B (Rapid) Negative (Negative) 09/15/17 Unknown
[2017-09-21] MEDS: COUMADIN PO SCH (17:30)
[2017-09-22] MEDS: ROBITUSSIN PO SCH ×4 (00:39→19:55)
[2017-09-22 05:23] LABS: Hematocrit 41.5 % (35.5-45.6); Hemoglobin 13.8 gm/dl (11.8-15.2); Mean Corpuscular HGB Conc 33 % (32-34); Mean Corpuscular Hemoglobin 29 pg (28-32); Mean Corpuscular Volume 87 fl (84-94); Platelet Count 137 K/mm3 (140-440); Red Blood Count 4.77 M/mm3 (3.65-5.03); Red Cell Distribution Width 13.5 % (13.2-15.2)
[2017-09-22] MEDS: NACL 0.9% 1000 ML 1,000 ML IV SCH ×2 (05:42→17:53)
[2017-09-22 05:51] LABS: INR 5.23 (0.87-1.13)
[2017-09-22 06:12] LABS: Basophils % (Manual) 0 % (0.0-1.8); Eosinophils % (Manual) 0 % (0.0-4.3); Platelet Estimate Consistent w Auto; Total Cells Counted 100
--- NOTE | 2017-09-22 09:22 | Vascular Lab Report ---
LOWER EXTREMITY VENOUS DUPLEX: REASON FOR EXAM: Pulmonary embolism. COMMENTS ON THE RIGHT: All veins visualized are freely compressible without evidence of internal echogenicity. Flow is spontaneous and phasic throughout. COMMENTS ON THE LEFT: All veins visualized are freely compressible without evidence of internal echogenicity. Flow is spontaneous and phasic throughout. IMPRESSION: No evidence of acute or chronic deep venous thrombosis in either lower extremity.
--- NOTE | 2017-09-22 09:22 | Hem/Onc Progress Note ---
Assessment and Plan Continue per protocol. Once INR between 2 and 3 pt can be on coumadin only. will d/w pharm Subjective Date of service: 09/22/17 Interval history: Patient feels better. Trying to take by mouth. Argatroban drip on hold for high INR greater than 4 Objective - Constitutional Vitals: Last Vital Signs Temp 97.7 F 09/21/17 20:17 Pulse 60 09/21/17 22:00 Resp 20 09/21/17 20:17 BP 116/81 09/21/17 20:17 Pulse Ox 97 09/21/17 22:00 General appearance: no acute distress Performance status: 1-light work, ambulatory - Neck Neck: supple - Respiratory Respiratory effort: Positive: normal - Cardiovascular Rhythm: regular Extremities: No edema - Gastrointestinal General gastrointestinal: Present: soft - Labs Lab Results: Laboratory Results - last 24 hr 09/15/17 09/15/17 09/21/17 13:27 13:27 08:37 WBC RBC Hgb Hct MCV MCH MCHC RDW Plt Count Add Manual Diff Total Counted Seg Neuts % (Manual) Band Neutrophils % Lymphocytes % (Manual) Reactive Lymphs % (Man) Monocytes % (Manual) Eosinophils % (Manual) Basophils % (Manual) Metamyelocytes % Myelocytes % Promyelocytes % Blast Cells % Nucleated RBC % Seg Neutrophils # Man Band Neutrophils # Lymphocytes # (Manual) Abs React Lymphs (Man) Monocytes # (Manual) Eosinophils # (Manual) Basophils # (Manual) Metamyelocytes # Myelocytes # Promyelocytes # Blast Cells # WBC Morphology Hypersegmented Neuts Hyposegmented Neuts Hypogranular Neuts Smudge Cells Toxic Granulation Toxic Vacuolation Dohle Bodies Pelger-Huet Anomaly August Rods Platelet Estimate Clumped Platelets Plt Clumps, EDTA Large Platelets Giant Platelets Platelet Satelliting Plt Morphology Comment RBC Morphology Dimorphic RBCs Polychromasia Hypochromasia Poikilocytosis Anisocytosis Microcytosis Macrocytosis Spherocytes Pappenheimer Bodies Sickle Cells Target Cells Tear Drop Cells Ovalocytes Helmet Cells Andrade-Purdy Bodies [place] Rings Nikki Cells Bite Cells Crenated Cell Elliptocytes Acanthocytes (Spur) Rouleaux Hemoglobin C Crystals Schistocytes Malaria parasites Gregorio Bodies Hem Pathologist Commnt PT INR APTT 74.8 H* Complement C3 104 Complement C4 27 09/21/17 09/22/1718 20:10 05:12 05:12 WBC 4.2 L RBC 4.77 Hgb 13.8 Hct 41.5 MCV 87 MCH 29 MCHC 33 RDW 13.5 Plt Count 137 L Add Manual Diff Complete Total Counted 100 Seg Neuts % (Manual) 82.0 H Band Neutrophils % 0 Lymphocytes % (Manual) 13.0 L Reactive Lymphs % (Man) 1.0 Monocytes % (Manual) 4.0 Eosinophils % (Manual) 0 Basophils % (Manual) 0 Metamyelocytes % 0 Myelocytes % 0 Promyelocytes % 0 Blast Cells % 0 Nucleated RBC % Not Reportable Seg Neutrophils # Man 3.4 Band Neutrophils # 0.0 Lymphocytes # (Manual) 0.5 L Abs React Lymphs (Man) 0.0 Monocytes # (Manual) 0.2 Eosinophils # (Manual) 0.0 Basophils # (Manual) 0.0 Metamyelocytes # 0.0 Myelocytes # 0.0 Promyelocytes # 0.0 Blast Cells # 0.0 WBC Morphology Not Reportable Hypersegmented Neuts Not Reportable Hyposegmented Neuts Not Reportable Hypogranular Neuts Not Reportable Smudge Cells Not Reportable Toxic Granulation Not Reportable Toxic Vacuolation Not Reportable Dohle Bodies Not Reportable Pelger-Huet Anomaly Not Reportable [place] Rods Not Reportable Platelet Estimate Consistent w auto Clumped Platelets Not Reportable Plt Clumps, EDTA Not Reportable Large Platelets Not Reportable Giant Platelets Not Reportable Platelet Satelliting Not Reportable Plt Morphology Comment Not Reportable RBC Morphology Not Reportable Dimorphic RBCs Not Reportable Polychromasia Not Reportable Hypochromasia Not Reportable Poikilocytosis Not Reportable Anisocytosis Not Reportable Microcytosis Not Reportable Macrocytosis Not Reportable Spherocytes Not Reportable Pappenheimer Bodies Not Reportable Sickle Cells Not Reportable Target Cells Not Reportable Tear Drop Cells Not Reportable Ovalocytes Not Reportable Helmet Cells Not Reportable [place]rade-[place] Bodies Not Reportable [place] Rings Not Reportable [place] Cells Not Reportable Bite Cells Not Reportable Crenated Cell Not Reportable Elliptocytes Not Reportable Acanthocytes (Spur) Not Reportable Rouleaux Not Reportable Hemoglobin C Crystals Not Reportable Schistocytes Not Reportable Malaria parasites Not Reportable Gregorio Bodies Not Reportable Hem Pathologist Commnt No PT 52.0 H INR 5.23 H* APTT 68.5 H* Complement C3 Complement C4
[2017-09-22] MEDS: DIFLUCAN PO SCH (10:07)
[2017-09-22 12:24] LABS: INR 2.93 (0.87-1.13)
[2017-09-22 12:25] LABS: Partial Thromboplastin Time 41.5 Sec. (24.2-36.6)
--- NOTE | 2017-09-22 16:48 | Progress Note ---
Assessment and Plan Assessment and plan: - Patient Problems (1) HTN (hypertension) At present well controlled and sometimes elevated because of pain. (2) Fever Patient fever curve is down trending. Could be secondary to bowel syndrome versus lupus exacerbation versus pneumonitis. Extensive workable last admission no evidence of infection including Legionella and HIV. 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 Now onagotroban drip. Tolerating will. Platelets are up to 91. Hematology following. stable from yesterday at 93 Started on Coumadin or ideally ones are noted to be greater than 4.5 prior to stop and troponin. Defer to field service analyst (5) Thrush, oral resolving with diflucan (6) Pulmonary embolism Patient remains subtherapeutic today. Currently on agotroban. Discharge when therapeutic could not use heparin secondary to hit syndrome DVT and GI prophylaxis plan of care discussed with the patient detail History Interval history: Patient is seen today for: Pulmonary embolism Seen and examined at bedside; 24hour events reviewed; nursing staff ; no adverse overnight events reported to me; Denies any chest pain, nausea, vomiting , diarrhea No fever noted blood pressure controlled. Reports improvement. whats a named diagnosis of his clincial conditon that may have led to these events. discussed immunological decisions and so on Hospitalist Physical - Physical exam Narrative exam: VITAL SIGNS: Reviewed. GENERAL: The patient appeared ill appearing lethargic. Vital signs as documented. HEAD: No signs of head trauma. EYES: Pupils are equal. Extraocular motions intact. EARS: Hearing grossly intact. MOUTH: Oropharynx is normal. NECK: No adenopathy, no JVD. CHEST: Chest with clear breath sounds bilaterally. No wheezes, rales, or rhonchi. CARDIAC: Regular rate and rhythm. S1 and S2, without murmurs, gallops, or rubs. VASCULAR: No Edema. Peripheral pulses normal and equal in all extremities. ABDOMEN: Soft, without detectable tenderness. No sign of distention. No rebound or guarding, and no masses palpated. Bowel Sounds normal. MUSCULOSKELETAL: Good range of motion of all major joints. Extremities without clubbing, cyanosis or edema. NEUROLOGIC EXAM: Alert and oriented x 3. No focal sensory or strength deficits. Speech normal. Follows commands. PSYCHIATRIC: Mood normal. SKIN: No rash or lesions. - Constitutional Vitals: Temp Pulse Resp BP Pulse Ox 97.0 F L 69 20 112/71 98 09/22/17 08:05 09/22/17 08:05 09/22/17 10:09 09/22/17 08:05 09/22/17 08:05 General appearance: Present: no acute distress, well-nourished Results - Labs CBC & Chem 7: 09/22/17 05:12 09/19/17 04:36 Labs: Laboratory Last Values WBC 4.2 K/mm3 (4.5-11.0) L 09/22/17 05:12 RBC 4.77 M/mm3 (3.65-5.03) 09/22/17 05:12 Hgb 13.8 gm/dl (11.8-15.2) 09/22/17 05:12 Hct 41.5 % (35.5-45.6) 09/22/17 05:12 MCV 87 fl (84-94) 09/22/17 05:12 MCH 29 pg (28-32) 09/22/17 05:12 MCHC 33 % (32-34) 09/22/17 05:12 RDW 13.5 % (13.2-15.2) 09/22/17 05:12 Plt Count 137 K/mm3 (140-440) L 09/22/17 05:12 Lymph % (Auto) 30.5 % (13.4-35.0) 09/21/17 06:41 [place] % (Auto) 10.3 % (0.0-7.3) H 09/21/17 06:41 Eos % (Auto) 0.0 % (0.0-4.3) 09/21/17 06:41 Baso % (Auto) 0.1 % (0.0-1.8) 09/21/17 06:41 Lymph # 1.3 K/mm3 (1.2-5.4) 09/21/17 06:41 [place] # 0.4 K/mm3 (0.0-0.8) 09/21/17 06:41 Eos # 0.0 K/mm3 (0.0-0.4) 09/21/17 06:41 Baso # 0.0 K/mm3 (0.0-0.1) 09/21/17 06:41 Add Manual Diff Complete 09/22/17 05:12 Total Counted 100 09/22/17 05:12 Seg Neutrophils % 59.1 % (40.0-70.0) 09/21/17 06:41 Seg Neuts % (Manual) 82.0 % (40.0-70.0) H 09/22/17 05:12 Band Neutrophils % 0 % 09/22/17 05:12 Lymphocytes % (Manual) 13.0 % (13.4-35.0) L 09/22/17 05:12 Reactive Lymphs % (Man) 1.0 % 09/22/17 05:12 Monocytes % (Manual) 4.0 % (0.0-7.3) 09/22/17 05:12 Eosinophils % (Manual) 0 % (0.0-4.3) 09/22/17 05:12 Basophils % (Manual) 0 % (0.0-1.8) 09/22/17 05:12 Metamyelocytes % 0 % 09/22/17 05:12 Myelocytes % 0 % 09/22/17 05:12 Promyelocytes % 0 % 09/22/17 05:12 Blast Cells % 0 % 09/22/17 05:12 Nucleated RBC % Not Reportable 09/22/17 05:12 Seg Neutrophils # 2.5 K/mm3 (1.8-7.7) 09/21/17 06:41 Seg Neutrophils # Man 3.4 K/mm3 (1.8-7.7) 09/22/17 05:12 Band Neutrophils # 0.0 K/mm3 09/22/17 05:12 Lymphocytes # (Manual) 0.5 K/mm3 (1.2-5.4) L 09/22/17 05:12 Abs React Lymphs (Man) 0.0 K/mm3 09/22/17 05:12 Monocytes # (Manual) 0.2 K/mm3 (0.0-0.8) 09/22/17 05:12 Eosinophils # (Manual) 0.0 K/mm3 (0.0-0.4) 09/22/17 05:12 Basophils # (Manual) 0.0 K/mm3 (0.0-0.1) 09/22/17 05:12 Metamyelocytes # 0.0 K/mm3 09/22/17 05:12 Myelocytes # 0.0 K/mm3 09/22/17 05:12 Promyelocytes # 0.0 K/mm3 09/22/17 05:12 Blast Cells # 0.0 K/mm3 09/22/17 05:12 Pathologist Review 09/14/17 15:51 WBC Morphology Not Reportable 09/22/17 05:12 Hypersegmented Neuts Not Reportable 09/22/17 05:12 Hyposegmented Neuts Not Reportable 09/22/17 05:12 Hypogranular Neuts Not Reportable 09/22/17 05:12 Smudge Cells Not Reportable 09/22/17 05:12 Toxic Granulation Not Reportable 09/22/17 05:12 Toxic Vacuolation Not Reportable 09/22/17 05:12 Dohle Bodies Not Reportable 09/22/17 05:12 Pelger-Huet Anomaly Not Reportable 09/22/17 05:12 August Rods Not Reportable 09/22/17 05:12 Platelet Estimate Consistent w auto 09/22/17 05:12 Clumped Platelets Not Reportable 09/22/17 05:12 Plt Clumps, EDTA Not Reportable 09/22/17 05:12 Large Platelets Not Reportable 09/22/17 05:12 Giant Platelets Not Reportable 09/22/17 05:12 Platelet Satelliting Not Reportable 09/22/17 05:12 Plt Morphology Comment Not Reportable 09/22/17 05:12 RBC Morphology Not Reportable 09/22/17 05:12 Dimorphic RBCs Not Reportable 09/22/17 05:12 Polychromasia Not Reportable 09/22/17 05:12 Hypochromasia Not Reportable 09/22/17 05:12 Poikilocytosis Not Reportable 09/22/17 05:12 Anisocytosis Not Reportable 09/22/17 05:12 Microcytosis Not Reportable 09/22/17 05:12 Macrocytosis Not Reportable 09/22/17 05:12 Spherocytes Not Reportable 09/22/17 05:12 Pappenheimer Bodies Not Reportable 09/22/17 05:12 Sickle Cells Not Reportable 09/22/17 05:12 Target Cells Not Reportable 09/22/17 05:12 Tear Drop Cells Not Reportable 09/22/17 05:12 Ovalocytes Not Reportable 09/22/17 05:12 Helmet Cells Not Reportable 09/22/17 05:12 [place] Bodies Not Reportable 09/22/17 05:[address] Rings Not Reportable 09/22/17 05:12 [place] Cells Not Reportable 09/22/17 05:12 Bite Cells Not Reportable 09/22/17 05:12 Crenated Cell Not Reportable 09/22/17 05:12 Elliptocytes Not Reportable 09/22/17 05:12 Acanthocytes (Spur) Not Reportable 09/22/17 05:12 Rouleaux Not Reportable 09/22/17 05:12 Hemoglobin C Crystals Not Reportable 09/22/17 05:12 Schistocytes Not Reportable 09/22/17 05:12 Malaria parasites Not Reportable 09/22/17 05:12 Percent Retic 0.36 % (0.78-2.58) L 09/16/17 05:25 Gregorio Bodies Not Reportable 09/22/17 05:12 Hem Pathologist Commnt No 09/22/17 05:12 PT 32.6 Sec. (12.2-14.9) H 09/22/17 11:17 INR 2.93 (0.87-1.13) H 09/22/17 11:17 APTT 41.5 Sec. (24.2-36.6) H 09/22/17 11:17 Heparin Anti-Xa, Unfract Negative (Negative) 09/16/17 05:25 VBG pH 7.451 (7.320-7.420) H 09/14/17 15:51 Sodium 136 mmol/L (137-145) L 09/19/17 04:36 Potassium 3.9 mmol/L (3.6-5.0) 09/19/17 04:36 Chloride 100.4 mmol/L (98-107) 09/19/17 04:36 Carbon Dioxide 22 mmol/L (22-30) 09/19/17 04:36 Anion Gap 18 mmol/L 09/19/17 04:36 BUN 14 mg/dL (9-20) 09/19/17 04:36 Creatinine 0.6 mg/dL (0.8-1.5) L 09/19/17 04:36 Estimated GFR > 60 ml/min 09/19/17 04:36 BUN/Creatinine Ratio 23 % 09/19/17 04:36 Glucose 122 mg/dL (75-100) H 09/19/17 04:36 Lactic Acid 1.60 mmol/L (0.7-2.0) 09/18/17 19:28 Calcium 8.3 mg/dL (8.4-10.2) L 09/19/17 04:36 Total Bilirubin 0.60 mg/dL (0.1-1.2) 09/19/17 04:36 AST 30 units/L (5-40) 09/19/17 04:36 ALT 49 units/L (7-56) 09/19/17 04:36 Alkaline Phosphatase 37 units/L (35-129) 09/19/17 04:36 Lactate Dehydrogenase 648 units/L (91-180) H 09/16/17 05:25 Total Creatine Kinase 164 units/L (55-170) 09/17/17 01:24 CK-MB (CK-2) 1.9 ng/mL (0.0-4.0) 09/17/17 01:24 CK-MB (CK-2) Rel Index 1.1 (0-4) 09/17/17 01:24 Troponin T < 0.010 ng/mL (0.00-0.029) 09/17/17 01:24 C-Reactive Protein 0.20 mg/dL (0.00-1.30) 09/15/17 13:27 Total Protein 6.0 g/dL (6.3-8.2) L 09/19/17 04:36 Albumin 2.9 g/dL (3.9-5) L 09/19/17 04:36 Albumin/Globulin Ratio 0.9 % 09/19/17 04:36 Amylase 264 units/L (27-131) H 09/14/17 21:35 Lipase 200 units/L (13-60) H 09/14/17 15:51 Vitamin B12 > 2000 pg/mL (211-911) H 09/16/17 05:25 Folate 11.40 ng/mL (7.3-26.0) 09/16/17 05:25 Urine Color Yellow (Yellow) 09/14/17 16:05 Urine Turbidity Clear (Clear) 09/14/17 16:05 Urine pH 6.0 (5.0-7.0) 09/14/17 16:05 Ur Specific [place] 1.028 (1.003-1.030) 09/14/17 16:05 Urine Protein 30 mg/dl mg/dL (Negative) 09/14/17 16:05 Urine Glucose (UA) Neg mg/dL (Negative) 09/14/17 16:05 Urine Ketones Tr mg/dL (Negative) 09/14/17 16:05 Urine Blood Neg (Negative) 09/14/17 16:05 Urine Nitrite Neg (Negative) 09/14/17 16:05 Urine Bilirubin Neg (Negative) 09/14/17 16:05 Urine Urobilinogen < 2.0 mg/dL (<2.0) 09/14/17 16:05 Ur Leukocyte Esterase Neg (Negative) 09/14/17 16:05 Urine WBC (Auto) 1.0 /HPF (0.0-6.0) 09/14/17 16:05 Urine RBC (Auto) < 1.0 /HPF (0.0-6.0) 09/14/17 16:05 Urine Mucus Few /HPF 09/14/17 16:05 Heparin-induced Plt Ab Positive (Negative) H 09/16/17 05:25 UF Heparin High Dose 0 % Release 09/16/17 05:25 ROJAS UFH Low Dose 0.1 0 % Release 09/16/17 05:25 ROJAS UFH Low Dose 0.5 0 % Release 09/16/17 05:25 Complement C3 104 mg/dL (82-185) 09/15/17 13:27 Complement C4 27 mg/dL (15-53) 09/15/17 13:27 Influenza A (Rapid) Negative (Negative) 09/15/17 Unknown Influenza B (Rapid) Negative (Negative) 09/15/17 Unknown
[2017-09-22] MEDS: COUMADIN PO SCH (17:52)
[2017-09-23] MEDS: ROBITUSSIN PO SCH ×4 (03:14→17:22)
[2017-09-23] MEDS: NACL 0.9% 1000 ML 1,000 ML IV SCH (05:57)
[2017-09-23 06:28] LABS: Hemoglobin 14.1 gm/dl (11.8-15.2); Mean Corpuscular HGB Conc 34 % (32-34); Mean Corpuscular Hemoglobin 29 pg (28-32); Mean Corpuscular Volume 86 fl (84-94); Platelet Count 144 K/mm3 (140-440); Red Cell Distribution Width 13.1 % (13.2-15.2)
[2017-09-23 07:00] LABS: INR 3.04 (0.87-1.13)
[2017-09-23] MEDS: DIFLUCAN PO SCH (10:15)
[2017-09-23 10:42] LABS: Total Cells Counted 100
[2017-09-23 10:43] LABS: Basophils % (Manual) 0 % (0.0-1.8); Eosinophils % (Manual) 0 % (0.0-4.3); RBC Morphology Normal
[2017-09-23] MEDS: ARGATROBAN 250 MG in NACL 0.9% 250ML 247.5 ML IV SCH (11:00)
[2017-09-23] MEDS ORDERED: NACL 0.9% 1000 ML 1,000 ML IV SCH (16:00)
[2017-09-23] MEDS: COUMADIN PO SCH (17:22)
--- NOTE | 2017-09-23 22:27 | Hem/Onc Progress Note ---
Assessment and Plan - Patient Problems (1) Intractable nausea and vomiting Current Visit: Yes Status: Acute Qualifiers: Vomiting type: cyclical vomiting Qualified Code(s): G43.A1 - Cyclical vomiting, intractable Plan to address problem: Improved. Thrombocytopenia is better. Subjective Date of service: 09/23/17 Interval history: He feels tired. No new complains. Objective - Constitutional Vitals: Last Vital Signs Temp 98.2 F 09/23/17 16:03 Pulse 79 09/23/17 16:03 Resp 20 09/23/17 16:03 BP 106/65 09/23/17 16:03 Pulse Ox 98 09/23/17 16:03 Pain Intensity (0-10): denies any pain - EENT Eyes: PERRL ENT: hearing intact Lymph node exam: negative cervical - Respiratory Respiratory: bilateral: CTA - Cardiovascular Rhythm: regular - Labs Lab Results: Laboratory Results - last 24 hr 09/23/17 09/23/17 09/23/17 05:55 05:55 14:53 WBC 5.8 RBC 4.90 Hgb 14.1 Hct 42.0 MCV 86 MCH 29 MCHC 34 RDW 13.1 L Plt Count 144 Add Manual Diff Complete Total Counted 100 Seg Neutrophils % Sweeping Compound Blender Seg Neuts % (Manual) 51.0 Band Neutrophils % 0 Lymphocytes % (Manual) 43.0 H Reactive Lymphs % (Man) 0 Monocytes % (Manual) 6.0 Eosinophils % (Manual) 0 Basophils % (Manual) 0 Metamyelocytes % 0 Myelocytes % 0 Promyelocytes % 0 Blast Cells % 0 Nucleated RBC % Not Reportable Seg Neutrophils # Man 3.0 Band Neutrophils # 0.0 Lymphocytes # (Manual) 2.5 Abs React Lymphs (Man) 0.0 Monocytes # (Manual) 0.3 Eosinophils # (Manual) 0.0 Basophils # (Manual) 0.0 Metamyelocytes # 0.0 Myelocytes # 0.0 Promyelocytes # 0.0 Blast Cells # 0.0 WBC Morphology Not Reportable Hypersegmented Neuts Not Reportable Hyposegmented Neuts Not Reportable Hypogranular Neuts Not Reportable Smudge Cells Not Reportable Toxic Granulation Not Reportable Toxic Vacuolation Not Reportable Dohle Bodies Not Reportable Pelger-Huet Anomaly Not Reportable [place] Rods Not Reportable Platelet Estimate Not Reportable Clumped Platelets Not Reportable Plt Clumps, EDTA Not Reportable Large Platelets Not Reportable Giant Platelets Not Reportable Platelet Satelliting Not Reportable Plt Morphology Comment Not Reportable RBC Morphology Normal Dimorphic RBCs Not Reportable Polychromasia Not Reportable Hypochromasia Not Reportable Poikilocytosis Not Reportable Anisocytosis Not Reportable Microcytosis Not Reportable Macrocytosis Not Reportable Spherocytes Not Reportable Pappenheimer Bodies Not Reportable Sickle Cells Not Reportable Target Cells Not Reportable Tear Drop Cells Not Reportable Ovalocytes Not Reportable Helmet Cells Not Reportable [place] Bodies Not Reportable [place] Rings Not Reportable [place] Cells Not Reportable Bite Cells Not Reportable Crenated Cell Not Reportable Elliptocytes Not Reportable Acanthocytes (Spur) Not Reportable Rouleaux Not Reportable Hemoglobin C Crystals Not Reportable Schistocytes Not Reportable Malaria parasites Not Reportable Gregorio Bodies Not Reportable Hem Pathologist Commnt No PT 33.6 H INR 3.04 H APTT 79.5 H*
[2017-09-23] MEDS: MORPHINE IV PRN (22:42)
[2017-09-24] MEDS: ROBITUSSIN PO SCH ×5 (00:24→23:43)
[2017-09-24 05:23] LABS: Basophils % (Auto) 0.2 % (0.0-1.8); Eosinophils % (Auto) 0.2 % (0.0-4.3); Hematocrit 39.8 % (35.5-45.6); Hemoglobin 13.5 gm/dl (11.8-15.2); Lymphocytes # (Auto) 1.9 K/mm3 (1.2-5.4); Lymphocytes % (Auto) 40.5 % (13.4-35.0); Mean Corpuscular HGB Conc 34 % (32-34); Mean Corpuscular Hemoglobin 29 pg (28-32); Mean Corpuscular Volume 87 fl (84-94); Monocytes # (Auto) 0.6 K/mm3 (0.0-0.8); Monocytes % (Auto) 12.2 % (0.0-7.3); Platelet Count 130 K/mm3 (140-440)
[2017-09-24] MEDS: ARGATROBAN 250 MG in NACL 0.9% 250ML 247.5 ML IV SCH (06:09)
[2017-09-24 07:27] LABS: Partial Thromboplastin Time 82.2 Sec. (24.2-36.6)
[2017-09-24 07:28] LABS: INR 7.55 (0.87-1.13)
--- NOTE | 2017-09-24 09:13 | Hem/Onc Progress Note ---
Assessment and Plan Continue per protocol. Once INR between 2 and 3 pt can be on coumadin only after overlap of Coumadin and argatroban drip for 5 days. May need Coumadin dose adjustment today since INR was greater than 7 while on the drip. Will be discussing with pharmacy today later about dosing Subjective Date of service: 09/24/17 Interval history: Patient feels better. Trying to take by mouth. Argatroban drip on hold for high INR greater than 7 Objective - Constitutional Vitals: Last Vital Signs Temp 98.2 F 09/23/17 16:03 Pulse 79 09/23/17 16:03 Resp 20 09/23/17 16:03 BP 106/65 09/23/17 16:03 Pulse Ox 98 09/23/17 16:03 Pain Intensity (0-10): denies any pain General appearance: no acute distress - Neck Neck: supple - Respiratory Respiratory effort: Positive: normal Respiratory: bilateral: CTA - Cardiovascular Rhythm: regular Extremities: No edema - Gastrointestinal General gastrointestinal: Present: soft - Labs Lab Results: Laboratory Results - last 24 hr 09/23/17 09/23/17 09/24/17 05:55 14:53 04:52 WBC 4.7 RBC 4.60 Hgb 13.5 Hct 39.8 MCV 87 MCH 29 MCHC 34 RDW 13.0 L Plt Count 130 L Lymph % (Auto) 40.5 H [place] % (Auto) 12.2 H Eos % (Auto) 0.2 Baso % (Auto) 0.2 Lymph # 1.9 [place] # 0.6 Eos # 0.0 Baso # 0.0 Add Manual Diff Complete Total Counted 100 Seg Neutrophils % 46.9 Seg Neuts % (Manual) 51.0 Band Neutrophils % 0 Lymphocytes % (Manual) 43.0 H Reactive Lymphs % (Man) 0 Monocytes % (Manual) 6.0 Eosinophils % (Manual) 0 Basophils % (Manual) 0 Metamyelocytes % 0 Myelocytes % 0 Promyelocytes % 0 Blast Cells % 0 Nucleated RBC % Not Reportable Seg Neutrophils # 2.2 Seg Neutrophils # Man 3.0 Band Neutrophils # 0.0 Lymphocytes # (Manual) 2.5 Abs React Lymphs (Man) 0.0 Monocytes # (Manual) 0.3 Eosinophils # (Manual) 0.0 Basophils # (Manual) 0.0 Metamyelocytes # 0.0 Myelocytes # 0.0 Promyelocytes # 0.0 Blast Cells # 0.0 WBC Morphology Not Reportable Hypersegmented Neuts Not Reportable Hyposegmented Neuts Not Reportable Hypogranular Neuts Not Reportable Smudge Cells Not Reportable Toxic Granulation Not Reportable Toxic Vacuolation Not Reportable Dohle Bodies Not Reportable Pelger-Huet Anomaly Not Reportable [place] Rods Not Reportable Platelet Estimate Not Reportable Clumped Platelets Not Reportable Plt Clumps, EDTA Not Reportable Large Platelets Not Reportable Giant Platelets Not Reportable Platelet Satelliting Not Reportable Plt Morphology Comment Not Reportable RBC Morphology Normal Dimorphic RBCs Not Reportable Polychromasia Not Reportable Hypochromasia Not Reportable Poikilocytosis Not Reportable Anisocytosis Not Reportable Microcytosis Not Reportable Macrocytosis Not Reportable Spherocytes Not Reportable Pappenheimer Bodies Not Reportable Sickle Cells Not Reportable Target Cells Not Reportable Tear Drop Cells Not Reportable Ovalocytes Not Reportable Helmet Cells Not Reportable [place] Bodies Not Reportable [employer] Rings Not Reportable [place] Cells Not Reportable Bite Cells Not Reportable Crenated Cell Not Reportable Elliptocytes Not Reportable Acanthocytes (Spur) Not Reportable Rouleaux Not Reportable Hemoglobin C Crystals Not Reportable Schistocytes Not Reportable Malaria parasites Not Reportable Gregorio Bodies Not Reportable Hem Pathologist Commnt No PT INR APTT 79.5 H* 09/24/17 04:52 WBC RBC Hgb Hct MCV MCH MCHC RDW Plt Count Lymph % (Auto) [place] % (Auto) Eos % (Auto) Baso % (Auto) Lymph # [place] # Eos # Baso # Add Manual Diff Total Counted Seg Neutrophils % Seg Neuts % (Manual) Band Neutrophils % Lymphocytes % (Manual) Reactive Lymphs % (Man) Monocytes % (Manual) Eosinophils % (Manual) Basophils % (Manual) Metamyelocytes % Myelocytes % Promyelocytes % Blast Cells % Nucleated RBC % Seg Neutrophils # Seg Neutrophils # Man Band Neutrophils # Lymphocytes # (Manual) Abs React Lymphs (Man) Monocytes # (Manual) Eosinophils # (Manual) Basophils # (Manual) Metamyelocytes # Myelocytes # Promyelocytes # Blast Cells # WBC Morphology Hypersegmented Neuts Hyposegmented Neuts Hypogranular Neuts Smudge Cells Toxic Granulation Toxic Vacuolation Dohle Bodies Pelger-Huet Anomaly [place] Rods Platelet Estimate Clumped Platelets Plt Clumps, EDTA Large Platelets Giant Platelets Platelet Satelliting Plt Morphology Comment RBC Morphology Dimorphic RBCs Polychromasia Hypochromasia Poikilocytosis Anisocytosis Microcytosis Macrocytosis Spherocytes Pappenheimer Bodies Sickle Cells Target Cells Tear Drop Cells Ovalocytes Helmet Cells [place] Bodies [employer] Rings [place] Cells Bite Cells Crenated Cell Elliptocytes Acanthocytes (Spur) Rouleaux Hemoglobin C Crystals Schistocytes Malaria parasites Gregorio Bodies Hem Pathologist Commnt PT 69.6 H INR 7.55 H* APTT 82.2 H*
--- NOTE | 2017-09-24 09:23 | Event Note ---
Date: 09/24/17 If patient's INR stays significantly higher, we will hold off on the drip and decreased Coumadin and if INR in a reasonable range tomorrow, can be discharged home and I will follow-up in my office
[2017-09-24] MEDS: DIFLUCAN PO SCH (10:10)
[2017-09-24 13:24] LABS: INR 3.44 (0.87-1.13)
[2017-09-24] MEDS: COUMADIN PO SCH (17:13)
--- NOTE | 2017-09-24 18:15 | Progress Note ---
Assessment and Plan Assessment and plan: - Patient Problems (1) HTN (hypertension) At present well controlled and sometimes elevated because of pain. (2) Fever Patient fever curve is down trending. Could be secondary to bowel syndrome versus lupus exacerbation versus pneumonitis. Extensive workable last admission no evidence of infection including Legionella and HIV. 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 Now onagotroban drip. Tolerating will. Platelets are up to 91. Hematology following. stable from yesterday at 93 Started on Coumadin or ideally ones are noted to be greater than 4.5 prior to stop and troponin. Defer to orthotic finish grinding technician (5) Thrush, oral resolving with diflucan (6) Pulmonary embolism Currently on agotroban. Discharge when therapeutic could not use heparin secondary to hit syndrome Inr initially elevated. Agatroban was held and now improved. if remains between 2-3 in am, will discharge (7) Hypercoagulable state Continue coumadin DVT and GI prophylaxis plan of care discussed with the patient detail History Interval history: Patient is seen today for: Pulmonary embolism Seen and examined at bedside; 24hour events reviewed; nursing staff ; no adverse overnight events reported to me; Denies any chest pain, nausea, vomiting , diarrhea No fever noted blood pressure controlled. Reports improvement. whats a named diagnosis of his clinical condition that may have led to these events. discussed immunological decisions and so on Hospitalist Physical - Physical exam Narrative exam: VITAL SIGNS: Reviewed. GENERAL: The patient appeared ill appearing lethargic. Vital signs as documented. HEAD: No signs of head trauma. EYES: Pupils are equal. Extraocular motions intact. EARS: Hearing grossly intact. MOUTH: Oropharynx is normal. NECK: No adenopathy, no JVD. CHEST: Chest with clear breath sounds bilaterally. No wheezes, rales, or rhonchi. CARDIAC: Regular rate and rhythm. S1 and S2, without murmurs, gallops, or rubs. VASCULAR: No Edema. Peripheral pulses normal and equal in all extremities. ABDOMEN: Soft, without detectable tenderness. No sign of distention. No rebound or guarding, and no masses palpated. Bowel Sounds normal. MUSCULOSKELETAL: Good range of motion of all major joints. Extremities without clubbing, cyanosis or edema. NEUROLOGIC EXAM: Alert and oriented x 3. No focal sensory or strength deficits. Speech normal. Follows commands. PSYCHIATRIC: Mood normal. SKIN: No rash or lesions. - Constitutional Vitals: Temp Pulse Resp BP Pulse Ox 98.4 F 91 H 20 102/70 99 09/24/17 16:29 02 16:29 09/24/17 16:29 09/24/17 16:29 09/24/17 16:29 General appearance: Present: no acute distress, well-nourished Results - Labs CBC & Chem 7: 09/24/17 04:52 09/19/17 04:36 Labs: Laboratory Last Values WBC 4.7 K/mm3 (4.5-11.0) 09/24/17 04:52 RBC 4.60 M/mm3 (3.65-5.03) 09/24/17 04:52 Hgb 13.5 gm/dl (11.8-15.2) 09/24/17 04:52 Hct 39.8 % (35.5-45.6) 09/24/17 04:52 MCV 87 fl (84-94) 09/24/17 04:52 MCH 29 pg (28-32) 09/24/17 04:52 MCHC 34 % (32-34) 09/24/17 04:52 RDW 13.0 % (13.2-15.2) L 09/24/17 04:52 Plt Count 130 K/mm3 (140-440) L 09/24/17 04:52 Lymph % (Auto) 40.5 % (13.4-35.0) H 09/24/17 04:52 [place] % (Auto) 12.2 % (0.0-7.3) H 09/24/17 04:52 Eos % (Auto) 0.2 % (0.0-4.3) 09/24/17 04:52 Baso % (Auto) 0.2 % (0.0-1.8) 09/24/17 04:52 Lymph # 1.9 K/mm3 (1.2-5.4) 09/24/17 04:52 [place] # 0.6 K/mm3 (0.0-0.8) 09/24/17 04:52 Eos # 0.0 K/mm3 (0.0-0.4) 09/24/17 04:52 Baso # 0.0 K/mm3 (0.0-0.1) 09/24/17 04:52 Add Manual Diff Complete 09/23/17 05:55 Total Counted 100 09/23/17 05:55 Seg Neutrophils % 46.9 % (40.0-70.0) 09/24/17 04:52 Seg Neuts % (Manual) 51.0 % (40.0-70.0) 09/23/17 05:55 Band Neutrophils % 0 % 09/23/17 05:55 Lymphocytes % (Manual) 43.0 % (13.4-35.0) H 09/23/17 05:55 Reactive Lymphs % (Man) 0 % 09/23/17 05:55 Monocytes % (Manual) 6.0 % (0.0-7.3) 09/23/17 05:55 Eosinophils % (Manual) 0 % (0.0-4.3) 09/23/17 05:55 Basophils % (Manual) 0 % (0.0-1.8) 09/23/17 05:55 Metamyelocytes % 0 % 09/23/17 05:55 Myelocytes % 0 % 09/23/17 05:55 Promyelocytes % 0 % 09/23/17 05:55 Blast Cells % 0 % 09/23/17 05:55 Nucleated RBC % Not Reportable 09/23/17 05:55 Seg Neutrophils # 2.2 K/mm3 (1.8-7.7) 09/24/17 04:52 Seg Neutrophils # Man 3.0 K/mm3 (1.8-7.7) 09/23/17 05:55 Band Neutrophils # 0.0 K/mm3 09/23/17 05:55 Lymphocytes # (Manual) 2.5 K/mm3 (1.2-5.4) 09/23/17 05:55 Abs React Lymphs (Man) 0.0 K/mm3 09/23/17 05:55 Monocytes # (Manual) 0.3 K/mm3 (0.0-0.8) 09/23/17 05:55 Eosinophils # (Manual) 0.0 K/mm3 (0.0-0.4) 09/23/17 05:55 Basophils # (Manual) 0.0 K/mm3 (0.0-0.1) 09/23/17 05:55 Metamyelocytes # 0.0 K/mm3 09/23/17 05:55 Myelocytes # 0.0 K/mm3 09/23/17 05:55 Promyelocytes # 0.0 K/mm3 09/23/17 05:55 Blast Cells # 0.0 K/mm3 09/23/17 05:55 Pathologist Review 09/14/17 15:51 WBC Morphology Not Reportable 09/23/17 05:55 Hypersegmented Neuts Not Reportable 09/23/17 05:55 Hyposegmented Neuts Not Reportable 09/23/17 05:55 Hypogranular Neuts Not Reportable 09/23/17 05:55 Smudge Cells Not Reportable 09/23/17 05:55 Toxic Granulation Not Reportable 09/23/17 05:55 Toxic Vacuolation Not Reportable 09/23/17 05:55 Dohle Bodies Not Reportable 09/23/17 05:55 Pelger-Huet Anomaly Not Reportable 09/23/17 05:55 August Rods Not Reportable 09/23/17 05:55 Platelet Estimate Not Reportable 09/23/17 05:55 Clumped Platelets Not Reportable 09/23/17 05:55 Plt Clumps, EDTA Not Reportable 09/23/17 05:55 Large Platelets Not Reportable 09/23/17 05:55 Giant Platelets Not Reportable 09/23/17 05:55 Platelet Satelliting Not Reportable 09/23/17 05:55 Plt Morphology Comment Not Reportable 09/23/17 05:55 RBC Morphology Normal 09/23/17 05:55 Dimorphic RBCs Not Reportable 09/23/17 05:55 Polychromasia Not Reportable 09/23/17 05:55 Hypochromasia Not Reportable 09/23/17 05:55 Poikilocytosis Not Reportable 09/23/17 05:55 Anisocytosis Not Reportable 09/23/17 05:55 Microcytosis Not Reportable 09/23/17 05:55 Macrocytosis Not Reportable 09/23/17 05:55 Spherocytes Not Reportable 09/23/17 05:55 Pappenheimer Bodies Not Reportable 09/23/17 05:55 Sickle Cells Not Reportable 09/23/17 05:55 Target Cells Not Reportable 09/23/17 05:55 Tear Drop Cells Not Reportable 09/23/17 05:55 Ovalocytes Not Reportable 09/23/17 05:55 Helmet Cells Not Reportable 09/23/17 05:55 [place] Bodies Not Reportable 09/23/17 05:55 [place] Rings Not Reportable 09/23/17 05:55 Nikki Cells Not Reportable 09/23/17 05:55 Bite Cells Not Reportable 09/23/17 05:55 Crenated Cell Not Reportable 09/23/17 05:55 Elliptocytes Not Reportable 09/23/17 05:55 Acanthocytes (Spur) Not Reportable 09/23/17 05:55 Rouleaux Not Reportable 09/23/17 05:55 Hemoglobin C Crystals Not Reportable 09/23/17 05:55 Schistocytes Not Reportable 09/23/17 05:55 Malaria parasites Not Reportable 09/23/17 05:55 Percent Retic 0.36 % (0.78-2.58) L 09/16/17 05:25 Gregorio Bodies Not Reportable 09/23/17 05:55 Hem Pathologist Commnt No 09/23/17 05:55 PT 37.1 Sec. (12.2-14.9) H 09/24/17 12:44 INR 3.44 (0.87-1.13) H 09/24/17 12:44 APTT 82.2 Sec. (24.2-36.6) H* 09/24/17 04:52 Heparin Anti-Xa, Unfract Negative (Negative) 09/16/17 05:25 VBG pH 7.451 (7.320-7.420) H 09/14/17 15:51 Sodium 136 mmol/L (137-145) L 09/19/17 04:36 Potassium 3.9 mmol/L (3.6-5.0) 09/19/17 04:36 Chloride 100.4 mmol/L (98-107) 09/19/17 04:36 Carbon Dioxide 22 mmol/L (22-30) 09/19/17 04:36 Anion Gap 18 mmol/L 09/19/17 04:36 BUN 14 mg/dL (9-20) 09/19/17 04:36 Creatinine 0.6 mg/dL (0.8-1.5) L 09/19/17 04:36 Estimated GFR > 60 ml/min 09/19/17 04:36 BUN/Creatinine Ratio 23 % 09/19/17 04:36 Glucose 122 mg/dL (75-100) H 09/19/17 04:36 Lactic Acid 1.60 mmol/L (0.7-2.0) 09/18/17 19:28 Calcium 8.3 mg/dL (8.4-10.2) L 09/19/17 04:36 Total Bilirubin 0.60 mg/dL (0.1-1.2) 09/19/17 04:36 AST 30 units/L (5-40) 09/19/17 04:36 ALT 49 units/L (7-56) 09/19/17 04:36 Alkaline Phosphatase 37 units/L (35-129) 09/19/17 04:36 Lactate Dehydrogenase 648 units/L (91-180) H 09/16/17 05:25 Total Creatine Kinase 164 units/L (55-170) 09/17/17 01:24 CK-MB (CK-2) 1.9 ng/mL (0.0-4.0) 09/17/17 01:24 CK-MB (CK-2) Rel Index 1.1 (0-4) 09/17/17 01:24 Troponin T < 0.010 ng/mL (0.00-0.029) 09/17/17 01:24 C-Reactive Protein 0.20 mg/dL (0.00-1.30) 09/15/17 13:27 Total Protein 6.0 g/dL (6.3-8.2) L 09/19/17 04:36 Albumin 2.9 g/dL (3.9-5) L 09/19/17 04:36 Albumin/Globulin Ratio 0.9 % 09/19/17 04:36 Amylase 264 units/L (27-131) H 09/14/17 21:35 Lipase 200 units/L (13-60) H 09/14/17 15:51 Vitamin B12 > 2000 pg/mL (211-911) H 09/16/17 05:25 Folate 11.40 ng/mL (7.3-26.0) 02/08/18 05:25 Urine Color Yellow (Yellow) 09/14/17 16:05 Urine Turbidity Clear (Clear) 09/14/17 16:05 Urine pH 6.0 (5.0-7.0) 09/14/17 16:05 Ur Specific [place] 1.028 (1.003-1.030) 09/14/17 16:05 Urine Protein 30 mg/dl mg/dL (Negative) 09/14/17 16:05 Urine Glucose (UA) Neg mg/dL (Negative) 09/14/17 16:05 Urine Ketones Tr mg/dL (Negative) 09/14/17 16:05 Urine Blood Neg (Negative) 09/14/17 16:05 Urine Nitrite Neg (Negative) 09/14/17 16:05 Urine Bilirubin Neg (Negative) 09/14/17 16:05 Urine Urobilinogen < 2.0 mg/dL (<2.0) 09/14/17 16:05 Ur Leukocyte Esterase Neg (Negative) 09/14/17 16:05 Urine WBC (Auto) 1.0 /HPF (0.0-6.0) 09/14/17 16:05 Urine RBC (Auto) < 1.0 /HPF (0.0-6.0) 09/14/17 16:05 Urine Mucus Few /HPF 09/14/17 16:05 Heparin-induced Plt Ab Positive (Negative) H 09/16/17 05:25 UF Heparin High Dose 0 % Release 09/16/17 05:25 ROJAS UFH Low Dose 0.1 0 % Release 09/16/17 05:25 ROJAS UFH Low Dose 0.5 0 % Release 09/16/17 05:25 Complement C3 104 mg/dL (82-185) 09/15/17 13:27 Complement C4 27 mg/dL (15-53) 09/15/17 13:27 Influenza A (Rapid) Negative (Negative) 09/15/17 Unknown Influenza B (Rapid) Negative (Negative) 09/15/17 Unknown
[2017-09-25] MEDS: MORPHINE IV PRN (01:13)
[2017-09-25] MEDS: ROBITUSSIN PO SCH ×3 (05:41→18:08)
[2017-09-25 09:38] LABS: Hematocrit 40.5 % (35.5-45.6); Mean Corpuscular HGB Conc 35 % (32-34); Mean Corpuscular Hemoglobin 30 pg (28-32); Mean Corpuscular Volume 86 fl (84-94); Platelet Count 135 K/mm3 (140-440); Red Blood Count 4.72 M/mm3 (3.65-5.03); Red Cell Distribution Width 13.3 % (13.2-15.2)
[2017-09-25 09:56] LABS: INR 2.99 (0.87-1.13)
--- NOTE | 2017-09-25 09:59 | Discharge Summary ---
Providers - Providers Date of Admission: 09/14/17 23:47 Attending physician: RHEA RAMOS MD 09/15/17 01:20 Consult to Physician [CONS] Routine Consulting Provider: LEN CARVALHO Reason For Exam: fever Notified:: loader machine pl call 09/15/17 17:34 Consult to Physician [CONS] Routine Consulting Provider: FAISAL DANIEL Reason For Exam: PE Place consult to:: Dr. Daniel Notified:: Charlene CRUZ Was contact made?: Yes If yes, spoke with:: Dr. Lorenz spoke with Dr. Daniel Primary care physician: ACCOUNT MAINTENANCE REPRESENTATIVE Hospitalization Condition: Stable Disposition: DC-01 TO HOME OR SELFCARE Time spent for discharge: 35 mins Exam - Constitutional Vitals: Temp Pulse Resp BP Pulse Ox 98.4 F 80 20 97/60 98 09/25/17 07:42 09/25/17 07:42 09/25/17 07:42 09/25/17 07:42 09/25/17 07:42 Plan Activity: advance as tolerated, fall precautions Diet: low cholesterol Special Instructions: record daily weights, record daily BP diary, other (inr check in 3 days) Follow up with: PRIMARY CARE, [Primary Care Provider] - 3-5 Days [facility] [Outside] - 7 Days [facility] [Outside] - 7 Days Forms: Warfarin Discharge Instruction Prescriptions: Ondansetron [Zofran TAB] 4 mg PO Q8HR PRN #30 tablet PRN Reason: Nausea Warfarin [Coumadin] 2.5 mg PO DAILY@1700 #30 tablet
[2017-09-25 11:03] LABS: Basophils % (Manual) 0 % (0.0-1.8); Total Cells Counted 100
[2017-09-25 11:04] LABS: Platelet Estimate Consistent w Auto; RBC Morphology Normal
[2017-09-25] MEDS ORDERED: COUMADIN NO DOSE TODAY PO ONE (17:00)
--- NOTE | 2017-09-25 17:51 | Progress Note ---
Assessment and Plan Assessment and plan: - Patient Problems (1) HTN (hypertension) At present well controlled and sometimes elevated because of pain. (2) Fever Patient fever curve is down trending. Could be secondary to bowel syndrome versus lupus exacerbation versus pneumonitis. Extensive workable last admission no evidence of infection including Legionella and HIV. 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 Now onagotroban drip. Tolerating will. Platelets are up to 91. Hematology following. stable from yesterday at 93 Started on Coumadin or ideally ones are noted to be greater than 4.5 prior to stop and troponin. Defer to power lineman (5) Thrush, oral resolving with diflucan (6) Pulmonary embolism Currently on agotroban. Discharge when therapeutic could not use heparin secondary to hit syndrome Inr initially elevated. Agatroban was held and now improved. if remains between 2-3 in am, will discharge (7) Hypercoagulable state Continue coumadin DVT and GI prophylaxis plan of care discussed with the patient detail History Interval history: Patient is seen today for: Pulmonary embolism Seen and examined at bedside; 24hour events reviewed; nursing staff ; no adverse overnight events reported to me; Denies any chest pain, nausea, vomiting , diarrhea No fever noted blood pressure controlled. Reports improvement. whats a named diagnosis of his clinical condition that may have led to these events. discussed immunological decisions and so on. pt close to discharge time had a BM with the bowel filled blood. he denies any dizziness Hospitalist Physical - Physical exam Narrative exam: VITAL SIGNS: Reviewed. GENERAL: The patient appeared ill appearing lethargic. Vital signs as documented. HEAD: No signs of head trauma. EYES: Pupils are equal. Extraocular motions intact. EARS: Hearing grossly intact. MOUTH: Oropharynx is normal. NECK: No adenopathy, no JVD. CHEST: Chest with clear breath sounds bilaterally. No wheezes, rales, or rhonchi. CARDIAC: Regular rate and rhythm. S1 and S2, without murmurs, gallops, or rubs. VASCULAR: No Edema. Peripheral pulses normal and equal in all extremities. ABDOMEN: Soft, without detectable tenderness. No sign of distention. No rebound or guarding, and no masses palpated. Bowel Sounds normal. MUSCULOSKELETAL: Good range of motion of all major joints. Extremities without clubbing, cyanosis or edema. NEUROLOGIC EXAM: Alert and oriented x 3. No focal sensory or strength deficits. Speech normal. Follows commands. PSYCHIATRIC: Mood normal. SKIN: No rash or lesions. - Constitutional Vitals: Temp Pulse Resp BP Pulse Ox 98.5 F 78 20 111/63 100 09/25/17 15:43 09/25/17 15:43 09/25/17 15:43 09/25/17 15:43 09/25/17 15:43 General appearance: Present: no acute distress, well-nourished Results - Labs CBC & Chem 7: 09/25/17 17:35 09/19/17 04:36 Labs: Laboratory Last Values WBC 3.3 K/mm3 (4.5-11.0) L 09/25/17 08:57 RBC 4.72 M/mm3 (3.65-5.03) 09/25/17 08:57 Hgb 14.0 gm/dl (11.8-15.2) 09/25/17 08:57 Hct 40.5 % (35.5-45.6) 09/25/17 08:57 MCV 86 fl (84-94) 09/25/17 08:57 MCH 30 pg (28-32) 09/25/17 08:57 MCHC 35 % (32-34) H 09/25/17 08:57 RDW 13.3 % (13.2-15.2) 09/25/17 08:57 Plt Count 135 K/mm3 (140-440) L 09/25/17 08:57 Lymph % (Auto) Sales Performance Manager 09/25/17 08:57 [place] % (Auto) 12.2 % (0.0-7.3) H 09/24/17 04:52 Eos % (Auto) 0.2 % (0.0-4.3) 09/24/17 04:52 Baso % (Auto) 0.2 % (0.0-1.8) 09/24/17 04:52 Lymph # 1.9 K/mm3 (1.2-5.4) 09/24/17 04:52 [place] # 0.6 K/mm3 (0.0-0.8) 09/24/17 04:52 Eos # 0.0 K/mm3 (0.0-0.4) 09/24/17 04:52 Baso # 0.0 K/mm3 (0.0-0.1) 09/24/17 04:52 Add Manual Diff Complete 09/25/17 08:57 Total Counted 100 09/25/17 08:57 Seg Neutrophils % Sales Performance Manager 09/25/17 08:57 Seg Neuts % (Manual) 42.0 % (40.0-70.0) 09/25/17 08:57 Band Neutrophils % 0 % 09/25/17 08:57 Lymphocytes % (Manual) 42.0 % (13.4-35.0) H 09/25/17 08:57 Reactive Lymphs % (Man) 5.0 % 09/25/17 08:57 Monocytes % (Manual) 8.0 % (0.0-7.3) H 09/25/17 08:57 Eosinophils % (Manual) 2.0 % (0.0-4.3) 09/25/17 08:57 Basophils % (Manual) 0 % (0.0-1.8) 09/25/17 08:57 Metamyelocytes % 1.0 % 09/25/17 08:57 Myelocytes % 0 % 09/25/17 08:57 Promyelocytes % 0 % 09/25/17 08:57 Blast Cells % 0 % 09/25/17 08:57 Nucleated RBC % Not Reportable 09/25/17 08:57 Seg Neutrophils # 2.2 K/mm3 (1.8-7.7) 09/24/17 04:52 Seg Neutrophils # Man 1.4 K/mm3 (1.8-7.7) L 09/25/17 08:57 Band Neutrophils # 0.0 K/mm3 09/25/17 08:57 Lymphocytes # (Manual) 1.4 K/mm3 (1.2-5.4) 09/25/17 08:57 Abs React Lymphs (Man) 0.2 K/mm3 09/25/17 08:57 Monocytes # (Manual) 0.3 K/mm3 (0.0-0.8) 09/25/17 08:57 Eosinophils # (Manual) 0.1 K/mm3 (0.0-0.4) 09/25/17 08:57 Basophils # (Manual) 0.0 K/mm3 (0.0-0.1) 09/25/17 08:57 Metamyelocytes # 0.0 K/mm3 09/25/17 08:57 Myelocytes # 0.0 K/mm3 09/25/17 08:57 Promyelocytes # 0.0 K/mm3 09/25/17 08:57 Blast Cells # 0.0 K/mm3 09/25/17 08:57 Pathologist Review 09/14/17 15:51 WBC Morphology Not Reportable 09/25/17 08:57 Hypersegmented Neuts Not Reportable 09/25/17 08:57 Hyposegmented Neuts Not Reportable 09/25/17 08:57 Hypogranular Neuts Not Reportable 09/25/17 08:57 Smudge Cells Not Reportable 09/25/17 08:57 Toxic Granulation Not Reportable 09/25/17 08:57 Toxic Vacuolation Not Reportable 09/25/17 08:57 Dohle Bodies Not Reportable 09/25/17 08:57 Pelger-Huet Anomaly Not Reportable 09/25/17 08:57 August Rods Not Reportable 09/25/17 08:57 Platelet Estimate Consistent w auto 09/25/17 08:57 Clumped Platelets Not Reportable 09/25/17 08:57 Plt Clumps, EDTA Not Reportable 09/25/17 08:57 Large Platelets Not Reportable 09/25/17 08:57 Giant Platelets Not Reportable 09/25/17 08:57 Platelet Satelliting Not Reportable 09/25/17 08:57 Plt Morphology Comment Not Reportable 09/25/17 08:57 RBC Morphology Normal 09/25/17 08:57 Dimorphic RBCs Not Reportable 09/25/17 08:57 Polychromasia Not Reportable 09/25/17 08:57 Hypochromasia Not Reportable 09/25/17 08:57 Poikilocytosis Not Reportable 09/25/17 08:57 Anisocytosis Not Reportable 09/25/17 08:57 Microcytosis Not Reportable 09/25/17 08:57 Macrocytosis Not Reportable 09/25/17 08:57 Spherocytes Not Reportable 09/25/17 08:57 Pappenheimer Bodies Not Reportable 09/25/17 08:57 Sickle Cells Not Reportable 09/25/17 08:57 Target Cells Not Reportable 09/25/17 08:57 Tear Drop Cells Not Reportable 09/25/17 08:57 Ovalocytes Not Reportable 09/25/17 08:57 Helmet Cells Not Reportable 09/25/17 08:57 Andrade-[place] Bodies Not Reportable 09/25/17 08:57 [place] Rings Not Reportable 09/25/17 08:57 [place] Cells Not Reportable 09/25/17 08:57 Bite Cells Not Reportable 09/25/17 08:57 Crenated Cell Not Reportable 09/25/17 08:57 Elliptocytes Not Reportable 09/25/17 08:57 Acanthocytes (Spur) Not Reportable 09/25/17 08:57 Rouleaux Not Reportable 09/25/17 08:57 Hemoglobin C Crystals Not Reportable 09/25/17 08:57 Schistocytes Not Reportable 09/25/17 08:57 Malaria parasites Not Reportable 09/25/17 08:57 Percent Retic 0.36 % (0.78-2.58) L 09/16/17 05:25 Gregorio Bodies Not Reportable 09/25/17 08:57 Hem Pathologist Commnt No 09/25/17 08:57 PT 33.1 Sec. (12.2-14.9) H 09/25/17 08:57 INR 2.99 (0.87-1.13) H 09/25/17 08:57 APTT 82.2 Sec. (24.2-36.6) H* 09/24/17 04:52 Heparin Anti-Xa, Unfract Negative (Negative) 09/16/17 05:25 VBG pH 7.451 (7.320-7.420) H 09/14/17 15:51 Sodium 136 mmol/L (137-145) L 09/19/17 04:36 Potassium 3.9 mmol/L (3.6-5.0) 09/19/17 04:36 Chloride 100.4 mmol/L (98-107) 09/19/17 04:36 Carbon Dioxide 22 mmol/L (22-30) 09/19/17 04:36 Anion Gap 18 mmol/L 09/19/17 04:36 BUN 14 mg/dL (9-20) 09/19/17 04:36 Creatinine 0.6 mg/dL (0.8-1.5) L 09/19/17 04:36 Estimated GFR > 60 ml/min 09/19/17 04:36 BUN/Creatinine Ratio 23 % 09/19/17 04:36 Glucose 122 mg/dL (75-100) H 09/19/17 04:36 Lactic Acid 1.60 mmol/L (0.7-2.0) 09/18/17 19:28 Calcium 8.3 mg/dL (8.4-10.2) L 09/19/17 04:36 Total Bilirubin 0.60 mg/dL (0.1-1.2) 09/19/17 04:36 AST 30 units/L (5-40) 09/19/17 04:36 ALT 49 units/L (7-56) 09/19/17 04:36 Alkaline Phosphatase 37 units/L (35-129) 09/19/17 04:36 Lactate Dehydrogenase 648 units/L (91-180) H 09/16/17 05:25 Total Creatine Kinase 164 units/L (55-170) 09/17/17 01:24 CK-MB (CK-2) 1.9 ng/mL (0.0-4.0) 09/17/17 01:24 CK-MB (CK-2) Rel Index 1.1 (0-4) 09/17/17 01:24 Troponin T < 0.010 ng/mL (0.00-0.029) 09/17/17 01:24 C-Reactive Protein 0.20 mg/dL (0.00-1.30) 09/15/17 13:27 Total Protein 6.0 g/dL (6.3-8.2) L 09/19/17 04:36 Albumin 2.9 g/dL (3.9-5) L 09/19/17 04:36 Albumin/Globulin Ratio 0.9 % 09/19/17 04:36 Amylase 264 units/L (27-131) H 09/14/17 21:35 Lipase 200 units/L (13-60) H 09/14/17 15:51 Vitamin B12 > 2000 pg/mL (211-911) H 09/16/17 05:25 Folate 11.40 ng/mL (7.3-26.0) 09/16/17 05:25 Urine Color Yellow (Yellow) 09/14/17 16:05 Urine Turbidity Clear (Clear) 09/14/17 16:05 Urine pH 6.0 (5.0-7.0) 09/14/17 16:05 Ur Specific [place] 1.028 (1.003-1.030) 09/14/17 16:05 Urine Protein 30 mg/dl mg/dL (Negative) 09/14/17 16:05 Urine Glucose (UA) Neg mg/dL (Negative) 09/14/17 16:05 Urine Ketones Tr mg/dL (Negative) 09/14/17 16:05 Urine Blood Neg (Negative) 09/14/17 16:05 Urine Nitrite Neg (Negative) 09/14/17 16:05 Urine Bilirubin Neg (Negative) 09/14/17 16:05 Urine Urobilinogen < 2.0 mg/dL (<2.0) 09/14/17 16:05 Ur Leukocyte Esterase Neg (Negative) 09/14/17 16:05 Urine WBC (Auto) 1.0 /HPF (0.0-6.0) 09/14/17 16:05 Urine RBC (Auto) < 1.0 /HPF (0.0-6.0) 09/14/17 16:05 Urine Mucus Few /HPF 09/14/17 16:05 Heparin-induced Plt Ab Positive (Negative) H 09/16/17 05:25 UF Heparin High Dose 0 % Release 09/16/17 05:25 ROJAS UFH Low Dose 0.1 0 % Release 09/16/17 05:25 ROJAS UFH Low Dose 0.5 0 % Release 09/16/17 05:25 Complement C3 104 mg/dL (82-185) 09/15/17 13:27 Complement C4 27 mg/dL (15-53) 09/15/17 13:27 Influenza A (Rapid) Negative (Negative) 09/15/17 Unknown Influenza B (Rapid) Negative (Negative) 09/15/17 Unknown
[2017-09-25] MEDS: COUMADIN PO SCH (18:07)
[2017-09-25 18:17] LABS: Hematocrit 40.7 % (35.5-45.6); Hemoglobin 13.5 gm/dl (11.8-15.2)
[2017-09-26] MEDS: ROBITUSSIN PO SCH ×4 (05:19→21:38)
[2017-09-26 07:15] LABS: Basophils % (Auto) 0.3 % (0.0-1.8); Eosinophils % (Auto) 0.5 % (0.0-4.3); Hematocrit 41.8 % (35.5-45.6); Hemoglobin 13.9 gm/dl (11.8-15.2); Lymphocytes # (Auto) 1.7 K/mm3 (1.2-5.4); Mean Corpuscular HGB Conc 33 % (32-34); Mean Corpuscular Hemoglobin 29 pg (28-32); Mean Corpuscular Volume 87 fl (84-94); Monocytes # (Auto) 0.3 K/mm3 (0.0-0.8); Monocytes % (Auto) 8.9 % (0.0-7.3); Platelet Count 145 K/mm3 (140-440)
[2017-09-26 07:30] LABS: INR 2.69 (0.87-1.13)
--- NOTE | 2017-09-26 12:42 | Hem/Onc Progress Note ---
Assessment and Plan 1. DALILA- continue coumadin, f/u in clinic with Dr Omalley 2. rectal bleeding- likely hemorrhoidal, H/H stable. However, given the fact that he will need anticoagulation, recommend inpatient GI consult. Subjective Date of service: 09/26/17 Interval history: pt with rectal bleeding associated with BM yesterday. He reports seeing a significant amount of "dripping red blood" yesterday and feeling weak. Does have a history of hemorrhoids. Objective - Constitutional Vitals: Last Vital Signs Temp 98.8 F 09/26/17 07:18 Pulse 77 09/26/17 07:18 Resp 20 09/26/17 07:18 BP 99/61 09/26/17 07:18 Pulse Ox 99 09/26/17 07:18 General appearance: no acute distress - Neck Neck: supple - Respiratory Respiratory effort: Positive: normal - Cardiovascular Rhythm: regular Extremities: No edema - Gastrointestinal General gastrointestinal: Present: soft - Labs Lab Results: Laboratory Results - last 24 hr 09/25/17 09/26/17 09/26/17 17:35 06:56 06:56 WBC 3.4 L RBC 4.80 Hgb 13.5 13.9 Hct 40.7 41.8 MCV 87 MCH 29 MCHC 33 RDW 13.0 L Plt Count 145 Lymph % (Auto) 50.0 H Porter % (Auto) 8.9 H Eos % (Auto) 0.5 Baso % (Auto) 0.3 Lymph # 1.7 Porter # 0.3 Eos # 0.0 Baso # 0.0 Seg Neutrophils % 40.3 Seg Neutrophils # 1.4 L PT 30.4 H INR 2.69 H
--- NOTE | 2017-09-26 14:23 | Progress Note ---
Assessment and Plan - Patient Problems (1) HTN (hypertension) Current Visit: Yes Status: Acute Plan to address problem: At present well controled and someties elevated because of pain. current 115/75 (2) Fever Current Visit: Yes Status: Acute Qualifiers: Fever type: unspecified Qualified Code(s): R50.9 - Fever, unspecified Plan to address problem: Patient fever curve is down trending. Could be secondary to bowel syndrome versus lupus exacerbation versus pneumonitis. Extensive workable last admission no evidence of infection including Legionella and HIV. Has now resolved. 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 Now onagotroban drip. Tolerating will. Platelets are up to 91. Hematology following. stable from yesterday at 93 patient to go home on anticoagulation. Hematology would like to have a colonoscopy prior to discharge since patient did have rectal bleeding. Obtain GI consult. (5) Thrush, oral Current Visit: Yes Status: Acute Plan to address problem: resolving with diflucan (6) Pulmonary embolism Current Visit: Yes Status: Acute Plan to address problem: Patient remains subtherapeutic today. Currently onagotroban. Discharge when therapeutic could not use heparin secondary to hit syndrome History Interval history: Patient states that he feels better. Thrush is resolved. Spoke about workup from last admission. Positive RUTH ANN and possible lupus anticoagulant. Patient and a bedside understand. Patient had an episode of rectal bleeding. Has a history of hemorrhoids. States bleeding was different from his typical hemorrhoidal bleed. Hospitalist Physical - Constitutional Vitals: Temp Pulse Resp BP Pulse Ox 98.8 F 77 20 99/61 99 09/26/17 07:18 09/26/17 07:18 09/26/17 07:18 09/26/17 07:18 09/26/17 07:18 General appearance: Present: no acute distress, well-nourished - EENT Eyes: Present: PERRL, EOM intact ENT: hearing intact, clear oral mucosa, dentition normal - Neck Neck: Present: supple, normal ROM - Respiratory Respiratory effort: normal Respiratory: bilateral: CTA - Cardiovascular Rhythm: regular Heart Sounds: Present: S1 & S2 - Extremities Extremities: no ischemia, pulses intact, pulses symmetrical, No edema, normal temperature, normal color, Full ROM Peripheral Pulses: within normal limits - Abdominal General gastrointestinal: soft, non-tender, non-distended, normal bowel sounds, no hepatomegaly, no splenomegaly, no mass, no hernia - Integumentary Integumentary: Present: clear, warm, dry - Psychiatric Psychiatric: appropriate mood/affect, intact judgment & insight, memory intact - Neurologic Neurologic: CNII-XII intact, moves all extremities Results - Labs CBC & Chem 7: 09/26/17 06:56 09/19/17 04:36 Labs: Laboratory Last Values WBC 3.4 K/mm3 (4.5-11.0) L 09/26/17 06:56 RBC 4.80 M/mm3 (3.65-5.03) 09/26/17 06:56 Hgb 13.9 gm/dl (11.8-15.2) 09/26/17 06:56 Hct 41.8 % (35.5-45.6) 09/26/17 06:56 MCV 87 fl (84-94) 09/26/17 06:56 MCH 29 pg (28-32) 09/26/17 06:56 MCHC 33 % (32-34) 09/26/17 06:56 RDW 13.0 % (13.2-15.2) L 09/26/17 06:56 Plt Count 145 K/mm3 (140-440) 09/26/17 06:56 Lymph % (Auto) 50.0 % (13.4-35.0) H 09/26/17 06:56 [place] % (Auto) 8.9 % (0.0-7.3) H 09/26/17 06:56 Eos % (Auto) 0.5 % (0.0-4.3) 09/26/17 06:56 Baso % (Auto) 0.3 % (0.0-1.8) 09/26/17 06:56 Lymph # 1.7 K/mm3 (1.2-5.4) 09/26/17 06:56 [place] # 0.3 K/mm3 (0.0-0.8) 09/26/17 06:56 Eos # 0.0 K/mm3 (0.0-0.4) 09/26/17 06:56 Baso # 0.0 K/mm3 (0.0-0.1) 09/26/17 06:56 Add Manual Diff Complete 09/25/17 08:57 Total Counted 100 09/25/17 08:57 Seg Neutrophils % 40.3 % (40.0-70.0) 09/26/17 06:56 Seg Neuts % (Manual) 42.0 % (40.0-70.0) 09/25/17 08:57 Band Neutrophils % 0 % 09/25/17 08:57 Lymphocytes % (Manual) 42.0 % (13.4-35.0) H 09/25/17 08:57 Reactive Lymphs % (Man) 5.0 % 09/25/17 08:57 Monocytes % (Manual) 8.0 % (0.0-7.3) H 09/25/17 08:57 Eosinophils % (Manual) 2.0 % (0.0-4.3) 09/25/17 08:57 Basophils % (Manual) 0 % (0.0-1.8) 09/25/17 08:57 Metamyelocytes % 1.0 % 09/25/17 08:57 Myelocytes % 0 % 09/25/17 08:57 Promyelocytes % 0 % 09/25/17 08:57 Blast Cells % 0 % 09/25/17 08:57 Nucleated RBC % Not Reportable 09/25/17 08:57 Seg Neutrophils # 1.4 K/mm3 (1.8-7.7) L 09/26/17 06:56 Seg Neutrophils # Man 1.4 K/mm3 (1.8-7.7) L 09/25/17 08:57 Band Neutrophils # 0.0 K/mm3 09/25/17 08:57 Lymphocytes # (Manual) 1.4 K/mm3 (1.2-5.4) 09/25/17 08:57 Abs React Lymphs (Man) 0.2 K/mm3 09/25/17 08:57 Monocytes # (Manual) 0.3 K/mm3 (0.0-0.8) 09/25/17 08:57 Eosinophils # (Manual) 0.1 K/mm3 (0.0-0.4) 09/25/17 08:57 Basophils # (Manual) 0.0 K/mm3 (0.0-0.1) 09/25/17 08:57 Metamyelocytes # 0.0 K/mm3 09/25/17 08:57 Myelocytes # 0.0 K/mm3 09/25/17 08:57 Promyelocytes # 0.0 K/mm3 09/25/17 08:57 Blast Cells # 0.0 K/mm3 09/25/17 08:57 Pathologist Review 09/14/17 15:51 WBC Morphology Not Reportable 09/25/17 08:57 Hypersegmented Neuts Not Reportable 09/25/17 08:57 Hyposegmented Neuts Not Reportable 09/25/17 08:57 Hypogranular Neuts Not Reportable 09/25/17 08:57 Smudge Cells Not Reportable 09/25/17 08:57 Toxic Granulation Not Reportable 09/25/17 08:57 Toxic Vacuolation Not Reportable 09/25/17 08:57 Dohle Bodies Not Reportable 09/25/17 08:57 Pelger-Huet Anomaly Not Reportable 09/25/17 08:57 August Rods Not Reportable 09/25/17 08:57 Platelet Estimate Consistent w auto 09/25/17 08:57 Clumped Platelets Not Reportable 09/25/17 08:57 Plt Clumps, EDTA Not Reportable 09/25/17 08:57 Large Platelets Not Reportable 09/25/17 08:57 Giant Platelets Not Reportable 09/25/17 08:57 Platelet Satelliting Not Reportable 09/25/17 08:57 Plt Morphology Comment Not Reportable 09/25/17 08:57 RBC Morphology Normal 09/25/17 08:57 Dimorphic RBCs Not Reportable 09/25/17 08:57 Polychromasia Not Reportable 09/25/17 08:57 Hypochromasia Not Reportable 09/25/17 08:57 Poikilocytosis Not Reportable 09/25/17 08:57 Anisocytosis Not Reportable 09/25/17 08:57 Microcytosis Not Reportable 09/25/17 08:57 Macrocytosis Not Reportable 09/25/17 08:57 Spherocytes Not Reportable 09/25/17 08:57 Pappenheimer Bodies Not Reportable 09/25/17 08:57 Sickle Cells Not Reportable 09/25/17 08:57 Target Cells Not Reportable 09/25/17 08:57 Tear Drop Cells Not Reportable 09/25/17 08:57 Ovalocytes Not Reportable 09/25/17 08:57 Helmet Cells Not Reportable 09/25/17 08:57 [place] Bodies Not Reportable 09/25/17 08:57 [place] Rings Not Reportable 09/25/17 08:57 [place] Cells Not Reportable 09/25/17 08:57 Bite Cells Not Reportable 09/25/17 08:57 Crenated Cell Not Reportable 09/25/17 08:57 Elliptocytes Not Reportable 09/25/17 08:57 Acanthocytes (Spur) Not Reportable 09/25/17 08:57 Rouleaux Not Reportable 09/25/17 08:57 Hemoglobin C Crystals Not Reportable 09/25/17 08:57 Schistocytes Not Reportable 09/25/17 08:57 Malaria parasites Not Reportable 09/25/17 08:57 Percent Retic 0.36 % (0.78-2.58) L 09/16/17 05:25 Gregorio Bodies Not Reportable 09/25/17 08:57 Hem Pathologist Commnt No 09/25/17 08:57 PT 30.4 Sec. (12.2-14.9) H 09/26/17 06:56 INR 2.69 (0.87-1.13) H 09/26/17 06:56 APTT 82.2 Sec. (24.2-36.6) H* 09/24/17 04:52 Heparin Anti-Xa, Unfract Negative (Negative) 09/16/17 05:25 VBG pH 7.451 (7.320-7.420) H 09/14/17 15:51 Sodium 136 mmol/L (137-145) L 09/19/17 04:36 Potassium 3.9 mmol/L (3.6-5.0) 09/19/17 04:36 Chloride 100.4 mmol/L (98-107) 09/19/17 04:36 Carbon Dioxide 22 mmol/L (22-30) 09/19/17 04:36 Anion Gap 18 mmol/L 09/19/17 04:36 BUN 14 mg/dL (9-20) 09/19/17 04:36 Creatinine 0.6 mg/dL (0.8-1.5) L 09/19/17 04:36 Estimated GFR > 60 ml/min 09/19/17 04:36 BUN/Creatinine Ratio 23 % 09/19/17 04:36 Glucose 122 mg/dL (75-100) H 09/19/17 04:36 Lactic Acid 1.60 mmol/L (0.7-2.0) 09/18/17 19:28 Calcium 8.3 mg/dL (8.4-10.2) L 09/19/17 04:36 Total Bilirubin 0.60 mg/dL (0.1-1.2) 09/19/17 04:36 AST 30 units/L (5-40) 09/19/17 04:36 ALT 49 units/L (7-56) 09/19/17 04:36 Alkaline Phosphatase 37 units/L (35-129) 09/19/17 04:36 Lactate Dehydrogenase 648 units/L (91-180) H 09/16/17 05:25 Total Creatine Kinase 164 units/L (55-170) 09/17/17 01:24 CK-MB (CK-2) 1.9 ng/mL (0.0-4.0) 09/17/17 01:24 CK-MB (CK-2) Rel Index 1.1 (0-4) 09/17/17 01:24 Troponin T < 0.010 ng/mL (0.00-0.029) 09/17/17 01:24 C-Reactive Protein 0.20 mg/dL (0.00-1.30) 09/15/17 13:27 Total Protein 6.0 g/dL (6.3-8.2) L 09/19/17 04:36 Albumin 2.9 g/dL (3.9-5) L 09/19/17 04:36 Albumin/Globulin Ratio 0.9 % 09/19/17 04:36 Amylase 264 units/L (27-131) H 09/14/17 21:35 Lipase 200 units/L (13-60) H 09/14/17 15:51 Vitamin B12 > 2000 pg/mL (211-911) H 09/16/17 05:25 Folate 11.40 ng/mL (7.3-26.0) 09/16/17 05:25 Urine Color Yellow (Yellow) 09/14/17 16:05 Urine Turbidity Clear (Clear) 09/14/17 16:05 Urine pH 6.0 (5.0-7.0) 09/14/17 16:05 Ur Specific [place] 1.028 (1.003-1.030) 09/14/17 16:05 Urine Protein 30 mg/dl mg/dL (Negative) 09/14/17 16:05 Urine Glucose (UA) Neg mg/dL (Negative) 09/14/17 16:05 Urine Ketones Tr mg/dL (Negative) 09/14/17 16:05 Urine Blood Neg (Negative) 09/14/17 16:05 Urine Nitrite Neg (Negative) 09/14/17 16:05 Urine Bilirubin Neg (Negative) 09/14/17 16:05 Urine Urobilinogen < 2.0 mg/dL (<2.0) 09/14/17 16:05 Ur Leukocyte Esterase Neg (Negative) 09/14/17 16:05 Urine WBC (Auto) 1.0 /HPF (0.0-6.0) 09/14/17 16:05 Urine RBC (Auto) < 1.0 /HPF (0.0-6.0) 09/14/17 16:05 Urine Mucus Few /HPF 09/14/17 16:05 Heparin-induced Plt Ab Positive (Negative) H 09/16/17 05:25 UF Heparin High Dose 0 % Release 09/16/17 05:25 ROJAS UFH Low Dose 0.1 0 % Release 09/16/17 05:25 ROJAS UFH Low Dose 0.5 0 % Release 09/16/17 05:25 Complement C3 104 mg/dL (82-185) 09/15/17 13:27 Complement C4 27 mg/dL (15-53) 09/15/17 13:27 Influenza A (Rapid) Negative (Negative) 09/15/17 Unknown Influenza B (Rapid) Negative (Negative) 09/15/17 Unknown
--- NOTE | 2017-09-26 15:52 | Gastroenterology Consultation ---
History of Present Illness - Reason for Consult Consult date: 09/26/17 rectal bleeding Requesting physician: KRISSY VELEZ - History of Present Illness The patient is a 37 year old man for whom consultation was requested for an episode of rectal bleeding yesterday. He has no prior episodes of bleeding. He is on warfarin for a pulmonary embolus. The patient reports being constipated for 5 days prior to a BM and bleeding which he described as blood dripping from the anus. Blood was not mixed with the stool. He has HIIT, but plt count has been normalizing. No FH of colon neoplasia. He has a recent history of abdominal pain and was found to have small, shallow gastric ulcers last month by endoscopy. He has not been on PPI therapy. Past History Past Medical History: other (pulmonary embolism, DALILA) Past Surgical History: No surgical history Social history: single Family history: no significant family history Medications and Allergies Allergies Allergy/AdvReac Type Severity Reaction Status Date / Time heparin Allergy Severe THROMBOCYTO Verified 09/22/17 11:33 PENIA Home Medications Medication Instructions Recorded Confirmed Last Taken Type Pantoprazole [Protonix TAB] 40 mg PO BID #60 tablet 09/09/17 09/16/17 Unknown Rx Ondansetron [Zofran TAB] 4 mg PO Q8HR PRN #30 tablet 09/25/17 Unknown Rx Warfarin [Coumadin] 2.5 mg PO DAILY@1700 #30 tablet 09/25/17 Unknown Rx Active Meds: Active Medications Acetaminophen (Tylenol) 650 mg PO Q4H PRN PRN Reason: Pain MILD(1-3)/Fever >100.5/PALM Last Admin: 09/15/17 13:05 Dose: 650 mg Bisacodyl (Dulcolax) 10 mg MD QDAY PRN PRN Reason: Constipation unrelieved by MOM Guaifenesin (Robitussin) 200 mg PO Q6H CHRISS Last Admin: 09/26/17 13:41 Dose: Not Given Magnesium Hydroxide (Milk Of Magnesia) 30 ml PO Q4H PRN PRN Reason: Constipation Last Admin: 09/24/17 15:35 Dose: 30 ml Metoclopramide HCl (Reglan) 10 mg IV Q6H PRN PRN Reason: Nausea And Vomiting Morphine Sulfate (Morphine) 2 mg IV Q4H PRN PRN Reason: Pain, Moderate (4-6) Last Admin: 09/25/17 01:13 Dose: 2 mg Ondansetron HCl (Zofran) 4 mg IV Q4H PRN PRN Reason: N/V unrelieved by Reglan Warfarin Sodium (Coumadin Pharmacy To Dose) 1 each PO PKCONSULT [facility] PRN Reason: Protocol Warfarin Sodium (Coumadin) 2.5 mg PO DAILY@1700 [facility] Last Admin: 09/25/17 18:07 Dose: Not Given Review of Systems - Review of Systems Constitutional: no weight loss, no weight gain, no fever, no chills Eyes: no change in vision Ears, Nose, Throat: no decreased hearing, no difficulty swallowing Breasts: deferred Cardiovascular: no chest pain, no edema, no rapid/irregular heart beat, no shortness of breath Respiratory: no cough, no shortness of breath, no wheezing Gastrointestinal: hematochezia, no abdominal pain, no nausea, no vomiting, no diarrhea, no constipation, no melena Rectal: no pain Male Genitourinary: deferred Musculoskeletal: no gait dysfunction, no joint pain, no muscle pain Integumentary: no deferred, no rash, no pruritis Neurological: no head injury, no paralysis Psychiatric: no anxiety Endocrine: no cold intolerance Hematologic/Lymphatic: no easy bruising Allergic/Immunologic: no wheezing Exam - Constitutional Vital Signs: Temp Pulse Resp BP Pulse Ox 98.8 F 77 20 99/61 99 09/26/17 07:18 09/26/17 07:18 09/26/17 07:18 09/26/17 07:18 09/26/17 07:18 General appearance: no acute distress, well-nourished - EENT Eyes: PERRL ENT: hearing intact, clear oral mucosa, dentition normal - Neck Neck: supple, normal ROM, no masses or JVD - Respiratory Respiratory effort: normal Respiratory: bilateral: CTA - Breasts Breasts: deferred - Cardiovascular Rhythm: regular Heart Sounds: Present: S1 & S2. Absent: gallop, rub Extremities: pulses intact, No edema, normal color, Full ROM - Gastrointestinal General gastrointestinal: Present: soft, non-tender, non-distended, normal bowel sounds. Absent: hepatomegaly, splenomegaly, mass Rectal Exam: deferred - Genitourinary Male Genitourinary: deferred - Integumentary Integumentary: Present: clear, warm, dry - Musculoskeletal Musculoskeletal: normal - Neurologic Neurological: alert and oriented x3, strength equal bilaterally - Psychiatric Psychiatric: appropriate mood/affect, intact judgment & insight, memory intact - Labs CBC & Chem 7: 09/26/17 06:56 09/19/17 04:36 Lab Results: Laboratory Results - last 24 hr 09/25/17 09/26/17 09/26/17 17:35 06:56 06:56 WBC 3.4 L RBC 4.80 Hgb 13.5 13.9 Hct 40.7 41.8 MCV 87 MCH 29 MCHC 33 RDW 13.0 L Plt Count 145 Lymph % (Auto) 50.0 H [place] % (Auto) 8.9 H Eos % (Auto) 0.5 Baso % (Auto) 0.3 Lymph # 1.7 [place] # 0.3 Eos # 0.0 Baso # 0.0 Seg Neutrophils % 40.3 Seg Neutrophils # 1.4 L PT 30.4 H INR 2.69 H Laboratory Results - last 24 hr 09/25/17 09/26/17 09/26/17 17:35 06:56 06:56 WBC 3.4 L RBC 4.80 Hgb 13.5 13.9 Hct 40.7 41.8 MCV 87 MCH 29 MCHC 33 RDW 13.0 L Plt Count 145 Lymph % (Auto) 50.0 H [place] % (Auto) 8.9 H Eos % (Auto) 0.5 Baso % (Auto) 0.3 Lymph # 1.7 [place] # 0.3 Eos # 0.0 Baso # 0.0 Seg Neutrophils % 40.3 Seg Neutrophils # 1.4 L PT 30.4 H INR 2.69 H Assessment and Plan - Patient Problems (1) Hematochezia Current Visit: Yes Status: Acute Plan to address problem: Rectal bleeding is likely hemorrhoidal with the present symptoms, age of the patient and anticoagulated status. The risks of neoplasia is low. It is likely more risk to stop anticoagulation for 5 days and do a low yield colonoscopy than the relatively low risk of major bleeding. H&H is stable. Hgb 13.9. Outpatient colonoscopy is favored. He should be on PPI therapy in light of recent PUD diagnosis last month while he requires coumadin. Thank you for asking me to see him in consultation. (2) HTN (hypertension) Current Visit: Yes Status: Acute (3) Pulmonary embolism Current Visit: Yes Status: Acute (4) Thrombocytopenia Current Visit: No Status: Acute
[2017-09-26] MEDS: COUMADIN PO SCH (18:46)
[2017-09-27] MEDS: ROBITUSSIN PO SCH ×3 (00:13→17:44)
[2017-09-27 05:42] LABS: Basophils % (Auto) 0.2 % (0.0-1.8); Eosinophils % (Auto) 0.2 % (0.0-4.3); Hematocrit 39.7 % (35.5-45.6); Hemoglobin 13.5 gm/dl (11.8-15.2); Lymphocytes # (Auto) 1.5 K/mm3 (1.2-5.4); Lymphocytes % (Auto) 48.6 % (13.4-35.0); Mean Corpuscular HGB Conc 34 % (32-34); Mean Corpuscular Hemoglobin 29 pg (28-32); Mean Corpuscular Volume 86 fl (84-94); Monocytes # (Auto) 0.3 K/mm3 (0.0-0.8); Platelet Count 137 K/mm3 (140-440); Red Blood Count 4.61 M/mm3 (3.65-5.03)
[2017-09-27 06:09] LABS: INR 2.45 (0.87-1.13)
[2017-09-27 09:05] VITALS: BP 98/58
--- NOTE | 2017-09-27 09:23 | Hem/Onc Progress Note ---
Assessment and Plan Continue Coumadin 2.5 mg a day. Heme arguelles he can be discharged. I will follow- up on the INRs in my office this week. Patient aware. He has my business card and will make an appointment upon discharge Subjective Date of service: 09/27/17 Interval history: Patient feels better. Events noted. Patient ambulating in the hallways. Denies any new bleeding. Objective - Constitutional Vitals: Last Vital Signs Temp 98.8 F 09/27/17 07:35 Pulse 98 H 09/27/17 07:35 Resp 18 09/27/17 07:35 BP 98/58 09/27/17 07:35 Pulse Ox 97 09/27/17 07:35 Pain Intensity (0-10): denies any pain General appearance: no acute distress Performance status: 1-light work, ambulatory - Neck Neck: supple - Respiratory Respiratory: bilateral: CTA - Cardiovascular Rhythm: regular - Gastrointestinal General gastrointestinal: Present: soft - Labs Lab Results: Laboratory Results - last 24 hr 09/27/17 09/27/17 05:08 05:08 WBC 3.0 L RBC 4.61 Hgb 13.5 Hct 39.7 MCV 86 MCH 29 MCHC 34 RDW 13.0 L Plt Count 137 L Lymph % (Auto) 48.6 H [place] % (Auto) 10.0 H Eos % (Auto) 0.2 Baso % (Auto) 0.2 Lymph # 1.5 [place] # 0.3 Eos # 0.0 Baso # 0.0 Seg Neutrophils % 41.0 Seg Neutrophils # 1.2 L PT 28.2 H INR 2.45 H
[2017-09-27] MEDS ORDERED: PROTONIX PO SCH (10:00)
--- NOTE | 2017-09-27 13:15 | Discharge Summary ---
Providers - Providers Date of Admission: 09/14/17 23:47 Date of discharge: 09/27/17 Attending physician: KRISSY VELEZ 09/15/17 01:20 Consult to Physician [CONS] Routine Consulting Provider: LEN CARVALHO Reason For Exam: fever Notified:: assistant corporate secretary pl call 09/15/17 17:34 Consult to Physician [CONS] Routine Consulting Provider: FAISAL DANIEL Reason For Exam: PE Place consult to:: Dr. Daniel Notified:: Charlene CRUZ Was contact made?: Yes If yes, spoke with:: Dr. Lorenz spoke with Dr. Daniel 09/26/17 14:24 Consult to Physician [CONS] Routine Consulting Provider: TONY MARCUM Reason For Exam: gi bleed Place consult to:: DR. MACRUM Notified:: DR. MARCUM Phone number called:: [facility]HOUSE Was contact made?: Yes If yes, spoke with:: DR. MARCUM Time called:: 14:59 Primary care physician: [employer] Hospitalization Condition: Stable Procedures: CT scan of abdomen and pelvis unremarkable. [address] no bony or soft tissue abnormalities. CT scan of chest shows pulmonary embolism Hospital course: Patient is a 37-year-old with a history of gastric ulcers, esophagitis, and hemorrhoids. Presents with nausea and vomiting 25 weight loss back pain and fever. Patient was just here and discharged several weeks ago with fever patient had extensive workup including Legionella and HIV. Patient started on empiric antibiotics this admission however fever has resolved. Could've been secondary to pulmonary embolism. Upon workup patient was found to have pulmonary embolism started on heparin and hospital course was complicated by development of hit syndrome. Hematology oncology was consulted. It was thought that patient will have an underlying autoimmune disorder and recommended to see allergy as outpatient. Patient platelets returned within normal to 94. Patient hospital course complicated by an episode of rectal bleeding. GI consult was obtained. It was thought the patient's risk of DC Coumadin and having a colonoscopy outweigh the benefits of having the colonoscopy because of the low yield and we'll have to hold off of Coumadin with a pulmonary embolism for several days. Patient to follow up for outpatient colonoscopy if needed. Disposition: DC- TO HOME OR SELFCARE Time spent for discharge: 34 min prolonged secondary to coordination of care with hematology rheumat - Discharge Diagnoses (1) HTN (hypertension) Status: Acute (2) Fever Status: Acute Qualifiers: Fever type: unspecified Qualified Code(s): R50.9 - Fever, unspecified Comment: He was resolved suspect may be secondary to pulmonary embolism is self or underlying rheumatologic disorder. (3) Pneumonia Status: Resolved Qualifiers: Pneumonia type: due to unspecified organism Laterality: bilateral (4) Thrombocytopenia Status: Acute Comment: Ang syndrome resolved platelets now greater than 93. Will need to follow-up to have autoimmune disease workup. Rheumatology. (5) Thrush, oral Status: Resolved (6) Pulmonary embolism Status: Acute Comment: Continue Coumadin followed primary care physician in 3- 5 days. The PT and INR evaluated. Core Measure Documentation - Palliative Care Palliative Care/ Comfort Measures: Not Applicable - Core Measures Any of the following diagnoses?: DVT/PE - VTE Discharge Requirements Deep Vein Thrombosis/Pulmonary Embolism Present on Admission: Yes Has pt received <5 days of overlap therapy or INR<2.0: No (developed HIT syndrome) Anticoagulant overlap therapy prescribed at discharge: No Contraindication No Overlap Therapy order at DC: Drug Interaction (HIT syndrome) Exam - Constitutional Vitals: Temp Pulse Resp BP Pulse Ox 98.8 F 98 H 18 98/58 97 09/27/17 07:35 09/27/17 07:35 09/27/17 07:35 09/27/17 07:35 09/27/17 07:35 General appearance: Present: no acute distress, well-nourished - EENT Eyes: Present: PERRL ENT: hearing intact, clear oral mucosa - Neck Neck: Present: supple, normal ROM - Respiratory Respiratory effort: normal Respiratory: bilateral: CTA - Cardiovascular Heart Sounds: Present: S1 & S2. Absent: rub, click - Extremities Extremities: pulses symmetrical, No edema Peripheral Pulses: within normal limits - Abdominal General gastrointestinal: Present: soft, non-tender, non-distended, normal bowel sounds Male genitourinary: Present: normal - Integumentary Integumentary: Present: clear, warm, dry - Musculoskeletal Musculoskeletal: gait normal, strength equal bilaterally - Psychiatric Psychiatric: appropriate mood/affect, intact judgment & insight - Neurologic Neurologic: CNII-XII intact, moves all extremities Plan Activity: no restrictions, other ([facility] from coumadin) Follow up with: [facility] [Outside] - 7 Days [facility] [Outside] - 7 Days PRIMARY CARE, [Primary Care Provider] - 3-5 Days Forms: Warfarin Discharge Instruction Prescriptions: Ondansetron [Zofran TAB] 4 mg PO Q8HR PRN #30 tablet PRN Reason: Nausea Pantoprazole [Protonix TAB] 40 mg PO BID #60 tablet Warfarin [Coumadin] 2.5 mg PO DAILY@1700 #30 tablet
== END 2017-09-27 15:40 | disposition home or self-care (01) | DRG 871 ==
LOC: ED 15:20 → 3A 23:47 → 4A 09-15 08:27 → 3A 09-21 20:38
PROVIDERS: ADMIT Internal Medicine; ATTEND Internal Medicine
DX: A41.9 Sepsis, unspecified organism (principal); I26.99 Other pulmonary embolism without acute cor pulmonale; J18.9 Pneumonia, unspecified organism; E87.1 Hypo-osmolality and hyponatremia; D68.59 Other primary thrombophilia; M54.5 Low back pain; K26.9 Duodenal ulcer, unspecified as acute or chronic, without hemorrhage or perforation; K25.9 Gastric ulcer, unspecified as acute or chronic, without hemorrhage or perforation; K20.9 Esophagitis, unspecified; D69.6 Thrombocytopenia, unspecified; B37.9 Candidiasis, unspecified; R63.4 Abnormal weight loss; D75.82 Heparin induced thrombocytopenia (HIT); Z68.24 Body mass index [BMI] 24.0-24.9, adult; Z87.442 Personal history of urinary calculi; Z87.891 Personal history of nicotine dependence; Z82.49 Family history of ischemic heart disease and other diseases of the circulatory system; Z88.8 Allergy status to other drugs, medicaments and biological substances
CPT/HCPCS: 36415; 71045; 71260; 72131; 74177; 80048; 80053; 81001; 82140; 82150; 82550; 82553; 82607; 82747; 82805; 83516; 83615; 83690; 84484; 85007; 85014; 85018; 85025; 85045; 85210; 85220; 85301; 85305; 85307; 85610; 85613; 85730; 86022; 86140; 86147; 86160; 87040; 87086; 87400; 93005; 93010; 93970; 96361; 96374; J0883; J1450; J2270; J2405; J2920; J7030; J7040; J7050; Q9967